=== PATIENT | female | born 1960 | race Caucasian/White ===

== ENCOUNTER 2022-11-02 10:18 | Outpatient (OUT) | payer OTHER, SELFPAY ==
--- NOTE | 2022-11-02 10:27 | MM_ITS ---
Patient: MARCELINA LLANOS Exam Date: 11/02/2022 : 1960 Gender:F Ordering : DR. EBONY SEQUEIRA . Admission #: [id number] Family : Order #: [id number] CLICK HERE TO VIEW EXAM RADIOLOGY REPORT PROCEDURE: MM TOMOSYNTHESIS SCREENING BI COMPARISON: MG MAMM SCREEN 3D GIAN CAD, 03/26/2021. MG MAMM SCREEN GIAN W CAD, 09/11/2019. MG MAMM SCREEN GIAN W CAD, 07/18/2018. MG MAMM GIAN SCRN W CAD DIG, 04/10/2013. INDICATIONS: Screening Calculator Name NCI Breast Cancer Risk Assessment Tool 5 Year Breast Cancer Risk 1.10% Lifetime Breast Cancer Risk 5.20% Personal Breast Cancer No Personal Ovarian Cancer No Treatments Thyroidectomy Family Cancers Aunt-paternal with breast cancer at age 40; Aunt-paternal with ovarian cancer at age 70; Uncle-paternal with liver cancer at age 55; Sister with skin cancer at age 50. LOCATION: [facility] BREAST COMPOSITION: Scattered areas fibroglandular density. FINDINGS: DIAGNOSTIC CATEGORY 2--BENIGN FINDING: RIGHT BREAST: No significant suspicious finding. Scattered benign-appearing calcifications are present. No significant change has occurred. LEFT BREAST: No significant suspicious finding. Scattered benign-appearing calcifications are present. No significant change has occurred. RECOMMENDATIONS: ROUTINE MAMMOGRAM AND CLINICAL EVALUATION IN 12 MONTHS. PLEASE NOTE: A NORMAL MAMMOGRAM DOES NOT EXCLUDE THE POSSIBILITY OF BREAST CANCER. A CLINICALLY SUSPICIOUS PALPABLE LUMP SHOULD BE BIOPSIED. Dictated by: Flip Gross M.D. on 11/02/2022 at 14:48 Approved by: Flip Gross M.D. on 11/02/2022 at 14:53
== END 2022-11-02 10:19 | disposition home or self-care (01) ==
LOC: MAMMO 10:21
PROVIDERS: PCP Family Medicine; Visit Provider Family Medicine
DX: Z12.31 Encounter for screening mammogram for malignant neoplasm of breast (principal); Z80.3 Family history of malignant neoplasm of breast; Z80.41 Family history of malignant neoplasm of ovary; Z80.0 Family history of malignant neoplasm of digestive organs; Z80.8 Family history of malignant neoplasm of other organs or systems
CPT/HCPCS: 77063; 77067

== ENCOUNTER 2023-03-14 14:00 | Outpatient (OUT) | payer OTHER, SELFPAY ==
--- NOTE | 2023-03-14 14:23 | XR_ITS ---
The [address] [address] Patient Name: MARCELINA LLANOS MRN: [id number] date: 1960 Sex: F Assigned Patient Location: [facility] Current Patient Location: Accession/Order Number: [id number] Exam Date: 03/14/2023 14:30 Report Date: 03/15/2023 08:05 At the request of: EBONY SEQUEIRA Procedure: XR chest 2V EXAMINATION: XR chest 2V HISTORY: Acute Respiratory Infection J06.9, Cough R05.9 ; productive cough COMPARISON: XR chest 03/20/2019 FINDINGS: LUNGS: Mild haziness and stranding within lung bases. VASCULATURE: No increased pulmonary vasculature. PLEURA: No pneumothorax, effusion, or pleural thickening. CARDIAC: No cardiomegaly or cardiac silhouette abnormality. MEDIASTINUM: No visible mass or adenopathy. BONES: No fracture or visible bone lesion. OTHER: Negative. XR/XR chest 2V IMPRESSION: 1. Trace amount of bibasilar infiltrates versus atelectasis. Electronically authenticated by: LANNY REIS Date: 03/15/2023 08:05
== END 2023-03-14 14:01 | disposition home or self-care (01) ==
LOC: RAD 14:07
PROVIDERS: PCP Family Medicine; Visit Provider Family Medicine
DX: J06.9 Acute upper respiratory infection, unspecified (principal); R05.9 Cough, unspecified
CPT/HCPCS: 71046

== ENCOUNTER 2024-03-15 15:27 | Outpatient (OUT) | payer OTHER, SELFPAY ==
--- NOTE | 2024-03-15 15:32 | MM_ITS ---
Patient Name: MARCELINA LLANOS MR#: [id number] : 1960 Exam Date: 03/15/2024 Ordering Doctor: Non-Staff Physician RADIOLOGY REPORT PROCEDURE: MM TOMOSYNTHESIS SCREENING BI COMPARISON: MM TOMOSYNTHESIS SCREENING BI, 11/02/2022. MG MAMM SCREEN 3D GIAN CAD, 03/26/2021. MG MAMM SCREEN GIAN W CAD, 09/11/2019. MG MAMM GIAN SCRN W CAD DIG, 04/10/2013. INDICATIONS: Screening Calculator Name NCI Breast Cancer Risk Assessment Tool 5 Year Breast Cancer Risk 1.10% Lifetime Breast Cancer Risk 5.00% Personal Breast Cancer No Personal Ovarian Cancer No Treatments Thyroidectomy Family Cancers Aunt-paternal with breast cancer at age 40; Aunt-paternal with ovarian cancer at age 70; Uncle-paternal with liver cancer at age 55; Sister with skin cancer at age 50. LOCATION: [facility] BREAST COMPOSITION: There are scattered areas of fibroglandular density. FINDINGS: DIAGNOSTIC CATEGORY 2--BENIGN FINDING: RIGHT BREAST: No significant suspicious finding. Scattered benign-appearing calcifications are present. No significant change has occurred. LEFT BREAST: No significant suspicious finding. Scattered benign-appearing calcifications are present. No significant change has occurred. RECOMMENDATIONS: ROUTINE MAMMOGRAM AND CLINICAL EVALUATION IN 12 MONTHS. PLEASE NOTE: A NORMAL MAMMOGRAM DOES NOT EXCLUDE THE POSSIBILITY OF BREAST CANCER. A CLINICALLY SUSPICIOUS PALPABLE LUMP SHOULD BE BIOPSIED. Dictated by: Flip Gross M.D. on 03/16/2024 at 11:26 Approved by: Flip Gross M.D. on 03/16/2024 at 11:32
== END 2024-03-15 15:28 | disposition home or self-care (01) ==
PROVIDERS: PCP Family Medicine; Visit Provider Family Medicine
DX: Z12.31 Encounter for screening mammogram for malignant neoplasm of breast (principal); Z80.3 Family history of malignant neoplasm of breast; Z80.41 Family history of malignant neoplasm of ovary; Z80.8 Family history of malignant neoplasm of other organs or systems
CPT/HCPCS: 77063; 77067

== ENCOUNTER 2024-04-19 10:43 | Outpatient (OUT) | payer OTHER, SELFPAY ==
--- NOTE | 2024-04-19 10:47 | XR_ITS ---
[address] [address] Patient Name: MARCELINA LLANOS MRN: [id number] date: 1960 Sex: F Assigned Patient Location: [facility] Current Patient Location: Accession/Order Number: [id number] Exam Date: 04/19/2024 11:15 Report Date: 04/20/2024 09:38 At the request of: NON-STAFF PHYSICIAN Procedure: XR DEXA axial skeleton EXAMINATION: XR DEXA axial skeleton HISTORY: Osteopenia COMPARISON: No relevant comparison available. TECHNIQUE: Dual-energy X-ray absorptiometry (DXA) was performed. FINDINGS: SPINE ANALYSIS: Average bone mineral density is 1.756 g/cm2. T-score (standard deviation relative to young adult mean): 4.8 . HIP ANALYSIS: Lowest bone mineral density is within the left femoral neck, 1.423 g/cm2. T-score (standard deviation relative to young adult mean): 2.8 . XR/XR DEXA axial skeleton IMPRESSION: World Health Organization Classification: Normal - Low Fracture Risk FRAX: Cannot calculate. Pharmacologic treatment recommendations * No uniform recommendation applies to all patients. Management plans must be individualized. * Consider initiating pharmacologic treatment in postmenopausal women and men >= 50 years of age who have the following: Primary fracture prevention: * T-score <= - 2.5 at the femoral neck, total hip, lumbar spine, 33% radius (some uncertainty with existing data) by DXA. * Low bone mass (osteopenia: T-score between - 1.0 and - 2.5) at the femoral neck or total hip by DXA with a 10-year hip fracture risk >= 3% or a 10-year major osteoporosis-related fracture risk >= 20% (i.e., clinical vertebral, hip, forearm, or proximal humerus) based on the [place]-adapted FRAXregistered model. Secondary fracture prevention: * Fracture of the hip or vertebra regardless of BMD [4, 5]. * Fracture of proximal humerus, pelvis, or distal forearm in persons with low bone mass (osteopenia: T-score between - 1.0 and - 2.5). The decision to treat should be individualized in persons with a fracture of the proximal humerus, pelvis, or distal forearm who do not have osteopenia or low BMD [12, 13]. Baljeet MS, Claudia SL, Estrella KL, Qi EM, Carlton KG, AJ, Jayy ES. The clinician's guide to prevention and treatment of osteoporosis. Osteoporos Int. 2021;33(10):4255-7126. doi: 10.1007/[id number]-z. Epub 2021Aug 20. Erratum in: Osteoporos Int. 2021Nov 19;: PMID: [id number]; PMCID: [id number]. Electronically authenticated by: LANNY REIS Date: 04/20/2024 09:38
--- OUTSIDE RECORDS SUMMARY | 2024-04-19 10:53 | XMS_ITS | CCD ---
Author Organization [facility] Care Team Providers Care [employer] Net Developer Name Role Phone Daniela Joseph MD Primary Care Provider MISC, DR OHARA Admitting Unavailable MISC, DR OHARA Attending Unavailable JOSEPH, DR DANIELA Bolden Primary Care Unavailable MISC, DR OHARA Consulting Unavailable MISC, DR OHARA Admitting Unavailable MISC, DR OHARA Attending Unavailable JOSEPH, DR DANIELA oBlden Primary Care Unavailable JOSEPH, DR DANIELA Bolden Consulting Unavailable JOSEPH, DR DANIELA Bolden Admitting Unavailable JOSEPH, DR DANIELA Bolden Attending Unavailable JOSEPH, DR DANIELA Bolden Primary Care Unavailable JOSEPH, DR DANIELA Bolden Consulting Unavailable JOSEPH, DR DANIELA Bolden Admitting Unavailable JOSEPH, DR DANIELA Bolden Attending Unavailable JOSEPH, DR DANIELA Bolden Primary Care Unavailable JOSEPH, DR DANIELA Bolden Consulting Unavailable SEVERINO SOMMERS Admitting Unavailable SEVERINO SOMMERS Attending Unavailable JOSEPH, DR DANIELA Bolden Primary Care Unavailable SEVERINO SOMMERS Consulting Unavailable JOSEPH, DR DANIELA Bolden Admitting Unavailable JOSEPH, DR DANIELA Bolden Attending Unavailable JOSEPH, DR DANIELA Bolden Primary Care Unavailable JOSEPH, DR DANIELA Bolden Consulting Unavailable JOSEPH, DR DANIELA Bolden Admitting Unavailable JOSEPH, DR DANIELA Bolden Attending Unavailable JOSEPH, DR DANIELA Bolden Primary Care Unavailable JOSEPH, DR DANIELA Bolden Consulting Unavailable JOSEPH, DR DANIELA Bolden Admitting Unavailable JOSEPH, DR DANIELA Bolden Attending Unavailable JOSEPH, DR DANIELA Bolden Primary Care Unavailable JOSEPH, DR DANIELA Bolden Consulting Unavailable MISC, DR OHARA Admitting Unavailable MISC, DR OHARA Attending Unavailable JOSEPH, DR DANIELA Bolden Primary Care Unavailable MISC, DR OHARA Consulting Unavailable MD Severino Sommers Attending Provider MD Smith Cedillo Primary Care Provider [phone] Severino Sommers Attending Unavailable Massiel, Ahmad Admitting Unavailable Smith Cedillo Primary Care Unavailable ALEXIS BURT Referring Unavailable DANIELA JOSEPH Primary Care Unavailable ALEXIS BURT Referring Unavailable DANIELA JOSEPH Primary Care Unavailable Smith Cedillo Primary Care Physician [phone] DANIELA JOSEPH Primary Care Unavailable FAYE, JUNIE Referring Unavailable YOGI DANIELA EDFARRUKH Primary Care Unavailable FAYE, JUNIE Attending Unavailable MASSIEL, AHMAD F Attending Unavailable MASSIEL, AHMAD F Referring Unavailable Unallocated Delfina FAITH Provider Primary Care [facility] Smith Cedillo. Attending Unavailable ALEX GARRETT Attending Unavailable Smith Cedillo Referring Unavailable Jarred Shi Attending Unavaila ble MASSIEL, AHMAD F Admitting Unavailable MASSIEL, AHMAD F Attending Unavailable Smith Cedillo. Attending Unavailable Smith Cedillo. Admitting Unavailable Smith Cedillo. Attending Unavailable Smith Cedillo. Admitting Unavailable Smith Cedillo. Attending Unavailable Smith Cedillo. Admitting Unavailable Smith Cedillo. Attending Unavailable Smith Cedillo. Attending Unavailable Smith Cedillo. Attending Unavailable ALEX GARRETT Attending Unavailable Smith Cedillo. Attending Unavailable Smith Cedillo. Attending Unavailable Smith Cedillo. Attending Unavailable Smith Cedillo. Attending Unavailable Smith Cedillo. Attending Unavailable Smith Cedillo. Attending Unavailable Smith Cedillo. Attending Unavailable Daniela Joseph MD Primary Care Provider ALEXIS BURT Attending Unavailable DANIELA JOSEPH Referring Unavailable DANIELA JOSEPH Primary Care Unavailable MASSIEL, AHMAD F Attending Unavailable MASSIEL, AHMAD F Admitting Unavailable MD Smith Cedillo Attending Unavailable COLIN Mendoza Attending Unavailable MD Smith Cedillo Attending Unavailable Allergies Allergy Classification Reported Allergen(s) Allergy Type Date of Onset Reaction(s) Facility (7 sources) oxybutynin; Translations: [OXYBUTYNIN] Drug Allergy 3 Other, Other (See Comments) [facility] (8 sources) predniSONE; Translations: [PREDNISONE] Drug Allergy 9 Unknown [facility] (5 sources) tolterodine; Translations: [TOLTERODINE] Drug Allergy 3 Other, Other (See Comments) [facility] (5 sources) Trospium; Translations: [TROSPIUM] Drug Allergy 3 Other, Other (See Comments) [facility] (7 sources) Clarithromycin; Translations: [clarithromycin] Drug Allergy 4 Diarrhea (finding) [facility] (6 sources) Anabolic steroid (substance); Translations: [anabolic steroids] Drug allergy Feeling angry (finding) [facility] (4 sources) Amoxicillin / Clavulanate; Translations: [amoxicillin-clavu lanate] Drug Allergy Diarrhea (finding) [facility] (3 sources) Clarithromycin Allergy to substance 4 Diarrhea [facility] Medications Current Medications Medication Drug Class(es) Dates Sig (Normalized) Sig (Original) albuterol 0.83 mg/ml inhalation solution (9 sources) beta2-Adrenergic Agonist Start: 08-02-2023 albuterol 0.083% Inh Mandie 3 mL See Instructions, 300 mL, Refill(s) 10, INHALE CONTENTS OF 1 VIAL (3 ML) EVERY 6 HOURS AND NEEDED, [facility], 173, cm, 06/30/23 13:55:00 EST, Height/Length Dosing, 139.9, kg, 06/30/23 13:55:00 EST, Weight Dosing Start Date: 08/02/23 Status: Ordered Start: 06-29-2022 take 2.5 mg by inhal ation every six hours as needed albuterol 0.083% Inh Mandie 3 mL 2.5 mg, 3 mL, Inhalation, q6hr, 100 EA, Refill(s) 1, Q6H and PRN. Please give to the nearest box., [facility] Start Date: 06/29/22 Status: Ordered Start: 10-18-2018 PROAIR HFA 90 mcg/actuation inhaler 10/18/2018 Active albuterol (2.5 M G/3ML) 0.083% nebulizer solution Take 3 mL by nebulization every 8 (eight) hours if needed for wheezing Active Albuterol (Eqv-ProAir HFA) 90 mcg/inh inhalation aerosol (2 sources) Start: 07-27-2022 take 2 puff(s) by inhalation every six hours Albuterol (Eqv-ProAir HFA) 90 mcg/inh inhalation aerosol 2 puff(s), Inhalation, q6hr, 8.5 gm, Refill(s) 1, [facility] #[id number], 173.5, cm, 07/27/22 13:52:00 EDT, Height/Length Dosing, 135.6, kg, 07/27/22 13:52:00 EDT, Weight Dosing Start Date: 07/27/22 Status: Ordered amoxicillin 500 mg oral capsule (1 source) Penicillin-class Antibacterial Start: 05-19-2023 End: 05-26-2023 take 1 capsule by mouth twice daily amoxicillin 500 mg Cap 500 mg = 1 cap(s), Oral, BID, X 7 day(s), # 14 cap(s), Refills(s) 0, Pharmacy: [facility] #[id number], 173, cm, 05/19/23 9:12:00 EST, Height/Length Dosing, 139.3, kg, 05/19/23 9:12:00 EST, Weight Dosing Start Date: 05/19/23 Stop Date: 05/26/23 Status: Ordered Ascorbic Acid (2 sources) Vitamin C ascorbic acid (V YOGI-C ORAL) Take by mouth. Active benzonatate 200 mg oral capsule (1 source) Non-narcotic Antitussive Start: 05-19-2023 End: 05-26-2023 take 1 capsule by mouth three times daily benzonatate 200 mg oral capsule 200 mg = 1 cap(s), Oral, TID, X 7 day(s), # 21 cap(s), Refills(s) 0, [facility]acy: [email or web address] #[id number], 173, cm, 05/19/23 9:12:00 EST, Height/Length Dosing, 139.3, kg, 05/19/23 9:12:00 EST, Weight Dosing Start Date: 05/19/23 Stop Date: 05/26/23 Status: Ordered calcitriol 0.0005 mg oral capsule (2 sources) Vitamin D3 Analog Start: 01-31-2024 End: 04-30-2024 take 1 capsule by mouth once daily calcitriol (Rocaltrol) 0.5 MCG capsule Indications: Postsurgical hypoparathyroidism (CMS/HCC) Take 1 capsule (0.5 mcg) by mouth Daily 90 capsule 01/31/2024 04/30/2024 Active calcium carbonate 1500 mg / cholecalciferol 800 unt chewable tablet (5 sources) Vitamin D Calcium Carb-Cholecalciferol 600-20 MG-MCG chewable tablet Chew 1 tablet in the morning and 1 tablet at noon and 1 tablet in the evening. Active take 1 tablet by sylvia th three times daily calcium carbonate-vitamin D3 (CALTRATE 6 00 + D) 600 mg (1,500 mg)-800 unit chew Take 1 tablet by mouth three times daily. 0 Active Comment on above: Take 1 tablet by sylvia th three times daily. cephalexin 500 mg oral capsule (2 sources) Cephalosporin Antibacterial Start: 03-06-20 CEPHalexin (KEFLEX) 500 mg capsule Take 1 capsule (500 mg total) by mouth. 03/06/2024 Active cholecalciferol 0.125 mg oral tablet (5 sources) Vitamin D Start: 02-04-20 take 1 tablet by mouth once in the morning D-5000 125 MCG (5000 UT) tablet Take 5,000 Units by mouth in the morning. 02/03/2023 Active take 1 capsule by mo [facility] every other day, then take 2 capsules by mouth once daily cholecalciferol, vitamin D3, (VITAMIN D3 ) 5,000 units capsule Take 1 capsule (5,000 Units total) by mouth every other day. Takes two capsules daily. Active citalopram 40 mg oral tablet (11 sources) Serotonin Reuptake Inhibitor Start: 08-22-2023 take 1 tablet by mouth once daily citalopram (CeleXA) 40 MG tablet Take 40 mg by mouth Daily 10/24/2023 Active Start: 04-26-2023 citalopram 40 mg Tab 20 mg = 0.5 tab(s), Oral, Daily, # 90 tab(s), Refills(s) 0, Pharmacy: [email or web address] #[id number], 173, cm, 04/26/23 10:14:00 EST, Height/Length Dosing, 140.2, kg, 04/26/23 10:14:00 EST, Weight Dosing Start Date: 04/26/23 Status: Ordered Start: 04-26-2023 take 1 tablet by sylvia once daily citalopram 40 mg Tab 40 mg = 1 tab(s), Oral, Daily, # 90 tab(s), Refills(s) 0, Pharmacy: [facility] #[id number], 173, cm, 04/26/23 10:14:00 EST, Height/Length Dosing, 140.2, kg, 04/26/23 10:14:00 EST, Weight Dosing Start Date: 04/26/23 Status: Ordered citalopram (Jenniffer XA) 20 mg tablet Take 1 tablet (20 mg total) by mouth. Active Comment on above: Take 20 mg by mouth daily at bedtime. estradiol 0.1 mg/ml vaginal cream (2 sources) Estrogen Start: 11-20-19 estradioL (ESTRACE) 0.01 % (0.1 mg/gram) vaginal cream INSERT 1 GRAM VAGINALLY 2 TO 3 TIMES WEEKLY 42.5 g 2 11/19/2020 Active fluconazole 150 mg oral tablet (2 sources) Azole Antifungal Start: 06-30-19 fluconazole 150 mg Tab See Instructions, Take one tablet at the onset of symptoms; may repeat in 72 hours, # 2 tab(s), Refills(s) 0, Pharmacy: [email or web address] #[id number], 173, cm, 06/30/23 13:55:00 EST, Height/Length Dosing, 139.9, kg, 06/30/23 13:55:00 EST, Weight Dosing Start Date: 06/30/23 Status: Ordered 120 actuat fluticasone propionate 0.22 mg/actuat metered dose inhaler (8 sources) Corticosteroid Start: 03-14-20 take 1 puff(s) by inhalation twice daily Flovent HFA 220 Aerosol = 1 puff(s), Inhalation, BID, # 12 gram, Refills(s) 0, Pharmacy: [email or web address] #[id number], 173, cm, 03/14/23 13:44:00 EST, Height/Length Dosing, 140, kg, 03/14/23 13:44:00 EST, Weight Dosing Start Date: 03/14/23 Status: Ordered Start: 07-27-2022 Flonase 0.05 m g/inh Webster 2 spray(s), Nasal, Daily, 16 gram, Refill(s) 0, each nostril, [facility] #[id number], 173.5, cm, 07/27/22 13:52:00 EDT, Height/Length Dosing, 135.6, kg, 07/27/22 13:52:00 EDT, Weight Dosing Start Date: 07/27/22 Status: Ordered levothyroxine sodium 0.125 mg oral tablet (11 sources) l-Thyroxine Start: 10-24-2023 End: 04-30-2024 take 1 tablet by mouth once daily levothyroxine (Synthroid, Levoxyl) 125 MCG tablet Indications: Postoperative hypothyroidism (CMS/HCC) Take 1 tablet (125 mcg) by mouth Daily 34 tablet 2 01/31/2024 04/30/2024 Active Start: 08-30-2023 take 1 tablet by sylvia th once daily levothyroxine 125 mcg (0.125 mg) Tab See Instructions, take 1 tablet by mouth once daily, # 90 tab(s), Refills(s) 0, Pharmacy: [facility] #[id number], 173, cm, 08/22/23 11:06:00 EDT, Height/Length Dosing, 140, kg, 08/22/23 11:06:00 EDT, Weight Dosing Start Date: 08/30/23 Status: Ordered Start: 08-30-2022 take 1 tablet by sylvia th once daily levothyroxine 125 mcg (0.125 mg) Tab 125 mcg = 1 tab(s), Oral, Daily, # 90 tab(s), Refills(s) 3, Pharmacy: [facility] #[id number], 173.5, cm, 07/27/22 13:52:00 EDT, Height/Length Dosing, 135.6, kg, 07/27/22 13:52:00 EDT, Weight Dosing Start Date: 08/30/22 Status: Ordered Start: 07-22-2020 levothyroxine (SYNTHROID) 125 mcg tablet TAKE 1 TABLET DAILY 90 tablet 3 07/22/2020 Active Comment on above: TAKE 1 TABLET DAILY losartan potassium 25 mg oral tablet (11 sources) Angiotensin 2 Receptor Majo Start: 10-18-2018 losartan (COZAAR) 25 mg tablet 10/18/2018 Active Comment on above: Take 25 mg by mouth once daily. magnesium gluconate 250 mg oral tablet (3 sources) Start: 05-19-2023 take 3 tablets by mouth once daily magnesium gluconate 250 mg oral tablet See Instructions, Refill(s) 0, 3 orally daily Start Date: 05/19/23 Status: Ordered take 1 tablet by sylvia th in the morning, then take 1 tablet by mouth in the evening, then take 1 tablet by mouth at bedtime magnesium, as gluconate, (Magonate) 500 (27 Mg) MG tablet Take 275 mg by mouth in the morning and 275 mg in the evening and 275 mg before bedtime. Active magnesium oxide 400 mg oral tablet (8 sources) Start: 12-10-2023 take 1 tablet by mouth once daily magnesium oxide (Mag-Ox) 400 (240 Mg) MG tablet Take 1 tablet by mouth Daily 12/10/2023 Active Start: 03-15-2023 take 2 tablets by [facility] twice daily magnesium oxide 400 mg Tab 800 mg = 2 tab(s), Oral, BID, # 360 tab(s), Refills(s) 1, Pharmacy: [facility], 173, cm, 03/14/23 13:44:00 EST, Height/Length Dosing, 140, kg, 03/14/23 13:44:00 EST, Weight Dosing Start Date: 03/15/23 Status: Ordered Start: 10-16-2021 take 1 tablet by sylvia in the morning magnesium oxide (MAGOX) 400 mg tablet Take 1 tablet (400 mg total) by mouth in the morning. 10/16/2021 Active take 1 capsule by [facility] once daily, then take 1 capsule by mouth three times daily magnesium oxide 400 mg magnesium cap Take 400 mg by mouth once daily. Sun Sat - 400 mg TID Tue - 400 mg BID 0 Active Comment on above: Take 400 mg by mouth once daily. Sun Sat - 400 mg TID Tue - 400 mg BID melatonin 1 mg oral tablet (2 sources) melatonin (CIRCADIN) tablet Take by mouth nightly. Active methylPREDNISolone 4 mg oral tablet (1 source) Corticosteroid Start: End: Medrol 4 mg Tab = 1 packet(s), Oral, As Directed, as directed on package labeling, X 6 day(s), # 21 tab(s), Refills(s) 0, [facility]: [facility] #[id number], 173, cm, 05/19/23 9:12:00 EST, Height/Length Dosing, 139.3, kg, 05/19/23 9:12:00 EST, Weight Dosing Start Date: 05/19/23 Stop Date: 05/25/23 Status: Ordered 24 hr metoprolol succinate 50 mg extended release oral tablet (11 sources) beta-Adrenergic Majo Start: 023 take 1 tablet by mouth once daily metoprolol succinate 50 mg ER Tab 50 mg = 1 tab(s), Oral, Daily, # 90 tab(s), Refills(s) 1, Pharmacy: [facility], 173, cm, 10/25/23 11:13:00 EDT, Height/Length Dosing, 142, kg, 10/25/23 11:13:00 EDT, Weight Dosing Start Date: 11/10/23 Status: Ordered Start: 11-26-2018 TOPROL XL 50 m g 24 hr tablet 11/26/2018 Active Start: 04-10-2012 take 1 tablet by sylvia th once daily metoprolol succinate XL, long acting, 25 mg 24 hr tablet Take 1 tablet by mouth once daily. 60 tablet 3 04/10/2012 Active Comment on above: Take 1 tablet by sylvia th once daily. 24 hr mirabegron 50 mg extended release oral tablet (10 sources) beta3-Adrenergic Agonist Start: 01-27-2023 take 1 tablet by mouth every twenty-four hours in the morning Myrbetriq 50 MG 24 hr tablet Take 1 tablet by mouth in the morning. 01/27/2023 Active Start: 06-29-2022 End: 03-13-2024 take 1 tablet by mouth once daily in the morning mirabegron (MYRBETRIQ) 50 mg tablet extended release 24 hr Indications: Mixed stress and urge urinary incontinence take 1 tablet by mouth every morning 90 tablet 3 03/13/2024 Active mupirocin 0.02 mg/mg topical ointment (6 sources) RNA Synthetase Inhibitor Antibacterial Start: 08-02-2023 mupirocin Top 2% Oint See Instructions, 22 gm, Refill(s) 51, APPLY 1 APPLICATION TOPICALLY THREE TIMES A DAY, [facility], 173, cm, 06/30/23 13:55:00 EST, Height/Length Dosing, 139.9, kg, 06/30/23 13:55:00 EST, Weight Dosing Start Date: 08/02/23 Status: Ordered Start: 10-30-2018 mupirocin (SILVER TROBAN) 2 % ointment apply to affected area three times a day if needed 0 10/30/2018 Active 14 actuat parathyroid hormone 0.075 mg/actuat cartridge (10 sources) Parathyroid Hormone Start: 12-11-2018 NATPARA 75 mcg/dose cartridge 12/11/2018 Active Comment on above: Inject 75 mcg subcut aneously once daily. Vitamin C 500 mg oral tablet, chewable (4 sources) Start: 07-27-2022 take 1 tablet by mouth once daily Vitamin C 500 mg oral tablet, chewable 500 mg = 1 tab(s), Chewed, Daily, # 30 tab(s), Refills(s) 0 Start Date: 07/27/22 Status: Ordered Vitamin D3 10,000 intl units oral capsule (4 sources) Start: 07-27-2022 take 1 capsule by mouth once daily Vitamin D3 10,000 intl units oral capsule See Instructions, 5000 units a day, Refills(s) 0 Start Date: 07/27/22 Status: Ordered Completed/Discontinued Medications Medication Drug Class(es) Dates Sig (Normalized) Sig (Original) COMPOUNDED PRESCRIPTION (2 sources) take 1 capsule by mouth at bedtime COMPOUNDED PRESCRIPTION Sleepessence, one capsule by mouth at bedtime 0 Active Comment on above: Sleepessence, one ca psule by mouth at bedtime ergocalciferol, vitamin D2, (VITAMIN D2 ORAL) (1 source) End: 03-04-2022 take 24914 [IU] by mouth every week ergocalciferol, vitamin D2, (VITAMIN D2 ORAL) Take 50,000 Units by mouth one time a week. 0 03/04/2022 Discontinued Comment on above: Take 50,000 Units by mouth one time a week. Misc Medication (6 sources) Start: 08-22-2023 Misc Medication See Instructions, magnsium glyconate 275mg Take 3 orally twice a day Start Date: 08/22/23 Status: Ordered Start: 07-27-2022 Misc Medicatio n 1 capsuled QD of Focus Factor Start Date: 07/27/22 Status: Ordered phentermine hydrochloride 37.5 mg oral capsule (2 sources) Sympathomimetic Amine Anorectic Start: 02-27-2024 End: 03-13-2024 phentermine 37.5 MG capsule Take 1 capsule (37.5 mg total) by mouth. 02/27/2024 03/13/2024 Discontinued Start: 01-24-2024 take 1 capsule by [facility] once daily Adipex-P 37.5 mg oral capsule 37.5 mg = 1 cap(s), Oral, Daily, # 30 cap(s), Refills(s) 0, Pharmacy: [facility] #[id number], 173, cm, 01/24/24 9:44:00 EDT, Height/Length Dosing, 141.7, kg, 01/24/24 9:44:00 EDT, Weight Dosing Start Date: 01/24/24 Status: Ordered tetracycline hydrochloride 500 mg oral capsule (2 sources) Tetracycline-class Antimicrobial tetracycline (SUMYCI N) 500 mg cap Take 500 mg by mouth once daily. Pt takes 1-2 times Daily 0 Active Comment on above: Take 500 mg by mouth once daily. Pt takes 1-2 times Daily vitamin D3-folic acid 250 mcg (10,000 unit)-1 mg tab (2 sources) Start: 03-04-2022 vitamin D3-folic acid 250 mcg (10,000 unit)-1 mg tab Take one(1) tablet daily. Ok to substitute 30 tablet 1 03/04/2022 Active Start: 03-04-2022 End: 03-04-2022 vitamin D3-folic acid 250 mc g (10,000 unit)-1 mg tab Take one(1) tablet daily. Ok to substitute 30 tablet 1 03/04/2022 03/04/2022 Discontinued Comment on above: Take one(1) tablet d aily. Ok to substitute Problems Active Problems Problem Classification Problem Date Documented Date Episodic/Chronic Acquired foot deformities (2 sources) Acquired hallux malleus; Translations: [Other hammer toe(s) (acquired), unspecified foot] Onset: 4 04-09-2014 Chronic Administrative/socia l admission (5 sources) Patient encounter status; Translations: [Dietary counseling and surveillance] 01-31-2024 Episodic Anxiety disorders (4 sources) Anxiety 07-27-2022 Chronic Asthma (4 sources) Exercise-induced asthma 07-27-2022 Chronic Cancer of thyroid (4 sources) Malignant neoplasm of thyroid gland; Translations: [Malignant tumor of thyroid gland] Onset: 4 06-30-2023 Chronic Cancer of thyroid (4 sources) History of malignant neoplasm of thyroid 07-27-2022 Episodic Comment on above: thyroid was removed in 2009 Cardiac and circulatory congenital anomalies (6 sources) Perimembranous ventricular septal defect ; Translations: [Ventricular septal defect] Onset: 2 04-14-2012 Chronic Complications of surgical procedures or medical care (9 sources) Postprocedural hypothyroidism; Translations: [Postoperative hypothyroidism] Onset: 2 Chronic Essential hypertension (2 sources) Hypertensive disorder; Translations: [Essential (primary) hypertension] Onset: 2 04-14-2012 Chronic Genitourinary symptoms and ill-defined conditions (7 sources) Mixed urinary incontinence; Translations: [Mixed incontinence] Onset: 9 03-13-2024 Chronic Nutritional deficiencies (11 sources) Vitamin D deficiency, unspecified; Translations: [Vitamin D deficiency] Onset: 2 Chronic Nutritional deficiencies (4 sources) Calcium deficiency 07-27-2022 Episodic Other connective tissue disease (1 source) Lateral epicondylitis 10-25-2023 Episodic Other endocrine disorders (5 sources) Hypoparathyroidism, unspecified; Translations: [HYPOPARATHYROIDISM UNSPECIFIED] Onset: 2 Chronic Other endocrine disorders (4 sources) Hypoparathyroidism 07-27-2022 Chronic Other lower respiratory disease (2 sources) Cough 05-19-2023 Episodic Other nutritional; endocrine; and metabolic disorders (2 sources) Body mass index 30+ - obesity; Translations: [Obesity, unspecified] Onset: 2 04-14-2012 Chronic Other nutritional; endocrine; and metabolic disorders (3 sources) Hypocalcemia; Translations: [Hypocalcemia] Onset: 7 03-14-2017 Chronic Other nutritional; endocrine; and metabolic disorders (5 sources) Hypomagnesemia; Translations: [HYPOMAGNESEMIA] Onset: 2 Chronic Other nutritional; endocrine; and metabolic disorders (5 sources) Hypocalcemia; Translations: [HYPOCALCEMIA] Onset: 7 Chronic Other nutritional; endocrine; and metabolic disorders (4 sources) Body mass index 40+ - severely obese 03-14-2023 Chronic Other nutritional; endocrine; and metabolic disorders (1 source) Obesity, unspecified; Translations: [Obesity (BMI 35.0-39.9 without comorbidity)] Onset: 2 Chronic Other nutritional; endocrine; and metabolic disorders (2 sources) Hypomagnesemia; Translations: [Hypomagnesemia] 01-31-2024 Chronic Other nutritional; endocrine; and metabolic disorders (2 sources) Severe obesity; Translations: [Class 3 severe obesity due to excess calories without serious comorbidity with body mass index (BMI) of 45.0 to 49.9 in adult ([facility])] 01-31-2024 Chronic Other screening for suspected conditions (not mental disorders or infectious disease) (2 sources) Encounter for screening mammogram for malignant neoplasm of breast; Translations: [Encounter for screening for osteoporosis] Onset: 4 Episodic Pleurisy; pneumothorax; pulmonary collapse (3 sources) Atelectasis 03-23-2023 Episodic Prolapse of female genital organs (1 source) Other female genital prolapse; Translations: [Other female genital prolapse] Onset: 3 Chronic Residual codes; unclassified (6 sources) Obstructive sleep apnea syndrome; Translations: [Obstructive sleep apnea (adult) (pediatric)] Onset: 2 04-14-2012 Chronic Thyroid disorders (7 sources) Hypothyroidism; Translations: [Other specified hypothyroidism] Onset: 7 03-15-2017 Chronic Unclassified (4 sources) Non-smoker 03-14-2023 Unclassified (1 source) Annual Exam Onset: 4 Past or Other Problems Problem Classification Problem Date Documented Da te Episodic/Chronic Malaise and fatigue (2 sources) Fatigue; Translations: [Other fatigue] Onset: 04-14-2012 04-14-2012 Episodic Nausea and vomiting (2 sources) Nausea; Translations: [Nausea] Onset: 03-14-2017 03-14-2017 Episodic Nonspecific chest pain (2 sources) Atypical chest pain; Translations: [Other chest pain] Onset: 04-14-2012 04-14-2012 Episodic Other connective tissue disease (2 sources) Enthesopathy of ankle AND/OR tarsus; Translations: [Other enthesopathy of unspecified foot and ankle] Onset: 04-09-2014 04-09-2014 Episodic Other connective tissue disease (2 sources) Enthesopathy; Translations: [Enthesopathy, unspecified] Onset: 04-09-2014 04-09-2014 Episodic Unclassified (2 sources) Onset: 12-18-2018 12-18-2018 Urinary tract infections (4 sources) Urinary tract infection, site not specified; Translations: [UTI SITE NOT SPECIFIED] Onset: 11-17-2021 Episodic Results Test Name Value Interpretation Reference Range Facility Ambulatory Visit Summaryon 1 05-28-2023 Ambulatory Visit Summary Ambulatory Visi t Summary MARCELINA CANO :1960 Visit Date:03/27/2024 Ambulatory Visit Instructions Your Diagnosis Adult BMI 45.0-49.9 kg/sq m Morbid obesity with BMI of 45.0-49.9, adult Nonsmoker Your Care Team Attending Physician - Smith Cedillo MD Primary Care Physician - Smith Cedillo MD This Is Your Medications List Non-Formulary Medication (Misc Medication) Non-Formulary Medication (Misc Medication) albuterol (albuterol 0.083% Inh Mandie 3 mL) ascorbic acid (Vitamin C 500 mg oral tablet, chewable) cholecalciferol (Vitamin D3 10,000 intl units oral capsule) citalopram (citalopram 40 mg Tab) fluticasone (Flovent HFA 220 Aerosol) fluticasone nasal (Flonase 0.05 mg/inh Webster) levothyroxine (levothyroxine 125 mcg (0.125 mg) Tab) losartan (losartan 25 mg Tab) metoprolol (metoprolol succinate 50 mg ER Tab) mirabegron (Myrbetriq 50 mg oral tablet, extended release) mupirocin topical (mupirocin Top 2% Oint) parathyroid hormone (Natpara 75 mcg/dose subcutaneous injection) Procedures Performed Cholecystectomy and exploration of bile duct, Colonoscopy, Hysterectomy, Thyroidectomy. Discharge Vitals Temperature (Temporal Artery) 36.7 ???C Heart Rate (Peripheral) 74 Respiratory Rate 16 Blood Pressure 144/92 Height 173 cm Height 68 in Weight 140.9 kg Weight 310.631 lb BMI 47.08 What to do next Scheduled Follow-Up Appointments Tuesday 10:30 AM EST With: Mamadou FAITH, Smith Timmons Where: [place] [id number]- Medications What How Much When Why Instructions Unchanged albuterol (albuterol 0.083% Inh Mandie 3 mL) See instructions INHALE CONTENTS OF 1 VIAL (3 ML) EVERY 6 HOURS AND NEEDED Unchanged ascorbic acid (Vitamin C 500 mg oral tablet, chewable) 1 Tablets Chewed Every day Unchanged cholecalciferol (Vitamin D3 10,000 intl units oral capsule) See instructions 5000 units every other day Unchanged citalopram (citalopram 40 mg Tab) 0.5 Tablets By Mouth Every day Unchanged fluticasone (Flovent HFA 220 Aerosol) 1 Puffs Inhalation 2 times a day Acute URI Cough Unchanged fluticasone nasal (Flonase 0.05 mg/ inh Webster) 2 Sprays Nasal Inhalation Every day each nostril Unchanged levothyroxine (levothyroxine 125 mcg (0.125 mg) Tab) See instructions take 1 tablet by mouth once daily Unchanged losartan (losartan 25 mg Tab) See instructions TAKE 1 TABLET DAILY Unchanged metoprolol (metoprolol succinate 50 mg ER Tab) 1 Tablets By Mouth Every day Unchanged mirabegron (Myrbetriq 50 mg oral tablet, extended release) 30 EA, take 1 tablet by mouth every morning Unchanged mupirocin topical (mupirocin Top 2% Oint) See instructions APPLY 1 APPLICATION TOPICALLY THREE TIMES A DAY Unchanged Non-Formulary Medication (Misc Medication) See instructions magnsium glyconate 275mg Take 3 orally twice a day Unchanged Non-Formulary Medication (Misc Medication) See instructions 2 capsules of the focus factor daily Unchanged parathyroid hormone (Natpara 75 mcg/ dose subcutaneous injection) 75 Microgram Subcutaneous Every day Allergies anabolic steroids (Angry) Biaxin (Diarrhea) Augmentin (Diarrhea) Problems Ongoing - Any problem that you are currently receiving treatment for. Anxiety Asthma, exercise induced Calcium deficiency Hx of thyroid cancer Hypoparathyroidism Hypothyroidism Labial cyst Nonsmoker Obesity, Class III, BMI 40-49.9 (morbid obesity) JESSICA on CPAP Tennis elbow Ventricular septal defect (VSD) Vitamin D deficiency Patient Survey You may receive a survey via text or e-mail asking about your office visit. Please share your experience with us by completing your survey. We appreciate your feedback and thank you for choosing us for your care. Bridger Rios [facility] Family Medicine Office/Clini c Noteon 03-27-2024 Family Medicine Office/Clinic Note Family Medicine Office/Clinic Note Chief Complaint The patient presents with difficulty sleeping and is considering weight management strategies. HPI Staff Marcelina is a 63 year old female presenting for one month follow up weight Weight management Sleeping well:Yes, 6-8 hours no not sleeping well at all, 3-5 Chest pain:No Tremors:No Headaches:No Heart fluttering:No Blurred Vision:No Starting Weight: 311.74 Weight last visit: 308. Weight this visit: 310. questions/concerns: stopped the weight loss pill was binding her up and couldn't sleep Would like a different avenue for the weight did mention provitalize to you unsure if should proceed with that History of Present Illness The patient is a 63-year-old female presenting with sleep disturbances. She reports an inability to sleep well and notes she has been feeling bound up recently. She uses two digestive supplements to maintain normal function. Her sleep issues persist despite using a chewable supplement from [place] that previously helped her achieve sleep. She reports being out of this supplement and experiencing sleep disruptions. She discusses using THC with CBD. However, she is cautious with dosages and still trials variations for optimal rest. Regarding weight management, she is exploring alternative methods, including considering options like Wegovy and weight loss injections, particularly due to the high costs through prescription versus online alternatives. She is looking to invest in weight loss solutions that fit her financial concerns, noting a difference in pricing from $1,600 to $100 a month through different sources. The discussion also touches on buying through compounding pharmacies, which offer prices in the range of $200 to $300. Patient is also having issues with her hypocalcemia. Patient is seeing Dr. Sommers but is concerned that medication that she has will no longer be covered. Review of Systems PHQ Score Initial Depression Screen Score: 0 SCORE Physical Exam Vitals & Measurements T: 36.7 ???C(Temporal Artery) HR: 74(Peripheral) RR: 16 BP: 144/92 SpO2: 95% HT: 68 in HT: 173 cm WT: 140.9 kg WT: 310.631 lb BMI: 47.08 General: alert, no acute distress ENMT: oral mucosa moist Cardiovascular: Regular rate and rhythm, normal peripheral perfusion Respiratory: Lungs clear to auscultation, respirations non labored Extremities: no deformity, no trauma Neurological: oriented x 4, level of consciousness appropriate for age, CN II-XII intact, motor strength equal & normal bilaterally, speech normal Abdomen: Soft, Non-tender, Non-distended, + Bowel sounds Assessment/Plan 1. Sleep disorder, unspecified (G47.9) Explored the use of CVD and THC for relaxation and sleep. Addressed potential challenges with dosing consistency in THC products. Highlighted issues with federal regulations prohibiting controlled substances alongside THC. Introduced alternative weight loss medications with possible sleep benefits. 2. Adult BMI 45.0-49.9 kg/sq m (Z68.42: Body mass index [BMI] 45.0-49.9, adult) BMI education added 3. Morbid obesity with BMI of 45.0-49.9, adult (E66.01: Morbid (severe) obesity due to excess calories) Discussed viable weight management strategies, including the possibility of using Wegovy or other weight loss injections. The patient is considering online services due to cost concerns ($100/month versus $1,600/month traditionally). Emphasized exercise and dietary changes as crucial adjuncts. Recommended verifying the legitimacy and safety of online medications and discussing potential adverse effects. 4. Nonsmoker (Z78.9: Other specified health status) Please continue not to smoke 5. Hypoparathyroidism (E20.9: Hypoparathyroidism, unspecified) 6. Calcium deficiency (E58: Dietary calcium deficiency) Orders: citalopram, 20 mg = 0.5 tab(s), Oral, Daily, # 90 tab(s), Refills(s) 1, Pharmacy: [facility] #[id number], 173, cm, 08/22/23 11:06:00 EDT, Height/Length Dosing, 140, kg, 08/22/23 11:06:00 EDT, Weight Dosing 63-year-old female with history of morbid obesity presenting with sleep disturbances and seeking weight management strategies. Her morbid obesity, with a documented BMI between 45.0 and 49.9 kg/sqm, poses significant health risks, and the patient is considering medication options to manage her condition. Sleep disturbances are also noted, possibly exacerbated by her weight and use of supplements. Follow-up No qualifying data available Problem List/Past Medical History Ongoing Anxiety Asthma, exercise induced Calcium deficiency Hx of thyroid cancer Hypoparathyroidism Hypothyroidism Labial cyst Nonsmoker Obesity, Class III, BMI 40-49.9 (morbid obesity) JESSICA on CPAP Tennis elbow Ventricular septal defect (VSD) Vitamin D deficiency Historical No qualifying data Procedure/Surgical History Cholecystectomy and exploration of bile duct, Colonoscopy, Hysterectomy, Thyroidectomy. Medications albuterol 0.083% Inh Mandie 3 (more content not included)... Normal [facility] Comment on above: Result Comment: Elec tronically Signed By: Mamadou FAITH, Smith Timmons\.br\Date and Time Signed: 03/27/24 12:44 EST DBT Breast - bilateral alisha irenejorge 03-26-2024 Interpretation and review of laboratory results Normal [facility] Diagnostic Category 2-- Benign Recommendations: Routine mammogram and clinical evaluation in 12 months. PENRAD FINDINGS: Diagnostic category 2--Benign Finding: Right breast: No significant suspicious finding. Scattered benign- appearing calcifications are present. No significant change has occurred. Left breast: No significant suspicious finding. Scattered benign - appearing calcifications are present. No significant change has occurred. [facility] D[facility] Breast - bilateral alisha irenejorge 03-15-2024 Radiology Study observation (narrative) [facility] Ambulatory Visit Summaryon 1 05-06-2023 Ambulatory Visit Summary Ambulatory Visi t Summary MARCELINA CANO :1960 Visit Date:03/06/2024 Ambulatory Visit Instructions Your Diagnosis BMI 45.0-49.9, adult Nonsmoker Your Care Team Attending Physician - Shweta Salazar Primary Care Physician - Smith Cedillo MD This Is Your Medications List Non-Formulary Medication (Misc Medication) Non-Formulary Medication (Misc Medication) albuterol (albuterol 0.083% Inh Mandie 3 mL) ascorbic acid (Vitamin C 500 mg oral tablet, chewable) cephalexin (Keflex 500 mg Cap) cholecalciferol (Vitamin D3 10,000 intl units oral capsule) citalopram (citalopram 40 mg Tab) fluconazole (fluconazole 150 mg Tab) fluticasone (Flovent HFA 220 Aerosol) fluticasone nasal (Flonase 0.05 mg/inh Webster) levothyroxine (levothyroxine 125 mcg (0.125 mg) Tab) losartan (losartan 25 mg Tab) metoprolol (metoprolol succinate 50 mg ER Tab) mirabegron (Myrbetriq 50 mg oral tablet, extended release) mupirocin topical (mupirocin Top 2% Oint) parathyroid hormone (Natpara 75 mcg/dose subcutaneous injection) Procedures Performed Cholecystectomy and exploration of bile duct, Colonoscopy, Hysterectomy, Thyroidectomy. Discharge Vitals Temperature (Tympanic) 37.2 ???C Heart Rate (Peripheral) 74 Respiratory Rate 18 Blood Pressure 138/78 Height 173 cm Height 68 in Weight 138.15 kg Weight 304.568 lb BMI 46.16 What to do next Scheduled Follow-Up Appointments 2023 9:30 AM EST With: Mamadou FAITH, Smith Timmons Where: [place] [phone]- Medications What How Much When Why Instructions Unchanged albuterol (albuterol 0.083% Inh Mandie 3 mL) See instructions INHALE CONTENTS OF 1 VIAL (3 ML) EVERY 6 HOURS AND NEEDED Unchanged ascorbic acid (Vitamin C 500 mg oral tablet, chewable) 1 Tablets Chewed Every day Unchanged cephalexin (Keflex 500 mg Cap) 1 Capsules By Mouth Every 12 hours Pickup at [facility] Unchanged cholecalciferol (Vitamin D3 10,000 intl units oral capsule) See instructions 5000 units every other day Unchanged citalopram (citalopram 40 mg Tab) 1 Tablets By Mouth Every day Unchanged fluconazole (fluconazole 150 mg Tab) See instructions Sinusitis nasal Take one tablet at the onset of symptoms; may repeat in 72 hours Unchanged fluticasone (Flovent HFA 220 Aerosol) 1 Puffs Inhalation 2 times a day Acute URI Cough Unchanged fluticasone nasal (Flonase 0.05 mg/ inh Webster) 2 Sprays Nasal Inhalation Every day each nostril Unchanged levothyroxine (levothyroxine 125 mcg (0.125 mg) Tab) See instructions take 1 tablet by mouth once daily Unchanged losartan (losartan 25 mg Tab) See instructions TAKE 1 TABLET DAILY Unchanged metoprolol (metoprolol succinate 50 mg ER Tab) 1 Tablets By Mouth Every day Unchanged mirabegron (Myrbetriq 50 mg oral tablet, extended release) 30 EA, take 1 tablet by mouth every morning Unchanged mupirocin topical (mupirocin Top 2% Oint) See instructions APPLY 1 APPLICATION TOPICALLY THREE TIMES A DAY Unchanged Non-Formulary Medication (Misc Medication) See instructions magnsium glyconate 275mg Take 3 orally twice a day Unchanged Non-Formulary Medication (Misc Medication) 1 capsuled QD of Focus Factor Unchanged parathyroid hormone (Natpara 75 mcg/ dose subcutaneous injection) 75 Microgram Subcutaneous Every day Pharmacy Information [id number]: [address] [place], [place] [id number] [phone] Allergies anabolic steroids (Angry) Biaxin (Diarrhea) Augmentin (Diarrhea) Problems Ongoing - Any problem that you are currently receiving treatment for. Anxiety Asthma, exercise induced Calcium deficiency Hx of thyroid cancer Hypoparathyroidism Hypothyroidism Nonsmoker Obesity, Class III, BMI 40-49.9 (morbid obesity) JESSICA on CPAP Tennis elbow Ventricular septal defect (VSD) Vitamin D deficiency Patient Survey You may receive a survey via text or e-mail asking about your office visit. Please share your experience with us by completing your survey. We appreciate your feedback and thank you for choosing us for your care. Normal [facility] Family Medicine Office/Clini c Noteon 03-06-2024 Family Medicine Office/Clinic Note Family Medicine Office/Clinic Note HPI Staff Marcelina is a 63 year old female presenting with ruptured cyst in vaginal area Onset: 4 days ago Pt states she messed with it and it got bigger and then Tuesday she couldn't hardly walk. Applied warm compress and did have some drainage. C/o discomfort . Pt does wear pad daily due to leaking. Pt hasn't started ATB yet she is picking them up today. pt wou8ld like refill on mupirocin ointment. Pt states she is stopping the phentermine due to becoming constipated and unable to sleep. History of Present Illness pt presents today with labial cyst Review of Systems PHQ Score Initial Depression Screen Score: 0 SCORE Physical Exam Vitals & Measurements T: 37.2 ???C(Tympanic) HR: 74(Peripheral) RR: 18 BP: 138/78 SpO2: 98% HT: 68 in HT: 173 cm WT: 138.15 kg WT: 304.568 lb BMI: 46.16 General: alert, no acute distress ENMT: oral mucosa moist, no pharyngeal erythema or exudate Cardiovascular: regular rate and rhythm, normal peripheral perfusion Respiratory: Lungs CTA, respirations non labored Extremities: no deformity, no trauma Neurological: oriented x 4, LOC appropriate for age, CN II-XII intact, motor strength equal & normal bilaterally, speech normal labial abscess left upper labia Assessment/Plan 1. Labial cyst (N90.7: Vulvar cyst) pt presents today with labial abscess on left upper labia. pt has been using warm compresses which helped it open a little and start oozing. area was cleansed with Betadine and 1ml of 1% lidocaine was injection at lower portion of abscess. moderate amount of blood drainage was removed. area was cleansed and antibiotics were sent in by Dr. Cedillo yesterday. pt will pick those up now and start taking them today. RTC as needed 2. BMI 45.0-49.9, adult (Z68.42: Body mass index [BMI] 45.0-49.9, adult) BMI education given 3. Nonsmoker (Z78.9: Other specified health status) continue not smoking Orders: cephalexin, 500 mg = 1 cap(s), Oral, q12hr, # 20 cap(s), Refills(s) 0, Pharmacy: [id number], 173, cm, 02/27/24 9:51:00 EST, Height/Length Dosing, 140, kg, 02/27/24 9:51:00 EST, Weight Dosing cephalexin, 500 mg = 1 cap(s), Oral, q12hr, # 20 cap(s), Refills(s) 0, Pharmacy: [id number], 173, cm, 03/06/24 11:03:00 EST, Height/Length Dosing, 138.2, kg, 03/06/24 11:03:00 EST, Weight Dosing Follow-up No qualifying data available Problem List/Past Medical History Ongoing Anxiety Asthma, exercise induced Calcium deficiency Hx of thyroid cancer Hypoparathyroidism Hypothyroidism Labial cyst Nonsmoker Obesity, Class III, BMI 40-49.9 (morbid obesity) JESSICA on CPAP Tennis elbow Ventricular septal defect (VSD) Vitamin D deficiency Historical No qualifying data Procedure/Surgical History Cholecystectomy and exploration of bile duct, Colonoscopy, Hysterectomy, Thyroidectomy. Medications albuterol 0.083% Inh Mandie 3 mL, See Instructions citalopram 40 mg Tab, 40 mg= 1 tab(s), Oral, Daily, 1 refills Flonase 0.05 mg/inh Webster, 2 spray(s), Nasal, Daily Flovent HFA 220 Aerosol, 1 puff(s), Inhalation, BID fluconazole 150 mg Tab, See Instructions Keflex 500 mg Cap, 500 mg= 1 cap(s), Oral, q12hr levothyroxine 125 mcg (0.125 mg) Tab, See Instructions losartan 25 mg Tab, See Instructions metoprolol succinate 50 mg ER Tab, 50 mg= 1 tab(s), Oral, Daily, 1 refills Misc Medication, See Instructions Misc Medication mupirocin Top 2% Oint, See Instructions Myrbetriq 50 mg oral tablet, extended release Natpara 75 mcg/dose subcutaneous injection, 75 mcg, SubCutaneous, Daily Vitamin C 500 mg oral tablet, chewable, 500 mg= 1 tab(s), Chewed, Daily Vitamin D3 10,000 intl units oral capsule, See Instructions Allergies anabolic steroids (Angry) Biaxin (Diarrhea) Augmentin (Diarrhea) Social History Alcohol - Low Risk, 07/27/2022 Current, 1-2 times per month, Household alcohol concerns: No., 07/27/2022 Substance Abuse - Denies Substance Abuse, 06/29/2022 Household substance abuse concerns: No., 07/27/2022 Tobacco - Denies Tobacco Use, 06/29/2022 Never (less than 100 in lifetime) Tobacco Use:. Never Smokeless Tobacco Use:. Cigarettes, Household tobacco concerns: No., 03/06/2024 Family History Alcoholism: Mother. Diabetes mellitus type 2: Brother. Hyperlipidemia: Sister. Parkinson disease: Brother. Immunizations Vaccine Date Status Comments influenza virus vaccine, inactivated - Not Given Postpone due to refusal influenza virus vaccine, inactivated 02/13/2022 Recorded SARS-CoV-2 (COVID-19) [id number] 02/13/2022 Recorded SARS-CoV-2 (COVID-19) mRNA BNT-162b2 vax 02/11/2021 Recorded SARS-CoV-2 (COVID-19) mRNA BNT-162b2 vax 07/11/2020 Recorded SARS-CoV-2 (COVID-19) mRNA BNT-162b2 vax 06/20/2020 Recorded influenza virus vaccine, inactivated 02/05/2015 Recorded influenza virus vaccine, inactivated 01/29/2015 Recorded Normal [facility] Comment on above: Result Comment: Elec tronically Signed By: Shweta Salazar\.magda\Date and Time Signed: 03/06/24 14:40 EST Ambulatory Visit Summaryon 1 04-28-2023 Ambulatory Visit Summary Ambulatory Visi t Summary MARCELINA CANO :1960 Visit Date:02/27/2024 Ambulatory Visit Instructions Your Diagnosis BMI 45.0-49.9, adult Morbid obesity with BMI of 45.0-49.9, adult Nonsmoker Hypothyroidism Your Care Team Attending Physician - Smith Cedillo MD Primary Care Physician - Smith Cedillo MD This Is Your Medications List Non-Formulary Medication (Misc Medication) Non-Formulary Medication (Misc Medication) albuterol (albuterol 0.083% Inh Mandie 3 mL) ascorbic acid (Vitamin C 500 mg oral tablet, chewable) cholecalciferol (Vitamin D3 10,000 intl units oral capsule) citalopram (citalopram 40 mg Tab) fluconazole (fluconazole 150 mg Tab) fluticasone (Flovent HFA 220 Aerosol) fluticasone nasal (Flonase 0.05 mg/inh Webster) levothyroxine (levothyroxine 125 mcg (0.125 mg) Tab) losartan (losartan 25 mg Tab) metoprolol (metoprolol succinate 50 mg ER Tab) mirabegron (Myrbetriq 50 mg oral tablet, extended release) mupirocin topical (mupirocin Top 2% Oint) parathyroid hormone (Natpara 75 mcg/dose subcutaneous injection) phentermine (Adipex-P 37.5 mg oral capsule) Procedures Performed Cholecystectomy and exploration of bile duct, Colonoscopy, Hysterectomy, Thyroidectomy. Discharge Vitals Temperature (Oral) 36.6 ???C Heart Rate (Peripheral) 64 Respiratory Rate 20 Blood Pressure 136/80 Height 173 cm Height 68 in Weight 140.0 kg Weight 308 lb BMI 46.78 What to do next Scheduled Follow-Up Appointments 2023 9:30 AM EST With: Smith Cedillo MD Where: [place] [phone]- Medications What How Much When Why Instructions Unchanged albuterol (albuterol 0.083% Inh Mandie 3 mL) See instructions INHALE CONTENTS OF 1 VIAL (3 ML) EVERY 6 HOURS AND NEEDED Unchanged ascorbic acid (Vitamin C 500 mg oral tablet, chewable) 1 Tablets Chewed Every day Unchanged cholecalciferol (Vitamin D3 10,000 intl units oral capsule) See instructions 5000 units every other day Unchanged citalopram (citalopram 40 mg Tab) 1 Tablets By Mouth Every day Unchanged fluconazole (fluconazole 150 mg Tab) See instructions Sinusitis nasal Take one tablet at the onset of symptoms; may repeat in 72 hours Unchanged fluticasone (Flovent HFA 220 Aerosol) 1 Puffs Inhalation 2 times a day Acute URI Cough Unchanged fluticasone nasal (Flonase 0.05 mg/ inh Webster) 2 Sprays Nasal Inhalation Every day each nostril Unchanged levothyroxine (levothyroxine 125 mcg (0.125 mg) Tab) See instructions take 1 tablet by mouth once daily Unchanged losartan (losartan 25 mg Tab) See instructions TAKE 1 TABLET DAILY Unchanged metoprolol (metoprolol succinate 50 mg ER Tab) 1 Tablets By Mouth Every day Unchanged mirabegron (Myrbetriq 50 mg oral tablet, extended release) 30 EA, take 1 tablet by mouth every morning Unchanged mupirocin topical (mupirocin Top 2% Oint) See instructions APPLY 1 APPLICATION TOPICALLY THREE TIMES A DAY Unchanged Non-Formulary Medication (Misc Medication) See instructions magnsium glyconate 275mg Take 3 orally twice a day Unchanged Non-Formulary Medication (Misc Medication) 1 capsuled QD of Focus Factor Unchanged parathyroid hormone (Natpara 75 mcg/ dose subcutaneous injection) 75 Microgram Subcutaneous Every day Unchanged phentermine (Adipex-P 37.5 mg oral capsule) 1 Capsules By Mouth Every day HTN (hypertension), benign Hypoparathyroidism Hypothyroidism Anxiety BMI 45.0-49.9, adult Hx of thyroid cancer Nonsmoker Class 3 severe obesity due to excess calories with body mass index (BMI) of 45.0 to 49.9 in adult Sleep disorder, unspecified Ventricular septal defect Fatty (change of) liver, not elsewhere classified Allergies anabolic steroids (Angry) Biaxin (Diarrhea) Augmentin (Diarrhea) Problems Ongoing - Any problem that you are currently receiving treatment for. Anxiety Asthma, exercise induced Calcium deficiency Hx of thyroid cancer Hypoparathyroidism Hypothyroidism Nonsmoker Obesity, Class III, BMI 40-49.9 (morbid obesity) JESSICA on CPAP Tennis elbow Ventricular septal defect (VSD) Vitamin D deficiency Patient Survey You may receive a survey via text or e-mail asking about your office visit. Please share your experience with us by completing your survey. We appreciate your feedback and thank you for choosing us for your care. [facility] Family Medicine Office/Clini c Noteon 02-27-2024 Family Medicine Office/Clinic Note Family Medicine Office/Clinic Note Chief Complaint Concerns regarding weight management and associated stress. HPI Staff Marcelina is a 63 year old female presenting for one month follow up weight SALLY added adipex for weight loss Weight management Sleeping well:Yes, 6-8 hours Chest pain:No Tremors:No Headaches:No Heart fluttering:No Blurred Vision:No Starting Weight: 311.74 Weight last visit: Weight this visit: 308.0 questions/concerns: when is a good time to take her adipex History of Present Illness The patient is a 63-year-old female presenting with concerns regarding weight management and associated emotional eating. The patient has a BMI of 45.0-49.9, indicating morbid obesity, which has been a persistent issue. The patient reports stress and emotional eating habits exacerbated by familial stressors, including her sister's ongoing health issues, which include kidney disease and recent episodes of pneumonia and C. diff. These familial concerns have impacted her appetite, leading to fluctuations in her eating habits. The patient has historically managed hypothyroidism, which could contribute to weight issues, but details of current therapy are not provided. She is exploring options for physical activity, including potential membership at a local recreation center to support her weight management goals. The patient identifies as a nonsmoker. She is considering engaging with hospice services for her sister and is dealing with the emotional challenge of her sister's fluctuating compliance with dialysis. Review of Systems PHQ Score Initial Depression Screen Score: 2 SCORE - Constitutional: Reports stress-related weight fluctuations and appetite changes. - Psychological: Reports stress and emotional challenges related to family dynamics. Physical Exam Vitals & Measurements T: 36.6 ???C(Oral) HR: 64(Peripheral) RR: 20 BP: 136/80 SpO2: 96% HT: 68 in HT: 173 cm WT: 140.0 kg WT: 308 lb BMI: 46.78 General: alert, no acute distress ENMT: oral mucosa moist Cardiovascular: Regular rate and rhythm, normal peripheral perfusion Respiratory: Lungs clear to auscultation, respirations non labored Extremities: no deformity, no trauma Neurological: oriented x 4, level of consciousness appropriate for age, CN II-XII intact, motor strength equal & normal bilaterally, speech normal Abdomen: Complaining of stomach issues, no blood work done for stomach, soft, non-tender, non-distended, + bowel sounds Assessment/Plan 1. Eating disorder, unspecified (F50.9) Discussed impact of emotional stress on eating habits. Counseling or support services might be beneficial in addressing stress and coping mechanisms. 2. Hypothyroidism (E03.9: Hypothyroidism, unspecified) No specific management changes discussed in this visit. Recommend monitoring and reviewing thyroid function as necessary. Ordered: phentermine, 37.5 mg = 1 cap(s), Oral, Daily, # 30 cap(s), Refills(s) 0, Pharmacy: [facility], 173, cm, 02/27/24 9:51:00 EST, Height/Length Dosing, 140, kg, 02/27/24 9:51:00 EST, Weight Dosing 3. BMI 45.0-49.9, adult (Z68.42: Body mass index [BMI] 45.0-49.9, adult) Continue discussion on lifestyle modifications and exercise, possibly utilizing local facilities for structured physical activity to aid weight management. Ordered: phentermine, 37.5 mg = 1 cap(s), Oral, Daily, # 30 cap(s), Refills(s) 0, Pharmacy: [facility], 173, cm, 02/27/24 9:51:00 EST, Height/Length Dosing, 140, kg, 02/27/24 9:51:00 EST, Weight Dosing 4. Morbid obesity with BMI of 45.0-49.9, adult (E66.01: Morbid (severe) obesity due to excess calories) BMI education added. Ordered: phentermine, 37.5 mg = 1 cap(s), Oral, Daily, # 30 cap(s), Refills(s) 0, Pharmacy: [facility], 173, cm, 02/27/24 9:51:00 EST, Height/Length Dosing, 140, kg, 02/27/24 9:51:00 EST, Weight Dosing 5. Nonsmoker (Z78.9: Other specified health status) Reinforce positive lifestyle choice and continue abstinence. Ordered: phentermine, 37.5 mg = 1 cap(s), Oral, Daily, # 30 cap(s), Refills(s) 0, Pharmacy: [facility], 173, cm, 02/27/24 9:51:00 EST, Height/Length Dosing, 140, kg, 02/27/24 9:51:00 EST, Weight Dosing Total time spent preparing for the encounter, evaluating and assessing the patient, documenting the visit, and ordering appropriate follow-up work was 35 minutes. Follow-up No qualifying data available Problem List/Past Medical History Ongoing Anxiety Asthma, exercise induced Calcium deficiency Hx of thyroid cancer Hypoparathyroidism Hypothyroidism Nonsmoker Obesity, Class III, BMI 40-49.9 (morbid obesity) JESSICA on CPAP Tennis elbow Ventricular septal defect (VSD) Vitamin D deficiency Historical No qualifying data Procedure/Surgical History Cholecystectomy and exploration of bile duct, Colonoscopy, Hysterectomy, Thyroidectomy. Medications Adipex-P 37.5 mg oral capsule, 37.5 mg= 1 cap(s), Ora (more content not included)... Normal [facility] Comment on above: Result Comment: Elec tronically Signed By: Mamadou FAITH, Smith Ardon.br\Date and Time Signed: 02/27/24 10:49 EST CHEMISTRYOrdered By: Ayana Paredes on 01-25-2024 25-hydroxyvitamin D3 [Mass/Vol] 71.1 ng/mL Normal 30.0 - 100.0 ng/mL Remisol Chem CHEMISTRYOrdered By: SYSTEM SYSTEM on 01-25-2024 Albumin [Mass/Vol] 4.3 g/dL Normal 3.3 - 5.0 gm/dL Remisol Chem Albumin/Globulin [Mass ratio] 1.2 {ratio} Normal 1.1 - 2.2 Remisol Chem ALP [Catalytic activity/Vol] 95 [iU]/d Normal 21 - 98 Int._Unit/L Remisol Chem ALT No additional P-5'-P [Catalytic activity/Vol] 41 [iU]/d Normal 6 - 46 Int._Unit/L Remisol Chem Anion gap [Moles/Vol] 12 mmol/L Normal 6 - 16 mEq/L R emisol Chem AST [Catalytic activity/Vol] 48 [iU]/d High 5 - 43 Int._Unit/L Remisol Chem Bilirubin [Mass/Vol] 0.8 mg/dL Normal 0.0 - 1 .1 mg/dL Remisol Chem Calcium [Mass/Vol] 9.0 mg/dL Normal 8.9 - 11. 1 mg/dL Remisol Chem Chloride [Moles/Vol] 99 mmol/L Low 101 - 1 11 mmol/L Remisol Chem CO2 [Moles/Vol] 30 mmol/L Normal 21 - 31 mmol/L Remisol Chem Creatinine [Mass/Vol] 0.7 mg/dL Normal 0.5 - 1.3 mg/dL Remisol Chem eGFR 97 mL/min/1.73 m2 Normal >=59mL/min /1 .73 m2 Remisol Chem Globulin (S) [Mass/Vol] 3.5 g/dL Normal 1.4 - 4.0 gm/dL Remisol Chem Glucose [Mass/Vol] 133 mg/dL Normal 55 - 199 mg/dL Remisol Chem Magnesium [Mass/Vol] 1.7 mg/dL Normal 1.3 - 2 .4 mg/dL Remisol Chem Potassium [Moles/Vol] 4.2 mmol/L Normal 3.5 - 5.3 mmol/L Remisol Chem Protein [Mass/Vol] 7.8 g/dL Normal 6.0 - 7.8 gm/dL Remisol Chem Sodium [Moles/Vol] 137 mmol/L Normal 135 - 145 mmol/L Remisol Chem Urea nitrogen [Mass/Vol] 14 mg/dL Normal 5 - 21 mg/d L Remisol Chem Urea nitrogen/Creatinine [Mass ratio] 20 mg/mg Normal 10 - 20 Remisol Chem CMPon 01-25-2024 Albumin [Mass/Vol] 4.3 g/dL Normal 3.3-5.0 [facility] Comment on above: Performed By: #### 2 [id number] #### [facility] [address] [place] [address] Albumin/Globulin (S) [Mass conc ratio] 1.2 Normal 1.1-2.2 [facility] Comment on above: Performed By: #### 2 [id number] #### [facility] [address] [place] [address] ALP [Catalytic activity/Vol] 95 Int._Unit/L Normal 21-98 [facility] Comment on above: Performed By: #### 2 [id number] #### [facility] [address] [place] [address] ALT No additional P-5'-P [Catalytic activity/Vol] 41 Int._Unit/L Normal 6-46 [facility] Comment on above: Performed By: #### 2 [id number] #### [facility] [address] [place] [address] Anion gap [Moles/Vol] 12 mmol/L Normal 6-16 [facility] Comment on above: Performed By: #### 2 [id number] #### [facility] [address] [place] [address] AST [Catalytic activity/Vol] 48 Int._Unit/L High 5-43 [facility] Comment on above: Performed By: #### 2 [id number] #### [facility] [address] [place] [address] Bilirubin [Mass/Vol] 0.8 mg/dL Normal 0.0-1.1 [facility] Comment on above: Performed By: #### 2 [id number] #### [facility] [address] [place] [address] Calcium [Mass/Vol] 9.0 mg/dL Normal 8.9-11.1 [facility] Comment on above: Performed By: #### 2 [id number] #### [facility] [address] [place] [address] Chloride [Moles/Vol] 99 mmol/L Low 101-111 [facility] Comment on above: Performed By: #### 2 [id number] #### [facility] [address] [place] [address] CO2 [Moles/Vol] 30 mmol/L Normal 21-31 [facility] Comment on above: Performed By: #### 2 [id number] #### [facility] [address] [place] [address] Creatinine [Mass/Vol] 0.7 mg/dL Normal 0.5-1.3 [facility] Comment on above: Performed By: #### 2 [id number] #### [facility] [address] [place] [address] Globulin (S) [Mass/Vol] 3.5 g/dL Normal 1.4-4.0 [facility] Comment on above: Performed By: #### 2 [id number] #### [facility] [address] [place] [address] Glucose [Mass/Vol] 133 mg/dL Normal 55-199 [facility] Comment on above: Performed By: #### 2 [id number] #### [facility] [address] [place] [address] Potassium [Moles/Vol] 4.2 mmol/L Normal 3.5-5.3 [facility] Comment on above: Performed By: #### 2 [id number] #### [facility] [address] [place] [address] Protein [Mass/Vol] 7.8 g/dL Normal 6.0-7.8 [facility] Comment on above: Performed By: #### 2 [id number] #### [facility] [address] [place] [address] Sodium [Moles/Vol] 137 mmol/L Normal 135-145 [facility] Comment on above: Performed By: #### 2 [id number] #### [facility] [address] [place] [address] Urea nitrogen [Mass/Vol] 14 mg/dL Normal 5-21 [facility] Comment on above: Performed By: #### 2 [id number] #### [facility] [address] [place] [address] Urea nitrogen/Creatinine [Mass ratio] 20 No Units Normal 10-20 [facility] Comment on above: Performed By: #### 2 [id number] #### [facility] [address] [place] [address] Magnesiumon 01-25-2024 Magnesium [Mass/Vol] 1.7 mg/dL Normal 1.3-2.4 [facility] Comment on above: Performed By: #### 2 [id number] #### [facility] [address] [place] [address] Vitamin D 25 Hydroxyon 01-24 25-hydroxyvitamin D3 [Mass/Vol] 71.1 ng/mL Normal 30.0-100.0 [facility] Comment on above: Performed By: #### 5 [id number] #### [facility] [address] [place] [address] eGFRon 01-25-2024 eGFR 97 mL/min/1.73 m2 Normal >=59 [facility] Comment on above: Performed By: #### 1 [id number] #### [facility] [address] [place] [address] Ambulatory Visit Summaryon Ambulatory Visit Summary Ambulatory Visi t Summary MARCELINA CANO :1960 Visit Date:01/24/2024 Ambulatory Visit Instructions Your Diagnosis HTN (hypertension), benign Hypoparathyroidism Hypothyroidism Anxiety BMI 45.0-49.9, adult Hx of thyroid cancer Nonsmoker Class 3 severe obesity due to excess calories with body mass index (BMI) of 45.0 to 49.9 in adult Your Care Team Attending Physician - Smith Cedillo MD Primary Care Physician - Smith Cedillo MD This Is Your Medications List Non-Formulary Medication (Misc Medication) Non-Formulary Medication (Misc Medication) albuterol (albuterol 0.083% Inh Mandie 3 mL) ascorbic acid (Vitamin C 500 mg oral tablet, chewable) cholecalciferol (Vitamin D3 10,000 intl units oral capsule) citalopram (citalopram 20 mg Tab) citalopram (citalopram 40 mg Tab) fluconazole (fluconazole 150 mg Tab) fluticasone (Flovent HFA 220 Aerosol) fluticasone nasal (Flonase 0.05 mg/inh Webster) levothyroxine (levothyroxine 125 mcg (0.125 mg) Tab) losartan (losartan 25 mg Tab) metoprolol (metoprolol succinate 50 mg ER Tab) mirabegron (Myrbetriq 50 mg oral tablet, extended release) mupirocin topical (mupirocin Top 2% Oint) parathyroid hormone (Natpara 75 mcg/dose subcutaneous injection) Procedures Performed Cholecystectomy and exploration of bile duct, Colonoscopy, Hysterectomy, Thyroidectomy. Discharge Vitals Temperature (Temporal Artery) 36.6 ?C Heart Rate (Peripheral) 66 Respiratory Rate 16 Blood Pressure 136/82 Height 173 cm Height 68 in Weight 141.7 kg Weight 311.74 lb BMI 47.35 What to do next Scheduled Follow-Up Appointments Tuesday 9:30 AM EST With: Mamadou FAITH, Smith Timmons Where: [facility] [place] [id number]- Medications What How Much When Why Instructions Unchanged albuterol (albuterol 0.083% Inh Mandie 3 mL) See instructions INHALE CONTENTS OF 1 VIAL (3 ML) EVERY 6 HOURS AND NEEDED Unchanged ascorbic acid (Vitamin C 500 mg oral tablet, chewable) 1 Tablets Chewed Every day Unchanged cholecalciferol (Vitamin D3 10,000 intl units oral capsule) See instructions 5000 units a day Unchanged citalopram (citalopram 20 mg Tab) 1 Tablets By Mouth Every day Unchanged citalopram (citalopram 40 mg Tab) 1 Tablets By Mouth Every day Unchanged fluconazole (fluconazole 150 mg Tab) See instructions Sinusitis nasal Take one tablet at the onset of symptoms; may repeat in 72 hours Unchanged fluticasone (Flovent HFA 220 Aerosol) 1 Puffs Inhalation 2 times a day Acute URI Cough Unchanged fluticasone nasal (Flonase 0.05 mg/ inh Webster) 2 Sprays Nasal Inhalation Every day each nostril Unchanged levothyroxine (levothyroxine 125 mcg (0.125 mg) Tab) See instructions take 1 tablet by mouth once daily Unchanged losartan (losartan 25 mg Tab) See instructions TAKE 1 TABLET DAILY Unchanged metoprolol (metoprolol succinate 50 mg ER Tab) 1 Tablets By Mouth Every day Unchanged mirabegron (Myrbetriq 50 mg oral tablet, extended release) 30 EA, take 1 tablet by mouth every morning Unchanged mupirocin topical (mupirocin Top 2% Oint) See instructions APPLY 1 APPLICATION TOPICALLY THREE TIMES A DAY Unchanged Non-Formulary Medication (Misc Medication) See instructions magnsium glyconate 275mg Take 3 orally twice a day Unchanged Non-Formulary Medication (Misc Medication) 1 capsuled QD of Focus Factor Unchanged parathyroid hormone (Natpara 75 mcg/ dose subcutaneous injection) 75 Microgram Subcutaneous Every day Allergies anabolic steroids (Angry) Biaxin (Diarrhea) Augmentin (Diarrhea) Problems Ongoing - Any problem that you are currently receiving treatment for. Anxiety Asthma, exercise induced Calcium deficiency Hx of thyroid cancer Hypoparathyroidism Hypothyroidism Nonsmoker Obesity, Class III, BMI 40-49.9 (morbid obesity) JESSICA on CPAP Tennis elbow Ventricular septal defect (VSD) Vitamin D deficiency Patient Survey You may receive a survey via text or e-mail asking about your office visit. Please share your experience with us by completing your survey. We appreciate your feedback and thank you for choosing us for your care. Normal [facility] Family Medicine Office/Clini c Noteon 01-24-2024 Family Medicine Office/Clinic Note Family Medicine Office/Clinic Note HPI Staff Loreto is a 63 year old female presenting for 3 month follow up hypoparathyroid, hypothyroid and anxiety labs done 08/22/23 Patient is here for follow up on Thyroid Disease. Do you have any of the following symptoms? Change in energy level? yes a little Weight change? yes weight gain Heat/cold intolerance? yes feet cold all the time Hair/skin/nail changes? no Change in bowels? no Last TSH: TSH: 3.26 mcIU/mL (08/22/23 11:40:00) Follow up for Mental Status: Medication adherence- Yes, takes medication as prescribed Medication refill needed: _ Suicidal thoughts-Not at this time Most recent ALCON: 9 Most recent PHQ: 1 questions/concerns: wants to discuss changing the losartan has read things about it History of Present Illness The patient is a 63-year-old female presenting primarily with complaints of tightness in the back and potential chest area. The onset of this symptom was not specifically dated, but current status reveals the patient perceives herself as knotted up and notices a disparity in shoulder alignment, with one shoulder lower than the other. This musculoskeletal issue has not been previously addressed by a chiropractor or through a massage, which the patient mentioned intending to pursue. Additionally, the patient is concerned about her medication management, specifically regarding losartan, which she worries may affect her kidney function or liver status due to a reported fatty liver condition. However, the primary issue is confirmation that losartan, an angiotensin II receptor antagonist, is benign for her liver. Enalapril, from the same drug class, was discussed as having similar implications, and losartan's protective effects on cardiac health were acknowledged. The patient's history also includes morbid obesity, and she has expressed interest in a weight-loss medication. Despite previous success using Weight Watchers and an active lifestyle that included walking four miles and playing tennis, hypothyroidism complicates current weight management, as does the history of thyroid cancer limiting medication options. Furthermore, the patient presents with a history of essential hypertension and ventricular septal defect, the latter being congenital and not surgically addressed due to its manageable nature without presenting complications. Sleep management has incorporated various approaches, including Flexeril and melatonin, now transitioned to a CBD chewable for sleep induction. She denies any direct cardiac issues barring the ventricular defect. Review of Systems PHQ Score Initial Depression Screen Score: 1 SCORE Physical Exam Vitals & Measurements T: 36.6 ?C(Temporal Artery) HR: 66(Peripheral) RR: 16 BP: 136/82 SpO2: 97% HT: 68 in HT: 173 cm WT: 141.7 kg WT: 311.74 lb BMI: 47.35 General: alert, no acute distress ENMT: oral mucosa moist Cardiovascular: Regular rate and rhythm, normal peripheral perfusion Respiratory: Lungs clear to auscultation, respirations non labored Extremities: no deformity, no trauma, right shoulder lower than left shoulder Neurological: oriented x 4, level of consciousness appropriate for age, CN II-XII intact, motor strength equal & normal bilaterally, speech normal Abdomen: Soft, Non-tender, Non-distended, + Bowel sounds Assessment/Plan 1. HTN (hypertension), benign (I10: Essential (primary) hypertension) The patient is currently on losartan, with an acknowledgment of its cardiovascular benefits. Further discussions affirmed the safety of its usage concerning liver health, despite a personal history of a fatty liver, with a recommendation to continue the current regimen. Ordered: phentermine, 37.5 mg = 1 cap(s), Oral, Daily, # 30 cap(s), Refills(s) 0, Pharmacy: [facility], 173, cm, 01/24/24 9:44:00 EDT, Height/Length Dosing, 141.7, kg, 01/24/24 9:44:00 EDT, Weight Dosing 2. Hypoparathyroidism (E20.9: Hypoparathyroidism, unspecified) Endocrine surveillance continues, with pending follow-up with an theatrical scenic designer to re-evaluate management in light of forthcoming medication adjustments. Ordered: phentermine, 37.5 mg = 1 cap(s), Oral, Daily, # 30 cap(s), Refills(s) 0, Pharmacy: [facility], 173, cm, 01/24/24 9:44:00 EDT, Height/Length Dosing, 141.7, kg, 01/24/24 9:44:00 EDT, Weight Dosing 3. Hypothyroidism (E03.9: Hypothyroidism, unspecified) Stable, will have endo monitor. Labs to be done later today Ordered: phentermine, 37.5 mg = 1 cap(s), Oral, Daily, # 30 cap(s), Refills(s) 0, Pharmacy: [facility], 173, cm, 01/24/24 9:44:00 EDT, Height/Length Dosing, 141.7, kg, 01/24/24 9:44:00 EDT, Weight Dosing 4. Anxiety (F41.9: Anxiety disorder, unspecified) The patient's anxiety management was not directly addressed and remains under continuous evaluation. However, the overlap with sleep-related issues has been partially explored through the introduction of CBD alternatives and consid (more content not included)... [facility] Comment on above: Result Comment: Elec tronically Signed By: Smith Cedillo MD\.br\Date and Time Signed: 01/24/24 10:24 EDT Ambulatory Visit Summaryon 0 10-25-2023 Ambulatory Visit Summary Ambulatory Visi t Summary MARCELINA CANO :1960 Visit Date:10/25/2023 Ambulatory Visit Instructions Your Care Team Attending Physician - Smith Cedillo MD Primary Care Physician - Smith Cedillo MD This Is Your Medications List Non-Formulary Medication (Misc Medication) Non-Formulary Medication (Misc Medication) albuterol (albuterol 0.083% Inh Mandie 3 mL) ascorbic acid (Vitamin C 500 mg oral tablet, chewable) cholecalciferol (Vitamin D3 10,000 intl units oral capsule) citalopram (citalopram 40 mg Tab) fluconazole (fluconazole 150 mg Tab) fluticasone (Flovent HFA 220 Aerosol) fluticasone nasal (Flonase 0.05 mg/inh Webster) levothyroxine (levothyroxine 125 mcg (0.125 mg) Tab) losartan (losartan 25 mg Tab) magnesium oxide (magnesium oxide 400 mg Tab) metoprolol (metoprolol 50 mg ER Tab) mirabegron (Myrbetriq 50 mg oral tablet, extended release) mupirocin topical (mupirocin Top 2% Oint) parathyroid hormone (Natpara 75 mcg/dose subcutaneous injection) Procedures Performed Cholecystectomy and exploration of bile duct, Colonoscopy, Hysterectomy, Thyroidectomy. Discharge Vitals Temperature (Temporal Artery) 36.5 ?C Heart Rate (Peripheral) 67 Respiratory Rate 20 Blood Pressure 128/68 Height 173 cm Height 68 in Weight 142.0 kg Weight 312.4 lb BMI 47.45 Medications What How Much When Why Instructions Unchanged albuterol (albuterol 0.083% Inh Mandie 3 mL) See instructions INHALE CONTENTS OF 1 VIAL (3 ML) EVERY 6 HOURS AND NEEDED Unchanged ascorbic acid (Vitamin C 500 mg oral tablet, chewable) 1 Tablets Chewed Every day Unchanged cholecalciferol (Vitamin D3 10,000 intl units oral capsule) See instructions 5000 units a day Unchanged citalopram (citalopram 40 mg Tab) 1 Tablets By Mouth Every day Unchanged fluconazole (fluconazole 150 mg Tab) See instructions Sinusitis nasal Take one tablet at the onset of symptoms; may repeat in 72 hours Unchanged fluticasone (Flovent HFA 220 Aerosol) 1 Puffs Inhalation 2 times a day Acute URI Cough Unchanged fluticasone nasal (Flonase 0.05 mg/ inh Webster) 2 Sprays Nasal Inhalation Every day each nostril Unchanged levothyroxine (levothyroxine 125 mcg (0.125 mg) Tab) See instructions take 1 tablet by mouth once daily Unchanged losartan (losartan 25 mg Tab) See instructions TAKE 1 TABLET DAILY Unchanged magnesium oxide (magnesium oxide 400 mg Tab) See instructions TAKE 2 TABLETS TWICE A DAY Unchanged metoprolol (metoprolol 50 mg ER Tab) 1 Tablets By Mouth Every day Unchanged mirabegron (Myrbetriq 50 mg oral tablet, extended release) 30 EA, take 1 tablet by mouth every morning Unchanged mupirocin topical (mupirocin Top 2% Oint) See instructions APPLY 1 APPLICATION TOPICALLY THREE TIMES A DAY Unchanged Non-Formulary Medication (Misc Medication) See instructions magnsium glyconate 275mg Take 3 orally twice a day Unchanged Non-Formulary Medication (Misc Medication) 1 capsuled QD of Focus Factor Unchanged parathyroid hormone (Natpara 75 mcg/ dose subcutaneous injection) 75 Microgram Subcutaneous Every day Allergies anabolic steroids (Angry) Biaxin (Diarrhea) Augmentin (Diarrhea) Problems Ongoing - Any problem that you are currently receiving treatment for. Anxiety Asthma, exercise induced Atelectasis Calcium deficiency Cough Hx of thyroid cancer Hypoparathyroidism Hypothyroidism Malignant tumor of thyroid gland Nonsmoker Obesity, Class III, BMI 40-49.9 (morbid obesity) JESSICA on CPAP Ventricular septal defect (VSD) Vitamin D deficiency Patient Survey You may receive a survey via text or e-mail asking about your office visit. Please share your experience with us by completing your survey. We appreciate your feedback and thank you for choosing us for your care. [facility] Family Medicine Office/Clini c Noteon 10-25-2023 Family Medicine Office/Clinic Note Family Medicine Office/Clinic Note HPI Staff Marcelina is a 63 year old female presenting for acute visit Acute: right shoulder and elbow pain Is radiating to her right wrist Pain characteristics: shoulder dull sharp pain, elbow throbs, wrist dull pain Pain location:started in shoulder down to elbow Intensity:11/01 Onset: started yesterday Medication used: sports cream tried it helped a little bit but not much History of Present Illness - As per staff HPI. - Playing raquet ball like game with the kids - went to lift herself off a chair and the pain worsened. - sleeps on that side as well. Review of Systems PHQ Score Initial Depression Screen Score: 0 SCORE Physical Exam Vitals & Measurements T: 36.5 ?C(Temporal Artery) HR: 67(Peripheral) RR: 20 BP: 128/68 SpO2: 98% HT: 68 in HT: 173 cm WT: 142.0 kg WT: 312.4 lb BMI: 47.45 - Pain with supination, biceps flexion, TTP of the biceps tendon- R side. - TTP of the lateral aspect of the R elbow Assessment/Plan 1. Tennis elbow (M77.10: Lateral epicondylitis, unspecified elbow) - Medrol dose bill - Discussed use of strap - Follow up PRN 2. Biceps tendinitis (M75.20: Bicipital tendinitis, unspecified shoulder) - As above. Orders: methylPREDNISolone, = 1 packet(s), Oral, As Directed, as directed on package labeling, X 6 day(s), # 21 tab(s), Refills(s) 0, Pharmacy: [facility] #[id number], 173, cm, 10/25/23 11:13:00 EDT, Height/Length Dosing, 142, kg, 10/25/23 11:13:00 EDT, Weight Dosing Follow-up No qualifying data available Patient Education Distal Biceps Tendinitis Problem List/Past Medical History Ongoing Anxiety Asthma, exercise induced Atelectasis Biceps tendinitis Calcium deficiency Cough Hx of thyroid cancer Hypoparathyroidism Hypothyroidism Malignant tumor of thyroid gland Nonsmoker Obesity, Class III, BMI 40-49.9 (morbid obesity) JESSICA on CPAP Tennis elbow Ventricular septal defect (VSD) Vitamin D deficiency Historical No qualifying data Procedure/Surgical History Cholecystectomy and exploration of bile duct, Colonoscopy, Hysterectomy, Thyroidectomy. Medications albuterol 0.083% Inh Mandie 3 mL, See Instructions citalopram 40 mg Tab, 40 mg= 1 tab(s), Oral, Daily, 1 refills Flonase 0.05 mg/inh Webster, 2 spray(s), Nasal, Daily Flovent HFA 220 Aerosol, 1 puff(s), Inhalation, BID fluconazole 150 mg Tab, See Instructions levothyroxine 125 mcg (0.125 mg) Tab, See Instructions losartan 25 mg Tab, See Instructions magnesium oxide 400 mg Tab, See Instructions Medrol 4 mg Tab, 1 packet(s), Oral, As Directed metoprolol 50 mg ER Tab, 50 mg= 1 tab(s), Oral, Daily, 1 refills Misc Medication, See Instructions Misc Medication mupirocin Top 2% Oint, See Instructions Myrbetriq 50 mg oral tablet, extended release Natpara 75 mcg/dose subcutaneous injection, 75 mcg, SubCutaneous, Daily Vitamin C 500 mg oral tablet, chewable, 500 mg= 1 tab(s), Chewed, Daily Vitamin D3 10,000 intl units oral capsule, See Instructions Allergies anabolic steroids (Angry) Biaxin (Diarrhea) Augmentin (Diarrhea) Social History Alcohol - Low Risk, 07/27/2022 Current, 1-2 times per month, Household alcohol concerns: No., 07/27/2022 Substance Abuse - Denies Substance Abuse, 06/29/2022 Household substance abuse concerns: No., 07/27/2022 Tobacco - Denies Tobacco Use, 06/29/2022 Never (less than 100 in lifetime) Tobacco Use:. Never Smokeless Tobacco Use:. Cigarettes, Household tobacco concerns: No., 10/25/2023 Family History Alcoholism: Mother. Diabetes mellitus type 2: Brother. Hyperlipidemia: Sister. Parkinson disease: Brother. Immunizations Vaccine Date Status Comments influenza virus vaccine, inactivated - Not Given Postpone due to refusal influenza virus vaccine, inactivated 02/13/2022 Recorded SARS-CoV-2 (COVID-19) [id number] 02/13/2022 Recorded SARS-CoV-2 (COVID-19) mRNA BNT-162b2 vax 02/11/2021 Recorded SARS-CoV-2 (COVID-19) mRNA BNT-162b2 vax 07/11/2020 Recorded SARS-CoV-2 (COVID-19) mRNA BNT-162b2 vax 06/20/2020 Recorded influenza virus vaccine, inactivated 02/05/2015 Recorded influenza virus vaccine, inactivated 01/29/2015 Recorded Normal [facility] Comment on above: Result Comment: Elec tronically Signed By: Mamadou FAITH, Smith Ardon.br\Date and Time Signed: 10/25/23 11:42 EDT CHEMISTRYOrdered By: SYSTEM SYSTEM on 08-22-2023 25-hydroxyvitamin D3 [Mass/Vol] 61.5 ng/mL Normal 30.0 - 100.0 ng/mL Remisol Chem Albumin [Mass/Vol] 4.1 g/dL Normal 3.3 - 5.0 gm/dL Remisol Chem Albumin/Globulin [Mass ratio] 1.2 {ratio} Normal 1.1 - 2.2 Remisol Chem ALP [Catalytic activity/Vol] 100 [iU]/d High 21 - 98 Int._Unit/L Remisol Chem ALT No additional P-5'-P [Catalytic activity/Vol] 31 [iU]/d Normal 6 - 46 Int._Unit/L Remisol Chem Anion gap [Moles/Vol] 14 mmol/L Normal 6 - 16 mEq/L R emisol Chem AST [Catalytic activity/Vol] 40 [iU]/d Normal 5 - 43 Int._Unit/L Remisol Chem Bilirubin [Mass/Vol] 0.5 mg/dL Normal 0.0 - 1 .1 mg/dL Remisol Chem Calcium [Mass/Vol] 8.9 mg/dL Normal 8.9 - 11. 1 mg/dL Remisol Chem Chloride [Moles/Vol] 99 mmol/L Low 101 - 1 11 mmol/L Remisol Chem CO2 [Moles/Vol] 28 mmol/L Normal 21 - 31 mmol/L Remisol Chem Creatinine [Mass/Vol] 0.7 mg/dL Normal 0.5 - 1.3 mg/dL Remisol Chem eGFR 97 mL/min/1.73 m2 Normal >=59mL/min /1 .73 m2 Remisol Chem Globulin (S) [Mass/Vol] 3.3 g/dL Normal 1.4 - 4.0 gm/dL Remisol Chem Glucose [Mass/Vol] 144 mg/dL Normal 55 - 199 mg/dL Remisol Chem Magnesium [Mass/Vol] 1.4 mg/dL Normal 1.3 - 2 .4 mg/dL Remisol Chem Potassium [Moles/Vol] 4.0 mmol/L Normal 3.5 - 5.3 mmol/L Remisol Chem Protein [Mass/Vol] 7.4 g/dL Normal 6.0 - 7.8 gm/dL Remisol Chem Sodium [Moles/Vol] 137 mmol/L Normal 135 - 145 mmol/L Remisol Chem TSH Qn 3.26 m[IU]/L Normal 0.34 - 5.60 mcIU/mL Remisol Chem Urea nitrogen [Mass/Vol] 13 mg/dL Normal 5 - 21 mg/d L Remisol Chem Urea nitrogen/Creatinine [Mass ratio] 19 mg/mg Normal 10 - 20 Remisol Chem CMPon 08-22-2023 Albumin [Mass/Vol] 4.1 g/dL Normal 3.3-5.0 [facility] Comment on above: Performed By: #### 1 [id number], [id number], [id number], [id number] ####[facility] [address] [place] [address] Albumin/Globulin (S) [Mass conc ratio] 1.2 Normal 1.1-2.2 [facility] Comment on above: Performed By: #### 1 [id number], [id number], [id number], [id number], [id number] ####[facility] [address] [place] [address] ALP [Catalytic activity/Vol] 100 Int._Unit/L High 21-98 [facility] Comment on above: Performed By: #### 1 [id number], [id number], [id number], [id number], [id number] ####[facility] [address] [place] [address] ALT No additional P-5'-P [Catalytic activity/Vol] 31 Int._Unit/L Normal 6-46 [facility] Comment on above: Performed By: #### 1 [id number], 8731972, [id number], [id number], [id number] ####[facility] [address] [place] [address] Anion gap [Moles/Vol] 14 mmol/L Normal 6-16 [facility] Comment on above: Performed By: #### 1 [id number], 2845986, [id number], [id number], 7985086 ####[facility] [address] [place] [address] AST [Catalytic activity/Vol] 40 Int._Unit/L Normal 5-43 [facility] Comment on above: Performed By: #### 1 [id number], [id number], [id number], 98410118, 9557513 ####[facility] [address] [place] [address] Bilirubin [Mass/Vol] 0.5 mg/dL Normal 0.0-1.1 [facility] Comment on above: Performed By: #### 1 [id number], 2224450, [id number], 80310555, 2928737 ####[facility] [address] [place] [address] Calcium [Mass/Vol] 8.9 mg/dL Normal 8.9-11.1 [facility] Comment on above: Performed By: #### 1 [id number], [id number], [id number], 74120716, 7299384 ####[facility] [address] [place] [address] Chloride [Moles/Vol] 99 mmol/L Low 101-111 [facility] Comment on above: Performed By: #### 1 [id number], 5313943, [id number], 03995313, 7834773 ####[facility] [address] [place] [address] CO2 [Moles/Vol] 28 mmol/L Normal 21-31 [facility] Comment on above: Performed By: #### 1 9542427, 9704469, [id number], 10317389, 5128023 ####[facility] [address] [place] [address] Creatinine [Mass/Vol] 0.7 mg/dL Normal 0.5-1.3 [facility] Comment on above: Performed By: #### 1 1747039, 2083727, 578053755, 01202236, 0161302 ####[facility] [address] [place] [address] Globulin (S) [Mass/Vol] 3.3 g/dL Normal 1.4-4.0 [facility] Comment on above: Performed By: #### 1 4365588, 6538455, [id number], 72546831, 4758431 ####[facility] [address] [place] [address] Glucose [Mass/Vol] 144 mg/dL Normal 55-199 [facility] Comment on above: Performed By: #### 1 2553956, 9315747, [id number], 62912350, 0193205 ####[facility] [address] [place] [address] Potassium [Moles/Vol] 4.0 mmol/L Normal 3.5-5.3 [facility] Comment on above: Performed By: #### 1 7359233, 6677495, [id number], 10201866, 4992961 ####[facility] [address] [place] [address] Protein [Mass/Vol] 7.4 g/dL Normal 6.0-7.8 [facility] Comment on above: Performed By: #### 1 1666410, 5869084, 861121202, 04920611, 3400689 ####[facility] [address] [place] [address] Sodium [Moles/Vol] 137 mmol/L Normal 135-145 [facility] Comment on above: Performed By: #### 1 [id number], 9213937, 176617692, 08184460, 5492495 ####[facility] [address] [place] [address] Urea nitrogen [Mass/Vol] 13 mg/dL Normal 5-21 [facility] Comment on above: Performed By: #### 1 [id number], 0074981, [id number], 29135664, 3579837 ####[facility] [address] [place] [address] Urea nitrogen/Creatinine [Mass ratio] 19 No Units Normal 10-20 [facility] Comment on above: Performed By: #### 1 [id number], 6294963, [id number], 77112473, 9623548 ####[facility] [address] [place] [address] Family Medicine Office/Clini c Noteon 08-22-2023 Family Medicine Office/Clinic Note HPI Staff Marcelina is a 63 year old female presenting for 3 month follow up thyroid, anxiety Patient is here for follow up on Thyroid Disease. Do you have any of the following symptoms? Change in energy level? no Weight change? no Heat/cold intolerance? no Hair/skin/nail changes? no Change in bowels? no Last TSH: 3.760 05/06/23 Follow up for Mental Status: Medication adherence- Yes, takes medication as prescribed Medication refill needed: _ Suicidal thoughts-Not at this time Most recent ALCON: 11 Most recent PHQ: 1 questions/concerns: would like to see about getting labs done here for vit d, magnesium, and calcium History of Present Illness - Here for follow up - No new issues. - See staff HPI. Review of Systems PHQ Score Initial Depression Screen Score: 1 SCORE Physical Exam Vitals & Measurements T: 36.3 ?C(Temporal Artery) HR: 64(Peripheral) RR: 16 BP: 136/84 SpO2: 96% HT: 68 in HT: 173 cm WT: 140.0 kg WT: 308 lb BMI: 46.78 General: alert, no acute distress ENMT: oral mucosa moist, Cardiovascular: regular rate and rhythm, normal peripheral perfusion Respiratory: Lungs CTA, respirations non labored Extremities: no deformity, no trauma Neurological: oriented x 4, LOC appropriate for age, CN II-XII intact, motor strength equal & normal bilaterally, speech normal Abdomen: Soft, Nontender, Non-distended, + BS Assessment/Plan 1. Anxiety (F41.9: Anxiety disorder, unspecified) - Stable. - Continue as before Ordered: Comprehensive Metabolic Panel Magnesium Level TSH With T4fr Reflex Vitamin D 25 Hydroxy 2. Hypoparathyroidism (E20.9: Hypoparathyroidism, unspecified) - Will check mag, Ca and Vit D. Ordered: Comprehensive Metabolic Panel Magnesium Level TSH With T4fr Reflex Vitamin D 25 Hydroxy 3. Hypothyroidism (E03.9: Hypothyroidism, unspecified) - Will recheck labs today. - No issues. Ordered: Comprehensive Metabolic Panel Magnesium Level TSH With T4fr Reflex Vitamin D 25 Hydroxy 4. BMI 45.0-49.9, adult (Z68.42: Body mass index [BMI] 45.0-49.9, adult) - BMI education given Ordered: Comprehensive Metabolic Panel Magnesium Level TSH With T4fr Reflex Vitamin D 25 Hydroxy 5. Class 3 severe obesity due to excess calories with body mass index (BMI) of 45.0 to 49.9 in adult (E66.01: Morbid (severe) obesity due to excess calories) - Diet and and exercise advised Ordered: Comprehensive Metabolic Panel Magnesium Level TSH With T4fr Reflex Vitamin D 25 Hydroxy 6. Nonsmoker (Z78.9: Other specified health status) - Please continue to not smoke Ordered: Comprehensive Metabolic Panel Magnesium Level TSH With T4fr Reflex Vitamin D 25 Hydroxy 7. Malignant tumor of thyroid gland (C73: Malignant neoplasm of thyroid gland) - Removed - Will remove the dx Ordered: Comprehensive Metabolic Panel Magnesium Level TSH With T4fr Reflex Vitamin D 25 Hydroxy 8. Hx of thyroid cancer (Z85.850: Personal history of malignant neoplasm of thyroid) Ordered: Comprehensive Metabolic Panel Magnesium Level TSH With T4fr Reflex Vitamin D 25 Hydroxy Orders: citalopram, 40 mg = 1 tab(s), Oral, Daily, # 90 tab(s), Refills(s) 1, Pharmacy: [facility] #[id number], 173, cm, 08/22/23 11:06:00 EDT, Height/Length Dosing, 140, kg, 08/22/23 11:06:00 EDT, Weight Dosing Follow-up No qualifying data available Patient Education BMI for Adults Problem List/Past Medical History Ongoing Anxiety Asthma, exercise induced Atelectasis Calcium deficiency Cough Hx of thyroid cancer Hypoparathyroidism Hypothyroidism Malignant tumor of thyroid gland Nonsmoker Obesity, Class III, BMI 40-49.9 (morbid obesity) JESSICA on CPAP Ventricular septal defect (VSD) Vitamin D deficiency Historical No qualifying data Procedure/Surgical History Cholecystectomy and exploration of bile duct, Colonoscopy, Hysterectomy, Thyroidectomy. Medications albuterol 0.083% Inh Mandie 3 mL, See Instructions citalopram 40 mg Tab, 40 mg= 1 tab(s), Oral, Daily, 1 refills Flonase 0.05 mg/inh Webster, 2 spray(s), Nasal, Daily Flovent HFA 220 Aerosol, 1 puff(s), Inhalation, BID fluconazole 150 mg Tab, See Instructions levothyroxine 125 mcg (0.125 mg) Tab, 125 mcg= 1 tab(s), Oral, Daily, 3 refills losartan 25 mg Tab, See Instructions metoprolol 50 mg ER Tab, 50 mg= 1 tab(s), Oral, Daily, 1 refills Misc Medication, See Instructions Misc Medication mupirocin Top 2% Oint, See Instructions Myrbetriq 50 mg oral tablet, extended release Natpara 75 mcg/dose subcutaneous injection, 75 mcg, SubCutaneous, Daily Vitamin C 500 mg oral tablet, chewable, 500 mg= 1 tab(s), Chewed, Daily Vitamin D3 10,000 intl units oral capsule, See Instructions Allergies anabolic steroids (Angry) Biaxin (Diarrhea) Augmentin (Diarrhea) Social History Alcohol - Low Risk, 07/27/2022 Current, 1-2 times per month, Household alcohol concerns: No., 07/27/2022 Substance Abuse - (more content not included)... Normal [facility] Comment on above: Result Comment: Elec tronically Signed By: Mamadou FAITH, Smith Ardon.br\Date and Time Signed: 08/22/23 11:33 EDT Magnesiumon 08-22-2023 Magnesium [Mass/Vol] 1.4 mg/dL Normal 1.3-2.4 [facility] Comment on above: Performed By: #### 1 [id number], [id number], [id number], [id number], [id number] ####[facility] [address] [place] [address] Patient Educationon 08-22-19 24 Patient Education Nutrition BMI for Adults What is BMI? Body mass index (BMI) is a number that is calculated from a person's weight and height. BMI can help estimate how much of a person's weight is composed of fat. BMI does not measure body fat directly. Rather, it is an alternative to procedures that directly measure body fat, which can be difficult and expensive. BMI can help identify people who may be at higher risk for certain medical problems. What are BMI measurements used for? BMI is used as a screening tool to identify possible weight problems. It helps determine whether a person is obese, overweight, a healthy weight, or underweight. BMI is useful for: ? Identifying a weight problem that may be related to a medical condition or may increase the risk for medical problems. ? Promoting changes, such as changes in diet and exercise, to help reach a healthy weight. BMI screening can be repeated to see if these changes are working. How is BMI calculated? BMI involves measuring your weight in relation to your height. Both height and weight are measured, and the BMI is calculated from those numbers. This can be done either in [place] or metric measurements. Note that charts and online BMI calculators are available to help you find your BMI quickly and easily without having to do these calculations yourself. To calculate your BMI in [place] measurements: 1. Measure your weight in pounds (lb). 2. Multiply the number of pounds by 703. ? For example, for a person who weighs 180 lb, multiply that number by 703, which equals 126,540. 3. Measure your height in inches. Then multiply that number by itself to get a measurement called inches squared. ? For example, for a person who is 70 inches tall, the inches squared measurement is 70 inches x 70 inches, which equals 4,900 inches squared. 4. Divide the total from step 2 (number of lb x 703) by the total from step 3 (inches squared): 126,540 ? 4,900 = 25.8. This is your BMI. To calculate your BMI in metric measurements: 1. Measure your weight in kilograms (kg). 2. Measure your height in meters (m). Then multiply that number by itself to get a measurement called meters squared. ? For example, for a person who is 1.75 m tall, the meters squared measurement is 1.75 m x 1.75 m, which is equal to 3.1 meters squared. 3. Divide the number of kilograms (your weight) by the meters squared number. In this example: 70 ? 3.1 = 22.6. This is your BMI. What do the results mean? BMI charts are used to identify whether you are underweight, normal weight, overweight, or obese. The following guidelines will be used: ? Underweight: BMI less than 18.5. ? Normal weight: BMI between 18.5 and 24.9. ? Overweight: BMI between 25 and 29.9. ? Obese: BMI of 30 or above. Keep these notes in mind: ? Weight includes both fat and muscle, so someone with a muscular build, such as an athlete, may have a BMI that is higher than 24.9. In cases like these, BMI is not an accurate measure of body fat. ? To determine if excess body fat is the cause of a BMI of 25 or higher, further assessments may need to be done by a health care provider. ? BMI is usually interpreted in the same way for men and women. Where to find more information For more information about BMI, including tools to quickly calculate your BMI, go to these websites: ? Centers for Disease Control and Prevention: www.cdc.gov ? [place] [employer]: www.heart.org ? National Heart, Lung, and Blood [place]: www.nhlbi.nih.gov Summary ? Body mass index (BMI) is a number that is calculated from a person's weight and height. ? BMI may help estimate how much of a person's weight is composed of fat. BMI can help identify those who may be at higher risk for certain medical problems. ? BMI can be measured using [place] measurements or metric measurements. ? BMI charts are used to identify whether you are underweight, normal weight, overweight, or obese. This information is not intended to replace advice given to you by your health care provider. Make sure you discuss any questions you have with your health care provider. Document Revised: 01/02/2020 Document Reviewed: 11/09/2019 [employer] Patient Education ? 2022 [employer] Normal [facility] TSH With T4fr Reflexon 08-21 TSH Qn 3.26 m[IU]/L Normal 0.34-5.60 [facility] Comment on above: Performed By: #### 1 [id number], [id number], [id number], [id number], [id number] ####[facility] [address] [place] [address] Vitamin D 25 Hydroxyon 08-21 25-hydroxyvitamin D3 [Mass/Vol] 61.5 ng/mL Normal 30.0-100.0 [facility] Comment on above: Performed By: #### 1 [id number], [id number], [id number], [id number], 5564710 ####[facility] [address] [place] [address] eGFRon 08-22-2023 eGFR 97 mL/min/1.73 m2 Normal >=59 [facility] Comment on above: Order Comment: Order added by Discern Expert. Performed By: #### 1 [id number], 9058570, [id number], [id number], [id number] ####[facility] [address] [place] [address] Retail - Clinical Noteon Retail - Clinical Note [id number] Normal [facility] Ambulatory Visit Summaryon 0 06-30-2023 Ambulatory Visit Summary MARCELINA CANO :1960 Visit Date:06/30/2023 Ambulatory Visit Instructions Your Diagnosis Obesity, Class III, BMI 40-49.9 (morbid obesity) Your Care Team Attending Physician - ALEX GARRETT CNP Primary Care Physician - Smith Cedillo MD This Is Your Medications List Contact prescribing physician if questions or concerns Non-Formulary Medication (Misc Medication) albuterol (Albuterol (Eqv-ProAir HFA) 90 mcg/inh inhalation aerosol) albuterol (albuterol 0.083% Inh Mandie 3 mL) ascorbic acid (Vitamin C 500 mg oral tablet, chewable) cholecalciferol (Vitamin D3 10,000 intl units oral capsule) citalopram (citalopram 40 mg Tab) fluticasone (Flovent HFA 220 Aerosol) fluticasone nasal (Flonase 0.05 mg/inh Webster) levothyroxine (levothyroxine 125 mcg (0.125 mg) Tab) losartan (losartan 25 mg Tab) magnesium gluconate (magnesium gluconate 250 mg oral tablet) metoprolol (metoprolol 50 mg ER Tab) mirabegron (Myrbetriq 50 mg oral tablet, extended release) mupirocin topical (mupirocin Top 2% Oint) parathyroid hormone (Natpara 75 mcg/dose subcutaneous injection) Procedures Performed Cholecystectomy and exploration of bile duct, Colonoscopy, Hysterectomy, Thyroidectomy. Discharge Vitals Temperature (Temporal Artery) 37 ?C Heart Rate (Peripheral) 66 Blood Pressure 136/70 Height 173 cm Height 68 in Weight 139.9 kg Weight 307.78 lb BMI 46.74 What to do next Scheduled Follow-Up Appointments Tuesday 10:15 AM EDT With: Mamadou FAITH, Smith Timmons Where: [facility] Medicine Perla Normal [facility] Office/Clini c Noteon 06-30-2023 Family Medicine Office/Clinic Note Chief Complaint cough HPI Staff Patient of Dr. Cedillo presents for an acute visit. Respiratory C/O: Duration: 4 days Body aches: no Chest congestion: yes Chills: no Cough: yes Ear complaints: yes full Eye itching/watering: no Fever: no Headache: yes Nasal congestion: yes Nasal discharge: yes clear/milky Poor appetite: yes Reduced activity: no Sinus pain/pressure: yes Sneezing: yes Sputum production: yes brown Wheezing: yes Ill contacts: yes grandchildren Remedies tried: tesslon perls, vitamin c sweaty Patient reports that she has a hole in her heart so she tries to get in right away. I have reviewed and verified the staff HPI to be accurate for this encounter. History of Present Illness 63 year old patient of Dr. Cedillo presents for evaluation of cough and chest congestion x 4 days. She states she has a headache, nasal congestion, sinus pressure and tenderness, fullness in her ears, and a cough. She denies fever and sore throat. She has only tired tessalon perles and vitamin C with no improvement. She reports when she gets out of the shower she coughs up brown colored phlegm. Review of Systems PHQ Score Initial Depression Screen Score: 0 SCORE Constitutional: no fever, no chills, no sweats, no weakness Skin: no Jaundice, no rash, no lesions, nopetechiae ENMT: mild ear pain, mild sore throat, mild congestion, no hoarseness Respiratory: no shortness of breath, mild cough, no orthopnea, no wheezing Cardiovascular: no chest pain, no palpitations, no edema Additional ROS info: Except as noted in the above Review of Systems and in the History of Present Illness all other systems have been reviewed and are negative or noncontributory. Physical Exam Vitals & Measurements T: 37 ?C(Temporal Artery) HR: 66(Peripheral) BP: 136/70 SpO2: 98% HT: 68 in HT: 173 cm WT: 139.9 kg WT: 307.78 lb BMI: 46.74 General: alert, no acute distress ENMT: TM's clear, oral mucosa moist, yes pharyngeal erythema or yellow exudate Cardiovascular: regular rate and rhythm, normal peripheral perfusion Respiratory: Lungs CTA, respirations non labored Extremities: no deformity, no trauma Neurological: oriented x 4, LOC appropriate for age speech normal Assessment/Plan 1. Sinusitis nasal (J32.9: Chronic sinusitis, unspecified) Encouraged to increase fluids & rest Instructed to increase the utilization of flonase to BID as ordered f/u as needed or in 3-5 days if no improvement Ordered: amoxicillin-clavulana te, 1 tab(s), Oral, q12hr for 14 day(s), 28 tab(s), Refill(s) 0, [facility] #[id number], 173, cm, 06/30/23 13:55:00 EST, Height/Length Dosing, 139.9, kg, 06/30/23 13:55:00 EST, Weight Dosing fluconazole, See Instructions, Take one tablet at the onset of symptoms; may repeat in 72 hours, # 2 tab(s), Refills(s) 0, Pharmacy: [facility] #[id number], 173, cm, 06/30/23 13:55:00 EST, Height/Length Dosing, 139.9, kg, 06/30/23 13:55:00 EST, Weight Dosing 2. Obesity, Class III, BMI 40-49.9 (morbid obesity) (E66.01: Morbid (severe) obesity due to excess calories) The standard range for ages 18 and older is >=18.5 and < 25 kg/m2. Your BMI today was above this range, this falls in the overweight to obese category and there are medical benefits to weight loss. We can offer counselling, referral, and/or medical support in addressing this problem. Your BMI and weight management will be followed at subsequent visits. Ordered: Influenza Type A&B POC 19616 Rapid COVID POC 53962 Follow-up No qualifying data available Patient Education Sinus Infection, Adult, Gbjc-gd-Vghp Problem List/Past Medical History Ongoing Anxiety Asthma, exercise induced Atelectasis Calcium deficiency Cough Hx of thyroid cancer Hypoparathyroidism Hypoparathyroidism Hypothyroidism Malignant tumor of thyroid gland Nonsmoker Obesity, Class III, BMI 40-49.9 (morbid obesity) JESSICA on CPAP Ventricular septal defect (VSD) Vitamin D deficiency Historical No qualifying data Procedure/Surgical History Cholecystectomy and exploration of bile duct, Colonoscopy, Hysterectomy, Thyroidectomy. Medications Albuterol (Eqv-ProAir HFA) 90 mcg/inh inhalation aerosol, 2 puff(s), Inhalation, q6hr, 1 refills albuterol 0.083% Inh Mandie 3 mL, 2.5 mg= 3 mL, Inhalation, q6hr, 1 refills amoxicillin-clavulana te 875 mg-125 mg Tab, 1 tab(s), Oral, q12hr citalopram 40 mg Tab, 20 mg= 0.5 tab(s), Oral, Daily Flonase 0.05 mg/inh Webster, 2 spray(s), Nasal, Daily Flovent HFA 220 Aerosol, 1 puff(s), Inhalation, BID fluconazole 150 mg Tab, See Instructions levothyroxine 125 mcg (0.125 mg) Tab, 125 mcg= 1 tab(s), Oral, Daily, 3 refills losartan 25 mg Tab, See Instructions magnesium gluconate 250 mg oral tablet, See Instructions metoprolol 50 mg ER Tab, 50 mg= 1 tab(s), Oral, Daily, 1 refills Misc Medication mupirocin Top 2% Oint, 1 crow, Topical, TID, 1 refills Myrbetriq 50 mg oral tablet, extended release Natpara 75 mcg/dose subcutaneous injection, 75 (more content not included)... Normal [facility] Comment on above: Result Comment: Elec tronically Signed By: ALEX GARRETT CNP\.magda\Date and Time Signed: 06/30/23 14:57 EST Patient Educationon 06-30-19 24 Patient Education Infectious Disease Sinus Infection, Adult A sinus infection is soreness and swelling (inflammation) of your sinuses. Sinuses are hollow spaces in the bones around your face. They are located: ? Around your eyes. ? In the middle of your forehead. ? Behind your nose. ? In your cheekbones. Your sinuses and nasal passages are lined with a fluid called mucus. Mucus drains out of your sinuses. Swelling can trap mucus in your sinuses. This lets germs (bacteria, virus, or fungus) grow, which leads to infection. Most of the time, this condition is caused by a virus. What are the causes? ? Allergies. ? Asthma. ? Germs. ? Things that block your nose or sinuses. ? Growths in the nose (nasal polyps). ? Chemicals or irritants in the air. ? A fungus. This is rare. What increases the risk? ? Having a weak body defense system (immune system). ? Doing a lot of swimming or diving. ? Using nasal sprays too much. ? Smoking. What are the signs or symptoms? The main symptoms of this condition are pain and a feeling of pressure around the sinuses. Other symptoms include: ? Stuffy nose (congestion). This may make it hard to breathe through your nose. ? Runny nose (drainage). ? Soreness, swelling, and warmth in the sinuses. ? A cough that may get worse at night. ? Being unable to smell and taste. ? Mucus that collects in the throat or the back of the nose (postnasal drip). This may cause a sore throat or bad breath. ? Being very tired (fatigued). ? A fever. How is this diagnosed? ? Your symptoms. ? Your medical history. ? A physical exam. ? Tests to find out if your condition is short-term (acute) or long-term (chronic). Your doctor may: ? Check your nose for growths (polyps). ? Check your sinuses using a tool that has a light on one end (endoscope). ? Check for allergies or germs. ? Do imaging tests, such as an MRI or CT scan. How is this treated? Treatment for this condition depends on the cause and whether it is short-term or long-term. ? If caused by a virus, your symptoms should go away on their own within 10 days. You may be given medicines to relieve symptoms. They include: ? Medicines that shrink swollen tissue in the nose. ? A spray that treats swelling of the nostrils. ? Rinses that help get rid of thick mucus in your nose (nasal saline washes). ? Medicines that treat allergies (antihistamines). ? Bgzk-dsn-fkgsbvg pain relievers. ? If caused by bacteria, your doctor may wait to see if you will get better without treatment. You may be given antibiotic medicine if you have: ? A very bad infection. ? A weak body defense system. ? If caused by growths in the nose, surgery may be needed. Follow these instructions at home: Medicines ? Take, use, or apply ifnh-bpw-tcikyab and prescription medicines only as told by your doctor. These may include nasal sprays. ? If you were prescribed an antibiotic medicine, take it as told by your doctor. Do not stop taking it even if you start to feel better. Hydrate and humidify ? Drink enough water to keep your pee (urine) pale yellow. ? Use a cool mist humidifier to keep the humidity level in your home above 50%. ? Breathe in steam for 10?15 minutes, 3?4 times a day, or as told by your doctor. You can do this in the bathroom while a hot shower is running. ? Try not to spend time in cool or dry air. Rest ? Rest as much as you can. ? Sleep with your head raised (elevated). ? Make sure you get enough sleep each night. General instructions ? Put a warm, moist washcloth on your face 3?4 times a day, or as often as told by your doctor. ? Use nasal saline washes as often as told by your doctor. ? Wash your hands often with soap and water. If you cannot use soap and water, use hand regional program manager. ? Do not smoke. Avoid being around people who are smoking (secondhand smoke). ? Keep all follow-up visits. Contact a doctor if: ? You have a fever. ? Your symptoms get worse. ? Your symptoms do not get better within 10 days. Get help right away if: ? You have a very bad headache. ? You cannot stop vomiting. ? You have very bad pain or swelling around your face or eyes. ? You have trouble seeing. ? You feel confused. ? Your neck is stiff. ? You have trouble breathing. These symptoms may be an emergency. Get help right away. Call 911. ? Do not wait to see if the symptoms will go away. ? Do not drive yourself to the hospital. Summary ? A sinus infection is swelling of your sinuses. Sinuses are hollow spaces in the bones around your face. ? This condition is caused by tissues in your nose that become inflamed or swollen. This traps germs. These can lead to infection. ? If you were prescribed an antibiotic medicine, take it as told by your doctor. Do not stop taking it even if you start to feel better. ? Keep all follow-up visits (more content not included)... Normal [facility] C Urineon 05-21-2023 Bacteria identified Cx Nom (U) Microbiology PROCEDURE: Urine Culture [R1] SOURCE: U CleanCatch BODY SITE: COLLECTED DATE/TIME: 05/19/2023 16:03 EST RECEIVED DATE/TIME: 05/19/2023 18:18 EST START DATE/TIME: 05/19/2023 18:18 EST FREE TEXT SOURCE: Mamadou FAITH, Smith Bolden. Smith Cedillo MD FINAL REPORTS Final Report [] Verified Date/Time: 05/21/2023 08:04 EST <10,000 cfu/ml Mixed skin contaminants Performing Locations R1: This test was performed at: [facility], [address] [place] [address], [facility] , , [facility] Comment on above: Performed By: #### 2 [id number] ####[facility] [id number] [place] [address] Ambulatory Visit Summaryon 0 05-19-2023 Ambulatory Visit Summary MARCELINA CANO :1960 Visit Date:05/19/2023 Ambulatory Visit Instructions Your Diagnosis Dysuria BMI 45.0-49.9, adult Class 3 obesity Nonsmoker Your Care Team Attending Physician - Smith Cedillo MD. Primary Care Physician - Smith Cedillo MD This Is Your Medications List Non-Formulary Medication (Misc Medication) albuterol (Albuterol (Eqv-ProAir HFA) 90 mcg/inh inhalation aerosol) albuterol (albuterol 0.083% Inh Mandie 3 mL) ascorbic acid (Vitamin C 500 mg oral tablet, chewable) cholecalciferol (Vitamin D3 10,000 intl units oral capsule) citalopram (citalopram 40 mg Tab) fluticasone (Flovent HFA 220 Aerosol) fluticasone nasal (Flonase 0.05 mg/inh Webster) levothyroxine (levothyroxine 125 mcg (0.125 mg) Tab) losartan (losartan 25 mg Tab) magnesium gluconate (magnesium gluconate 250 mg oral tablet) metoprolol (metoprolol 50 mg ER Tab) mirabegron (Myrbetriq 50 mg oral tablet, extended release) mupirocin topical (mupirocin Top 2% Oint) parathyroid hormone (Natpara 75 mcg/dose subcutaneous injection) Procedures Performed Cholecystectomy and exploration of bile duct, Colonoscopy, Hysterectomy, Thyroidectomy. Discharge Vitals Temperature (Temporal Artery) 36.9 ?C Heart Rate (Peripheral) 66 Respiratory Rate 14 Blood Pressure 136/82 Height 173 cm Height 68 in Weight 139.3 kg Weight 306.46 lb BMI 46.54 What to do next Scheduled Follow-Up Appointments Tuesday 1:30 PM EST With: Jose Guadalupe FAITH, Jarred Alfaro Where: [facility] [place] Tuesday 10:15 AM EDT With: Mamadou FAITH, Smith Timomns Where: [facility] [place] Normal [facility] Family Medicine Office/Clini c Noteon 05-19-2023 Family Medicine Office/Clinic Note HPI Staff Marcelina is a 63 year old female presenting for acute visit Acute: cough, burning with urination. lower leg swelling Dysuria: Onset: tue ( yesterday) Symptoms: burning OTC used: nothing Last UTI: unsure Hx of kidney stones: no UA in office documented in chart flu: UTD 01/25/23 Acute: having spasms with her cough, will repeatedly cough and try to get something up and it's not constant with the spasms, but she's croupy and yellow gunk and developed a large cold sore on upper lip Legs are swelling if wears too tight of socks or sits on bleachers. Yesterday had the burning with urination so will check for UTI History of Present Illness - Pt here for cough and UTI symptoms - Pt states she has been having a cough now for several weeks. Not improved. UTI symptoms as per staff HPI. - Discussed leg swelling but will discuss further at her next visit. Review of Systems PHQ Score Initial Depression Screen Score: 1 SCORE Physical Exam Vitals & Measurements T: 36.9 ?C(Temporal Artery) HR: 66(Peripheral) RR: 14 BP: 136/82 SpO2: 96% HT: 68 in HT: 173 cm WT: 139.3 kg WT: 306.46 lb BMI: 46.54 General: alert, no acute distress ENMT: oral mucosa moist, Cardiovascular: regular rate and rhythm, normal peripheral perfusion Respiratory: Lungs CTA, respirations non labored Extremities: no deformity, no trauma Neurological: oriented x 4, LOC appropriate for age, CN II-XII intact, motor strength equal & normal bilaterally, speech normal Abdomen: Soft, Nontender, Non-distended, + BS Assessment/Plan 1. Dysuria (R30.0: Dysuria) - Will treat with Abx. - Send Ucx Ordered: Urnls Dip Stick Auto w/o Microscopy POC 71815 2. Cough (R05.9: Cough, unspecified) - Most likely a chronic cough - Will do inhaled steroids and give a medrol dose bill - Discussed steroids with her hx. - Pt is ok and will use the medrol dose bill if needed 3. BMI 45.0-49.9, adult (Z68.42: Body mass index [BMI] 45.0-49.9, adult) - BMI education given 4. Class 3 obesity (E66.01: Morbid (severe) obesity due to excess calories) - Diet and exercise advised. 5. Nonsmoker (Z78.9: Other specified health status) - Please continue to not smoke. Orders: amoxicillin, 500 mg = 1 cap(s), Oral, BID, X 7 day(s), # 14 cap(s), Refills(s) 0, Pharmacy: [email or web address] #[id number], 173, cm, 05/19/23 9:12:00 EST, Height/Length Dosing, 139.3, kg, 05/19/23 9:12:00 EST, Weight Dosing citalopram, 20 mg = 0.5 tab(s), Oral, Daily, # 90 tab(s), Refills(s) 0, Pharmacy: [facility] #[id number], 173, cm, 04/26/23 10:14:00 EST, Height/Length Dosing, 140.2, kg, 04/26/23 10:14:00 EST, Weight Dosing magnesium oxide, 800 mg = 2 tab(s), Oral, BID, # 360 tab(s), Refills(s) 1, Pharmacy: [facility], 173, cm, 03/14/23 13:44:00 EST, Height/Length Dosing, 140, kg, 03/14/23 13:44:00 EST, Weight Dosing methylPREDNISolone, = 1 packet(s), Oral, As Directed, as directed on package labeling, X 6 day(s), # 21 tab(s), Refills(s) 0, Pharmacy: [facility] #[id number], 173, cm, 05/19/23 9:12:00 EST, Height/Length Dosing, 139.3, kg, 05/19/23 9:12:00 EST, Weight Dosing Follow-up No qualifying data available Patient Education BMI for Adults Problem List/Past Medical History Ongoing Anxiety Asthma, exercise induced Atelectasis Calcium deficiency Cough Hx of thyroid cancer Hypoparathyroidism Hypothyroidism Nonsmoker Obesity, Class III, BMI 40-49.9 (morbid obesity) JESSICA on CPAP Ventricular septal defect (VSD) Vitamin D deficiency Historical No qualifying data Procedure/Surgical History Cholecystectomy and exploration of bile duct, Colonoscopy, Hysterectomy, Thyroidectomy. Medications Albuterol (Eqv-ProAir HFA) 90 mcg/inh inhalation aerosol, 2 puff(s), Inhalation, q6hr, 1 refills albuterol 0.083% Inh Mandie 3 mL, 2.5 mg= 3 mL, Inhalation, q6hr, 1 refills amoxicillin 500 mg Cap, 500 mg= 1 cap(s), Oral, BID citalopram 40 mg Tab, 20 mg= 0.5 tab(s), Oral, Daily Flonase 0.05 mg/inh Webster, 2 spray(s), Nasal, Daily Flovent HFA 220 Aerosol, 1 puff(s), Inhalation, BID, Not taking levothyroxine 125 mcg (0.125 mg) Tab, 125 mcg= 1 tab(s), Oral, Daily, 3 refills losartan 25 mg Tab, 25 mg= 1 tab(s), Oral, Daily, 1 refills magnesium gluconate 250 mg oral tablet, See Instructions Medrol 4 mg Tab, 1 packet(s), Oral, As Directed metoprolol 50 mg ER Tab, 50 mg= 1 tab(s), Oral, Daily, 1 refills Misc Medication mupirocin Top 2% Oint, 1 crow, Topical, TID, 1 refills Myrbetriq 50 mg oral tablet, extended release Natpara 75 mcg/dose subcutaneous injection, 75 mcg, SubCutaneous, Daily Vitamin C 500 mg oral tablet, chewable, 500 mg= 1 tab(s), Chewed, Daily Vitamin D3 10,000 intl units oral capsule, See Instructions Allergies anabolic steroids (Angry) Biaxin (Diarrhea) Social History Alcohol - Low Risk, 07/27/2022 Current, 1-2 times per month, Household alcohol concerns: No., 07/27/2022 Substance Abuse - Denies Substance Abuse, 06/29/2022 Household substa (more content not included)... Normal [facility] Comment on above: Result Comment: Elec tronically Signed By: Mamadou FAITH, Smith Timmons\.br\Date and Time Signed: 05/19/23 09:40 EST Patient Educationon 05-19-19 Patient Education Nutrition BMI for Adults What is BMI? Body mass index (BMI) is a number that is calculated from a person's weight and height. BMI can help estimate how much of a person's weight is composed of fat. BMI does not measure body fat directly. Rather, it is an alternative to procedures that directly measure body fat, which can be difficult and expensive. BMI can help identify people who may be at higher risk for certain medical problems. What are BMI measurements used for? BMI is used as a screening tool to identify possible weight problems. It helps determine whether a person is obese, overweight, a healthy weight, or underweight. BMI is useful for: ? Identifying a weight problem that may be related to a medical condition or may increase the risk for medical problems. ? Promoting changes, such as changes in diet and exercise, to help reach a healthy weight. BMI screening can be repeated to see if these changes are working. How is BMI calculated? BMI involves measuring your weight in relation to your height. Both height and weight are measured, and the BMI is calculated from those numbers. This can be done either in [place] or metric measurements. Note that charts and online BMI calculators are available to help you find your BMI quickly and easily without having to do these calculations yourself. To calculate your BMI in [place] measurements: 1. Measure your weight in pounds (lb). 2. Multiply the number of pounds by 703. ? For example, for a person who weighs 180 lb, multiply that number by 703, which equals 126,540. 3. Measure your height in inches. Then multiply that number by itself to get a measurement called inches squared. ? For example, for a person who is 70 inches tall, the inches squared measurement is 70 inches x 70 inches, which equals 4,900 inches squared. 4. Divide the total from step 2 (number of lb x 703) by the total from step 3 (inches squared): 126,540 ? 4,900 = 25.8. This is your BMI. To calculate your BMI in metric measurements: 1. Measure your weight in kilograms (kg). 2. Measure your height in meters (m). Then multiply that number by itself to get a measurement called meters squared. ? For example, for a person who is 1.75 m tall, the meters squared measurement is 1.75 m x 1.75 m, which is equal to 3.1 meters squared. 3. Divide the number of kilograms (your weight) by the meters squared number. In this example: 70 ? 3.1 = 22.6. This is your BMI. What do the results mean? BMI charts are used to identify whether you are underweight, normal weight, overweight, or obese. The following guidelines will be used: ? Underweight: BMI less than 18.5. ? Normal weight: BMI between 18.5 and 24.9. ? Overweight: BMI between 25 and 29.9. ? Obese: BMI of 30 or above. Keep these notes in mind: ? Weight includes both fat and muscle, so someone with a muscular build, such as an athlete, may have a BMI that is higher than 24.9. In cases like these, BMI is not an accurate measure of body fat. ? To determine if excess body fat is the cause of a BMI of 25 or higher, further assessments may need to be done by a health care provider. ? BMI is usually interpreted in the same way for men and women. Where to find more information For more information about BMI, including tools to quickly calculate your BMI, go to these websites: ? Centers for Disease Control and Prevention: www.cdc.gov ? [place] Heart Association: www.heart.org ? National Heart, Lung, and Blood [place]: www.nhlbi.nih.gov Summary ? Body mass index (BMI) is a number that is calculated from a person's weight and height. ? BMI may help estimate how much of a person's weight is composed of fat. BMI can help identify those who may be at higher risk for certain medical problems. ? BMI can be measured using Martiniqu[place] measurements or metric measurements. ? BMI charts are used to identify whether you are underweight, normal weight, overweight, or obese. This information is not intended to replace advice given to you by your health care provider. Make sure you discuss any questions you have with your health care provider. Document Revised: 01/02/2020 Document Reviewed: 11/09/2019 ElseFRM Study Course Patient Education ? 2022 [employer] Normal [facility] Lab Reportson 05-09-2023 Lab Reports [id number] Normal [facility] TSH SerPl-aCncon 05-06-2023 TSH Qn 3.760 m[IU]/L Normal 0.270-4.200 [facility] Comment on above: Order Comment: Alana hill Type: BLOOD SPECIMEN Ordering Facility: [facility] Address: [address] [place] [address] Performed By: #### 3 [id number] #### [facility] CLIA [id number] [facility] [place] [address] [place] Thyroglobulin and Thyrogobul in Ab panelon 05-06-2023 Thyroglobulin Ab Qn [IU]/mL Normal <4.0 [facility] Comment on above: Order Comment: Alana hill Type: BLOOD SPECIMEN Ordering Facility: [facility] Address: [address] [place] [address] Result Comment: The Thyroglobulin Antibody test was performed using the [employer]inel DXI paramagnetic particle chemiluminescent immunoassay method. Results obtained with different assay methods or kits cannot be used interchangeably. Performed By: #### 5 [id number] #### [facility] CLIA [id number] [address] [place] [address] [place] THYROGLOBULIN, SERUM <0.1 Low 1.6-50.0 [facility] Comment on above: Order Comment: Alana hill Type: BLOOD SPECIMEN Ordering Facility: [facility] Address: [address] [place] [address] Result Comment: The Thyroglobulin test was performed using the [employer] DXI paramagnetic particle chemiluminescent immunoassay method. Results obtained with different assay methods or kits cannot be used interchangeably. Performed By: #### 5 [id number] #### [facility] CLIA [id number] [address] [place] [address] [place] CNOVon 05-04-2023 CNOV Office Visit (ENCAMN ) MARCELINA CANO ([id number]) 1960 F Date Time Provider Department 05/04/23 12:40 PM JUNIE FAYE During your visit today, we recorded the following information about you: Pulse Blood pressure Weight 62/minute 148/63 139.7 kg Maryse Simon Ma 05/04/2023 12:25 PM Signed Thank you for choosing the [facility] Department of Endocrinology, Diabetes and Metabolism. Did you know that you need to call 48 hours in advance of your scheduled visit, if you are unable to make your appointment? The [facility] [place] thanks you for your commitment, because patients not showing to their appointment results in a lost opportunity for patients to receive [facility] health care at the [facility]. To Cancel an appointment, please choose one of the following: - Call the Appointment Call Center at [phone] - From [email or web address], Go to Appointments - Cancel Appts If cancelling, consider your need to reschedule to prevent further delays in your care. To Schedule an appointment, please choose one of the following: - Call the Appointment Call Center at [phone] - From [facility], Go to Appointments - Request an Appt Junie Faye MD 05/04/2023 3:48 PM Signed Endocrine progress note LV hypocalcemia, hypothyroidism, papillary thyroid cancer LV August 18, 2020 Here with Ms. Cano is a 63year old who presents for following issues: hypocalcemia Prior notes: Female with hypocalcemia s/p thyroid surgery in 2006 for papillary thyroid cancer. Managed on natpara due to life threatening hypocalcemia in the past. She was under care of osh team at that time. Reports that conventional treatment resulted in persistent hypocalcemia. Ended up in ER in 1st week of January 2019 with calcium of 4.0, had to be in ICU for 3 days. Happened again a week later with calcium of 5, back in ICU for HTN emergency at same time Was able to get natpara while admitted second time. Now doing injections as above. Cant Hooker back home is prescribing natpara. I-131 full body scan from 2013 negative for abnormal uptake Working with local endo re; thyroid cancer Currently doing well No hypocalcemia sxs Regimen: natpara 0.75 mg sub daily Vitamin D 5000 IU d3 daily Calcium tablet 600 mg qid times/day Mag - 400 mg 2 tablets twice daily Managed on synthroid 125 mcg daily No hypocalcemia symptoms now Feeling good Obese. Upset about lack of weight loss. BMI 46 Previously walked 4 miles/twice daily and did weight watchers - lost 5 lbs/week for a total loss of 56 lbs but regained everything back when she stopped diet Of note, parents overweight. Not on any diet currently, not exercising Otherwise, no other acute complaints or concerns today. mirabegron (MYRBETRIQ) 50 mg Tb24 Take 1 tablet by mouth every morning. cholecalciferol (VITAMIN D-3) 5,000 unit tab Take 1 tablet by mouth once daily. magnesium oxide 400 mg magnesium cap Take 400 mg by mouth once daily. Sun Sat - 400 mg TID Tue - 400 mg BID citalopram (CELEXA) 20 mg tablet Take 20 mg by mouth daily at bedtime. losartan (COZAAR) 25 mg tablet Take 25 mg by mouth once daily. calcium carbonate-vitamin D3 (CALTRATE 600 + D) 600 mg (1,500 mg)-800 unit chew Take 1 tablet by mouth three times daily. parathyroid hormone (NATPARA) 75 mcg/dose crtg Inject 75 mcg subcutaneously once daily. metoprolol succinate XL, long acting, 25 mg 24 hr tablet Take 1 tablet by mouth once daily. (Patient taking differently: Take 50 mg by mouth once daily.) albuterol (PROVENTIL) 2.5 mg /3 mL (0.083 %) nebulizer solution levothyroxine (SYNTHROID) 125 mcg tablet TAKE 1 TABLET DAILY levothyroxine (SYNTHROID) 125 mcg tablet Take 1 tablet by mouth once daily. tetracycline (SUMYCIN) 500 mg cap Take 500 mg by mouth once daily. Pt takes 1-2 times Daily COMPOUNDED PRESCRIPTION Sleepessence, one capsule by mouth at bedtime REVIEW OF SYSTEMS: Answers submitted by the patient for this visit: Core Review of Systems (Submitted on 05/04/2023) Fever : No Night sweats: No Recent unintentional weight change: Yes Nasal Congestion: No Hearing Loss: Yes Vision Disturbance: No A cough: Yes Difficulty Breathing?: Yes Chest pain: Yes Irregular heartbeat: Yes Leg Swelling: Yes Nausea: No Diarrhea: No Black tarry stools: No Difficulty Urinating?: Yes Awaken at Night More Than Once to Urinate?: No Joint pain or stiffness: Yes Muscle aches: Yes Leg or Foot Discomfort at Night?: Yes A rash: No Dizziness: No Headaches: Yes Memory Loss: No Seizures: No The remainder of the review of systems is negative. Patient's Past Family and Social history have been reviewed with the patient, and updated as appropriate. Please see relevant sections in epic EHR for details. PHYSICAL EXAM: BP 148/63 Pulse 62 Wt ( (more content not included)... Normal [facility] Ambulatory Visit Summaryon 0 04-27-2023 Ambulatory Visit Summary MARCELINA CANO :1960 Visit Date:04/27/2023 Ambulatory Visit Instructions Your Care Team Attending Physician - Smith Cedillo MD Primary Care Physician - Smith Cedillo MD This Is Your Medications List Non-Formulary Medication (Misc Medication) albuterol (Albuterol (Eqv-ProAir HFA) 90 mcg/inh inhalation aerosol) albuterol (albuterol 0.083% Inh Mandie 3 mL) ascorbic acid (Vitamin C 500 mg oral tablet, chewable) cholecalciferol (Vitamin D3 10,000 intl units oral capsule) citalopram (citalopram 40 mg Tab) fluticasone (Flovent HFA 220 Aerosol) fluticasone nasal (Flonase 0.05 mg/inh Webster) levothyroxine (levothyroxine 125 mcg (0.125 mg) Tab) losartan (losartan 25 mg Tab) magnesium oxide (magnesium oxide 400 mg Tab) metoprolol (metoprolol 50 mg ER Tab) mirabegron (Myrbetriq 50 mg oral tablet, extended release) mupirocin topical (mupirocin Top 2% Oint) parathyroid hormone (Natpara 75 mcg/dose subcutaneous injection) Procedures Performed Cholecystectomy and exploration of bile duct, Colonoscopy, Hysterectomy, Thyroidectomy. What to do next Scheduled Follow-Up Appointments Tuesday 1:30 PM EST With: Jose Guadalupe FAITH, Jarred Alfaro Where: [facility] [place] Tuesday 10:00 AM EDT With: Mamadou FAITH, Smith Timmons Where: [facility] [place] Normal [facility] CHEMISTRYOrdered By: SYSTEM SYSTEM on 04-27-2023 Albumin [Mass/Vol] 4.2 g/dL Normal 3.3 - 5.0 gm/dL Remisol Chem Albumin/Globulin [Mass ratio] 1.3 {ratio} Normal 1.1 - 2.2 Remisol Chem Alk Phos 102 [iU]/d High 21 - 98 Int._Unit/L Remisol Chem ALT 42 [iU]/d Normal 6 - 46 Int._Unit/L Remisol Chem Anion gap [Moles/Vol] 12 mmol/L Normal 6 - 16 mEq/L R emisol Chem AST 58 [iU]/d High 5 - 43 Int._Unit/L Remisol Chem Bili Total 0.7 mg/dL Normal 0.0 - 1.1 mg/dL Remisol Chem Calcium [Mass/Vol] 9.8 mg/dL Normal 8.9 - 11. 1 mg/dL Remisol Chem Chloride [Moles/Vol] 101 mmol/L Normal 101 - 1 11 mmol/L Remisol Chem CO2 [Moles/Vol] 30 mmol/L Normal 21 - 31 mmol/L Remisol Chem Creatinine [Mass/Vol] 0.7 mg/dL Normal 0.5 - 1.3 mg/dL Remisol Chem eGFR mL/min/1.73 m2 Normal >=59mL/min/1 .73 m2 Remisol Chem Globulin (S) [Mass/Vol] 3.3 g/dL Normal 1.4 - 4.0 gm/dL Remisol Chem Glucose [Mass/Vol] 140 mg/dL Normal 55 - 199 mg/dL Remisol Chem Magnesium [Mass/Vol] 1.6 mg/dL Normal 1.3 - 2 .4 mg/dL Remisol Chem Phosphate [Mass/Vol] 3.3 mg/dL Normal 1.9 - 4 .6 mg/dL Remisol Chem Potassium [Moles/Vol] 4.3 mmol/L Normal 3.5 - 5.3 mmol/L Remisol Chem Protein [Mass/Vol] 7.5 g/dL Normal 6.0 - 7.8 gm/dL Remisol Chem Sodium [Moles/Vol] 139 mmol/L Normal 135 - 145 mmol/L Remisol Chem Urea nitrogen [Mass/Vol] 15 mg/dL Normal 5 - 21 mg/d L Remisol Chem Urea nitrogen/Creatinine [Mass ratio] 21 mg/mg High 10 - 20 Remisol Chem Vitamin D 25 Hydroxy 59.5 ng/mL Normal 30.0 - 100.0 ng/mL Remisol Chem CMPon 04-27-2023 Albumin [Mass/Vol] 4.2 g/dL Normal 3.3-5.0 [facility] Comment on above: Performed By: #### 2 239465, 7949158, 0135297, [id number], 75710068 ####[facility] [address] [place] [address] Albumin/Globulin [Mass ratio] 1.3 {ratio} Normal 1.1-2.2 [facility] Comment on above: Performed By: #### 2 269567, 8039373, 6345125, [id number], [id number] ####[facility] [address] [place] [address] Alk Phos 102 Int._Unit/L High 21-98 [facility] Comment on above: Performed By: #### 2 520306, 2046113, 4651600, [id number], [id number] ####[facility] [address] [place] [address] ALT 42 Int._Unit/L Normal 6-46 [facility] Comment on above: Performed By: #### 2 777538, 1916052, 4075007, [id number], [id number] ####[facility] [address] [place] [address] Anion gap [Moles/Vol] 12 mmol/L Normal 6-16 [facility] Comment on above: Performed By: #### 2 076187, 2554001, 0648633, [id number], 56409143 ####[address] [place] [address] AST 58 Int._Unit/L High 5-43 [facility] Comment on above: Performed By: #### 2 656894, 4371223, 9269593, 721125693, 45584648 ####[facility] [address] [place] [address] Bili Total 0.7 mg/dL Normal 0.0-1.1 [facility] Comment on above: Performed By: #### 2 284334, 1722843, 7247352, 996944208, 10177923 ####[address] [place] [address] BUN/Creat Ratio 21 No Units High 10-20 [facility] Comment on above: Performed By: #### 2 222315, 6632223, 2127224, [id number], 93769208 ####[facility] [address] [place] [address] Calcium [Mass/Vol] 9.8 mg/dL Normal 8.9-11.1 [facility] Comment on above: Performed By: #### 2 694743, 5865377, 7422893, 444753284, 02855459 ####[facility] [address] [place] [address] Chloride [Moles/Vol] 101 mmol/L Normal 101-111 [facility] Comment on above: Performed By: #### 2 657659, 0071142, 4651438, [id number], 37967681 ####[facility] [address] [place] [address] CO2 [Moles/Vol] 30 mmol/L Normal 21-31 [facility] Comment on above: Performed By: #### 2 580024, 2332823, 6364669, [id number], 69462218 ####[facility] [address] [place] [address] Creatinine [Mass/Vol] 0.7 mg/dL Normal 0.5-1.3 [facility] Comment on above: Performed By: #### 2 065533, 4575578, 0335984, 639853379, 59546342 ####[facility] [address] [place] [address] Globulin (S) [Mass/Vol] 3.3 g/dL Normal 1.4-4.0 [facility] Comment on above: Performed By: #### 2 883240, 4578855, 8944117, 685906031, 91500489 ####[facility] [address] [place] [address] Glucose [Mass/Vol] 140 mg/dL Normal 55-199 [facility] Comment on above: Performed By: #### 2 392083, 1956063, 6551122, 533731159, 84634518 ####[facility] [address] [place] [address] Potassium [Moles/Vol] 4.3 mmol/L Normal 3.5-5.3 [facility] Comment on above: Performed By: #### 2 262118, 0014465, 8650879, 221012073, 63535515 ####[facility] [address] [place] [address] Protein [Mass/Vol] 7.5 g/dL Normal 6.0-7.8 [facility] Comment on above: Performed By: #### 2 635268, 1312642, 5834796, 885994546, 24549122 ####[facility] [address] [place] [address] Sodium [Moles/Vol] 139 mmol/L Normal 135-145 [facility] Comment on above: Performed By: #### 2 548405, 3021548, 3352696, 992573837, 40316235 ####[facility] [address] [place] [address] Urea nitrogen [Mass/Vol] 15 mg/dL Normal 5-21 [facility] Comment on above: Performed By: #### 2 037502, 2672288, 2204492, 216906903, 95491077 ####[facility] [address] [place] [address] Magnesiumon 04-27-2023 Magnesium [Mass/Vol] 1.6 mg/dL Normal 1.3-2.4 [facility] Comment on above: Performed By: #### 2 561952, 4505628, 9659258, 398942826, 16394801 ####[facility] [address] [place] [address] Nurse Consultation Noteon Nurse Consultation Note Reason for Visit Here for lab draw. Medications Albuterol (Eqv-ProAir HFA) 90 mcg/inh inhalation aerosol, 2 puff(s), Inhalation, q6hr, 1 refills albuterol 0.083% Inh Mandie 3 mL, 2.5 mg= 3 mL, Inhalation, q6hr, 1 refills citalopram 40 mg Tab, 40 mg= 1 tab(s), Oral, Daily Flonase 0.05 mg/inh Webster, 2 spray(s), Nasal, Daily Flovent HFA 220 Aerosol, 1 puff(s), Inhalation, BID levothyroxine 125 mcg (0.125 mg) Tab, 125 mcg= 1 tab(s), Oral, Daily, 3 refills losartan 25 mg Tab, 25 mg= 1 tab(s), Oral, Daily, 1 refills magnesium oxide 400 mg Tab, 800 mg= 2 tab(s), Oral, BID, 1 refills metoprolol 50 mg ER Tab, 50 mg= 1 tab(s), Oral, Daily, 1 refills Misc Medication mupirocin Top 2% Oint, 1 crow, Topical, TID, 1 refills Myrbetriq 50 mg oral tablet, extended release Natpara 75 mcg/dose subcutaneous injection, 75 mcg, SubCutaneous, Daily Vitamin C 500 mg oral tablet, chewable, 500 mg= 1 tab(s), Chewed, Daily Vitamin D3 10,000 intl units oral capsule, See Instructions Allergies anabolic steroids (Angry) Biaxin (Diarrhea) Immunizations Vaccine Date Status Comments influenza virus vaccine, inactivated - Not Given Postpone due to refusal influenza virus vaccine, inactivated 02/13/2022 Recorded SARS-CoV-2 (COVID-19) [id number] 02/13/2022 Recorded SARS-CoV-2 (COVID-19) mRNA BNT-162b2 vax 02/11/2021 Recorded SARS-CoV-2 (COVID-19) mRNA BNT-162b2 vax 07/11/2020 Recorded SARS-CoV-2 (COVID-19) mRNA BNT-162b2 vax 06/20/2020 Recorded influenza virus vaccine, inactivated 02/05/2015 Recorded influenza virus vaccine, inactivated 01/29/2015 Recorded Normal [facility] Phosphoruson 04-27-2023 Phosphate [Mass/Vol] 3.3 mg/dL Normal 1.9-4.6 [facility] Comment on above: Performed By: #### 2 027312, 0542663, 5810496, 778320779, 13395886 ####[facility] [address] [place] [address] Physician Referralon 024 Physician Referral [id number] 1.00TIFF Normal [facility] Vitamin D 25 Hydroxyon 04-27 Vitamin D 25 Hydroxy 59.5 ng/mL Normal 30.0-100.0 [facility] Comment on above: Performed By: #### 2 841540, 6609674, 7276596, 024947218, 88687863 ####[facility] [address] [place] [address] eGFRon 04-27-2023 GFR/1.73 sq M.predicted among non-blacks MDRD (S/P/Bld) [Vol rate/Area] mL/min/{1.73_m2} Normal >=59 [facility] Comment on above: Order Comment: Order added by Discern Expert. Performed By: #### 2 378293, 8399533, 0362112, 734680528, 35674090 ####[facility] [address] [place] [address] CNPNon 04-26-2023 CNPN Telephone (ENDOMN) ELIZABETH CANOA Mala ([id number]) 1960 F Date Time Provider Department 04/26/23 JUNIE FAYE ENDOMN During your visit today, we recorded the following information about you: Amelia Baker 04/26/2023 11:39 AM Signed Patient called requesting the following labs N/A Patient has an appointment Yes date 05/04/23 Patient last appointment was 08/18/20 with Patient requested a lab letter: No Fax number ,needs faxed to Dr.Samuel Cedillo at [phone] Patient was informed to check [facility] for lab letter and lab orders within 48 hours. Amelia Baker Sales Assistant Institutional Sales II Diabetes AND Endocrinology X-20 Junie Faye MD 04/26/2023 3:43 PM Signed Please print letter from 04/15/2023 under letter tabs and fax to number below. Thank you so much. Ta Pandya, RN 04/26/2023 4:13 PM Signed Faxed on this date with confirmation. Allergies As of Date: 04/26/2023 (No Known Allergies) Date Reviewed: 05/14/2019 Reviewed by: Junie Faye - Fully Assessed Reason for Visit: Orders [681] Prescriptions as of 04/26/2023 - cholecalciferol (VITAMIN D-3) 5,000 unit tab Take 1 tablet by mouth once daily. - levothyroxine (SYNTHROID) 125 mcg tablet TAKE 1 TABLET DAILY - levothyroxine (SYNTHROID) 125 mcg tablet Take 1 tablet by mouth once daily. - magnesium oxide 400 mg magnesium cap Take 400 mg by mouth once daily. Sun Sat - 400 mg TID Tue - 400 mg BID - tetracycline (SUMYCIN) 500 mg cap Take 500 mg by mouth once daily. Pt takes 1-2 times Daily - citalopram (CELEXA) 20 mg tablet Take 20 mg by mouth daily at bedtime. - losartan (COZAAR) 25 mg tablet Take 25 mg by mouth once daily. - calcium carbonate-vitamin D3 (CALTRATE 600 + D) 600 mg (1,500 mg)-800 unit chew Take 1 tablet by mouth three times daily. - parathyroid hormone (NATPARA) 75 mcg/dose crtg Inject 75 mcg subcutaneously once daily. - COMPOUNDED PRESCRIPTION Sleepessence, one capsule by mouth at bedtime - metoprolol succinate XL, long acting, 25 mg 24 hr tablet Take 1 tablet by mouth once daily. Problem List As Of Date 04/26/2023 Noted Resolved ASD (atrial septal defect) [Q21.10] 03/28/2012 04/14/2012 Ventricular septal defect (VSD), perimembranous*2011 Atypical chest pain [R07.89] 04/14/2012 Hypertension [I10] 04/14/2012 Obesity (BMI 35.0-39.9 without comorbidity) [E6*04/14/2012 JESSICA on CPAP [G47.33] 04/14/2012 Fatigue [R53.83] 04/14/2012 HAMMER/MALLET TOE [M20.40] 04/09/2014 METATARSALGIA/ENTHESO MARCIA [M77.50] 04/09/2014 Enthesopathy of unspecified site [M77.9] 04/09/2014 Nausea [R11.0] 03/14/2017 Hypocalcemia [E83.51] 03/14/2017 Other specified hypothyroidism [E03.8] 03/15/2017 Encounter Status:Closed by AMELIA BAKER on 04/26/23 Normal [facility] Office/Clini c Noteon 04-26-2023 [facility] Medicine Office/Clinic Note HPI Staff Marcelina is a 63 year old female presenting for 3 month follow up Patient is here for follow up on Thyroid Disease. Do you have any of the following symptoms? Change in energy level? no Weight change? yes up Heat/cold intolerance? yes feet cold and tingle has to wear socks all the time Hair/skin/nail changes? no Change in bowels? no Last TSH: No qualifying data available. Follow up for Mental Status: Medication adherence- Yes, takes medication as prescribed Medication refill needed: no Suicidal thoughts-Not at this time Most recent ALCON: 12 Most recent PHQ9: 4 flu: refused questions/concerns: needs to find a historical archeologist, hers at [facility] left would like a good one that's local that specilizes in her VSD History of Present Illness Pt here for follow up. Need labs. Getting from [facility]. - No issues. Anxiety is still high. Will increase the citalopram. Review of Systems PHQ Score Initial Depression Screen Score: 0 SCORE Physical Exam Vitals & Measurements T: 36.6 ?C(Temporal Artery) HR: 68(Peripheral) RR: 16 BP: 136/80 SpO2: 97% HT: 68 in HT: 173 cm WT: 140.2 kg WT: 308.44 lb BMI: 46.84 General: alert, no acute distress ENMT: oral mucosa moist, Cardiovascular: regular rate and rhythm, normal peripheral perfusion Respiratory: Lungs CTA, respirations non labored Extremities: no deformity, no trauma Neurological: oriented x 4, LOC appropriate for age, CN II-XII intact, motor strength equal & normal bilaterally, speech normal Abdomen: Soft, Nontender, Non-distended, + BS Assessment/Plan 1. Hypoparathyroidism (E20.9: Hypoparathyroidism, unspecified) - Sees Endo - Having labs done - Requesting labs to be done here Ordered: [facility] [facility] 2. Hypothyroidism (E03.9: Hypothyroidism, unspecified) - As above. Ordered: [facility] [place] [facility] [place] 3. Anxiety (F41.9: Anxiety disorder, unspecified) - Pt states she is better, but her scores are not improving. Ordered: [facility] [place] [facility] [place] 4. Calcium deficiency (E58: Dietary calcium deficiency) - Will recheck with the new labs Ordered: [facility] [place] [facility] [place] 5. Ventricular septal defect (VSD) (Q21.0: Ventricular septal defect) - Will send to cardiology here on her request. Ordered: [facility] [place] [facility] [place] 6. JESSICA on CPAP (G47.33: Obstructive sleep apnea (adult) (pediatric)) - No issues at this time. - Continue to use. 7. Obesity, Class III, BMI 40-49.9 (morbid obesity) (E66.01: Morbid (severe) obesity due to excess calories) - Diet and exercise 8. BMI 45.0-49.9, adult (Z68.42: Body mass index [BMI] 45.0-49.9, adult) - BMI education added. 9. Nonsmoker (Z78.9: Other specified health status) - Please continue to not smoke. Orders: citalopram, 40 mg = 1 tab(s), Oral, Daily, # 90 tab(s), Refills(s) 0, Pharmacy: [id number], 173, cm, 04/26/23 10:14:00 EST, Height/Length Dosing, 140.2, kg, 04/26/23 10:14:00 EST, Weight Dosing Follow-up No qualifying data available Problem List/Past Medical History Ongoing Anxiety Asthma, exercise induced Atelectasis Calcium deficiency Hx of thyroid cancer Hypoparathyroidism Hypothyroidism Nonsmoker Obesity, Class III, BMI 40-49.9 (morbid obesity) JESSICA on CPAP Ventricular septal defect (VSD) Vitamin D deficiency Historical No qualifying data Procedure/Surgical History Cholecystectomy and exploration of bile duct, Colonoscopy, Hysterectomy, Thyroidectomy. Medications Albuterol (Eqv-ProAir HFA) 90 mcg/inh inhalation aerosol, 2 puff(s), Inhalation, q6hr, 1 refills albuterol 0.083% Inh Mandie 3 mL, 2.5 mg= 3 mL, Inhalation, q6hr, 1 refills citalopram 40 mg Tab, 40 mg= 1 tab(s), Oral, Daily Flonase 0.05 mg/inh Webster, 2 spray(s), Nasal, Daily Flovent HFA 220 Aerosol, 1 puff(s), Inhalation, BID levothyroxine 125 mcg (0.125 mg) Tab, 125 mcg= 1 tab(s), Oral, Daily, 3 refills losartan 25 mg Tab, 25 mg= 1 tab(s), Oral, Daily, 1 refills magnesium oxide 400 mg Tab, 800 mg= 2 tab(s), Oral, BID, 1 refills metoprolol 50 mg ER Tab, 50 mg= 1 tab(s), Oral, Daily, 1 refills Misc Medication mupirocin Top 2% Oint, 1 crow, Topical, TID, 1 refills Myrbetriq 50 mg oral tablet, extended release Natpara 75 mcg/dose subcutaneous injection, 75 mcg, SubCutaneous, Daily Vitamin C 500 mg oral tablet, chewable, 500 mg= 1 tab(s), Chewed, Daily Vitamin D3 10,000 intl units oral capsule, See Instructions Allergies anabolic steroids (Angry) Biaxin (Diarrhea) Social History Alcohol - Low Risk, 07/27/2022 Current, 1-2 times per month, Household alcohol concerns: No., 07/27/2022 Substance Abuse - Denies Substance Abuse, 06/29/2022 Household substance abuse concerns: No., 07/27/2022 Tobacco - Denies Tobacco Use, 06/29/2022 Never (less than 100 in lifetime) Tobacco Use:. Never Smokeless Tobacco Use:. Household tobacco concerns: No., 04/26/2023 Family History Alcoholism: Mother. Jenniee (more content not included)... Normal [facility] Comment on above: Result Comment: Elec tronically Signed By: Mmaadou FAITH, Smith Ardon.br\Date and Time Signed: 04/26/23 10:33 RYLIE Hernandes 04-14-2023 JANINE Telephone ([facility]) MARCELINA [id number]) 1960 F Date Time Provider Department 04/14/23 JUNIE FAYE During your visit today, we recorded the following information about you: Sydnee Orantes 04/14/2023 11:16 AM Signed Macrelina called in to see if Dr Faye wanted her to have blood work done before her appointment on 05/04/23. She said the theatrical scenic designer at [facility] that she sees said her Vitamin D is High and cut her back on her medication. Also, her Magnesium is low. Asking for orders to be placed and faxed over to [facility]. Marcelina did not have their fax number, but said their telephone number is [phone]. Once the orders have been faxed, she asked to be called back at [phone]. Leeanne Ro RN 04/14/2023 11:47 AM Signed Will inquire with Dr. Faye if she wants any orders for appt. 05/04/23 at [facility] Jono Lott RN ext [phone] Junie Faye MD 04/15/2023 11:57 AM Signed [facility] Please inform. She can print it out and take it to lab. Thank you Leeanne Lott RN 04/15/2023 12:33 PM Signed Letter faxed to [facility] vm left for pt Jono Lott RN ext [phone] Allergies As of Date: 04/14/2023 (No Known Allergies) Date Reviewed: 05/14/2019 Reviewed by: Junie Faye - Fully Assessed Reason for Visit: Patient Update [1234] Orders [681] Prescriptions as of 05/14/2023 - albuterol (PROVENTIL) 2.5 mg /3 mL (0.083 %) nebulizer solution - mirabegron (MYRBETRIQ) 50 mg Tb24 Take 1 tablet by mouth every morning. - cholecalciferol (VITAMIN D-3) 5,000 unit tab Take 1 tablet by mouth once daily. - levothyroxine (SYNTHROID) 125 mcg tablet TAKE 1 TABLET DAILY - levothyroxine (SYNTHROID) 125 mcg tablet Take 1 tablet by mouth once daily. - magnesium oxide 400 mg magnesium cap Take 400 mg by mouth once daily. Sun Sat - 400 mg TID Tue - 400 mg BID - tetracycline (SUMYCIN) 500 mg cap Take 500 mg by mouth once daily. Pt takes 1-2 times Daily - citalopram (CELEXA) 20 mg tablet Take 20 mg by mouth daily at bedtime. - losartan (COZAAR) 25 mg tablet Take 25 mg by mouth once daily. - calcium carbonate-vitamin D3 (CALTRATE 600 + D) 600 mg (1,500 mg)-800 unit chew Take 1 tablet by mouth three times daily. - parathyroid hormone (NATPARA) 75 mcg/dose crtg Inject 75 mcg subcutaneously once daily. - COMPOUNDED PRESCRIPTION Sleepessence, one capsule by mouth at bedtime - metoprolol succinate XL, long acting, 25 mg 24 hr tablet Take 1 tablet by mouth once daily. Problem List As Of Date 04/14/2023 Noted Resolved ASD (atrial septal defect) [Q21.10] 03/28/2012 04/14/2012 Ventricular septal defect (VSD), perimembranous*2011 Atypical chest pain [R07.89] 04/14/2012 Hypertension [I10] 04/14/2012 Obesity (BMI 35.0-39.9 without comorbidity) [E6*04/14/2012 JESSICA on CPAP [G47.33] 04/14/2012 Fatigue [R53.83] 04/14/2012 HAMMER/MALLET TOE [M20.40] 04/09/2014 METATARSALGIA/ENTHESO MARCIA [M77.50] 04/09/2014 Enthesopathy of unspecified site [M77.9] 04/09/2014 Nausea [R11.0] 03/14/2017 Hypocalcemia [E83.51] 03/14/2017 Other specified hypothyroidism [E03.8] 03/15/2017 Letter Text Encounter Status:Closed by SYDNEE ORANTES on 05/14/23 Normal [facility] Retail - Clinical Noteon Retail - Clinical Note [id number] .00TIFF Normal [facility] Ambulatory Visit Summaryon 1 05-23-2022 Ambulatory Visit Summary MARCELINA CANO :1960 Visit Date:03/23/2023 Ambulatory Visit Instructions Your Diagnosis BMI 40.0-44.9, adult Hypothyroidism Nonsmoker Your Care Team Attending Physician - Smith Cedillo MD Primary Care Physician - Smith Cedillo MD This Is Your Medications List Non-Formulary Medication (Misc Medication) albuterol (Albuterol (Eqv-ProAir HFA) 90 mcg/inh inhalation aerosol) albuterol (albuterol 0.083% Inh Mandie 3 mL) ascorbic acid (Vitamin C 500 mg oral tablet, chewable) cholecalciferol (Vitamin D3 10,000 intl units oral capsule) citalopram (citalopram 20 mg Tab) fluticasone (Flovent HFA 220 Aerosol) fluticasone nasal (Flonase 0.05 mg/inh Webster) levothyroxine (levothyroxine 125 mcg (0.125 mg) Tab) losartan (losartan 25 mg Tab) magnesium oxide (magnesium oxide 400 mg Tab) metoprolol (metoprolol 50 mg ER Tab) mirabegron (Myrbetriq 50 mg oral tablet, extended release) mupirocin topical (mupirocin Top 2% Oint) parathyroid hormone (Natpara 75 mcg/dose subcutaneous injection) Procedures Performed Cholecystectomy and exploration of bile duct, Colonoscopy, Hysterectomy, Thyroidectomy. Discharge Vitals Temperature (Tympanic) 36.1 ?C Heart Rate (Peripheral) 54 Respiratory Rate 18 Blood Pressure 130/84 Height 173.0 cm Height 68 in Weight 137.9 kg Weight 303.38 lb BMI 46.08 What to do next Scheduled Follow-Up Appointments Tuesday 10:00 AM EST With: Smith Cedillo MD Where: [facility] Medicine [place] Normal [facility] Family Medicine Office/Clini c Noteon 03-23-2023 Family Medicine Office/Clinic Note HPI Staff Marcelina is a 62 year old female presenting for acute visit follow up lungs SALLY zpak & benzonanate rxed. Chest Xray 03/14 trace bibasilar infiltrates Questions/Concerns: pt states the Tessalon pearls helped the cough. Completed zpak. continues to have chest tightness productive cough with white phlegm, shortness of breath and she has noticed some wheezing. History of Present Illness Pt here for follow up. Xray reviewed. Review of Systems PHQ Score Initial Depression Screen Score: 0 SCORE Physical Exam Vitals & Measurements T: 36.1 ?C(Tympanic) HR: 54(Peripheral) RR: 18 BP: 130/84 SpO2: 98% HT: 68 in HT: 173.0 cm WT: 137.9 kg WT: 303.38 lb BMI: 46.08 General: alert, no acute distress ENMT: oral mucosa moist, Cardiovascular: regular rate and rhythm, normal peripheral perfusion Respiratory: Lungs CTA, respirations non labored, Dry cough noted Extremities: no deformity, no trauma Neurological: oriented x 4, LOC appropriate for age, CN II-XII intact, motor strength equal & normal bilaterally, speech normal Abdomen: Soft, Nontender, Non-distended, + BS Assessment/Plan 1. URI with cough and congestion (J06.9: Acute upper respiratory infection, unspecified) - Will do Zpack and Tessalon Perles - No signs of PNA - Precautions discussed in detail. When to return discussed along with when to go to the ER. Pt verbalized understanding. Ordered: azithromycin, = 1 packet(s), Oral, As Directed, as directed on package labeling, X 5 day(s), # 6 tab(s), Refills(s) 0, Pharmacy: [facility] #[id number], 173, cm, 03/23/23 13:41:00 EST, Height/Length Dosing, 137.9, kg, 03/23/23 13:41:00 EST, Weight Dosing benzonatate, 200 mg = 1 cap(s), Oral, TID, X 7 day(s), # 21 cap(s), Refills(s) 0, Pharmacy: [facility] #[id number], 173, cm, 03/23/23 13:41:00 EST, Height/Length Dosing, 137.9, kg, 03/23/23 13:41:00 EST, Weight Dosing 2. Atelectasis (J98.11: Atelectasis) - No signs today on exam Ordered: azithromycin, = 1 packet(s), Oral, As Directed, as directed on package labeling, X 5 day(s), # 6 tab(s), Refills(s) 0, [facility]acy: [email or web address] #[id number], 173, cm, 03/23/23 13:41:00 EST, Height/Length Dosing, 137.9, kg, 03/23/23 13:41:00 EST, Weight Dosing benzonatate, 200 mg = 1 cap(s), Oral, TID, X 7 day(s), # 21 cap(s), Refills(s) 0, Pharmacy: [email or web address] #[id number], 173, cm, 03/23/23 13:41:00 EST, Height/Length Dosing, 137.9, kg, 03/23/23 13:41:00 EST, Weight Dosing 3. BMI 40.0-44.9, adult (Z68.41: Body mass index [BMI] 40.0-44.9, adult) - BMI education given Ordered: azithromycin, = 1 packet(s), Oral, As Directed, as directed on package labeling, X 5 day(s), # 6 tab(s), Refills(s) 0, Pharmacy: [email or web address] #[id number], 173, cm, 03/23/23 13:41:00 EST, Height/Length Dosing, 137.9, kg, 03/23/23 13:41:00 EST, Weight Dosing benzonatate, 200 mg = 1 cap(s), Oral, TID, X 7 day(s), # 21 cap(s), Refills(s) 0, Pharmacy: [email or web address] #[id number], 173, cm, 03/23/23 13:41:00 EST, Height/Length Dosing, 137.9, kg, 03/23/23 13:41:00 EST, Weight Dosing 4. Hypothyroidism (E03.9: Hypothyroidism, unspecified) - Stable. Ordered: azithromycin, = 1 packet(s), Oral, As Directed, as directed on package labeling, X 5 day(s), # 6 tab(s), Refills(s) 0, Pharmacy: [email or web address] #[id number], 173, cm, 03/23/23 13:41:00 EST, Height/Length Dosing, 137.9, kg, 03/23/23 13:41:00 EST, Weight Dosing benzonatate, 200 mg = 1 cap(s), Oral, TID, X 7 day(s), # 21 cap(s), Refills(s) 0, Pharmacy: [facility] #[id number], 173, cm, 03/23/23 13:41:00 EST, Height/Length Dosing, 137.9, kg, 03/23/23 13:41:00 EST, Weight Dosing 5. Nonsmoker (Z78.9: Other specified health status) Ordered: azithromycin, = 1 packet(s), Oral, As Directed, as directed on package labeling, X 5 day(s), # 6 tab(s), Refills(s) 0, Pharmacy: [facility] #[id number], 173, cm, 03/23/23 13:41:00 EST, Height/Length Dosing, 137.9, kg, 03/23/23 13:41:00 EST, Weight Dosing benzonatate, 200 mg = 1 cap(s), Oral, TID, X 7 day(s), # 21 cap(s), Refills(s) 0, Pharmacy: [facility] #[id number], 173, cm, 03/23/23 13:41:00 EST, Height/Length Dosing, 137.9, kg, 03/23/23 13:41:00 EST, Weight Dosing Follow-up No qualifying data available Problem List/Past Medical History Ongoing Acute URI Anxiety Asthma, exercise induced Atelectasis Calcium deficiency Hx of thyroid cancer Hypoparathyroidism Hypothyroidism Nonsmoker Obesity, Class III, BMI 40-49.9 (morbid obesity) Obstructive sleep apnea JESSICA on CPAP URI with cough and congestion Ventricular septal defect (VSD) Vitamin D deficiency Historical No qualifying data Procedure/Surgical History Cholecystectomy and exploration of bile duct, Colonoscopy, Hysterectomy, Thyroidectomy. Medications Albuterol (Eqv-ProAir HFA) 90 mcg/inh inhalation aerosol, 2 puff(s), Inhalation, q6hr, 1 refills albuterol 0.083% Inh Mandie 3 mL, 2.5 mg= 3 mL, Inhalation, q6hr, 1 refills azithromycin 250 mg Tab 5-day Dose Pack (Z-Bill), 1 packet(s), Oral, As Directed benzonatate 200 mg oral capsule, 200 mg= 1 cap(s), Oral, TID citalopram 20 mg (more content not included)... [facility] Comment on above: Result Comment: Elec tronically Signed By: Smith Cedillo MD\.br\Date and Time Signed: 03/23/23 14:05 EST RAD - MISCon 03-23-2023 RAD - MISC [id number] [facility] Ambulatory Visit Summaryon 1 05-14-2022 Ambulatory Visit Summary MARCELINA CANO :1960 Visit Date:03/14/2023 Ambulatory Visit Instructions Your Diagnosis Acute URI Cough Your Care Team Attending Physician - Smith Cedillo MD Primary Care Physician - Smith Cedillo MD This Is Your Medications List Contact prescribing physician if questions or concerns Non-Formulary Medication (Misc Medication) albuterol (Albuterol (Eqv-ProAir HFA) 90 mcg/inh inhalation aerosol) albuterol (albuterol 0.083% Inh Mandie 3 mL) ascorbic acid (Vitamin C 500 mg oral tablet, chewable) cholecalciferol (Vitamin D3 10,000 intl units oral capsule) citalopram (citalopram 20 mg Tab) fluticasone nasal (Flonase 0.05 mg/inh Webster) levothyroxine (levothyroxine 125 mcg (0.125 mg) Tab) losartan (losartan 25 mg Tab) magnesium oxide (magnesium oxide 400 mg Tab) metoprolol (metoprolol 50 mg ER Tab) mirabegron (Myrbetriq 50 mg oral tablet, extended release) mupirocin topical (mupirocin Top 2% Oint) parathyroid hormone (Natpara 75 mcg/dose subcutaneous injection) Procedures Performed Cholecystectomy and exploration of bile duct, Colonoscopy, Hysterectomy, Thyroidectomy. Discharge Vitals Temperature (Oral) 36.8 ?C Heart Rate (Peripheral) 68 Respiratory Rate 20 Blood Pressure 138/88 Height 173 cm Height 68 in Weight 140 kg Weight 308 lb BMI 46.78 What to do next Scheduled Follow-Up Appointments Tuesday 10:00 AM EST With: Smith Cedillo MD Where: [facility] Medicine [facility] Family Medicine Office/Clini c Noteon 03-14-2023 Family Medicine Office/Clinic Note HPI Staff Marcelina is a 62 year old female presenting for acute sick visit Respiratory C/O: Onset: Body aches: no Chest congestion: yes Chills: yes Cough: yes Sputum production: yes green Sore throat: yes Ear complaints: no Eye itching/watering: no Fever: no Headache: no Nasal congestion: yes Nasal discharge: no Poor appetite: no Reduced activity: no Sinus pain/pressure: no Sneezing: yes Wheezing: yes Ill contacts: no Remedies tried: Gargles salt water, cinnamon, honey, vitamin C, inhaler. flu: due Questions/Concerns: Double pneumonia 4 ya, said she has scarring on L side, very sore. Said lungs are tight, SOB for about 4 days. No COVID test at home, so running a COVID swab. Review of Systems PHQ Score Initial Depression Screen Score: 0 SCORE Physical Exam Vitals & Measurements T: 36.8 ?C(Oral) HR: 68(Peripheral) RR: 20 BP: 138/88 SpO2: 94% HT: 68 in HT: 173 cm WT: 140 kg WT: 308 lb BMI: 46.78 General: alert, no acute distress ENMT: oral mucosa moist, Cardiovascular: regular rate and rhythm, normal peripheral perfusion Respiratory: Lungs CTA, respirations non labored, Diminished breath sounds Extremities: no deformity, no trauma Neurological: oriented x 4, LOC appropriate for age, CN II-XII intact, motor strength equal & normal bilaterally, speech normal Abdomen: Soft, Nontender, Non-distended, + BS Assessment/Plan 1. Acute URI (J06.9: Acute upper respiratory infection, unspecified) - Will do a cxr given the hx of PNA - Follow up PRN - Medrol if needed - Azithromycin Ordered: azithromycin, = 1 packet(s), Oral, As Directed, as directed on package labeling, X 5 day(s), # 6 tab(s), Refills(s) 0, Pharmacy: [facility] #[id number], 173, cm, 03/14/23 13:44:00 EST, Height/Length Dosing, 140, kg, 03/14/23 13:44:00 EST, Weight Dosing benzonatate, 200 mg = 1 cap(s), Oral, TID, X 7 day(s), # 21 cap(s), Refills(s) 0, Pharmacy: [facility] #[id number], 173, cm, 03/14/23 13:44:00 EST, Height/Length Dosing, 140, kg, 03/14/23 13:44:00 EST, Weight Dosing fluticasone, = 1 puff(s), Inhalation, BID, # 12 gram, Refills(s) 0, Pharmacy: [facility] #[id number], 173, cm, 03/14/23 13:44:00 EST, Height/Length Dosing, 140, kg, 03/14/23 13:44:00 EST, Weight Dosing methylPREDNISolone, = 1 packet(s), Oral, As Directed, as directed on package labeling, X 6 day(s), # 21 tab(s), Refills(s) 0, Pharm[facility]: [email or web address] #[id number], 173, cm, 03/14/23 13:44:00 EST, Height/Length Dosing, 140, kg, 03/14/23 13:44:00 EST, Weight Dosing XR Chest 2 Views 2. Cough (R05.9: Cough, unspecified) - Covid negative. - CXR Ordered: azithromycin, = 1 packet(s), Oral, As Directed, as directed on package labeling, X 5 day(s), # 6 tab(s), Refills(s) 0, Pharmacy: [facility] #[id number], 173, cm, 03/14/23 13:44:00 EST, Height/Length Dosing, 140, kg, 03/14/23 13:44:00 EST, Weight Dosing benzonatate, 200 mg = 1 cap(s), Oral, TID, X 7 day(s), # 21 cap(s), Refills(s) 0, Pharmacy: [facility] #[id number], 173, cm, 03/14/23 13:44:00 EST, Height/Length Dosing, 140, kg, 03/14/23 13:44:00 EST, Weight Dosing fluticasone, = 1 puff(s), Inhalation, BID, # 12 gram, Refills(s) 0, Pharmacy: [facility] #[id number], 173, cm, 03/14/23 13:44:00 EST, Height/Length Dosing, 140, kg, 11/20/23 13:44:00 EST, Weight Dosing methylPREDNISolone, = 1 packet(s), Oral, As Directed, as directed on package labeling, X 6 day(s), # 21 tab(s), Refills(s) 0, Pharmacy: [facility] #[id number], 173, cm, 03/14/23 13:44:00 EST, Height/Length Dosing, 140, kg, 03/14/23 13:44:00 EST, Weight Dosing Rapid COVID POC 12625 XR Chest 2 Views Follow-up No qualifying data available Problem List/Past Medical History Ongoing Acute URI Anxiety Asthma, exercise induced Calcium deficiency Hx of thyroid cancer Hypoparathyroidism Hypothyroidism Nonsmoker Obesity, Class III, BMI 40-49.9 (morbid obesity) Obstructive sleep apnea JESSICA on CPAP Ventricular septal defect (VSD) Vitamin D deficiency Historical No qualifying data Procedure/Surgical History Cholecystectomy and exploration of bile duct, Colonoscopy, Hysterectomy, Thyroidectomy. Medications Albuterol (Eqv-ProAir HFA) 90 mcg/inh inhalation aerosol, 2 puff(s), Inhalation, q6hr, 1 refills albuterol 0.083% Inh Mandie 3 mL, 2.5 mg= 3 mL, Inhalation, q6hr, 1 refills azithromycin 250 mg Tab 5-day Dose Pack (Z-Bill), 1 packet(s), Oral, As Directed benzonatate 200 mg oral capsule, 200 mg= 1 cap(s), Oral, TID citalopram 20 mg Tab, 20 mg= 1 tab(s), Oral, Daily, 1 refills Flonase 0.05 mg/inh Webster, 2 spray(s), Nasal, Daily Flovent HFA 220 Aerosol, 1 puff(s), Inhalation, BID levothyroxine 125 mcg (0.125 mg) Tab, 125 mcg= 1 tab(s), Oral, Daily, 3 refills losartan 25 mg Tab, 25 mg= 1 tab(s), Oral, Daily, 1 refills magnesium oxide 400 mg Tab, 800 mg= 2 tab(s), Oral, BID Medrol Dosepack 4 mg Tab, 1 packet(s), Oral, As Directed metoprolol 50 mg ER Tab, 50 mg= 1 tab(s), Oral, Daily, 1 refills Misc Medication mupirocin Top 2% Oint, 1 crow, Topical, TID, 1 refills Myrbe (more content not included)... Normal [facility] Comment on above: Result Comment: Elec tronically Signed By: Mamdaou FAITH, Smith Shah\Date and Time Signed: 03/14/23 13:52 EST Cecilio 02-11-2023 CNPN Telephone (ENDOMN) VIETMARCELINA Mala ([id number]) 1960 F Date Time Provider Department 02/11/23 JUNIE FAYE ENDOKAELYN During your visit today, we recorded the following information about you: Theresa Mesa 02/11/2023 9:02 PM Signed Updated labs from ([facility] Date labs collected 02/01/23 Date scanned in chart 02/11/23 Theresa Hernandez Sales Assistant Institutional Sales II [facility] F-20 Junie Faye MD 02/18/2023 2:55 PM Signed Last visit was 08/18/2020; patient needs appt to review lab results and get continued medication. Of note, they appear all ok. Please inform. Junie Faye MD Dept of Endocrinology Allergies As of Date: 02/11/2023 (No Known Allergies) Date Reviewed: 05/14/2019 Reviewed by: Junie Faye - Fully Assessed Reason for Visit: Received Outside Medical Records [[id number]] Prescriptions as of 04/21/2023 - cholecalciferol (VITAMIN D-3) 5,000 unit tab Take 1 tablet by mouth once daily. - levothyroxine (SYNTHROID) 125 mcg tablet TAKE 1 TABLET DAILY - levothyroxine (SYNTHROID) 125 mcg tablet Take 1 tablet by mouth once daily. - magnesium oxide 400 mg magnesium cap Take 400 mg by mouth once daily. Sun Sat - 400 mg TID Tue - 400 mg BID - tetracycline (SUMYCIN) 500 mg cap Take 500 mg by mouth once daily. Pt takes 1-2 times Daily - citalopram (CELEXA) 20 mg tablet Take 20 mg by mouth daily at bedtime. - losartan (COZAAR) 25 mg tablet Take 25 mg by mouth once daily. - calcium carbonate-vitamin D3 (CALTRATE 600 + D) 600 mg (1,500 mg)-800 unit chew Take 1 tablet by mouth three times daily. - parathyroid hormone (NATPARA) 75 mcg/dose crtg Inject 75 mcg subcutaneously once daily. - COMPOUNDED PRESCRIPTION Sleepessence, one capsule by mouth at bedtime - metoprolol succinate XL, long acting, 25 mg 24 hr tablet Take 1 tablet by mouth once daily. Problem List As Of Date 02/11/2023 Noted Resolved ASD (atrial septal defect) [Q21.10] 03/28/2012 04/14/2012 Ventricular septal defect (VSD), perimembranous*2011 Atypical chest pain [R07.89] 04/14/2012 Hypertension [I10] 04/14/2012 Obesity (BMI 35.0-39.9 without comorbidity) [E6*04/14/2012 JESSICA on CPAP [G47.33] 04/14/2012 Fatigue [R53.83] 04/14/2012 HAMMER/MALLET TOE [M20.40] 04/09/2014 METATARSALGIA/ENTHESO MARCIA [M77.50] 04/09/2014 Enthesopathy of unspecified site [M77.9] 04/09/2014 Nausea [R11.0] 03/14/2017 Hypocalcemia [E83.51] 03/14/2017 Other specified hypothyroidism [E03.8] 03/15/2017 Encounter Status:Closed by THERESA MESA on 04/21/23 Normal [facility] Albumin [Mass/volume] in Ser um or Plasma by Bromocresol green (BCG) dye binding methoOrdered By: Severino Sommers on 02-01-2023 Albumin BCG dye [Mass/Vol] 4.3 g/dL 3.5-5.7 [facility] Calcium [Mass/volume] in Ser um or PlasmaOrdered By: Severino Sommers on 02-01-2023 Calcium [Mass/Vol] 9.0 mg/dL 8.6-10.3 [facility] Carbon dioxide, total [Moles /volume] in Serum or PlasmaOrdered By: Severino Sommers on 02-01-2023 CO2 [Moles/Vol] 30.9 mmol/L 21.0-31.0 [facility] Chloride [Moles/volume] in S susan or PlasmaOrdered By: Severino Sommers on 02-01-2023 Chloride [Moles/Vol] 100 mmol/L 98-107 [facility] Creatinine [Mass/volume] in Serum or PlasmaOrdered By: Severino Sommers on 02-01-2023 Creatinine [Mass/Vol] 0.71 mg/dL 0.60-1.20 [facility] Free T4 (Free Thyroxine)on Free T4 [Mass/Vol] 0.77 ng/dL Normal 0.61-1.12 [facility] Comment on above: Performed By: #### R ENAL, MG, T4F, TSH3, [id number], T3F #### [facility] [address] Glucose [Mass/volume] in Ser um or PlasmaOrdered By: Severino Sommers on 02-01-2023 Glucose [Mass/Vol] 97 mg/dL 70-100 [facility] Comment on above: ADA recommended refe rence rangeRandom Glucose Reference Range is dependent on time and content of last meal. Glucose of more than 200 mg/dL in a nonstressed, ambulatory subject supports the diagnosis of Diabetes Mellitus. Magnesiumon 02-01-2023 Magnesium [Mass/Vol] 1.5 mg/dL Low 1.9-2.7 [facility] Comment on above: Performed By: #### R ENAL, MG, T4F, TSH3, [id number], T3F #### [facility] [address] [place] [id number] [place] Magnesium [Mass/volume] in S susan or PlasmaOrdered By: Severino Sommers on 02-01-2023 Magnesium [Mass/Vol] 1.5 mg/dL 1.9-2.7 [facility] No Panel InformationOrdered By: Severino Sommers on 02-01-2023 Estimated GFR (CKD-EPI) > 60.0 mL/Min [facility] Creatinine Clearance (Chem N/A [facility] Phosphate [Mass/volume] in S susan or PlasmaOrdered By: Severino Sommers on 02-01-2023 Phosphate [Mass/Vol] 5.1 mg/dL 3.7-7.2 [facility] Potassium [Moles/volume] in Serum or PlasmaOrdered By: Severino Sommers on 02-01-2023 Potassium [Moles/Vol] 4.1 mmol/L 3.5-5.1 [facility] Renal Function Panelon 02-01 Albumin [Mass/Vol] 4.3 g/dL Normal 3.5-5.7 [facility] Comment on above: Performed By: #### R ENAL, MG, T4F, TSH3, [id number], T3F #### [facility] [address] Anion gap [Moles/Vol] 13.2 mmol/L Normal 6.0-15.0 [facility] Comment on above: Performed By: #### R ENAL, MG, T4F, TSH3, [id number], T3F #### [facility] [address] Calcium [Mass/Vol] 9.0 mg/dL Normal 8.6-10.3 [facility] Comment on above: Performed By: #### R ENAL, MG, T4F, TSH3, [id number], T3F #### [facility] [address] [place] [address] [place] Chloride [Moles/Vol] 100 mmol/L Normal 98-107 [facility] Comment on above: Performed By: #### R ENAL, MG, T4F, TSH3, [id number], T3F #### [facility] [address] [place] [address] [place] CO2 [Moles/Vol] 30.9 mmol/L Normal 21.0-31.0 [facility] Comment on above: Performed By: #### R ENAL, MG, T4F, TSH3, [id number], T3F #### [facility] [address] Creatinine [Mass/Vol] 0.71 mg/dL Normal 0.60-1.20 [facility] Comment on above: Performed By: #### R ENAL, MG, T4F, TSH3, [id number], T3F #### [facility] [address] [place] [address] [place] GFR/1.73 sq M.predicted MDRD (S/P/Bld) [Vol rate/Area] mL/min/{1.73_m2} Normal [facility] Comment on above: Performed By: #### R ENAL, MG, T4F, TSH3, [id number], T3F #### [address] Glucose [Mass/Vol] 97 mg/dL Normal 70-100 [facility] Comment on above: Result Comment: [facility] Glucose Reference Range is dependent on time and content of last meal. Glucose of more than 200 mg/dL in a nonstressed, ambulatory subject supports the diagnosis of Diabetes Mellitus. ADA recommended reference range Performed By: #### R ENAL, MG, T4F, TSH3, [id number], T3F #### [facility] [address] Phosphate [Mass/Vol] 5.1 mg/dL Normal 3.7-7.2 [facility] Comment on above: Performed By: #### R ENAL, MG, T4F, TSH3, [id number], T3F #### [facility] [address] Potassium [Moles/Vol] 4.1 mmol/L Normal 3.5-5.1 [facility] Comment on above: Performed By: #### R ENAL, MG, T4F, TSH3, [id number], T3F #### [place] [address] [place] Sodium [Moles/Vol] 140 mmol/L Normal 136-145 [facility] Comment on above: Performed By: #### R ENAL, MG, T4F, TSH3, [id number], T3F #### [facility] [address] Urea nitrogen [Mass/Vol] 15 mg/dL Normal 7-25 [facility] Comment on above: Performed By: #### R ENAL, MG, T4F, TSH3, [id number], T3F #### [facility] [address] Serum or plasma anion gap de terminationOrdered By: Severino Sommers on 02-01-2023 Anion gap [Moles/Vol] 13.2 mmol/L 6.0-15.0 [facility] Sodium [Moles/volume] in Ser um or PlasmaOrdered By: Severino Sommers on 02-01-2023 Sodium [Moles/Vol] 140 mmol/L 136-145 [facility] Thyroid Stimulating Hormoneo n 02-01-2023 TSH Qn 4.81 m[IU]/L Normal 0.45-5.33 [facility] Comment on above: Performed By: #### R ENAL, MG, T4F, TSH3, [id number], T3F #### [facility] [address] [place] [address] Thyrotropin [Units/volume] i n Serum or PlasmaOrdered By: Severino Sommers on 02-01-2023 TSH Qn 4.81 m[IU]/L 0.45-5.33 [facility] Thyroxine (T4) free [Mass/vo lume] in Serum or PlasmaOrdered By: Severino Sommers on 02-01-2023 Free T4 [Mass/Vol] 0.77 ng/dL 0.61-1.12 [facility] Triiodothyronine (T3) Freeon 02-01-2023 Triiodothyronine (T3) Free 3.26 pg/mL Normal 2.50-3.90 [facility] Comment on above: Result Comment: PERF ORMED BY: [address] [place] [address] PATHOLOGIST METAL TURNER ANGELINA GARCIA M.D. Performed By: #### R ENAL, MG, T4F, TSH3, [id number], T3F #### [facility] [address] [place] [id number] [facility] Triiodothyronine (T3) Free [ Mass/volume] in Serum or PlasmaOrdered By: Severino Sommers on 02-01-2023 Free T3 [Mass/Vol] 3.26 pg/mL 2.50-3.90 [facility] Urea nitrogen [Mass/volume] in Serum or PlasmaOrdered By: Severino Sommers on 02-01-2023 Urea nitrogen [Mass/Vol] 15 mg/dL 7- [facility] Vitamin D 25 Hydroxy Totalon 02-01-2023 Vitamin D 25 Hydroxy Total 71.8 ng/mL Normal 30-100 [facility] Comment on above: Result Comment: JOVANA MIN D STATUS 25(OH)VITAMIN D RANGE (ng/mL) Deficient <20 Insufficient 20 to <30 Sufficient 30 to 100 Reference: Tammy Donnelly, Michael ARTEAGA, et al. Evaluation,treatment, and prevention of vitamin D deficiency; an Endocrine Society clinical practice guideline. JCEM. 2010; 96(7):1911-30. PERFORMED BY: [address] [address] PATHOLOGIST METAL TURNER ANGELINA GARCIA M.D. Performed By: #### R ENAL, MG, T4F, TSH3, [id number], T3F #### [address] [address] [facility] Vitamin D+Metabolites [Mass/ volume] in Serum or PlasmaOrdered By: Severino Sommers on 02-01-2023 Vitamin D+Metabolites [Mass/Vol] 71.8 ng/mL 30-100 [facility] Comment on above: VITAMIN D STATUS 25( OH)VITAMIN D RANGE (ng/mL) Deficient <20 Insufficient 20 to <30Sufficient 30 to 100Reference: Tammy Donnelly, Michael ARTEAGA, et al. Evaluation,treatment, and prevention of vitamin D deficiency; an Endocrine Society clinical practice guideline. JCEM. 2010; 96(7):1911-30. MAGNESIUMon 04-03-2022 Magnesium [Mass/Vol] 1.6 mg/dL Critically low 1.8-2.4 [facility] Comment on above: Performed By: #### M G, BMP #### [facility] [address] [place] [address] Dr. Isidro Thompson PROF CHEM 8 (BAS METB)on Anion gap [Moles/Vol] 11.9 mmol/L Normal [facility] Comment on above: Performed By: #### M G, BMP #### [facility] [address] [place] [address] Dr. Isidro Thompson Calcium [Mass/Vol] 8.2 mg/dL Critically low 8.5-10.1 [facility] Comment on above: Performed By: #### Jose Armando Rosa, BMP #### [facility] [address] [place] [address] Dr. Isidro Thompson Chloride [Moles/Vol] 100 mmol/L Normal 98-107 [facility] Comment on above: Performed By: #### Jose Armando Rosa, BMP #### [facility] [address] [place] [address] Dr. Isidro Thompson CO2 [Moles/Vol] 28.5 mmol/L Normal 21.0-32.0 [facility] Comment on above: Performed By: #### Jose Armando Rosa, BMP #### [facility] [address] [place] [address] Dr. Isidro Thompson Creatinine [Mass/Vol] 0.67 mg/dL Normal 0.55-1.02 [facility] Comment on above: Performed By: #### M G, BMP #### [facility] [address] [place] [address] Dr. Isidro Thompson EGFR-AF FIJIAN 60 mL/min/1.73m2 Normal >=60 [facility] Comment on above: Performed By: #### Jose Armando G, BMP #### [facility] [address] [place] [address] Dr. Isidro Thompson EGFR-NON AF FIJIAN 60 mL/min/1.73m2 Normal >=60 [facility] Comment on above: Performed By: #### M G, BMP #### [facility] [address] [place] [address] Dr. Isidro Thompson Glucose [Mass/Vol] 113 mg/dL Critically high 74-106 [facility] Comment on above: Performed By: #### M G, BMP #### [facility] [address] [place] [address] Dr. Isidro Thompson Potassium [Moles/Vol] 4.4 mmol/L Normal 3.5-5.1 [facility] Comment on above: Performed By: #### Jose Armando Rosa, BMP #### [facility] [address] [place] [address] Dr. Isidro Thomspon Sodium [Moles/Vol] 136 mmol/L Normal 136-145 [facility] Comment on above: Performed By: #### Jose Armando Rosa, BMP #### [facility] [address] [place] [address] Dr. Isidro Thompson Urea nitrogen [Mass/Vol] 13.0 mg/dL Normal 7.0-18.0 [facility] Comment on above: Performed By: #### Jose Armando Rosa, BMP #### [facility] [address] [place] [address] Dr. Isidro Thompson Urea nitrogen/Creatinine [Mass ratio] 19.4 mg/mg Normal [facility] Comment on above: Performed By: #### Jose Armando Rosa, BMP #### [facility] [address] [place] [address] Dr. Isidro Thompson VITAMIN D 25 OHon 04-03-2022 VIT D 25-OH 48.8 ng/mL Normal [facility] Comment on above: Performed By: #### V ITAD #### [facility] [address] [place] [address] Dr. Isidro Thompson VIT D RANGES SEE BELOW Normal [facility] Comment on above: Result Comment: <20 ng/mL Vit D deficient 20 - <30 ng/mL Vit D insufficient 30 - 100 ng/mL Vit D sufficient >100 ng/mL Potential Toxicity Performed By: #### V ITAD #### [facility] [address] [place] [address] Dr. Isidro Thompson MAGNESIUMon 03-27-2022 Magnesium [Mass/Vol] 1.5 mg/dL Critically low 1.8-2.4 [facility] Comment on above: Performed By: #### B MP, MG #### [facility] [address] [place] [address] Dr. Isidro Thompson PROF CHEM 8 (BAS METB)on Anion gap [Moles/Vol] 10.1 mmol/L Normal [facility] Comment on above: Performed By: #### B MP, MG #### [facility] [address] [place] [address] Dr. Isidro Thompson Calcium [Mass/Vol] 8.0 mg/dL Critically low 8.5-10.1 [facility] Comment on above: Performed By: #### B MP, MG #### [facility] [address] [place] [address] Dr. Isidro Thompson Chloride [Moles/Vol] 102 mmol/L Normal 98-107 [facility] Comment on above: Performed By: #### B MP, MG #### [facility] [address] [place] [address] Dr. Isidro Thompson CO2 [Moles/Vol] 33.2 mmol/L Critically high 21.0-32.0 [facility] Comment on above: Performed By: #### B MP, MG #### [facility] [address] [place] [address] Dr. Isidro Thompson Creatinine [Mass/Vol] 0.71 mg/dL Normal 0.55-1.02 [facility] Comment on above: Performed By: #### B MP, MG #### [facility] [address] [place] [address] Dr. Isidro Thompson EGFR-AF FIJIAN >60 Normal >=60 [facility] Comment on above: Performed By: #### B MP, MG #### [facility] [address] [place] [address] Dr. Isidro Thompson EGFR-NON AF FIJIAN >60 Normal >=60 [facility] Comment on above: Performed By: #### B MP, MG #### [facility] [address] [place] [address] Dr. Isidro Thompson Glucose [Mass/Vol] 112 mg/dL Critically high 74-106 [facility] Comment on above: Performed By: #### B MP, MG #### [facility] [address] [place] [address] Dr. Isidro Thompson Potassium [Moles/Vol] 4.3 mmol/L Normal 3.5-5.1 [facility] Comment on above: Performed By: #### B MP, MG #### [facility] [address] [place] [address] Dr. Isidro Thompson Sodium [Moles/Vol] 141 mmol/L Normal 136-145 [facility] Comment on above: Performed By: #### B MP, MG #### [facility] [address] [place] [address] Dr. Isidro Thompson Urea nitrogen [Mass/Vol] 13.0 mg/dL Normal 7.0-18.0 [facility] Comment on above: Performed By: #### B MP, MG #### [facility] [address] [place] [address] Dr. Isidro Thompson Urea nitrogen/Creatinine [Mass ratio] 18.3 mg/mg Normal [facility] Comment on above: Performed By: #### B MP, MG #### [facility] [address] [place] [address] Dr. Isidro Thompson VITAMIN D 25 OHon 03-27-2022 VIT D 25-OH 54.5 ng/mL Normal [facility] Comment on above: Performed By: #### V ITAD #### [facility] [address] [place] [address] Dr. Isidro Thompson VIT D RANGES SEE BELOW Normal [facility] Comment on above: Result Comment: <20 ng/mL Vit D deficient 20 - <30 ng/mL Vit D insufficient 30 - 100 ng/mL Vit D sufficient >100 ng/mL Potential Toxicity Performed By: #### V ITAD #### [facility] [address] [place] [address] Dr. Isidro Thompson MAGNESIUMon 03-20-2022 Magnesium [Mass/Vol] 1.3 mg/dL Critically low 1.8-2.4 [facility] Comment on above: Performed By: #### B MP, MG #### [facility] [address] [place] [address] Dr. Isidro Thompson PHOSPHORUSon 03-20-2022 Phosphate [Mass/Vol] 4.0 mg/dL Normal 2.6-4.7 [facility] Comment on above: Performed By: #### B MP, MG #### [facility] [address] [place] [address] Dr. Isidro Thompson PROF 14(COMP METB)on 022 Albumin [Mass/Vol] 3.3 g/dL Critically low 3.4-5.0 [facility] Comment on above: Performed By: #### B MP, MG #### [facility] [address] [place] [address] Dr. Isidro Thompson Albumin/Globulin [Mass ratio] 0.8 {ratio} Normal [facility] Comment on above: Performed By: #### B MP, MG #### [facility] [address] [place] [address] Dr. Isidro Thompson ALP [Catalytic activity/Vol] 120 U/L Critically high 46-116 [facility] Comment on above: Performed By: #### B MP, MG #### [facility] [address] [place] [address] Dr. Isidro Thompson ALT [Catalytic activity/Vol] 63 U/L Critically high 14-59 [facility] Comment on above: Performed By: #### B MP, MG #### [facility] [address] [place] [address] Dr. Isidro Thompsno Anion gap [Moles/Vol] 10.9 mmol/L Normal [facility] Comment on above: Performed By: #### B MP, MG #### [facility] [address] [place] [address] Dr. Isidro Thompson AST [Catalytic activity/Vol] 62 U/L Critically high 15-37 [facility] Comment on above: Performed By: #### B MP, MG #### [facility] [address] [place] [address] Dr. Isidro Thompson Bilirubin [Mass/Vol] 0.3 mg/dL Normal 0.2-1.0 [facility] Comment on above: Performed By: #### B MP, MG #### [facility] [address] [place] [address] Dr. Isidro Thompson Calcium [Mass/Vol] 8.3 mg/dL Critically low 8.5-10.1 [facility] Comment on above: Performed By: #### B MP, MG #### [facility] [address] [place] [address] Dr. Isidro Thompson Chloride [Moles/Vol] 100 mmol/L Normal 98-107 [facility] Comment on above: Performed By: #### B MP, MG #### [facility] [address] [place] [address] Dr. Isidro Thompson CO2 [Moles/Vol] 32.1 mmol/L Critically high 21.0-32.0 [facility] Comment on above: Performed By: #### B MP, MG #### [facility] [address] [place] [address] Dr. Isidro Thompson Creatinine [Mass/Vol] 0.87 mg/dL Normal 0.55-1.02 [facility] Comment on above: Performed By: #### B MP, MG #### [facility] [address] [place] [address] Dr. Isidro Thompson EGFR-AF FIJIAN >60 Normal >=60 [facility] Comment on above: Performed By: #### B MP, MG #### [facility] [address] [place] [address] Dr. Isidro Thompson EGFR-NON AF FIJIAN >60 Normal >=60 [facility] Comment on above: Performed By: #### B MP, MG #### [facility] [address] [place] [address] Dr. Isidro Thompson Globulin (S) [Mass/Vol] 4.2 g/dL Normal [facility] Comment on above: Performed By: #### B MP, MG #### [facility] [address] [address] [address] Isidro Thompson Glucose [Mass/Vol] 126 mg/dL Critically high 74-106 [facility] Comment on above: Performed By: #### B MP, MG #### [facility] [address] [place] [address] Dr. Isidro Thompson Potassium [Moles/Vol] 4.0 mmol/L Normal 3.5-5.1 [facility] Comment on above: Performed By: #### B MP, MG #### [facility] [address] [place] [address] Dr. Isidro Thompson Protein [Mass/Vol] 7.5 g/dL Normal 6.4-8.2 [facility] Comment on above: Performed By: #### B MP, MG #### [facility] [address] [place] [address] Dr. Isidro Thompson Sodium [Moles/Vol] 139 mmol/L Normal 136-145 [facility] Comment on above: Performed By: #### B MP, MG #### [facility] [address] [place] [address] Dr. Isidro Thompson Urea nitrogen [Mass/Vol] 13.0 mg/dL Normal 7.0-18.0 [facility] Comment on above: Performed By: #### B MP, MG #### [facility] [address] [place] [address] Dr. Isidro Thompson Urea nitrogen/Creatinine [Mass ratio] 14.9 mg/mg Normal [facility] Comment on above: Performed By: #### B MP, MG #### [facility] [address] [place] [address] Dr. Isidro Thompson MAGNESIUMon 03-13-2022 Magnesium [Mass/Vol] 1.5 mg/dL Critically low 1.8-2.4 [facility] Comment on above: Performed By: #### M G #### [facility] [address] [place] [address] Dr. Isidro Thompson PHOSPHORUSon 03-13-2022 Phosphate [Mass/Vol] 4.2 mg/dL Normal 2.6-4.7 [facility] Comment on above: Performed By: #### M G #### [facility] [address] [place] [address] Dr. Isidro Thompson PROF 14(COMP METB)on 022 Albumin [Mass/Vol] 3.5 g/dL Normal 3.4-5.0 [facility] Comment on above: Performed By: #### M G #### [facility] [address] [place] [address] Dr. Isidro Thompson Albumin/Globulin [Mass ratio] 0.8 {ratio} Normal [facility] Comment on above: Performed By: #### M G #### [facility] [address] [place] [address] Dr. Isidro Thompson ALP [Catalytic activity/Vol] 133 U/L Critically high 46-116 [facility] Comment on above: Performed By: #### M G #### [facility] [address] [place] [address] Dr. Isidro Thompson ALT [Catalytic activity/Vol] 50 U/L Normal 14-59 [facility] Comment on above: Performed By: #### M G #### [facility] [address] [place] [address] Dr. Isidro Thompson Anion gap [Moles/Vol] 8.7 mmol/L Normal [facility] Comment on above: Performed By: #### M G #### [facility] [address] [place] [address] Dr. Isidro Thompson AST [Catalytic activity/Vol] 48 U/L Critically high 15-37 [facility] Comment on above: Performed By: #### M G #### [facility] [address] [place] [address] Dr. Isidro Thompson Bilirubin [Mass/Vol] 0.6 mg/dL Normal 0.2-1.0 [facility] Comment on above: Performed By: #### M G #### [facility] [address] [place] [address] Dr. Isidro Thompson Calcium [Mass/Vol] 9.4 mg/dL Normal 8.5-10.1 [facility] Comment on above: Performed By: #### M G #### [facility] [address] [address] [address] Isidro Thopmson Chloride [Moles/Vol] 99 mmol/L Normal 98-107 [facility] Comment on above: Performed By: #### M G #### [facility] [address] [address] [address] Isidro Thompson CO2 [Moles/Vol] 32.3 mmol/L Critically high 21.0-32.0 [facility] Comment on above: Performed By: #### M G #### [facility] [address] [place] [address] Dr. Isidro Thompson Creatinine [Mass/Vol] 0.74 mg/dL Normal 0.55-1.02 [facility] Comment on above: Performed By: #### M G #### [facility] [address] [place] [address] Dr. Isidro Thompson EGFR-AF FIJIAN >60 Normal >=60 [facility] Comment on above: Performed By: #### M G #### [facility] [address] [place] [address] Dr. Isidro Thompson EGFR-NON AF FIJIAN >60 Normal >=60 [facility] Comment on above: Performed By: #### M G #### [facility] [address] [place] [address] Dr. Isidro Thompson Globulin (S) [Mass/Vol] 4.4 g/dL Normal [facility] Comment on above: Performed By: #### M G #### [facility] [address] [address] [address] Isidro Thompson Glucose [Mass/Vol] 110 mg/dL Critically high 74-106 [facility] Comment on above: Performed By: #### M G #### [facility] [address] [place] [address] Dr. Isidro Thompson Potassium [Moles/Vol] 4.0 mmol/L Normal 3.5-5.1 [facility] Comment on above: Performed By: #### M G #### [facility] [address] [address] [address] Isidro Thompson Protein [Mass/Vol] 7.9 g/dL Normal 6.4-8.2 [facility] Comment on above: Performed By: #### M G #### [facility] [address] [address] [address] Isidro Thompson Sodium [Moles/Vol] 136 mmol/L Normal 136-145 [facility] Comment on above: Performed By: #### M G #### [facility] [address] [address] [address] Isidro Thompson Urea nitrogen [Mass/Vol] 12.0 mg/dL Normal 7.0-18.0 [facility] Comment on above: Performed By: #### M G #### [facility] [address] [address] [address] Isidro Thompson Urea nitrogen/Creatinine [Mass ratio] 16.2 mg/mg Normal [facility] Comment on above: Performed By: #### M G #### [facility] [address] [address] [address] Isidro Thompson MAGNESIUMon 02-13-2022 Magnesium [Mass/Vol] 1.4 mg/dL Critically low 1.8-2.4 [facility] Comment on above: Performed By: #### M G #### [facility] [address] [address] [address] Isidro Thompson VIT D 25-OH LABCORPon 2021 Vitamin D, 25-Hydroxy 40.1 ng/mL Normal 30.0-100.0 [facility] Comment on above: Result Comment: Jovana min D deficiency has been defined by the [place] of [employer] and an Endocrine Society practice guideline as a level of serum 25-OH vitamin D less than 20 ng/mL (1,2). The Endocrine Society went on to further define vitamin D insufficiency as a level between 21 and 29 ng/mL (2). 1. IOM ([place] of [employer]). 2010. Dietary reference intakes for calcium and D. [place]: The National Academies Press. 2. Sanjana PENNINGTON, Tammy [place], Michael ARTEAGA, et al. Evaluation, treatment, and prevention of vitamin D deficiency: an Endocrine Society clinical practice guideline. JCEM. 2010; 96(7):1911-30. Performed By: #### M G #### [facility] [address] [place] [address] Dr. Isidro Thompson CULTURE URINEon 11-17-2021 CULTURE URINE Culture Observations : LIGHT GROWTH OF MIXED GENITAL DEMIAN. NO POTENTIAL PATHOGENS SEEN. Normal [facility] Comment on above: Performed By: #### M G #### [facility] [address] [place] [address] Dr. Isidro Thompson MAGNESIUMon 11-17-2021 Magnesium [Mass/Vol] 1.5 mg/dL Critically low 1.8-2.4 [facility] Comment on above: Performed By: #### M G #### [facility] [address] [place] [address] Dr. Isidro Thompson MAGNESIUMon 10-16-2021 Magnesium [Mass/Vol] 1.4 mg/dL Critically low 1.8-2.4 [facility] Comment on above: Performed By: #### M G #### [facility] [address] [place] [address] Dr. Isidro Thompson CBC AUTO DIFFon 08-15-2021 BASO # 0.1 103/ul Normal 0.0-0.1 [facility] Comment on above: Performed By: #### B MP, MG #### [facility] [address] [place] [address] Dr. Isidro Thompson Basophils/100 WBC (Bld) 1.3 % Normal 0.2-2.0 [facility] Comment on above: Performed By: #### B MP, MG #### [facility] [address] [place] [address] Dr. Isidro Thompson EO # 0.2 103/ul Normal 0.0-0.7 [facility] Comment on above: Performed By: #### B MP, MG #### [facility] [address] [place] [address] Dr. Isidro Thompson Eosinophils/100 WBC (Bld) 2.4 % Normal 0.9-7.0 [facility] Comment on above: Performed By: #### B MP, MG #### [facility] [address] [place] [address] Dr. Isidro Thompson Erythrocyte distribution width (RBC) [Ratio] 13.9 % Normal 11.0-15.0 [facility] Comment on above: Performed By: #### B MP, MG #### [facility] [address] [place] [address] Dr. Isidro Thompson Hematocrit (Bld) [Volume fraction] 41.9 % Normal 36.0-48.0 [facility] Comment on above: Performed By: #### B MP, MG #### [facility] [address] [place] [address] Dr. Isidro Thompson Hemoglobin (Bld) [Mass/Vol] 13.7 g/dL Normal 12.0-16.0 [facility] Comment on above: Performed By: #### B MP, MG #### [facility] [address] [place] [address] Dr. Isidro Thompson IG # 0.03 10e3/ul Normal 0.00-0.03 [facility] Comment on above: Performed By: #### B MP, MG #### [facility] [address] [place] [address] Dr. Isidro Thompson IG % 0.4 % Normal 0.0-0.5 [facility] Comment on above: Performed By: #### B MP, MG #### [facility] [address] [place] [address] Dr. Isidro Thompson LYMPH # 3.0 103/ul Normal 1.2-3.8 [facility] Comment on above: Performed By: #### B MP, MG #### [facility] [address] [place] [address] Dr. Isidro Thompson Lymphocytes/100 WBC (Bld) 36.0 % Normal 20.5-60.0 [facility] Comment on above: Performed By: #### B MP, MG #### [facility] [address] [place] [address] Dr. Isidro Thompson MANUAL DIFF REQ NO Normal [facility] Comment on above: Performed By: #### B MP, MG #### [facility] [address] [place] [address] Dr. Isidro Thompson MCH (RBC) [Entitic mass] 28.1 pg Normal 26.7-34.0 [facility] Comment on above: Performed By: #### B MP, MG #### [facility] [address] [place] [address] Dr. Isidro Thompson MCHC (RBC) [Mass/Vol] 32.7 g/dL Normal 29.9-35.2 [facility] Comment on above: Performed By: #### B MP, MG #### [facility] [address] [place] [address] Dr. Isidro Thompson MCV (RBC) [Entitic vol] 86.0 fL Normal 81.0-99.0 [facility] Comment on above: Performed By: #### B MP, MG #### [facility] [address] [place] [address] Dr. Isidro Thompson MONO # 0.5 103/ul Normal 0.3-0.8 [facility] Comment on above: Performed By: #### B MP, MG #### [facility] [address] [place] [address] Dr. Isidro Thompson Monocytes/100 WBC (Bld) 6.0 % Normal 1.7-12.0 [facility] Comment on above: Performed By: #### B MP, MG #### [facility] [address] [place] [address] Dr. Isidro Thompson NEUT # 4.5 103/ul Normal 1.4-6.5 [facility] Comment on above: Performed By: #### B MP, MG #### [facility] [address] [place] [address] Dr. Isidro Thomposn Neutrophils/100 WBC (Bld) 53.9 % Normal 43.0-75.0 [facility] Comment on above: Performed By: #### B MP, MG #### [facility] [address] [place] [address] Dr. Isidro Thompson Platelet mean volume (Bld) [Entitic vol] 9.2 fL Critically low 9.5-13.5 [facility] Comment on above: Performed By: #### B MP, MG #### [facility] [address] [place] [address] Dr. Isidro Thompson PLT 240 103/ul Normal 150-450 [facility] Comment on above: Performed By: #### B MP, MG #### [facility] [address] [place] [address] Dr. Isidro Thompson RBC 4.87 106/ul Normal 4.20-5.40 [facility] Comment on above: Performed By: #### B MP, MG #### [facility] [address] [place] [address] Dr. Isidro Thompson WBC 8.4 103/ul Normal 4.0-11.0 [facility] Comment on above: Performed By: #### B MP, MG #### [facility] [address] [place] [address] Dr. Isidro Thompson FREE T3on 08-15-2021 FREE T3 1.95 pg/mlL Critically low 2.18-3.98 [facility] Comment on above: Performed By: #### B MP, MG #### [facility] [address] [place] [address] Dr. Isidro Thompson FREE T4on 08-15-2021 Free T4 [Mass/Vol] 1.14 ng/dL Normal 0.76-1.46 [facility] [place] Comment on above: Performed By: #### M G #### [facility] [address] [place] [address] Dr. Isidro Thompson GLYCOHEMOGLOBIN A1Con 2021 ADA RECOMMENDATION SEE BELOW Normal [facility] Comment on above: Result Comment: ADA RECOMMENDED LIMIT 4.0 - 6.0 ADA THERAPEUTIC TARGET < 7.0 ACTION SUGGESTED > 7.0 Performed By: #### B MP, MG #### [facility] [address] [place] [address] Dr. Isidro Thompson Glucose [Mass/Vol] 120 mg/dL Normal [facility] Comment on above: Performed By: #### B MP, MG #### [facility] [address] [address] [address] Isidro Thompson HbA1c (Bld) [Mass fraction] 5.8 % Normal 4.5-6.2 [facility] Comment on above: Performed By: #### B MP, MG #### [facility] [address] [address] [address] Isidro Thompson LIPID PROFILEon 08-15-2021 CHOL-HDL RATIO NORM SEE BELOW Normal [facility] Comment on above: Result Comment: 3.3 - 4.4 LOW RISK 4.4 - 7.1 AVERAGE RISK 7.1 - 11.0 MODERATE RISK >11.0 HIGH RISK Performed By: #### B MP, MG #### [facility] [address] [address] [address] Isidro Thompson Cholesterol [Mass/Vol] 183 mg/dL Normal <=200 [facility] Comment on above: Performed By: #### B MP, MG #### [facility] [address] [address] [address] Isidro Thompson Cholesterol in HDL [Mass/Vol] 46 mg/dL Normal 40-60 [facility] Comment on above: Performed By: #### B MP, MG #### [facility] [address] [address] [address] Isidro Thompson Cholesterol in LDL [Mass/Vol] 105.0 mg/dL Normal [facility] Comment on above: Performed By: #### B MP, MG #### [facility] [address] [address] [address] Isidro Thompson Cholesterol.total/Choles terol in HDL [Mass ratio] 4.0 {ratio} Normal [facility] Comment on above: Performed By: #### B MP, MG #### [facility] [address] [address] [address] Isidro Thompson HDL NORMAL > or = 60 mg/dl - LO W CARDIOVASCULAR RISK <40 mg/dl - HIGH CARDIOVASCULAR RISK Normal [facility] Comment on above: Performed By: #### B MP, MG #### [facility] [address] [place] [address] Dr. Isidro Thompson LDL CALC NORMAL SEE BELOW Normal [facility] Comment on above: Result Comment: <100 mg/dl OPTIMAL 100 - 129 mg/dl NEAR OR ABOVE OPTIMAL 130 - 159 mg/dl BORDERLINE HIGH 160 - 189 mg/dl HIGH >190 mg/dl VERY HIGH Performed By: #### B MP, MG #### [facility] [address] [address] [address] Isidro Thompson Triglyceride [Mass/Vol] 160 mg/dL Critically high <=150 [facility] Comment on above: Performed By: #### B MP, MG #### [facility] [address] [address] [address] Isidro Thompson VLDL CALC 32.0 mg/dL Normal [facility] Comment on above: Performed By: #### B MP, MG #### [facility] [address] [place] [address] Dr. sIidro Thompson MAGNESIUMon 08-15-2021 Magnesium [Mass/Vol] 1.7 mg/dL Critically low 1.8-2.4 [facility] Comment on above: Performed By: #### L IPID, TSH, MG, CMP, FT3, PHOS #### [facility] [address] [place] [address] Dr. Isidro Thompson PHOSPHORUSon 08-15-2021 Phosphate [Mass/Vol] 4.4 mg/dL Normal 2.6-4.7 [facility] Comment on above: Performed By: #### B MP, MG #### [facility] [address] [place] [address] Dr. Isidro Thompson PROF 14(COMP METB)on 022 Albumin [Mass/Vol] 3.5 g/dL Normal 3.4-5.0 [facility] Comment on above: Performed By: #### B MP, MG #### [facility] [address] [place] [address] Dr. Isidro Thompson Albumin/Globulin [Mass ratio] 0.8 {ratio} Normal [facility] Comment on above: Performed By: #### B MP, MG #### [facility] [address] [address] [address] Isidro Thompson ALP [Catalytic activity/Vol] 116 U/L Normal 46-116 [facility] Comment on above: Performed By: #### B MP, MG #### [facility] [address] [address] [address] Iisdro Thompson ALT [Catalytic activity/Vol] 54 U/L Normal 14-59 [facility] Comment on above: Performed By: #### B MP, MG #### [facility] [address] [address] [address] Isidro Thompson Anion gap [Moles/Vol] 11.2 mmol/L Normal [facility] Comment on above: Performed By: #### B MP, MG #### [facility] [address] [address] [address] Isidro Thompson AST [Catalytic activity/Vol] 49 U/L Critically high 15-37 [facility] Comment on above: Performed By: #### B MP, MG #### [facility] [address] [address] [address] Isidro Thompson Bilirubin [Mass/Vol] 0.8 mg/dL Normal 0.2-1.0 [facility] Comment on above: Performed By: #### B MP, MG #### [facility] [address] [address] [address] Isidro Thompson Calcium [Mass/Vol] 8.5 mg/dL Normal 8.5-10.1 [facility] Comment on above: Performed By: #### B MP, MG #### [facility] [address] [address] [address] Isidro Thompson Chloride [Moles/Vol] 101 mmol/L Normal 98-107 [facility] Comment on above: Performed By: #### B MP, MG #### [facility] [address] [address] [address] Isidro Thompson CO2 [Moles/Vol] 31.9 mmol/L Normal 21.0-32.0 [facility] Comment on above: Performed By: #### B MP, MG #### [facility] [address] [address] [address] Isidro Thompson Creatinine [Mass/Vol] 0.69 mg/dL Normal 0.55-1.02 [facility] Comment on above: Performed By: #### B MP, MG #### [facility] [address] [address] [address] Isidro Thompson EGFR-AF FIJIAN >60 Normal >=60 [facility] Comment on above: Performed By: #### B MP, MG #### [facility] [address] [address] [address] Isidro Thompson EGFR-NON AF FIJIAN >60 Normal >=60 [facility] Comment on above: Performed By: #### B MP, MG #### [facility] [address] [place] [address] Dr. Isidro Thompson Globulin (S) [Mass/Vol] 4.3 g/dL Normal [facility] Comment on above: Performed By: #### B MP, MG #### [facility] [address] [address] [address] sIidro Thompson Glucose [Mass/Vol] 117 mg/dL Critically high 74-106 [facility] Comment on above: Performed By: #### B MP, MG #### [facility] [address] [place] [address] Dr. Isidro Thompson Potassium [Moles/Vol] 4.1 mmol/L Normal 3.5-5.1 [facility] Comment on above: Performed By: #### B MP, MG #### [facility] [address] [address] [address] Isidro Thompson Protein [Mass/Vol] 7.8 g/dL Normal 6.1-8.2 [facility] Comment on above: Performed By: #### B MP, MG #### [facility] [address] [address] [address] Isidro Thompson Sodium [Moles/Vol] 140 mmol/L Normal 136-145 [facility] Comment on above: Performed By: #### B MP, MG #### [facility] [address] [place] [address] Dr. Isidro Thompson Urea nitrogen [Mass/Vol] 14.0 mg/dL Normal 7.0-18.0 [facility] Comment on above: Performed By: #### B MP, MG #### [facility] [address] [place] [address] Dr. Isidro Thompson Urea nitrogen/Creatinine [Mass ratio] 20.3 mg/mg Normal [facility] Comment on above: Performed By: #### B MP, MG #### [facility] [address] [place] [address] Dr. Isidro Thompson TSHon 08-15-2021 TSH 1.598 uIU/mL Normal 0.470-4.680 [facility] Comment on above: Performed By: #### B MP, MG #### [facility] [address] [place] [address] Dr. Isidro Thopmson TSH RANGE SEE BELOW Normal [facility] Comment on above: Result Comment: <0.3 4 UIU/ml HYPERTHYROID 0.34-5.60 UIU/ml EUTHYROID >5.60 UIU/ml HYPOTHYROID Performed By: #### B MP, MG #### [facility] [address] [place] [address] Dr. Isidro Thompson VITAMIN D 25 OHon 08-15-2021 VIT D 25-OH 45.8 ng/mL Normal [facility] Comment on above: Performed By: #### M G #### [facility] [address] [place] [address] Dr. Isidro Thompson VIT D RANGES SEE BELOW Normal [facility] Comment on above: Result Comment: <20 ng/mL Vit D deficient 20 - <30 ng/mL Vit D insufficient 30 - 100 ng/mL Vit D sufficient >100 ng/mL Potential Toxicity Performed By: #### M G #### [facility] [address] [place] [address] Dr. Isidro Thompson Vital Signs Date Time Vital Sign Value Performing Clinician Facility 03-13-2024 10:16-0500 Body height 175.3 cm Alexis Burt APRN-OPERATIONS CONSULTANT Work Phone: [facility] 03-13-2024 10:16-0500 Body mass index (BMI) [Ratio] 44.87 kg/m2 Alexis Burt AGRICULTURAL SERVICE TECHNICIAN-OPERATIONS CONSULTANT Work Phone: [facility] 03-13-2024 10:16-0500 Body weight 137.89 kg Alexis Burt AGRICULTURAL SERVICE TECHNICIAN-OPERATIONS CONSULTANT Work Phone: [facility] 03-13-2024 10:16-0500 Diastolic blood pressure 77 mm[Hg] Alexis Burt AGRICULTURAL SERVICE TECHNICIAN-OPERATIONS CONSULTANT Work Phone: [facility] 03-13-2024 10:16-0500 Heart rate 64 /min Alexis Burt AGRICULTURAL SERVICE TECHNICIAN-OPERATIONS CONSULTANT Work Phone: [facility] 03-13-2024 10:16-0500 Systolic blood pressure 144 mm[Hg] Alexis Burt AGRICULTURAL SERVICE TECHNICIAN-OPERATIONS CONSULTANT Work Phone: [facility] 01-31-2024 10:55-0400 Body height 172.7 cm Severino Sommers MD Work Phone: [facility] 01-31-2024 10:55-0400 Body mass index (BMI) [Ratio] 47.29 kg/m2 Severino Sommers MD Work Phone: [facility] 01-31-2024 10:55-0400 Body weight 141.07 kg Severino Sommers MD Work Phone: [facility] 01-31-2024 10:55-0400 Heart rate 55 /min Severino Sommers MD Work Phone: [facility] 01-31-2024 10:55-0400 Respiratory rate 16 /min Severino Sommers MD Work Phone: [facility] Healthcare Encounters Encounter Date Encounter Type Care Provider Facility Start: 05-29-2024 ambulatory MD Smith Jimenez ity:[facility] Start: 03-27-2024 End: 03-27-2024 ambulatory MD Smith Cedillo Facility:[facility] Start: 03-26-2024 End: 03-28-2024 Orders Only Alexis Burt AGRICULTURAL SERVICE TECHNICIAN-OPERATIONS CONSULTANT Work Phone: [facility] Comment on above: Breast cancer screen ing by mammogram Start: 03-13-2024 End: 03-13-2024 ambulatory [facility] Start: 03-13-2024 Encounter for gyneco logical examination (general) (routine) without abnormal findings [facility] Start: 03-13-2024 End: 03-13-2024 Patient encounter procedure Alexis Zachary Burt AGRICULTURAL SERVICE TECHNICIAN-OPERATIONS CONSULTANT Work Phone: [facility] Start: 03-13-2024 End: 03-13-2024 Periodic preventive med est patient 40-64yrs Alexis Burt AGRICULTURAL SERVICE TECHNICIAN-OPERATIONS CONSULTANT Work Phone: [facility] Comment on above: Encounter for annual routine gynecological examination (Primary Dx); Breast cancer screening by mammogram; Screening for osteoporosis; Mixed stress and urge urinary incontinence Start: 03-06-2024 End: 03-06-2024 ambulatory COLIN Mendoza Facility:[facility] [place] Start: 02-27-2024 End: 02-27-2024 ambulatory Smith Cedillo [facility] Start: 01-31-2024 End: 01-31-2024 Bamboo flowsheet Severino Sommers MD Work Phone: [facility] Start: 01-31-2024 End: 01-31-2024 Bamboo flowsheet Severino Sommers MD Work Phone: [facility] Start: 01-31-2024 End: 01-31-2024 ambulatory SEVERINO SOMMERS Not Available Start: 01-31-2024 End: 01-31-2024 Office outpatient visit 40 minutes Severino Sommers MD Work Phone: [facility] Comment on above: Postoperative hypoth yroidism (CMS/HCC) (Primary Dx); Papillary thyroid carcinoma (CMS/HCC); Postsurgical hypoparathyroidism (CMS/HCC); Vitamin D deficiency; Encounter for dietary consultation; Hypomagnesemia; Class 3 severe obesity due to excess calories without serious comorbidity with body mass index (BMI) of 45.0 to 49.9 in adult (CMS/HCC) Start: 01-25-2024 End: 01-25-2024 Lab Drop off SEVERINO SOMMERS [facility] Start: 01-25-2024 End: 01-25-2024 ambulatory Smith Cedillo Facility:[facility] [place] Start: 01-24-2024 End: 01-24-2024 ambulatory Smith Cedillo [facility] Start: 11-21-2023 ambulatory Smith Cedillo Facility :[facility] Start: 10-25-2023 End: 10-25-2023 ambulatory Smith Cedillo Facility:[facility] [place] Start: 08-22-2023 End: 08-22-2023 Lab Drop off Smith Cedillo [facility] Start: 08-22-2023 End: 08-22-2023 ambulatory Smith Cedillo Facility:[facility] Start: 07-06-2023 ambulatory ALEX GARRETT Facili ty:[facility] Start: 06-30-2023 End: 06-30-2023 ambulatory ALEX GARRETT Facility:[facility] [place] Start: 05-27-2023 ambulatory Smith Cedillo Facility :[facility] Start: 05-19-2023 End: 05-19-2023 Lab Drop off Smith Cedillo [facility] Start: 05-19-2023 End: 05-19-2023 ambulatory Smith Cedillo Facility:[facility] Start: 05-06-2023 End: 05-06-2023 ambulatory DANIELA JOSEPH Facility:[facility] Start: 05-04-2023 End: 05-05-2023 ambulatory DANIELA JOSEPH Facility:[facility] Start: 04-27-2023 End: 04-27-2023 Lab Drop off Smith Cedillo [facility] Start: 04-27-2023 End: 04-27-2023 ambulatory Smith Cedillo Facility:[facility] Start: 04-26-2023 End: 04-26-2023 ambulatory Smith Cedillo [facility] Start: 03-23-2023 End: 03-23-2023 ambulatory [facility] Start: 03-14-2023 End: 03-14-2023 ambulatory [facility] Start: 02-21-2023 End: [facility] Start: 02-01-2023 End: 02-01-2023 ambulatory Severino Sommers Facility:[facility] Start: 02-01-2023 End: 02-01-2023 ambulatory MD Smith Cedillo Work Phone: [facility] Work Phone: Start: 02-01-2023 End: 02-01-2023 Patient encounter procedure MD Smith Cedillo Work Phone: [facility] [place] Work Phone: Start: 01-25-2023 End: 04-25-2023 ambulatory [facility] Start: 04-03-2022 End: 04-04-[address] DANIELA JOSEPH Facility:[facility] Start: 03-27-2022 End: 03-28-[address] DOCTOR GOMEZ Facility:[facility] Start: 03-20-2022 End: 03-21-[address] DOCTOR GOMEZ Facility:[facility] Start: 03-19-2022 Telephone encounter Junie Faye MD Work Phone: Endocrinology Comment on above: Outside Labs Results Start: 03-13-2022 End: 03-14-[address] DOCTOR GOMEZ Facility:[facility] Start: 02-13-2022 End: 02-14-[address] DANIELA JOSEPH Facility:[facility] Start: 11-26-2021 End: 11-27-[address] DANIELA JOSEPH Facility:[facility] Start: 11-17-2021 End: 11-18-[address] DANIELA JOSEPH Facility:[facility] Start: 10-16-2021 End: 10-17-2021 ambulatory SEVERINO SOMMERS Facility:[facility] Start: 08-19-2021 Encounter for genera l adult medical examination without abnormal findings DR DANIELA JOSEPH [facility] Start: 08-15-2021 End: 08-16-[address] DANIELA JOSEPH Facility:[facility] Start: 08-15-2021 End: 08-16-2021 Encounter for general adult medical examination without abnormal findings DR DANIELA JOESPH Facility:[facility] Start: 12-15-2020 ambulatory Junie Faye MD Work Phone: Endocrinology Comment on above: RE:blood testing at goal Start: 12-15-2020 E-mail encounter fro m caregiver Junie Faye MD Work Phone: [address] [phone] Procedures Date Procedure Procedure Detail Performing Clinician Start: 03-15-2024 MAMM SCREENING BILAT JESSENIA Tejada CAD Alexis Burt AGRICULTURAL SERVICE TECHNICIAN-OPERATIONS CONSULTANT Work Phone: Start: 11-02-2022 Mammography Severino taylor MD Work Phone: Cholecystectomy and exploration of bile duct Smith Cedillo Colonoscopy Smith Cedillo Hysterectomy Smith Cedillo Thyroidectomy Smith Cedillo Plan of Treatment Date Care Activity Detail Author Start: 03-26-2025 End: 03-26-2025 Patient encounter procedure 03/26/2025 10:30 AM EST Office Visit [facility] [address] [place] [id number] Alexis Burt, AGRICULTURAL SERVICE TECHNICIAN-OPERATIONS CONSULTANT [address] [place] [address] [facility] Start: 03-13-2025 Adult BMI Screening Adult BMI Screening [facility] Start: 03-13-2025 Tobacco Screening Tobacco Screening [facility] Start: 05-07-2024 End: 05-07-2024 Patient encounter procedure 05/07/2024 10:40 AM EST Office Visit [facility] [address] [place] [address] Severino Sommers MD [address] [place] [address] [facility] Start: 03-13-2024 End: 03-13-2025 DBT Breast - bilateral screening Mammography screening bilateral with CAD Imaging Routine Breast cancer screening by mammogram Expected: 03/13/2024, Expires: 03[facility]13[facility] Work Phone: Comment on above: Expected: 03/13/2024, Expires: Start: 03-13-2024 End: 03-13-2025 DXA Skeletal system Views for bone density Dexa scan central skeletal Imaging Routine Screening for osteoporosis Expected: 03/13/2024, Expires: 03/13/2025 [facility] Comment on above: Expected: 03/13/2024, Expires: Start: 01-31-2024 End: 01-30-2025 25-hydroxyvitamin D3 [Mass/volume] in Serum or Plasma Vitamin D 25 hydroxy Total Lab Routine Postsurgical hypoparathyroidism (CMS/HCC) Expected: 01/31/2024 (Approximate), Expires: 01/30/2025 [facility] Comment on above: Expected: 01/31/2024 (Approximate), Expi res: 01/30/2025 Start: 01-31-2024 End: 01-30-2025 Magnesium [Mass/volume] in Serum or Plasma Magnesium Lab Routine Postsurgical hypoparathyroidism (CMS/HCC) Expected: 01/31/2024 (Approximate), Expires: 01/30/2025 [facility] Work Phone: Comment on above: Expected: 01/31/2024 (Approximate), Expi res: 01/30/2025 Start: 01-31-2024 End: 01-30-2025 Parathyrin.intact and Calcium panel - Serum or Plasma PTH, intact and calcium Lab Routine Postsurgical hypoparathyroidism (CMS/HCC) Expected: 01/31/2024 (Approximate), Expires: 01/30/2025 [facility] Comment on above: Expected: 01/31/2024 (Approximate), Expi res: 01/30/2025 Start: 01-31-2024 End: 01-30-2025 Renal function panel Renal function panel Lab Routine Postsurgical hypoparathyroidism (CMS/HCC) Expected: 01/31/2024 (Approximate), Expires: 01/30/2025 [facility] Comment on above: Expected: 01/31/2024 (Approximate), Expi res: 01/30/2025 Start: 01-31-2024 End: 01-30-2025 Thyrotropin [Units/volume] in Serum or Plasma TSH Lab Routine Postoperative hypothyroidism (CMS/HCC) Expected: 01/31/2024 (Approximate), Expires: 01/30/2025 [facility] Comment on above: Expected: 01/31/2024 (Approximate), Expi res: 01/30/2025 Start: 01-31-2024 End: 01-30-2025 Thyroxine (T4) free [Mass/volume] in Serum or Plasma T4, free Lab Routine Postoperative hypothyroidism (CMS/HCC) Expected: 01/31/2024 (Approximate), Expires: 01/30/2025 [facility] Comment on above: Expected: 01/31/2024 (Approximate), Expi res: 01/30/2025 Start: 01-31-2024 End: 01-30-2025 Triiodothyronine (T3) Free [Mass/volume] in Serum or Plasma T3, free Lab Routine Postoperative hypothyroidism (CMS/HCC) Expected: 01/31/2024 (Approximate), Expires: 01/30/2025 [facility] Comment on above: Expected: 01/31/2024 (Approximate), Expi res: 01/30/2025 Start: 12-25-2023 COVID-19 Vaccine ( season) COVID-19 Vaccine () [facility] Start: 12-25-2023 Influenza vaccination [facility] Start: 11-03-2023 Screening for malignant neoplasm of breast Mammogram [facility] Start: 04-08-2023 Screening for malignant neoplasm of colon [facility] Start: 12-24-2021 Influenza vaccination INFLUENZA (#1) [facility] Start: 04-25-2021 DEPRESSION ASSESSMENT DEPRESSION ASSESSMENT [facility] Start: 09-05-2020 COVID-19 VACCINE (3 - Booster for Pfizer series) COVID-19 VACCINE (3 - Booster for Pfizer series) [facility] Start: 03-14-2020 DIABETES SCREEN DIABETES SCREEN [facility] Start: 2011 Administration of varicella zoster vaccine Zoster (Shingles) Vaccine (1 of 2) [facility] Start: 2011 SHINGRIX VACCINE (1 of 2) SHINGRIX VACCINE (1 of 2) [facility] Start: 2006 COLOGUARD (FIT-DNA) COLOGUARD (FIT-DNA) [facility] Start: 2006 Colonoscopy COLONOSCOPY [facility] Start: 2006 COLORECTAL CANCER SCREENING COLORECTAL CANCER SCREENING [facility] Start: [address] COLONOGRAPHY [facility] Start: 2006 FECAL OCCULT BLOOD FECAL OCCULT BLOOD [facility] Start: 2006 LIPID SCREEN LIPID SCREEN [facility] Start: 2006 SIGMOIDOSCOPY SIGMOIDOSCOPY [facility] Start: 2001 Mammography MAMMOGRAM [facility] Start: 1991 HPV TESTING HPV TESTING [facility] Start: 1991 Screening for malignant neoplasm of cervix [facility] Start: 1982 PAP TESTING PAP TESTING [facility] Start: 1982 Screening for malignant neoplasm of cervix Pap Smear [facility] Start: 1980 DTaP,Tdap and Td Vaccines (1 - Tdap) DTaP,Tdap and Td Vaccines (1 - Tdap) [facility] Start: 1980 Urine microalbumin profile DTAP,TDAP,TD (1 - Tdap) [facility] Start: 1979 Adult BMI Follow Up Plan Adult BMI Follow Up Plan [facility] Start: 1979 ANNUAL PCP TEAM CHRONIC DISEASE VISIT ANNUAL PCP TEAM CHRONIC DISEASE VISIT [facility] Start: 1979 BP CONTROLLED (<130/80) BP CONTROLLED (<130/80) [facility] Start: 1979 HEPATITIS C SCREENING HEPATITIS C SCREENING [facility] Start: 1979 HIV SCREENING HIV SCREENING [facility] Start: 1973 Depression Screening Depression Screening [facility] Start: 1961 Screening for malignant neoplasm of colon [facility] Immunizations Immunization Date Immunization Notes Care Provider Fa [facility] 02-13-2022 influenza virus vaccine, unspecified formulation Smith Cedillo [facility] 02-13-2022 influenza, injectable, quadrivalent, preservative free Severino Sommers MD Work Phone: [facility] 02-13-2022 SARS-CoV-2 (COVID-19 ) [id number] Smith Cedillo [facility] 02-11-2021 SARS-CoV-2 (COVID-19 ) mRNA BNT-162b2 [employer] Smith Cedillo [facility] 07-11-2020 SARS-CoV-2 (COVID-19 ) mRNA BNT-162b2 vax Smith Cedillo [facility] 06-20-2020 SARS-CoV-2 (COVID-19 ) mRNA BNT-162b2 [employer] Cedillo [facility] 02-05-2015 influenza virus vaccine, unspecified formulation Smith Cedillo [facility] 02-05-2015 influenza, seasonal, injectable, preservative free Severino Sommers MD Work Phone: [facility] 01-29-2015 influenza virus vaccine, unspecified formulation Smith Cedillo [facility] 01-29-2015 influenza, seasonal, injectable Severino Sommers MD Work Phone: [facility] NEGATED: Highlighted row has not occurred!01-25-2023 influenza virus vaccine, unspecified formulation Smith Cedillo [facility] Payers Date Payer Category Payer Self-pay [id number] 2015 Commercial Managed C are - POS [employer] [id number] 2015 Managed Care HMO (unspecified) [employer] [id number] 2015-Present [id number] [place] [id number] HMO [id number] 2015 Private Health Insurance [employer] A ETNA CHOICE POS [id number] 2015-Present [phone] [address] [place] [address] POS [id number] 1961 Unknown [id number] 2.16.840.1.727204.3.5 79.2.593 1961 Unknown [id number] 2.16.840.1.451112.3.5 79.2.593 1961 Unknown [id number] 2.16.840.1.201474.3.5 79.2.593 1961 Unknown [id number] 2.16.840.1.994678.3.5 79.2.593 1961 Unknown [id number] 2.16.840.1.743905.3.5 79.2.593 1961 Unknown [id number] 2.16.840.1.480899.3.5 79.2.593 1961 Unknown [id number] 2.16.840.1.713577.3.5 79.2.593 1961 Unknown [id number] 2.16.840.1.228023.3.5 79.2.593 1961 Unknown [id number] 2.16.840.1.322681.3.5 79.2.593 1961 Unknown [id number] 2.16.840.1.587431.3.5 79.2.1286 1961 Unknown [id number] 2.16.840.1.400892.3.5 79.2.1286 1961 Unknown [id number] 2.16.840.1.730216.3.5 79.2.1259 1961 Unknown [id number] 2.16.840.1.019397.3.5 79.2.727 1961 Unknown [id number] 2.16.840.1.677458.3.5 79.2.727 1961 Unknown [id number] 2.16.840.1.308131.3.5 79.2.727 1961 Unknown [id number] 2.16.840.1.082770.3.5 79.2.727 196 Unknown [id number] 2.16.840.1.152582.3.5 79.2.727 1961 Unknown [id number] 2.16.840.1.197335.3.5 79.2.727 196 Unknown [id number] 2.16.840.1.947890.3.5 79.2.727 1961 Unknown [id number] 2.16.840.1.050810.3.5 79.2.727 196 Unknown [id number] 2.16.840.1.076747.3.5 79.2.727 1961 Unknown [id number] 2.16.840.1.809283.3.5 79.2.727 1961 Unknown [id number] 2.16.840.1.213059.3.5 79.2.727 1961 Unknown [id number] 2.16.840.1.587256.3.5 79.2.727 1961 Unknown [id number] 2.16.840.1.601991.3.5 79.2.727 1961 Unknown [id number] 2.16.840.1.800980.3.5 79.2.727 1961 Unknown [id number] 2.16.840.1.694511.3.5 79.2.727 196 Unknown [id number] 2.16.840.1.192998.3.5 79.2.727 196 Unknown [id number] 2.16.840.1.061137.3.5 79.2.727 1961 Unknown [id number] 2.16.840.1.106813.3.5 79.2.727 196 Unknown [id number] 2.16.840.1.915800.3.5 79.2.1286 1961 Unknown [id number] 2.16.840.1.283635.3.5 79.2.727 1961 Unknown [id number] 2.16.840.1.192436.3.5 79.2.727 1961 Unknown [id number] 2.16.840.1.583820.3.5 79.2.727 1959 Private Health Insurance [id number] Unknown [id number] 2.16.840.1.007392.3.5 79.2.531 Social History Date Type Detail Facility Start: 04-10-2012 Tobacco smoking status NHIS Ex-smoker [facility] History of tobacco use Current smoker [facility] Start: 04-10-2012 End: 11-18-2021 Tobacco use and exposure Smokeless tobacco non-user [facility] Start: 05-14-2019 End: 03-13-2024 Alcohol intake Current drinker of alcohol (finding) [facility] Start: 1960 Sex Assigned At Not on file C [facility] Start: 1960 Sex Assigned At Female [facility] Start: 11-18-2021 End: 04-26-2023 Tobacco smoking status Never smoked tobacco (finding) [facility] Tobacco smoking status Never [facility] Start: 06-05-2020 End: 01-23-2024 Sex Assigned At Female [facility] Start: 06-05-2020 End: 01-23-2024 History of Social function [facility] Start: 12-18-2018 Alcohol Comment social [facility] Start: 11-28-2014 Sex Female (finding) [facility] Start: 01-25-2023 Gender identity Identifies as female gender (finding) [facility] Clinical Notes 03-28-2012 to 03-13-2024 Alexis Burt APRN-[facility] - 03/13/2024 10:00 AM Analia Sommers MD - 01/31/2024 10:20 AM Hugo Russo - Junie Faye MD - 03/22/2022 3:44 PM EST Note Date & Type Note Facility 03-13-2024 History of Present illness Narrative SUBJECTIVE CHIEF COMPLAINT: Annual well woman exam HPI Ms. Marcelina Caon is a , 63 y.o. 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 She was last seen in 12/2022 for her annual exam. We are also monitoring her prolapse and managing her DELILAH. She was previously diagnosed with stage I anterior vaginal wall prolapse and stage II posterior vaginal wall prolapse. She denies seeing or feeling any bulge or protrusion in the vagina. She is taking mirabegron 50 mg nightly. She has significant improvement in her urinary incontinence, has decreased frequency of urination, and decreased urgency symptoms. She denies having any side effects. She can go 6-7 hours at night without having to get out of bed to use the bathroom. She denies any sensation of incomplete bladder emptying. She previously tried an anticholinergic medication, oxybutynin XL 10 mg daily, which did help her bladder symptoms but had to be discontinued due to adverse effects of significant constipation and clinical evidence of urinary retention with postvoid residual of 140 mL. She previously reported having pain in the suprapubic area when she turns over in bed. She has seen pelvic floor physical therapist Herman Bernal in [place], last seen in 02/2022. She has been really busy with helping family with their health issues, and has backed off of her pelvic floor exercises. Recently, she noticed a cyst near her labia, was squeezing it and it swelled up. She reports that she had it lanced at her PCP's office last week and it is almost gone. She is on an oral antibiotic and mupirocin. Doesn't think a culture was done. PREVENTATIVE JESUS MANUEL: Last pap: 02/18/14, Dr. Arita History of abnormal pap: No Last mammogram: Has it scheduled for this . Last colon cancer screening: Cologuard 2020, negative per patient. She plans to schedule a colonoscopy. Last DEXA scan: yes, unsure of date but >5 years ago, normal per patient. She is taking vitamin D, calcium, and magnesium. SEXUAL HEALTH: Sexually active: rarely Partners: male partner (), not sexually active often due to 's Peyronie's disease Pain with intercourse: no MENOPAUSAL HEALTH: Age at menopause: 46 at time of KAMILAH/BSO Any bleeding since menopause? No Menopausal symptoms: none History of hormone replacement?: No Genitourinary symptoms or concerns?: Urinary symptoms are currently well controlled on mirabegron. Gastrointestinal symptoms or concerns?: Yes h/o IBS, hemorrhoids. 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 No Uterine cancer? No Ovarian cancer? Yes [place] Osteoporosis? Yes [place] Colon cancer? No REVIEW OF SYSTEMS Review of Systems Constitutional: Negative for chills, fatigue, fever and unexpected weight change. HENT: Negative for congestion, dental problem, facial swelling and trouble swallowing. Eyes: Negative for photophobia, pain, itching and visual disturbance. Respiratory: Positive for cough. Negative for shortness of breath and wheezing. Cardiovascular: Negative for chest pain and palpitations. Gastrointestinal: Negative for abdominal distention, abdominal pain, blood in stool, constipation, diarrhea, nausea and vomiting. Endocrine: Negative for polydipsia. Genitourinary: Negative for difficulty urinating, dysuria, flank pain, frequency and urgency. Musculoskeletal: Negative for arthralgias, back pain and joint swelling. Skin: Negative for rash. Neurological: Negative for seizures and numbness. Hematological: Negative for adenopathy. Does not bruise/bleed easily. Psychiatric/Behavioral: Positive for agitation. Negative for confusion, self-injury and suicidal ideas. The patient is not nervous/anxious. MEDICATIONS: Current Outpatient Medications on File Prior to Visit Medication Sig ascorbic acid (JOVANA-C ORAL) Take by mouth. CEPHalexin (KEFLEX) 500 mg capsule Take 1 capsule (500 mg total) by mouth. cholecalciferol, vitamin D3, (VITAMIN D3) 5,000 units capsule Take 1 capsule (5,000 Units total) by mouth every other day. Takes two capsules daily. citalopram (CeleXA) 20 mg tablet Take 1 tablet (20 mg total) by mouth. estradioL (ESTRACE) 0.01 % (0.1 mg/gram) vaginal cream INSERT 1 GRAM VAGINALLY 2 TO 3 TIMES WEEKLY losartan (COZAAR) 25 mg tablet magnesium oxide (MAGOX) 400 mg tablet Take 1 tablet (400 mg total) by mouth in the morning. melatonin (CIRCADIN) tablet Take by mouth nightly. mupirocin (BACTROBAN) 2 % ointment apply to affected area three times a day if needed NATPARA 75 mcg/dose cartridge PROAIR HFA 90 mcg/actuation inhaler TOPROL XL 50 mg 24 hr tablet No current facility-administered medications on file prior to visit. ALLERGIES: Oxybutynin, Prednisone, Tolterodine, and Trospium Past Medical History: Diagnosis Date Asthma Heart disease ventricular septal defect Thyroid cancer ([facility]) Past Surgical History: Procedure Laterality Date BILATERAL SALPINGOOPHORECTOMY Bilateral 2006 CHOLECYSTECTOMY DILATION AND CURETTAGE OF UTERUS x4 HYSTERECTOMY 2007 KAMILAH THYROIDECTOMY Family History Problem Relation Age of Onset No Known Problems Mother Diabetes Father Hypertension Father Heart disease Father Social History Tobacco Use Smoking status: Never Smokeless tobacco: Never Substance Use Topics Alcohol use: Yes Comment: social OBJECTIVE VITAL SIGNS BP 144/77 Pulse 64 Ht 175.3 cm (5' 9.02 ) Wt (!) 137.9 kg (304 lb) BMI 44.87 kg/m PHYSICAL EXAM Constitutional: General: She is not in acute distress. Appearance: She is well-groomed. Cardiovascular: Rate and Rhythm: Normal rate. Lower extremity edema: None. Pulmonary: Effort: No respiratory distress, normal effort. HEENT: Thyroid: Not enlarged, no masses. Breasts: Breasts are symmetrical. Lymph nodes: No supraclavicular or axillary adenopathy. Right: No inverted nipple, mass, nipple discharge, skin change, tenderness, axillary adenopathy or supraclavicular adenopathy. Left: No inverted nipple, mass, nipple discharge, skin change, tenderness, axillary adenopathy or supraclavicular adenopathy. Abdominal: General: There is no distension. Palpations: Abdomen is soft. There is no hepatomegaly, splenomegaly or mass. Tenderness: There is no abdominal tenderness. Hernia: No hernia is observable. There is no hernia in the left inguinal area or right inguinal area. Genitourinary: External exam Inguinal nodes: No right inguinal adenopathy. No left inguinal adenopathy. Vulva and introitus: Normal appearance for age, no lesions, no erythema. Urethra: No prolapse, mass, urethral pain or urethral lesion. Bartholin's glands: Normal size, non-tender. Perineum/anus: Normal appearance, no lesions or hemorrhoids. Internal exam Vagina: Mucosa is without erythema and without lesions, no discharge. Cervix: Absent. Uterus: Absent. Adnexa: Bimanual exam limited per body habitus, ovaries not palpable (patient reported BSO), no tenderness or masses. Rectum: JACK deferred. Leakage with hard coughing or Valsalva? not present Modified [place] Scale 0-5: 0, no contraction uses accessory muscles Anterior Wall -2 Aa Anterior Wall -2 Ba Cervix or Cuff -5 C Genital Hiatus 4 gH Perineal Body 3 pB TVL 7 TVL Posterior Wall -1 Ap Posterior Wall -1 Bp Posterior Fornix N/A D Musculoskeletal: Gait: normal Station: normal Strength: symmetrical, normal. Skin: General: Skin is warm and dry. Coloration: Skin is not cyanotic or jaundiced. Neurological: Mental Status: She is alert and oriented to person, place, and time. Psychiatric: Mood and Affect: Mood and affect normal. Behavior: Behavior is cooperative. Results for orders placed or performed during the hospital encounter of 01/11/23 Urine culture Collection Time: 01/11/23 11:27 AM Specimen: Urine, Clean Catch Midstream Result Value Ref Range Culture 10-50,000 ORGANISMS/mL NORMAL UROGENITAL DEMIAN Urinalysis Collection Time: 01/11/23 11:27 AM Result Value Ref Range Color YELLOW YELLOW^YELLOW Turbidity HAZY (A) CLEAR^CLEAR Specific gravity 1.009 1.003 - 1.035 Nitrite Negative Negative^Negative Ph urine 6.5 5.0 - 8.5 Leukocyte esterase Negative Negative^Negative Protein Negative Negative^Negative mg/dL Glucose, Ur Negative Negative^Negative mg/dL Ketones urine Negative Negative^Negative mg/dL Urobilinogen <1.1 <1.1 eu/dL Bilirubin, urine Negative Negative^Negative Hemoglobin Small (A) Negative^Negative Mucus, UA PRESENT (A) NONE^NONE RBC 2 0 - 5 /hpf Squamous epithelium 3 0 - 5 /hpf WBC 1 0 - 5 /hpf ASSESSMENT/PLAN Marcelina was seen today for annual exam. Diagnoses and all orders for this visit: Encounter for annual routine gynecological examination Breast cancer screening by mammogram - Mammography screening bilateral with CAD; Future Screening for osteoporosis - Dexa scan central skeletal; Future Mixed stress and urge urinary incontinence - mirabegron (MYRBETRIQ) 50 mg tablet extended release 24 hr; take 1 tablet by mouth every morning Topics of calcium and vitamin d intake, exercise, healthy diet, and safe sex practices were reviewed and discussed. Screening recommendations were reviewed with the patient. Yearly pelvic and breast exams are recommended; yearly mammograms per ACS and ACR guidelines. ASCCP guidelines for cervical cancer screening were reviewed. She was informed that because she has had a hysterectomy for benign reasons, and has no abnormal Pap history, Pap smears are no longer needed for screening. She is up-to-date on breast cancer and colon cancer screening. She is at an increased risk for osteoporosis due to her history of thyroid dysfunction and earlier onset of menopause. She plans to have her DEXA scan in [place] and was informed to contact our office if she does not hear from us within a week of having her DEXA scan done. She was informed that she will be contacted with the results whether they are normal or not. Myrbetriq works very well in controlling her urinary incontinence and urgency symptoms, but is very expensive for her despite coverage from insurance, it is over 200 for 3 months. She was informed that this recently became available as generic, hopefully cost will decrease with next formulary change. No change in prolapse. We will continue to manage expectantly. This chart note was put together with the assistance of a speech recognition program. While intending to generate a timely document that accurately reflects the contents of the visit, no guarantee can be provided that every grammatical or spelling mistake has been or will be identified or corrected. Thank you for your understanding when reviewing this and similarly generated notes. HOA Lozano 03/13/24 1211 documented in this encounter [facility] 01-31-2024 History of Present illness Narrative Marcelina Cano is a 63 y.o. female Severino Sommers MD presents with chief complaint of Thyroid Problem and Follow-up HPI: Interim History 01/2024. Followup visit on 01/31/2024 for hypoparathyroidism and hypothyroidism. Her labs done: She is on Natpara 75 mcg daily, vitamin D 5,000 once daily, and magnesium 6 tablets daily basis. on levothyreoxine 125 mcg, calcium chewable 8 tablets, lab ON 01/2024 calcium 9 (8.9-11.1), magnsium 1.7 (1.3-2.7),vit d 71. They we will stop manufacture NATPARA end of this year, so we will switch her to calcitriol. Interim History 01/2023. Followup visit on 02/10/2023 for hypoparathyroidism and hypothyroidism. Her labs done: She is on Natpara 75 mcg daily, vitamin D 10,000 once daily, and magnesium 4 tablets daily basis. on levothyreoxine 125 mcg, new lab ON calcium 9, magnsium 1.5 low (1.9-2.7), TSH 4.8, FT4 0.77, FT3 wnl, vit d 71 Interim History 09/2021. Followup visit on 10/19/2021 for hypoparathyroidism and hypothyroidism. Her labs done: She is on Natpara 75 mcg daily, vitamin D 50,000 once weekly, and magnesium three tablets alternating with two on a daily basis. on levothyreoxine 125 mcg, new lab ON 07/2021 calcium 8.5, magnsium pending, TSH 1.59, FT4 1.14, FT3 1.95 ( 2.18-3.99), vit d 45 Interim History 02/2021. Followup visit on 03/12/2021 for hypoparathyroidism and hypothyroidism. Her labs done: She is on Natpara 75 mcg daily, vitamin D 50,000 once weekly, and magnesium three tablets alternating with two on a daily basis. on levothyreoxine 125 mcg, new lab calcium 9.7, magnsium 1.5(1.6-2.3), PSO4 4.3, TSH 1.577, FT4 1.16, FT3 2.06( 2.77-5.77), vit d 47 Interim History 08/2020. Followup visit on 09/09/2020 for hypoparathyroidism and hypothyroidism. Her labs done: She is on Natpara 75 mcg daily, calcium chewable with vitamin D3 four tablets daily, vitamin D 50,000 once weekly, and magnesium three tablets alternating with two on a daily basis. on levothyreoxine 125 mcg daily by theatrical scenic designer in [facility] Interim History 02/2020. Followup visit on 03/10/2020 for hypoparathyroidism and hypothyroidism. Her labs done: free T4 1.68 (0.78-2.19), TSH less than 0.02 - suppressed well. She is on Natpara 75 mcg daily, calcium chewable with vitamin D3 four tablets daily, vitamin D 50,000 once weekly, and magnesium three tablets alternating with two on a daily basis. on levothyreoxine decrease to 150 mcg daily by theatrical scenic designer in [facility] Interim /2019. Followup visit on 09/03/2019 for hypoparathyroidism and hypothyroidism. Her labs done: creatinine 0.6, GFR above 60, calcium 8.9 (8.4-10.2), albumin 3.2, magnesium 1.6 (1.6-2.3), free T4 1.65 (0.78-2.19), TSH less than 0.02 - suppressed well. Vitamin D 42, and thyroglobulin less than 0.2. She is on Natpara 75 mcg daily, calcium chewable with vitamin D3 four tablets daily, vitamin D 50,000 once weekly, and magnesium three tablets alternating with two on a daily basis. Interim History: 02/2019. Followup visit on 03/12/2019 for hypoparathyroidism. She is back to Natpara 75 mcg weekly. She is on calcium four tablets daily, vitamin D 50,000 once a week, off calcitriol, magnesium only two tablets. Lab done, BUN is 7, creatinine 0.6, calcium 8.8 (8.4-10.2), albumin 3.2, magnesium 1.3 (1.6-2.3), vitamin D 42. Followup visit on 01/22/2019. The patient is off Natpara due to recall and then she got complicated life-threatening condition of hypoglycemia, went to ICU for a couple of days. Dr. Daniela Joseph called me and we discussed her case and now she is off hospital three days. She is on calcium chewable eight tablets daily and two times to three times a day, Calcitriol 0.25 mcg once daily, vitamin D 2000 twice a day, ergocalciferol 50,000 twice a week, and clinically, she is okay and she is also on levothyroxine 200 daily. We are going to call [employer] and we will send appealing form to restart back due to her condition. Interim History: 12/11 Followup visit on 12/18/2018 for papillary thyroid cancer with hypoparathyroidism. Lab done: Kidney function within normal limits. Calcium is still low at 6.5 (8.2-10.2), phosphorus 5.7 (2.5-4.6). TSH suppressed at 0.01, free T4 mildly high at 1.43 (0.61-1.12). Vitamin D 31. Thyroglobulin less than 0.1. Tg antibody less than 1. She is on levothyroxine 200 mcg daily, Natpara 75 mcg daily injection. She is on calcium two tablets twice a day and vitamin D 2000 twice a day. Interim history: 05/2018 Follow-up visit 06/19/2018 for labs done on 06/16/2018. Kidney function within normal limits. Calcium on the low side at 7.4 (8.2-10.2). She is only on calcium two tablets in the morning, sometimes one tablet at night. Albumin 3.5, TSH less than 0.01, free T4 1.4, mildly high (0.61-1.12), vitamin D 28. She is off the supplement. Free T3 is 3.73, high normal. She is currently on levothyroxine 200 mcg daily, Natpara 75 mcg daily, metoprolol XL 25 once a day and calcium two tablets in the morning and one tablet in the afternoon and one of vitamin D. Interim History 12/10: Followup visit on 12/05/2017. No labs done yet. She is still on levothyroxine 200 mcg daily, Natpara 75 mcg daily injection, calcium with vitamin D two tablets q.a.m. and one tablet in the afternoon. No new symptoms. Off vitamin D 2000 units supplement by itself. HPI :06/12 Follow up patient for papillary thyroid carcinoma status post left thyroidectomy in 03/07 with multiple foci of papillary thyroid carcinoma, largest 0.8 cm, with follicular adenoma 1 cm, followed by right thyroidectomy in 04/06, with multiple foci papillary thyroid carcinoma, follicular variant, 1 cm. Had radioactive treatment 95.8 mCi, with whole-body scan in . New labs, done in : TSH less than 0.015, free T4 2.35 (0.8-2.19) suppressed well. She is on levothyroxine 200 mcg daily, Natpara 75 mcg daily injection, calcium with vitamin D, variable dose, average 500 mg 2 tablets in the morning, 1 tablet afternoon, vitamin D 2000 units daily. SUBJECTIVE: MEDICATIONS: Current Outpatient Medications Medication Instructions albuterol (2.5 MG/3ML) 0.083% nebulizer solution 3 mL, Nebulization, Every 8 hours PRN calcitriol (ROCALTROL) 0.5 mcg, Oral, Daily Calcium Carb-Cholecalciferol 600-20 MG-MCG chewable tablet 1 tablet, Oral, 3 times daily citalopram (CELEXA) 40 mg, Oral, Daily D-5000 5,000 Units, Oral, Daily RT levothyroxine (SYNTHROID, LEVOXYL) 125 mcg, Oral, Daily losartan (COZAAR) 25 mg, Oral, Daily RT magnesium (as gluconate) (MAGONATE) 275 mg, Oral, 3 times daily magnesium oxide (Mag-Ox) 400 (240 Mg) MG tablet 1 tablet, Oral, Daily metoprolol succinate XL (Toprol-XL) 50 MG 24 hr tablet 1 tablet, Oral, Every 24 hours Myrbetriq 50 MG 24 hr tablet 1 tablet, Oral, Every morning Parathyroid Hormone, Recomb, (Natpara) 75 MCG cartridge Subcutaneous ALLERGIES: Allergies Allergen Reactions Clarithromycin Diarrhea Oxybutynin Other Urinary retention Prednisone Unknown Causes behaviors Past Medical History: Diagnosis Date HTN (hypertension) ([facility]) Hypocalcemia Hypomagnesemia Hypoparathyroidism after procedure (CMS/[facility]) Morbid obesity with body mass index (BMI) of 40.0 to 49.9 ([facility]) Papillary thyroid carcinoma ([facility]) folliculary type [id number] Left 03/07, Rt 04/06 Sleep apnea Vitamin D deficiency Past Surgical History: Procedure Laterality Date GALLBLADDER HYSTERECTOMY 2006 TOTAL THYROIDECTOMY REVIEW OF SYMPTOMS: 14 POINT OF SYSTEM REVIEWED AND NEGATIVE OBJECTIVE: Visit Vitals Pulse 55 Resp 16 Ht 5' 8 Wt 311 lb BMI 47.29 kg/m Smoking Status Never BSA 2.6 m Physical Exam Constitutional: Appearance: Normal appearance. She is normal weight. HENT: Head: Normocephalic and atraumatic. Right Ear: External ear normal. Nose: Nose normal. Mouth/Throat: Pharynx: Oropharynx is clear. Eyes: Extraocular Movements: Extraocular movements intact. Pupils: Pupils are equal, round, and reactive to light. Cardiovascular: Rate and Rhythm: Normal rate and regular rhythm. Pulmonary: Effort: Pulmonary effort is normal. Abdominal: General: Abdomen is flat. Palpations: Abdomen is soft. Musculoskeletal: General: Normal range of motion. Skin: General: Skin is warm. Neurological: General: No focal deficit present. Mental Status: She is alert. Psychiatric: Mood and Affect: Mood normal. Behavior: Behavior normal. ASSESSMENT AND PLAN: Assessment/Plan Diagnoses and all orders for this visit: Postoperative hypothyroidism (CMS/HCC) - levothyroxine (Synthroid, Levoxyl) 125 MCG tablet; Take 1 tablet (125 mcg) by mouth Daily - T3, free; Future - T4, free; Future - TSH; Future Continue with levothyroxine 125 mcg daily, we will check lab before next visit and adjust Papillary thyroid carcinoma (CMS/HCC) Postsurgical hypoparathyroidism (CMS/[facility]) - calcitriol (Rocaltrol) 0.5 MCG capsule; Take 1 capsule (0.5 mcg) by mouth Daily - Magnesium; Future - PTH, intact and calcium; Future - Renal function panel; Future - Vitamin D 25 hydroxy Total; Future End of this year we will switch her from that NATPARA 75 mcg once daily to calcitriol 0.5 mcg once daily, we will continue with calcium chewable tablets 8 tablets a day. Vitamin D deficiency Level 71 in January/2024. I will cut the dose from 5000 daily to 5000 every other day. Encounter for dietary consultation Hypomagnesemia Continue with 3 tablets of magnesium twice a day Class 3 severe obesity due to excess calories without serious comorbidity with body mass index (BMI) of 45.0 to 49.9 in adult (CMS/HCC) Diet and exercise reviewed with the patient Follow up in about 3 months (around 05/02/2024). documented in this encounter [facility] 01-25-2024 Note Nurse Consultation N ote Reason for Visit Here for lab draw for Dr Sommers Assessment/Plan Absent parathyroid gland (E89.2: Postprocedural hypoparathyroidism) H/O thyroidectomy (E89.0: Postprocedural hypothyroidism) Hypocalcemia (E83.51: Hypocalcemia) Vitamin D deficiency (E55.9: Vitamin D deficiency, unspecified) Medications Adipex-P 37.5 mg oral capsule, 37.5 mg= 1 cap(s), Oral, Daily albuterol 0.083% Inh Mandie 3 mL, See Instructions citalopram 40 mg Tab, 40 mg= 1 tab(s), Oral, Daily, 1 refills Flonase 0.05 mg/inh Webster, 2 spray(s), Nasal, Daily Flovent HFA 220 Aerosol, 1 puff(s), Inhalation, BID fluconazole 150 mg Tab, See Instructions levothyroxine 125 mcg (0.125 mg) Tab, See Instructions losartan 25 mg Tab, See Instructions metoprolol succinate 50 mg ER Tab, 50 mg= 1 tab(s), Oral, Daily, 1 refills Misc Medication, See Instructions Misc Medication mupirocin Top 2% Oint, See Instructions, Self Directed Myrbetriq 50 mg oral tablet, extended release Natpara 75 mcg/dose subcutaneous injection, 75 mcg, SubCutaneous, Daily Vitamin C 500 mg oral tablet, chewable, 500 mg= 1 tab(s), Chewed, Daily Vitamin D3 10,000 intl units oral capsule, See Instructions Allergies anabolic steroids (Angry) Biaxin (Diarrhea) Augmentin (Diarrhea) Immunizations Vaccine Date Status Comments influenza virus vaccine, inactivated - Not Given Postpone due to refusal influenza virus vaccine, inactivated 02/13/2022 Recorded SARS-CoV-2 (COVID-19) [id number] 02/13/2022 Recorded SARS-CoV-2 (COVID-19) mRNA BNT-162b2 vax 02/11/2021 Recorded SARS-CoV-2 (COVID-19) mRNA BNT-162b2 vax 07/11/2020 Recorded SARS-CoV-2 (COVID-19) mRNA BNT-162b2 vax 06/20/2020 Recorded influenza virus vaccine, inactivated 02/05/2015 Recorded influenza virus vaccine, inactivated 01/29/2015 Recorded [facility] 10-25-2023 Note Patient Education Orthopedics Distal Biceps Tendinitis Distal biceps tendinitis is inflammation of the distal biceps tendon. This tendon is a strong cord of tissue that connects the biceps muscle on the front of the upper arm to the radius bone in the elbow. Distal biceps tendinitis can interfere with the ability to bend the elbow and to turn the hand palm up (supination). Distal biceps tendinitis may include a grade 1 or grade 2 strain of the tendon. ? A grade 1 strain is mild. There is a slight pull of the tendon without any stretching or tearing of the tendon. There is also usually no loss of biceps muscle strength. ? A grade 2 strain is moderate. There is a small tear in the tendon. The tendon is stretched, and biceps muscle strength is usually decreased. This condition is most often caused by overusing the elbow joint and the biceps muscle. It usually heals within 6 weeks. What are the causes? This condition may be caused by: ? A sudden increase in the frequency or intensity of activity that involves the elbow and the biceps muscle. ? Overuse of the biceps muscle. This can happen when you do the same movements over and over, such as: ? Turning your hand palm up. ? Forceful straightening (hyperextension) of the elbow. ? Bending of the elbow. ? A direct, forceful hit or injury (trauma) to the elbow. This is rare. What increases the risk? The following factors may make you more likely to develop this condition: ? Playing contact sports. ? Playing sports that involve throwing and overhead movements, including racket sports, gymnastics, weight lifting, or bodybuilding. ? Doing physical labor. ? Having poor strength and flexibility of the arm and shoulder. ? Having injured other parts of the elbow. What are the signs or symptoms? Symptoms of this condition may include: ? Pain and inflammation in the front of the elbow. Pain may get worse during certain movements, such as: ? Turning your hand palm up. ? Bending your elbow. ? Lifting or carrying objects. ? Throwing. ? A feeling of warmth in the front of your elbow. ? A feeling of weakness. ? A crackling sound (crepitation) when you move or touch the elbow or the upper arm. In some cases, symptoms may return (recur) after treatment, and they may be long-lasting (chronic). How is this diagnosed? This condition is diagnosed based on: ? Your symptoms. ? Your medical history. ? A physical exam. Your health care provider may have you do arm movements to test your range of motion. ? You may have other tests, including: ? X-rays. ? MRI. How is this treated? Treatment for this condition depends on the severity of the injury. You may be treated by: ? Resting the injured arm. Avoid flexing the elbow. ? Applying ice or heat to the injured area. ? Taking medicines to relieve pain and inflammation. ? Ultrasound therapy. This applies sound waves to the injured area. ? Physical therapy. Follow these instructions at home: Managing pain, stiffness, and swelling ? If directed, put ice on the injured area. ? Put ice in a plastic bag. ? Place a towel between your skin and the bag. ? Leave the ice on for 20 minutes, 2?3 times a day. ? If directed, apply heat to the affected area before you exercise. Use the heat source that your health care provider recommends, such as a moist heat pack or a heating pad. ? Place a towel between your skin and the heat source. ? Leave the heat on for 20?30 minutes. ? Remove the heat if your skin turns bright red. This is especially important if you are unable to feel pain, heat, or cold. You may have a greater risk of getting burned. ? Move your fingers often to reduce stiffness and swelling. ? Raise (elevate) the injured area above the level of your heart while you are sitting or lying down. Activity ? Do not lift anything that is heavier than 10 lb (4.5 kg), or the limit that you are told, until your health care provider says that it is safe. ? Avoid activities that cause pain or make your condition worse. ? Return to your normal activities as told by your health care provider. Ask your health care provider what activities are safe for you. ? Do exercises as told by your health care provider. General instructions ? Take ltvf-fjm-wmjmpoj and prescription medicines only as told by your health care provider. ? Do not use any products that contain nicotine or tobacco, such as cigarettes, e-cigarettes, and chewing tobacco. These can delay healing. If you need help quitting, ask your health care provider. ? Keep all follow-up visits as told by your health care provider. This is important. How is this prevented? ? Warm up and stretch before being active. ? Cool down and stretch after being active. ? Give your body time to rest between periods of activity. ? Make sure to use equipment that fits you. (more content not included)... [facility] 05-04-2023 Note HNO ID: [id number] Author: JUNIE FAYE MD Service: ? Author Type: Physician Type: Progress Notes Filed: 05/04/2023 15:48 Note Text: Endocrine progress note LV hypocalcemia, hypothyroidism, papillary thyroid cancer LV August 18, 2020 Here with Ms. Cano is a 63year old who presents for following issues: hypocalcemia Prior notes: Female with hypocalcemia s/p thyroid surgery in 2006 for papillary thyroid cancer. Managed on natpara due to life threatening hypocalcemia in the past. She was under care of osh team at that time. Reports that conventional treatment resulted in persistent hypocalcemia. Ended up in ER in week of January 2019 with calcium of 4.0, had to be in ICU for 3 days. Happened again a week later with calcium of 5, back in ICU for HTN emergency at same time Was able to get natpara while admitted second time. Now doing injections as above. Cant Hooker back home is prescribing natpara. I-131 full body scan from 2013 negative for abnormal uptake Working with local endo re; thyroid cancer Currently doing well No hypocalcemia sxs Regimen: natpara 0.75 mg sub daily Vitamin D 5000 IU d3 daily Calcium tablet 600 mg qid times/day Mag - 400 mg 2 tablets twice daily Managed on synthroid 125 mcg daily No hypocalcemia symptoms now Feeling good Obese. Upset about lack of weight loss. BMI 46 Previously walked 4 miles/twice daily and did weight watchers - lost 5 lbs/week for a total loss of 56 lbs but regained everything back when she stopped diet Of note, parents overweight. Not on any diet currently, not exercising Otherwise, no other acute complaints or concerns today. mirabegron (MYRBETRIQ) 50 mg Tb24 Take 1 tablet by mouth every morning. cholecalciferol (VITAMIN D-3) 5,000 unit tab Take 1 tablet by mouth once daily. magnesium oxide 400 mg magnesium cap Take 400 mg by mouth once daily. Sun Sat - 400 mg TID Tue - 400 mg BID citalopram (CELEXA) 20 mg tablet Take 20 mg by mouth daily at bedtime. losartan (COZAAR) 25 mg tablet Take 25 mg by mouth once daily. calcium carbonate-vitamin D3 (CALTRATE 600 + D) 600 mg (1,500 mg)-800 unit chew Take 1 tablet by mouth three times daily. parathyroid hormone (NATPARA) 75 mcg/dose crtg Inject 75 mcg subcutaneously once daily. metoprolol succinate XL, long acting, 25 mg 24 hr tablet Take 1 tablet by mouth once daily. (Patient taking differently: Take 50 mg by mouth once daily.) albuterol (PROVENTIL) 2.5 mg /3 mL (0.083 %) nebulizer solution levothyroxine (SYNTHROID) 125 mcg tablet TAKE 1 TABLET DAILY levothyroxine (SYNTHROID) 125 mcg tablet Take 1 tablet by mouth once daily. tetracycline (SUMYCIN) 500 mg cap Take 500 mg by mouth once daily. Pt takes 1-2 times Daily COMPOUNDED PRESCRIPTION Sleepessence, one capsule by mouth at bedtime REVIEW OF SYSTEMS: Answers submitted by the patient for this visit: Core Review of Systems (Submitted on 05/04/2023) Fever : No Night sweats: No Recent unintentional weight change: Yes Nasal Congestion: No Hearing Loss: Yes Vision Disturbance: No A cough: Yes Difficulty Breathing?: Yes Chest pain: Yes Irregular heartbeat: Yes Leg Swelling: Yes Nausea: No Diarrhea: No Black tarry stools: No Difficulty Urinating?: Yes Awaken at Night More Than Once to Urinate?: No Joint pain or stiffness: Yes Muscle aches: Yes Leg or Foot Discomfort at Night?: Yes A rash: No Dizziness: No Headaches: Yes Memory Loss: No Seizures: No The remainder of the review of systems is negative. Patient's Past Family and Social history have been reviewed with the patient, and updated as appropriate. Please see relevant sections in [facility] EHR for details. PHYSICAL EXAM: BP 148/63 Pulse 62 Wt (!) 139.7 kg (308 lb) BMI 46.15 kg/m? Body mass index is 46.15 kg/m?. General: WNWD, NAD Eyes: conjunctivae are pink, no scleral icterus, no lid lag, start, or ptosis. No Cushingoid features ENT/Mouth: dentition, nml elevation and depression of palate Neck: The thyroid is not present, no adenopathy Cardiovascular: regular rate, no murmur, no extra-heart sounds Respiratory: full sounds bilaterally with normal expansion Musculoskeletal: normal muscle mass, no lower extremity swelling Skin: no red straie, no acanthosis Neurologic: DTR?s normal with normal recovery phase Pyschiatric: mood and affect are normal Generalized obesity DATA REVIEW: 02/01/2023 Impression/plan: 63 yo F with hypothyroidism, papillary thyroid cancer s/p total thyroidectomy, hypocalcemia, hypoparathyroidism, and vitamin D deficiency presenting for follow-up Hypocalcemia and hypoparathyroidism 2/2 thyroidectomy Currently stable on natpara 0.75 mg -- currently on recall, getting through specialty program from [facility] Vitamin D 50,000 units weekly Calcium citrate 600 mg 4xtimes daily Wants to change to a different magnesium formulation Obtain labs locally in (more content not included)... [facility] 03-22-2022 Miscellaneous Notes Labs at goal - calcium excellent Updated patient Mag improved although still a bit low ( 1.5 instead of 1.8) Patient verbalized understanding of above instructions. Junie Faye MD Dept of Endocrinology March 22, 2022 Uploaded labs from [facility] received on 03/14/2022 scanned into chart for review Paul Cotton Sales Assistant [employer] [facility] documented in this encounter [facility] 03-04-2022 Miscellaneous Notes Pt wants to change vitamin D 50,000 international unit(s) weekly to 10,000 international unit(s) daily. New rx sent to pharmacy Ok to change Labs weekly Patient verbalized understanding of above instructions. Junie Faye MD Dept of Endocrinology March 04, 2022 documented in this encounter [facility] 03-28-2012 History of Past i llness Narrative Problem Noted Date Resolved Date ASD (atrial septal defect) 03/28/201204/14 documented as of this encounter (statuses as of 03/04/2022) [facility]12-04-2012 History of Past illness Narrative* Problem Noted Date Resolved Date ASD (atrial septal defect) 03/28/201204/14 documented as of this encounter (statuses as of 03/22/2022) [facility] Future App[facility]ments Appointment Date:05/27/2023 01:30:00 PM Scheduled Provider:Jarred Shi MD Location:[facility] Appointment Type:Cardiology New Patient (FT) Appointment Date:07/26/2023 10:00:00 AM Scheduled Provider:Smith Cedillo MD [facility] App[facility]ments Appointment Date:05/27/2023 01:30:00 PM Scheduled Provider:Jarred Shi MD Location:[facility] Appointment Type:Cardiology New Patient (FT) Appointment Date:08/02/2023 10:15:00 AM Scheduled Provider:Smith Cedillo MD Location:[facility] Appointment Type:[facility] Diagnostic Tests Pending * Urine Culture [facility]23 [facility] Future Appointments Appointment Date:11/21/2023 01:00:00 PM Scheduled Provider:Smith Cedillo MD [facility] Future Appointments Appointment Date:02/27/2024 09:30:00 AM Scheduled Provider:Smith Cedillo MD Location:[facility] Appointment Type:[facility] Evaluation noteNo assessment information available [facility] Work Phone: Evaluation note* Diagnosis Postoperative hypothyroidism (CMS/HCC)- Primary Postsurgical hypothyroidism 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) Vitamin D deficiency Encounter for dietary consultation Hypomagnesemia Disorders of magnesium metabolism Class 3 severe obesity due to excess calories without serious comorbidity with body mass index (BMI) of 45.0 to 49.9 in adult (CMS/HCC) documented in this encounter [facility] HealthcareEvaluation note* Diagnosis Encounter for annual routine gynecological examination- Primary Breast cancer screening by mammogram Screening for osteoporosis Special screening for osteoporosis Mixed stress and urge urinary incontinence Mixed incontinence urge and stress (male)(female) [facility] Diagnosis Breast cancer screening by mammogram [facility] N[facility] No data available for this section [facility] No data available for this section [facility]ructions[facility] on filedocumented in this encounter [facility] filedocumented in this encounter [facility] No data available for this section [facility] Summary Purpose Family History No Family History Records FoundNo Family History Records FoundNo Family History Records Found No data available for this section No Family History Records Found No data available for this section No data available for this section No Family History Records FoundNo Family History Records FoundNo Family History Records Found No data available for this section No Family History Records FoundNo Family History Records FoundNo Family History Records FoundNo Family History Records Found Advance Directives Advance Directive Response Recorded Date/ Time Advance Directives No February 01, 2023 1:01pm Chief Complaint and Reason for Visit Chief Complaint e89.0 e89.2 e55.9 e8 3.51 e03.9 Additional Source Comments Source Comments (unrecognize d section and content) In the event this informatio n is protected by the Federal Confidentiality of Alcohol and Drug Abuse Patient Records regulations: The Federal rules restrict any use of the information to criminally investigate or prosecute any alcohol or drug abuse patient.[facility] the event this information is protected by the Federal Confidentiality of Alcohol and Drug Abuse Patient Records regulations: The Federal rules restrict any use of the information to criminally investigate or prosecute any alcohol or drug abuse patient.[facility] Care Teams (unrecognized sec tion and content) [employer] Developer Relationship Specialty Start Date End Date Daniela Joseph MD [address] [place] [id number] PCP - General Family Medicine 04/10/12 Team Status: Active Member Role Status Dates Smith Cedillo MD Primary Care Provider Active Team Status: Inactive Member Role Status Dates Severino Sommers MD Attending Provider Active Smith Cedillo MD Primary Care Provider Active [employer] Net Developer Relationship Specialty Start Date End Date Unallocated, Delfina Ruffin MD [address] [place] [id number] PCP - General Family Medicine 01/19/24 [employer] Developer Relationship Specialty Start Date End Date Unallocated[place] [address] [place] [id number] PCP - General Family Medicine 01/19/24 [employer] Developer Relationship Specialty Start Date End Date Daniela Joseph MD PCP - General Family Medicine 08/21/21 [employer] Developer Relationship Specialty Start Date End Date Daniela Joseph MD PCP - General Family Medicine 08/21/21 Reason for Visit (unrecogniz ed section and content) Reason Comments Outside Labs Results Reason Comments Thyroid Problem Follow-up Reason Comments Annual Exam INFORMATION SOURCE (unrecogn ized section and content) DATE CREATED AUTHOR 04/21/2022 [facility] DATE CREATED AUTHOR AUTHOR'S ORGANIZ ATION 02/08/2023 [facility] DATE CREATED AUTHOR AUTHOR'S ORGANIZ ATION 04/24/2023 [facility] DATE CREATED AUTHOR AUTHOR'S ORGANIZ ATION 05/15/2023 [facility] DATE CREATED AUTHOR AUTHOR'S ORGANIZ ATION 01/27/2024 [facility] DATE CREATED AUTHOR AUTHOR'S ORGANIZ ATION 02/01/2024 [facility] DATE CREATED AUTHOR AUTHOR'S ORGANIZ ATION 02/28/2024 [facility] DATE CREATED AUTHOR AUTHOR'S ORGANIZ ATION 03/15/2024 [facility] DATE CREATED AUTHOR AUTHOR'S ORGANIZ ATION 03/28/2024 [facility] Goals (unrecognized section and content) Goals may be documented in a n alternate section No data available for this section No data available for this section No data available for this section No data available for this sectionNot on filedocumented as of this encounterNot on filedocumented as of this encounter FOR RECORDS PERTAINING TO PATIENTS WHO ARE OR HAVE BEEN ENROLLED IN A CHEMICAL DEPENDENCY/SUBSTANCEABUSE PROGRAM, SOME INFORMATION MAY BE OMITTED. This clinical summary was aggregated from multiple sources. Caution should be exercised in using it in the provision of clinical care. This summary normalizes information from multiple sources, and as a consequence, information in this document may materially change the coding, format and clinical context of patient data. In addition, data may be omitted in some cases. CLINICAL DECISIONS SHOULD BE BASED ON THE PRIMARY CLINICAL RECORDS. [employer] provides no warranty or guarantee of the accuracy or completeness of information in this document.
== END 2024-04-19 10:44 | disposition home or self-care (01) ==
LOC: RAD 10:43
PROVIDERS: PCP Family Medicine
DX: M85.851 Other specified disorders of bone density and structure, right thigh (principal)
CPT/HCPCS: 77080

== ENCOUNTER 2024-08-17 11:26 | Outpatient (OUT) | payer OTHER, SELFPAY ==
--- NOTE | 2024-08-17 11:32 | XR_ITS ---
[facility] [place] [id number] Patient Name: MARCELINA LLANOS MRN: [id number] date: 1960 Sex: F Assigned Patient Location: [facility] Current Patient Location: [facility] Accession/Order Number: [id number] Exam Date: 08/17/2024 12:00 Report Date: 08/17/2024 12:00 At the request of: MAU POOLE Procedure: XR chest 2V Chest 2 views CLINICAL HISTORY: Shortness Of Breath, Wheezing, Cough COMPARISON: Chest 03/14/2023 FINDINGS: Heart normal in size. No lung consolidation pneumothorax pleural effusion or free air. XR/XR chest 2V IMPRESSION: NO ACUTE CARDIOPULMONARY ABNORMALITY. Impression dictated by: Dominic Bush Jr.OTroy 08/17/2024 12:00 PM Dictation Location: [place] [address] Electronically authenticated by: [id number] Y Date: 08/17/2024 12:00
== END 2024-08-17 11:27 | disposition home or self-care (01) ==
LOC: RAD 11:28
PROVIDERS: PCP Family Medicine; Visit Provider Nurse Practitioner
DX: R06.02 Shortness of breath (principal); R06.2 Wheezing; Z78.9 Other specified health status; Z68.42 Body mass index [BMI] 45.0-49.9, adult; R05.9 Cough, unspecified
CPT/HCPCS: 71046

== ENCOUNTER 2025-03-27 10:03 | Outpatient (OUT) | payer OTHER, SELFPAY ==
--- OUTSIDE RECORDS SUMMARY | 2025-03-27 10:06 | XMS_ITS | Encounter Summary ---
Author Organization [employer] tem Address [id number] [address] [place] [address] Care Team Providers Care Ball Holder Name Role Phone Mihaela Joseph MD Primary Care Provider [phone] Encounter Details DateTypeDepartmentCare Team (Latest Contact Info)Rfdncyuankt10/25/2025Travel Social History Tobacco UseTypesPacks/DayYears UsedDateSmoking Tobacco: NeverSmokeless Tobacco: NeverAlcohol UseStandard Drinks/WeekCommentsYes0 (1 standard drink = 0.6 oz pure alcohol)socialChildcareAnswerDate NhhuvfyqPjyiwlowtAhkfdwm47/12/2019Employment AnswerDate ZvcilejrVlapyjkbtfMlypuuv87/12/2019Hunger ScreeningAnswerDate RecordedWithin the past 12 months we worried whether our food would run out before we got money to buy more.Never True01/11/2023Within the past 12 months the food we bought just didn't last and we didn't have money to get more.Never True3Purpose - LifeAnswerDate RecordedPurpose and direction in life Olnxuom28/11/2021CommentsNoSex and Gender InformationValueDate Recorded Sex Assigned at SbzrrNidjlp87/03/2023 3:45 PM EDTLegal HzpDxyryl11/06/2015 11:59 AM EDTGender LxhataypDahqhh05/03/2023 3:45 PM EDTSexual OrientationDon't know 01/25/2023 3:45 PM EDTdocumented as of this encounter Plan of Treatment DateTypeDepartmentCare Team (Latest Contact Info)Ftpviuyhhan41/30/2025 3:30 PM ESTOffice Visit [facility] [address] [place] [phone] Jennifer Ogden, JIG FITTER-CYBER SECURITY INSTRUCTOR [address] [place] [address] documented as of this encounter Visit Diagnoses Not on filedocumented in this encounter Additional Health Concerns AssessmentNoted TimeA Body Mass Index follow-up plan has been documented for the nkqmmpf8812/18/2018 3:23 PM EDTdocumented as of this encounter Care Teams Team MemberRelationshipSpecialtyStart DateEnd Date Mihaela Joseph MD PCP - GeneralFamily Medicine08/21/21documented as of this encounter
--- OUTSIDE RECORDS SUMMARY | 2025-03-27 10:06 | XMS_ITS | Clinical Summary ---
Author Organization [facility] Healthcare Address [address] [facility] [address] [address] Care Team Providers Care Store Planner Name Role Phone Unallocated, [facility] Provider Primary Care Provi saundra Allergies Active AllergyReactionsCriticalityNoted DateCommentsClarithromycinDiarrheaLow 05/04/20233879XagzragaixGnhqwCqg03/11/2023 Urinary retention VfghcgrfhgVjfubqqRlm79/26/2019 Causes behaviors Medications MedicationSigDispense QuantityRefillsLast FilledStart DateEnd DateStatus Calcium Carb-Cholecalciferol 600-20 MG-MCG chewable tablet Chew 1 tablet in the morning and 1 tablet at noon and 1 tablet in the evening. Active D-5000 125 MCG (5000 UT) tablet Take 5,000 Units by mouth in the morning.02/03/2023ctive citalopram (CeleXA) 40 MG tablet Take 40 mg by mouth Daily10/24/2023ctive losartan (Cozaar) 25 MG tablet Take 25 mg by mouth in the morning.Active magnesium oxide (Mag-Ox) 400 (240 Mg) MG tablet Take 1 tablet by mouth Daily12/10/2023ctive Myrbetriq 50 MG 24 hr tablet Take 1 tablet by mouth in the morning.01/27/2023ctive metoprolol succinate XL (Toprol-XL) 50 MG 24 hr tablet Take 1 tablet by mouth 1 (one) time each day at the same timeActive albuterol (2.5 MG/3ML) 0.083% nebulizer solution Take 3 mL by nebulization every 8 (eight) hours if needed for wheezingActive magnesium, as gluconate, (Magonate) 500 (27 Mg) MG tablet Take 275 mg by mouth in the morning and 275 mg in the evening and 275 mg before bedtime.Active calcitriol (Rocaltrol) 0.5 MCG capsule Indications:Postsurgical hypoparathyroidism (HCC)Take 1 capsule (0.5 mcg) by mouth Daily 90 capsule 01/31/2024ctive levothyroxine (Synthroid, Levoxyl) 125 MCG tablet Indications:Postoperative hypothyroidismTake 1 tablet (125 mcg) by mouth in the morning. Take before meals. 90 tablet ctive Natpara 75 MCG cartridge Indications:Postsurgical hypoparathyroidism (HCC)INJECT 75MCG SUBCUTANEOUSLY ONCE DAILY IN THE THIGH DIRECTED. !! SINGLE USE ONLY!! 14 each 735Active Encounters DateTypeDepartmentCare YavjHfwqvenpnyu02/02/2025Refill [facility] [address] [place] [address] Severino Rankin MD Postsurgical hypoparathyroidism (HCC)from Last 3 Months Immunizations ImmunizationAdministration DatesNext DueInfluenza, injectable, quadrivalent, preservative free02/13/2022Influenza, seasonal, tihmoobuev97/07/2015Influenza, seasonal, injectable, preservative free02/05/2015 Family History Medical HistoryRelationNameCommentsHypertensionSisterx 3HypertensionSonx 2 RelationNameStatusCommentsBrotherx 1AliveFatherDeceasedMotherDeceasedSisterx 3 AliveSonx 2Alive Social History Tobacco UseTypesPacks/DayYears UsedDateSmoking Tobacco: Never Tobacco Cessation:Counseling Given: Not Answered CommentsUnknownSex and Gender InformationValueDate RecordedSex Assigned at BirthNot on fileLegal OakSuoavm51/15/2023 6:54 PM EDTGender IdentityNot on fileSexual OrientationNot on file Last Filed Vital Signs Vital SignReadingTime TakenCommentsBlood Jdnowgwz946/8210 10:52 AM EDT Kpcgu5827 10:58 AM ESTTemperature--Respiratory Oyxb410305/07/2024 10:58 AM ESTOxygen Eacridhtbg85%02/10/2023 10:52 AM EDTInhaled Oxygen Concentration-- Syetva649 kg (318 lb)05/07/2024 10:58 AM FNJJoakwb825.7 cm (5' 8 )05/07/2024 10:58 AM ESTBody Mass Index48.35005/07/2024 10:58 AM EST Plan of Treatment Health MaintenanceDue DateLast DoneCommentsCT Cskbrskkyxht1961Colonoscopy 1961FIT1961FOBT1961 7603Jcgeeodshbsph1961ap Smear1982 Cervical Cancer Stlwbtrte70/18/1991HPV/Vfoukg3604/11/1991Colorectal Cancer Sgrcvzhds58/15/2023FIT-DNACOVID-19 Vaccine ( season), 07/11/2020, 06/20/2020Influenza Vaccine (#1) /, 02/05/2015, 01/29/20151835Ucupncjbq76/21/202511/, 11/02/2022neumococcal Vaccine: Pediatrics (0 to 5 Years) and At-Risk Patients (6 to 64 Years)Aged OutNo longer eligible based on patient's age to complete this [place] [address] Care Teams Team MemberRelationshipSpecialtyStart DateEnd Date Unallocated, [facility], [address] [place], [place] [id number] PCP - GeneralFamily Medicine9/26/24
--- OUTSIDE RECORDS SUMMARY | 2025-03-27 10:06 | XMS_ITS | Clinical Summary ---
Author Organization [facility] Address [id number] [address] [place] [address] Care Team Providers Care Director Payment Name Role Phone Mhiaela Joseph MD Primary Care Provider Allergies Active AllergyReactionsCriticalityNoted DateCommentsOxybutyninOther (See Comments)Low02/02/2023 Urinary retention OnmiolmwfhPhu71/26/2019 Causes behaviors TolterodineOther (See Comments)Low02/02/2023 Urinary retention TrospiumOther (See Comments)Low02/02/2023 Urinary retention Medications MedicationSigDispense QuantityRefillsLast FilledStart DateEnd DateStatus PROAIR HFA 90 mcg/actuation inhaler 10/18/2018Active citalopram (CeleXA) 20 mg tablet Take 1 tablet (20 mg total) by mouth.Active losartan (COZAAR) 25 mg tablet 10/18/2018Active mupirocin (BACTROBAN) 2 % ointment apply to affected area three times a day if rpqjxg498Active NATPARA 75 mcg/dose cartridge 12/11/2018Active TOPROL XL 50 mg 24 hr tablet 11/26/2018Active estradioL (ESTRACE) 0.01 % (0.1 mg/gram) vaginal cream INSERT 1 GRAM VAGINALLY 2 TO 3 TIMES WEEKLY 42.5 g ctive magnesium oxide (MAGOX) 400 mg tablet Take 1 tablet (400 mg total) by mouth in the morning.10/16/2021ctive ascorbic acid (JOVANA-C ORAL) Take by mouth.Active melatonin (CIRCADIN) tablet Take by mouth nightly.Active cholecalciferol, vitamin D3, (VITAMIN D3) 5,000 units capsule Take 1 capsule (5,000 Units total) by mouth every other day. Takes two capsules daily.Active CEPHalexin (KEFLEX) 500 mg capsule Take 1 capsule (500 mg total) by mouth.4Active mirabegron (MYRBETRIQ) 50 mg tablet extended release 24 hr Indications:Mixed stress and urge urinary incontinencetake 1 tablet by mouth every morning 90 tablet 5Active mirabegron (MYRBETRIQ) 50 mg tablet extended release 24 hr Indications:Mixed stress and urge urinary incontinenceTake 1 tablet (50 mg total) by mouth in the morning. 30 tablet 5Active Active Problems ProblemNoted DateDiagnosed DateStress incontinence of urine12/18/2018Urge incontinence of urine12/18/2018 Encounters DateTypeDepartmentCare JjivVgxhjmkzspe20/25/2025Travelfrom Last 3 Months Family History Medical HistoryRelationNameCommentsDiabetesFatherHeart diseaseFatherHypertension FatherNo Known ProblemsMotherRelationNameStatusCommentsFatherDeceasedMother Social History Tobacco UseTypesPacks/DayYears UsedDateSmoking Tobacco: NeverSmokeless Tobacco: Never Tobacco Cessation:Counseling Given: Not Answered Alcohol UseStandard Drinks/WeekCommentsYes0 (1 standard drink = 0.6 oz pure alcohol)socialChildcareAnswerDate PgfpxbhfXqkegvtdiUhysepp91/12/2019Employment AnswerDate SbdxulioZasyciesskGqalwcp12/12/2019Hunger ScreeningAnswerDate RecordedWithin the past 12 months we worried whether our food would run out before we got money to buy more.Never True01/11/2023Within the past 12 months the food we bought just didn't last and we didn't have money to get more.Never True3Purpose - LifeAnswerDate RecordedPurpose and direction in life Bdzfhgb12/11/2021CommentsNoSex and Gender InformationValueDate Recorded Sex Assigned at GzvguLqmcuv23/03/2023 3:45 PM EDTLegal GmpEtlior68/06/2015 11:59 AM EDTGender ExwgxcgmFtrzhe45/03/2023 3:45 PM EDTSexual OrientationDon't know 01/25/2023 3:45 PM EDT Last Filed Vital Signs Vital SignReadingTime TakenCommentsBlood Kywzswnl925/7703/13/2024 10:16 AM EST Lcgek847603/13/2024 10:16 AM HWPQdomrmyjyvf87.4 ??C (95.7 ??F)11/18/2021 10:28 AM EDTRespiratory Rate--Oxygen Saturation--Inhaled Oxygen Concentration--Weight 137.9 kg (304 lb)03/13/2024 10:16 AM ATFVyeaet330.3 cm (5' 9.02 )03/13/2024 10:16 AM ESTBody Mass Index44.8703/13/2024 10:16 AM EST Plan of Treatment DateTypeDepartmentCare Team (Latest Contact Info)Nmaqcqoyopv17/30/2025 3:30 PM ESTOffice Visit [facility] [address] [place] [address] Jennifer Ogden, PRESS TENDER STAR SIGNAL-ART HISTORY PROFESSOR [address] [place] [address] Health MaintenanceDue DateLast DoneCommentsDepression Rpwwrutdb71/18/1973 DTaP,Tdap and Td Vaccines (1 - Tdap)1980Zoster (Shingles) Vaccine (1 of 2) 2011RSV ( or age 60+ yrs) (1 - Risk 60-74 years 1-dose series) 2021OVID-19 Vaccine ( - season), 02/11/2021, 07/11/2020, Additional history existsInfluenza Segpwpu43/, 02/05/2015, 01/29/2015dult BMI Emsehwddg70Tobacco Screening 4Pap ElolpUtnekmyxrmlr78/ Medical Devices Not on file Procedures Procedure NamePriorityDate/TimeAssociated DiagnosisCommentsHIGH RISK HPV W/DELMY Ctcgmqq0202/18/2014 6:17 PM EDT from Last 3 Months or Most Recently Relevant to Health Maintenance Results * High risk HPV w/delmy (02/18/2014 6:17 PM EDT)ComponentValueRef RangeTest MethodAnalysis TimePerformed AtPathologist SignatureHpv specimen typeThinPrep 02/18/2014 6:17 PM EDTSUNQUESTHpv 58OabcqrapFlveeois02/28/2014 3:09 PM EDT SUNQUESTHpv 55FviuhyjoInavoilh11/28/2014 3:09 PM EDTSUNQUESTOther high risk wmrGleflgvsCwvaxaej74/28/2014 3:09 PM EDTSUNQUESTComment: HPV types 31,33,35,39,45,52,56,58,59,66 and 68 DNA were undetectable. Specimen (Source)Anatomical Location / LateralityCollection Method / Volume Collection TimeReceived Time02/18/2014 6:17 PM EDT1 6:17 PM EDT Narrative Authorizing ProviderResult TypeResult StatusGarcarolina SMITH BLOOD ORDERABLESFinal ResultPerforming OrganizationAddressCity/State/ZIP CodePhone Number SUNQUEST from Last 3 Months or Most Recently Relevant to Health Maintenance Insurance Care Teams Team MemberRelationshipSpecialtyStart DateEnd Date Mihaela Joseph MD PCP - GeneralFamily Medicine08/21/21
--- OUTSIDE RECORDS SUMMARY | 2025-03-27 10:06 | XMS_ITS | Clinical Summary ---
Author Organization [facility] Address [address] [place] [address] Phone Care Team Providers Care Cook Mayonnaise Name Role Phone Mihaela Joseph MD Primary Care Provider [phone] Social History Tobacco UseTypesPacks/DayYears UsedDateSmoking Tobacco: Never Assessed CommentsUnknownSex and Gender InformationValueDate RecordedSex Assigned at Not on fileLegal LsdPnhmpl22/25/2022 9:25 PM ESTGender IdentityNot on fileSexual OrientationNot on file Plan of Treatment Not on file Care Teams Team MemberRelationshipSpecialtyStart DateEnd Date Mihaela Joseph MD [address] [place] [address] PCP - General06/13/13
--- OUTSIDE RECORDS SUMMARY | 2025-03-27 10:06 | XMS_ITS | Clinical Summary ---
Author Organization [facility] Address [address] [address] Care Team Providers Care Case Specialist Name Role Phone Unavailable Primary Care Provider Unavailabl e Social History Tobacco UseTypesPacks/DayYears UsedDateSmoking Tobacco: Never Assessed CommentsUnknownSex and Gender InformationValueDate RecordedSex Assigned at Not on fileLegal PkeSytuob72/29/2022 10:41 PM EDTGender IdentityNot on file Sexual OrientationNot on file Plan of Treatment Not on file
--- OUTSIDE RECORDS SUMMARY | 2025-03-27 10:06 | XMS_ITS | Clinical Summary ---
Author Organization [facility] Address [address] [place] [address], [address] [place] [address] Care Team Providers Care Squeegee Finisher Name Role Phone Unavailable Primary Care Provider Unavailabl e Social History Tobacco UseTypesPacks/DayYears UsedDateSmoking Tobacco: Never Assessed CommentsUnknownSex and Gender InformationValueDate RecordedSex Assigned at Not on fileLegal TzjDbqobc26/10/2013 1:14 PM ESTGender IdentityNot on fileSexual OrientationNot on file Plan of Treatment Not on file
--- OUTSIDE RECORDS SUMMARY | 2025-03-27 10:25 | XMS_ITS | CCD ---
Author Organization [facility] Inform ion [facility] Care Team Providers Care Compensation Coordinator Name Role Phone Daniela Joseph MD Primary Care Provider DAVIDC, DR OHARA Admitting Unavailable MISC, DR OHARA [...] JOSEPH, DR DANIELA Bolden Consulting Unavailable SEVERINO RANKIN Admitting Unavailable SEVERINO RANKIN Attending Unavailable JOSEPH, DR DANIELA Bolden Primary Care Unavailable MASSIELSEVERINO LEE Consulting Unavailable YOGI, DR DANIELA Bolden Admitting Unavailable JOSEPH, DR [...] MISC, DR OHARA Consulting Unavailable MD Severino Rankin Attending Provider [phone] MD Ebony Sequeira Primary Care Provider ALEXIS OGDEN Referring Unavailable YOGIDANIELA Primary Care Unavailable ALEXIS OGDEN Referring Unavailable DANIELA JOSEPH Primary Care Unavailable Ebony Sequeira Primary Care Physician Unallocated , [place] Provider Primary Care [facility] saundra Ebony Sequeira. Attending Unavailable ALEX GARRETT Attending Unavailable Ebony Sequeira Referring Unavailable Jarred Shi Attending Unavaila ble MASSIEL, AHMAD F Admitting Unavailable MASSIEL, AHMAD F Attending Unavailable Ebony Sequeira E. Attending Unavailable Ebony Sequeira E. Admitting Unavailable Ebony Sequeira E. Attending Unavailable Ebony Sequeira E. Admitting Unavailable Ebony Sequeira E. Attending Unavailable Ebony Sequeira E. Admitting Unavailable Ebony Sequeira E. Attending Unavailable Ebony Sequeira E. Attending Unavailable Ebony Sequeira E. Attending Unavailable ALEX GARRETT Attending Unavailable Ebony Sequeira E. Attending Unavailable Ebony Sequeira E. Attending Unavailable Ebony Sequeira. Attending Unavailable Ebony Sequeira E. Attending Unavailable Ebony Sequeira E. Attending Unavailable Ebony Sequeira E. Attending Unavailable Ebony Sequeira E. Attending Unavailable ALEXIS OGDEN Attending Unavailable DANIELA JOSEPH Referring Unavailable DANIELA JOSEPH Primary Care Unavailable Ebony Sequeira MD Primary Care Provider Severino Rankin MD Attending Provider [phone] MASSIEL, AHMAD F Attending Unavailable MASSIEL, AHMAD F Referring Unavailable MASSIEL, AHMAD F Attending Unavailable Massiel, Ahmad Attending Unavailable Massiel, Ahmad Admitting Unavailable Ebony Sequeira E Primary Care Unavailable Daniela Joseph MD Primary Care Provider [phone] Daniela Joseph MD Primary Care Provider Daniela Joseph MD Primary Care Provider [phone] ALEX MendozaP Shweta Medeiros Attending Unavailable CINTHIA GARRETT Attending UnavailMD Ebony Naylor. Attending Unavailable MD Ebony Sequeira. Attending Unavailable RejiALEXP Shweta L Admitting Unavailable Reji, LIVE HANGER Shweta L Attending Unavailable MASSIEL, AHMAD F Admitting Unavailable MASSIEL, AHMAD F Attending Unavailable Reji, LIVE HANGER Shweta L Attending Unavailable MD Ebony Sequeira. Attending Unavailable Daniela Joseph MD Primary Care Provider Ebony Sequeira MD Primary Care Provider Daniela Joseph MD Primary Care Provider Reji, Shweta L Primary Care Physician [phone] Ebony Sequeira. Attending Unavailable Reji, Shweta L Admitting Unavailable Reji, Shweta L Attending Unavailable Mouchli, Mohamad A. Attending Unavailable Mouchli, Mohamad A. Attending Unavailable Reji, Shweta L Attending Unavailable Reji, Shweta L Attending Unavailable Reji, Shweta L Attending Unavailable Reji, Shweta L Attending Unavailable Mouchli, Mohamad A. Referring Unavailable Mouchli, Mohamad A. Attending Unavailable Mouchli, Mohamad A. Admitting Unavailable BobbsTi. Attending Unavailable Ti Donald Attending Unavailable LYDIA RAMIREZ Referring Unavailable DANIELA JOSEPH Primary Care Unavailable DANIELA JOSEPH Primary Care Unavailable JOE, ANIRA Referring Unavailable ROSS, EBONY E Primary Care Unavailable JOE, ANIRA Attending Unavailable ROSS, EBONY E Primary Care Unavailable JOE, ANIRA Referring Unavailable ROSS, EBONY E Primary Care Unavailable ROSS, EBONY E Primary Care Unavailable ROSS, EBONY E Primary Care Unavailable JUNIE CEJA Attending Unavailable ROSS, EBONY E Primary Care Unavailable LYDIA RAMIREZ Attending Unavailable SELF Referring Unavailable DANIELA JOSEPH Primary Care Unavailable JOE, ANIRA Attending Unavailable DANIELA JOSEPH Primary Care Unavailable Allergies Allergy ClassificationReported Allergen(s)Allergy TypeDate of OnsetReaction(s) Facility (13 sources)oxybutynin; Translations: [OXYBUTYNIN]Drug Zdjtuwr98-28-4187Kjfoh, Other (See Comments)[facility] (20 sources)predniSONE; Translations: [PREDNISONE]Drug Jneviqh70-85-2824Zxcegof, Other: See CommentsProMedica [facility]ository (8 sources)tolterodine; Translations: [TOLTERODINE]Drug Civmtjh99-02-2532Bymmg, Other (See Comments)[facility] (8 sources)Trospium; Translations: [TROSPIUM]Drug Stannkx55-46-7903Xustz, Other (See Comments)[facility] (19 sources)Clarithromycin; Translations: [clarithromycin]Drug Uprwzbg06-09-4266 Diarrhea (finding[facility])Anabolic steroid (substance); Translations: [anabolic steroids]Drug allergyFeeling angry (finding)[facility] (8 sources)Amoxicillin / Clavulanate; Translations: [amoxicillin-clavulanate] Drug AllergyDiarrhea (finding)[facility] (6 sources)ClarithromycinAllergy to tzefkljjs64-76-1141QkpfolgxEPVV [facility] Medications Current Medications MedicationDrug Class(es)DatesSig (Normalized)Sig (Original)albuterol 0.83 mg/ml inhalation solution (20 sources)beta2-Adrenergic AgonistStart: 35-40-0519cqfvtjsht 0.083% Inh Mandie 3 mL See Instructions, 300 mL, Refill(s) 10, INHALE CONTENTS OF 1 VIAL (3 ML) EVERY 6 HOURS AND NEEDED, [facility], 173, cm, 06/30/23 13:55:00 EST, Height/Length Dosing, 139.9, kg, 06/30/23 13:55:00 EST, Weight Dosing Start Date: 08/02/23 Status: OrderedQuantity: 300.0 Unit: mL Repeat number: 1Start: 47-57-6439oxjhaxxzo (PROVENTIL) 2.5 mg /3 mL (0.083 %) nebulizer solution 01/27/2023 ActiveStart: 83-59-3396mdej 2.5 mg by inhalation every six hours as neededalbuterol 0.083% Inh Mandie 3 mL 2.5 mg, 3 mL, Inhalation, q6hr, 100 EA, Refill(s) 1, Q6H and PRN. Please give to the nearest box., [facility] Start Date: 06/29/22 Status: OrderedStart: 81-89-5691VJFLHZ HFA 90 mcg/actuation inhaler 10/18/2018 Activealbuterol (2.5 MG/3ML) 0.083% nebulizer solution Take 3 mL by nebulization every 8 (eight) hours ifneeded for wheezing ActiveAlbuterol (Eqv-ProAir HFA) 90 mcg/inh inhalation aerosol (2 sources)Start: 49-68-9766yrry 2 puff(s) by inhalation every six hours Albuterol (Eqv-ProAir HFA) 90 mcg/inh inhalation aerosol 2 puff(s), Inhalation, q6hr, 8.5 gm, Refill(s) 1, [facility] #[id number], 173.5, cm, 07/27/22 13:52:00 EDT, Height/Length Dosing, 135.6, kg, 07/27/2312:52:00 EDT, Weight Dosing Start Date: 07/27/22 Status: Orderedamoxicillin 500 mg oral capsule (1 source)Penicillin-class AntibacterialStart: 05-19-2023 End: 71-74-2461rxbu 1 capsule by mouth twice dailyamoxicillin 500 mg Cap 500 mg = 1 cap(s), Oral, BID, X 7 day(s), # 14 cap(s), Refills(s) 0, Pharmacy: [facility] #[id number], 173, cm, 05/19/23 9:12:00 EST, Height/Length Dosing, 139.3, kg, 05/19/23 9:12:00EST, Weight Dosing Start Date: 05/19/23 Stop Date: 05/26/23 Status: OrderedAscorbic Acid (5 sources)Vitamin Cascorbic acid (JOVANA-C ORAL) Take by mouth. Activeascorbic acid (JOVANA-C ORAL) Take by mouth. 0 Activebenzonatate 200 mg oral capsule (1 source)Non-narcotic AntitussiveStart: 05-19-2023 End: 17-63-5809vfib 1 capsule by mouth three times dailybenzonatate 200 mg oral capsule 200 mg = 1 cap(s), Oral, TID, X 7 day(s), # 21 cap(s), Refills(s) 0, Pharmacy: [facility] #[id number], 173, cm, 05/19/23 9:12:00 EST, Height/Length Dosing, 139.3, kg, 05/19/23 9:12:00 EST, Weight Dosing Start Date: 05/19/23 Stop Date: 05/26/23 Status: Orderedcalcitriol 0.0005 mg oral capsule (5 sources)Vitamin D3 AnalogStart: 01-31-2024 End: 11-29-9214kwyq 1 capsule by mouth once dailycalcitriol (Rocaltrol) 0.5 MCG capsule Indications: Postsurgical hypoparathyroidism (CMS/HCC) Take 1 capsule (0.5 mcg) by mouth Daily 90 capsule 01/31/2024 Activecalcium carbonate 1500 mg / cholecalciferol 800 unt chewable tablet (17 sources)Vitamin DStart: 96-27-5786opnr 1 tablet by mouth twice dailycalcium carbonate-vitamin D3 (CALTRATE 600 PLUS D) 600 mg-20 mcg (800 unit) tablet Indications: Postprocedural hypoparathyroidism (HCC) Take 1 tablet by mouth two times a day. 10/30/2024 Active End: 33-71-9806kvzl 1 tablet by mouth three times dailycalcium carbonate-vitamin D3 (CALTRATE 600 + D) 600 mg (1,500 mg)-800 unit chew Take 1 tablet by mouth three times daily. 10/30/2024 Discontinued (Adjust Sig - Block E-Cancel)Calcium Carb-Cholecalciferol 600-20 MG-MCG chewable tablet Chew 1 tablet in the morning and 1 tablet at noon and 1 tablet in the evening. ActiveComment on above:Take 1 tablet by mouth three times daily.calcium citrate 950 mg oral tablet (1 source)Start: 83-74-2134onjp 1 mg by mouth once dailycalcium (as calcium citrate) 200 mg oral tablet mg tab(s), Oral, Daily, Refills(s) 0 Start Date: 01/23/25 Status: Ordered Repeat number: 1cephalexin 500 mg oral capsule (4 sources)Cephalosporin AntibacterialStart: 99-32-0857WVNQxkoxyl (KEFLEX) 500 mg capsule Take 1 capsule (500 mg total) by mouth. 03/06/2024 Active cholecalciferol 0.125 mg oral tablet (20 sources)Vitamin DStart: 06-68-8342spnmxiqccqnvhkh (VITAMIN D-3) 5,000 unit tab Indications: Postprocedural hypoparathyroidism (HCC) Take 1 tablet Sun- Tues- Thurs- Sat 10/30/2024 ActiveStart: 02-03-2023 End: 03-37-3288xyhe 1 tablet by mouth once dailycholecalciferol (VITAMIN D-3) 5,000 unit tab Take 1 tablet by mouth once daily. 90 tablet 1 02/03/2023 10/30/2024 Discontinued (Adjust Sig - Block E-Cancel)Start: 34-33-6215wljg 1 tablet by mouth once in the morningD-5000 125 MCG (5000 UT) tablet Take 5,000 Units by mouth in the morning. 02/03/2023 Activetake 1 capsule by mouth every other day, then take 2 capsules by mouth once dailycholecalciferol, vitamin D3, (VITAMIN D3) 5,000 units capsule Take 1 capsule (5,000 Units total) bymouth every other day. Takes two capsules daily. Activecholecalciferol, vitamin D3, (VITAMIN D3) 5,000 units capsule Take 1 capsule (5,000 Units total) bymouth in the morning. Takes two capsules daily.. 0 Activecitalopram 40 mg oral tablet (20 sources)Serotonin Reuptake InhibitorStart: 59-67-8415jnayzlopzn 40 mg Tab 20 mg = 0.5 tab(s), Oral, Daily, # 90 tab(s), Refills(s) 1, Pharmacy: [facility] #[id number], 173, cm, 08/28/24 11:11:00 EDT, Height/Length Dosing, 142.7, kg, 08/28/24 11:11:00 EDT, Weight Dosing Start Date: 08/28/24 Status: Ordered Quantity: 90.0 Unit: tab(s) Repeat number: 2Start: 24-71-9339hwgl 1 tablet by mouth once dailycitalopram (CeleXA) 40 MG tablet Take 40 mg by mouth Daily 10/24/2023 ActiveStart: 38-75-1271bymmqpeoru 40 mg Tab 20 mg = 0.5 tab(s), Oral, Daily, # 90 tab(s), Refills(s) 0, Pharmacy: [facility]#[id number], 173, cm, 04/26/23 10:14:00 EST, Height/Length Dosing, 140.2, kg, 04/26/23 10:14:00 EST, Weight Dosing Start Date: 04/26/23 Status: OrderedStart: 54-21-8922chtc 1 tablet by mouth once dailycitalopram 40 mg Tab 40 mg = 1 tab(s), Oral, Daily, # 90 tab(s), Refills(s) 0, Pharmacy: [facility] #[id number], 173, cm, 04/26/23 10:14:00 EST, Height/Length Dosing, 140.2, kg, 04/26/23 10:14:00 EST, Weight Dosing Start Date: 04/26/23 Status: Orderedtake 1 tablet by mouth once daily at bedtime citalopram (CELEXA) 20 mg tablet Take 20 mg by mouth daily at bedtime. Active Comment on above:Take 20 mg by mouth daily at bedtime.dicyclomine hydrochloride 20 mg oral tablet (1 source)AnticholinergicStart: 01-17-2025 End: 82-92-4189owmh 1 tablet by mouth four times dailydicyclomine 20 mg Tab 20 mg = 1 tab(s), Oral, QID, X 10 day(s), # 40 tab(s), Refills(s) 0, Pharmacy: [facility] #[id number], 173, cm, 01/17/25 13:37:00 EDT, Height/Length Dosing, 140, kg, 01/17/25 13:37:00 EDT, Weight Dosing Start Date: 01/17/25 Stop Date: 01/27/25 Status: Ordered Quantity: 40.0 Unit: tab(s) Repeat number: 1 Indications: Other diseases of stomach and duodenum;estradiol 0.1 mg/ml vaginal cream (5 sources)EstrogenStart: 41-65-2405niwazrkkF (ESTRACE) 0.01 % (0.1 mg/gram) vaginal cream INSERT 1 GRAM VAGINALLY 2 TO 3 TIMES WEEKLY 42.5 g 2 11/19/2020 Activefluconazole 150 mg oral tablet (2 sources)Azole AntifungalStart: 76-27-2821qncdormczcs 150 mg Tab See Instructions, Take one tablet at the onset of symptoms; may repeat in 72hours, # 2 tab(s), Refills(s) 0, Pharmacy: [facility] #[id number], 173, cm, 06/30/23 13:55:00 EST, Height/Length Dosing, 139.9, kg, 06/30/23 13:55:00 EST, Weight Dosing Start Date: 06/30/23 Status: Ywfxibn095 actuat fluticasone propionate 0.22 mg/actuat metered dose inhaler (10 sources)CorticosteroidStart: 75-11-8944enrf 1 puff(s) by inhalation twice dailyFlovent HFA 220 Aerosol = 1 puff(s), Inhalation, BID, # 12 gram, Refills(s) 0, Pharmacy: [facility] #[id number], 173, cm, 03/14/23 13:44:00 EST, Height/Length Dosing, 140, kg, 03/14/23 13:44:00 EST, Weight Dosing Start Date: 03/14/23 Status: Ordered Quantity: 12.0 Unit: g Repeat number: 1 Indications: Acute upper respiratory infection, unspecified; Cough, unspecified;Start: 03-99-1955Vueccev 0.05 mg/inh [place] 2 spray(s), Nasal, Daily, 16 gram, Refill(s) 0, each nostril, [facility] #[id number], 173.5, cm, 07/27/22 13:52:00 EDT, Height/Length Dosing, 135.6, kg, 07/27/22 13:52:00 EDT, Weight Dosing Start Date: 07/27/22 Status: Ordered Quantity: 16.0 Unit: g Repeat number: 1hyoscyamine sulfate 0.125 mg oral tablet (1 source)Start: 19-12-2403qqua 1 tablet by mouth four times daily as needed for muscle spasmsLevsin 0.125 mg SL Tab 0.125 mg = 1 tab(s), Oral, QID, PRN for spasm, # 40 tab(s), Refills(s) 0, Pharmacy: [facility] #[id number], 173, cm, 01/23/25 13:52:00 EDT, Height/Length Dosing, 139.6, kg,01/23/25 13:52:00 EDT, Weight Dosing Start Date: 01/23/25 Status: Ordered Quantity: 40.0 Unit: tab(s) Repeat number: 1 Indications: Elevation of levels of liver transaminase levels; Mixed irritable bowel syndrome; Psychological and behavioral factors associated with disorders or diseases classified elsewhere; Heartburn; Other obesity due to excess calories;iv contrast (will be provided with radiology test) (2 sources)Start: 08-30-2024 End: 80-65-0905og contrast (will be provided with radiology test) CT ABD/PEL - Inject, intravenously, once for 1 dose.No IV access, insert saline lock prior to the beginning of sedation, infusion, injection of imaging exam. Discontinue saline lock post exam. If Pt. has a central line or IVAD, may access for adminis tration according to line specific nursing protocol. Once exam is complete flush line and de-accessaccording to line specific nursing protocol in the CT contrast administration guidelines link. 1 each 08/30/2024 08/31/2024 Active levothyroxine sodium 0.175 mg oral tablet (20 sources)l-ThyroxineStart: 09-01-2024 End: 26-92-1864dsel 1 tablet by mouth once dailylevothyroxine (SYNTHROID) 175 mcg tablet Take 1 tablet by mouth once daily. 90 tablet 2 09/01/2024 05/29/2025 ActiveStart: 67-18-2437jaqf 1 tablet by mouth once dailylevothyroxine 125 mcg (0.125 mg) Tab 175 mcg, Oral, Daily, # 90 tab(s), Refills(s) 0, Pharmacy: [facility] #[id number], 173, cm, 08/22/23 11:06:00 EDT, Height/Length Dosing, 140, kg, 08/22/23 11:06:00 EDT, Weight Dosing Start Date: 08/30/23 Status: Ordered Quantity: 90.0 Unit: tab(s) Repeat number: 1Start: 08-19-5029qtwd 1 tablet by mouth once dailylevothyroxine 125 mcg (0.125 mg) Tab 125 mcg = 1 tab(s), Oral, Daily, # 90 tab(s), Refills(s) 3, Pharmacy: [facility] #[id number], 173.5, cm, 07/27/22 13:52:00 EDT, Height/Length Dosing, 135.6, kg, 07/27/2312:52:00 EDT, Weight Dosing Start Date: 08/30/22 Status: OrderedStart: 05-09-2020 End: 94-12-5562pnctpeqassfko (SYNTHROID) 125 mcg tablet TAKE 1 TABLET DAILY 90 tablet 3 07/22/2020 09/01/2024 DiscontinuedComment on above:TAKE 1 TABLET DAILY losartan potassium 50 mg oral tablet (20 sources)Angiotensin 2 Receptor BlockerStart: 43-38-5319fuag 1 tablet by mouth once dailylosartan 50 mg Tab 50 mg = 1 tab(s), Oral, Daily, # 30 tab(s), Refills(s) 0, Pharmacy: [facility] #[id number], 173, cm, 01/17/25 13:37:00 EDT, Height/Length Dosing, 140, kg, 01/17/25 13:37:00 EDT, Weight Dosing Start Date: 01/17/25 Status: Ordered Quantity: 30.0 Unit: tab(s) Repeat number: 1Start: 10-18-2018 End: 09-50-3207koltqjlx (COZAAR) 25 mg tablet 10/18/2018 ActiveComment on above: Take 25 mg by mouth once daily.magnesium gluconate 250 mg oral tablet (6 sources)Start: 10-16-3337pezn 3 tablets by mouth once dailymagnesium gluconate 250 mg oral tablet See Instructions, Refill(s) 0, 3 orally daily Start Date: 05/19/23 Status: Orderedtake 1 tablet by mouth in the morning, then take 1 tablet by mouth in the evening, then take 1 tablet by mouth at bedtime magnesium, as gluconate, (Magonate) 500 (27 Mg) MG tablet Take 275 mg by mouth in the morning and 275 mg in the evening and 275 mg before bedtime. Active Magnesium glycinate (3 sources)Start: 16-38-9567xsvgcznvs glycinate Oral, Refills(s) 0 Start Date: 01/23/25 Status: Ordered Repeat number: 1take 344 mg by mouth twice daily MAGNESIUM GLYCINATE PO Indications: Postprocedural hypoparathyroidism (HCC) Take 344 mg by mouth two times a day. Activemagnesium oxide 400 mg oral tablet (20 sources)Start: 73-09-5764cgzw 1 tablet by mouth once dailymagnesium oxide (Mag-Ox) 400 (240 Mg) MG tablet Take 1 tablet by mouth Daily 12/10/2023 Active Start: 53-49-1185qpkj 2 tablets by mouth twice dailymagnesium oxide 400 mg Tab 800 mg = 2 tab(s), Oral, BID, # 360 tab(s), Refills(s) 1, Pharmacy: [facility], 173, cm, 03/14/23 13:44:00 EST, Height/Length Dosing, 140, kg, 03/14/23 13:44:00 EST, Weight Dosing Start Date: 03/15/23 Status: OrderedStart: 38-13-0569qpms 1 tablet by mouth in the morningmagnesium oxide (MAGOX) 400 mg tablet Take 1 tablet (400 mg total) by mouth in the morning. 10/16/2021 Active End: 52-04-5799hvsf 1 capsule by mouth once daily, then take 1 capsule by mouth three times dailymagnesium oxide 400 mg magnesium cap Take 400 mg by mouth once daily. Sun Sat - 400 mg TID Tue - 400 mg BID 10/30/2024 DiscontinuedComment on above:Take 400 mg by mouth once daily. Sun Sat - 400 mg TID Tue - 400 mg BIDmelatonin 1 mg oral tablet (5 sources)melatonin (CIRCADIN) tablet Take by mouth nightly. Active methylPREDNISolone 4 mg oral tablet (1 source)CorticosteroidStart: 05-19-2023 End: 36-78-8991Eodyyu 4 mg Tab = 1 packet(s), Oral, As Directed, as directed on package labeling, X 6 day(s), # 21tab(s), Refills(s) 0, Pharmacy: [facility] #[id number], 173, cm, 05/19/23 9:12:00 EST, Height/Length Dosing, 139.3, kg, 05/19/23 9:12:00 EST, Weight Dosing Start Date: 05/19/23 Stop Date: 05/25/23 Status: Micki red24 hr metoprolol succinate 50 mg extended release oral tablet (20 sources)beta-Adrenergic BlockerStart: 75-81-7604gzwm 1 tablet by mouth once dailymetoprolol succinate 50 mg ER Tab 50 mg = 1 tab(s), Oral, Daily, # 90 tab(s), Refills(s) 4, Pharmacy: [facility], 173, cm, 08/28/24 11:11:00 EDT, Height/Length Dosing, 142.7, kg, 08/28/24 11:11:00 EDT, Weight Dosing Start Date: 11/07/24 Status: Ordered Quantity: 90.0 Unit: tab(s) Repeat number: 5Start: 74-53-3215kios 1 tablet by mouth once dailymetoprolol succinate 50 mg ER Tab 50 mg = 1 tab(s), Oral, Daily, # 90 tab(s), Refills(s) 1, Pharmacy: [facility], 173, cm, 10/25/23 11:13:00 EDT, Height/Length Dosing, 142, kg, 10/25/23 11:13:00 EDT, Weight Dosing Start Date: 11/10/23 Status: OrderedStart: 88-77-8959ydjy 1 tablet by mouth every twenty-four hours metoprolol succinate ER (TOPROL XL) 50 mg 24 hr tablet Take 50 mg by mouth. 05/29/2024 ActiveStart: 04-10-2012 End: 65-47-2950jcbx 1 tablet by mouth once dailymetoprolol succinate XL, long acting, 25 mg 24 hr tablet Take 1 tablet by mouth once daily. 60 tablet 3 04/10/2012 10/30/2024 Discontinued (Other)Comment on above:Take 1 tablet by mouth once daily.24 hr mirabegron 50 mg extended release oral tablet (20 sources)beta3-Adrenergic AgonistStart: 24-86-8099clbr 1 tablet by mouth every twenty-four hours in the morningmirabegron (MYRBETRIQ) 50 mg tablet extended release 24 hr Indications: Mixed stress and urge urinary incontinence Take 1 tablet (50 mg total) by mouth in the morning. 30 tablet 10/02/2024 Active Start: 16-09-2827nwib 1 tablet by mouth every twenty-four hours in the morning Myrbetriq 50 MG 24 hr tablet Take 1 tablet by mouth in the morning. 01/27/2023 ActiveStart: 06-29-2022 End: 83-39-3547eqpr 1 tablet by mouth once daily in the morningMyrbetriq 50 mg oral tablet, extended release 30 EA, take 1 tablet by mouth every morning, Refills(s) 0 Start Date: 06/29/22 Status: Ordered Repeat number: 1Vitamin C 500 mg oral tablet, chewable (5 sources)Start: 46-17-3368mbnm 1 tablet by mouth once dailyVitamin C 500 mg oral tablet, chewable 500 mg = 1 tab(s), Chewed, Daily, # 30 tab(s), Refills(s) 0 Start Date: 07/27/22 Status: Ordered Quantity: 30.0 Unit: tab(s) Repeat number: 1Start: 37-60-7623kdmc 1 tablet by mouth once dailyVitamin C 500 mg oral tablet, chewable 500 mg = 1 tab(s), Chewed, Daily, # 30 tab(s), Refills(s) 0 Start Date: 07/27/22 Status: OrderedVitamin D3 10,000 intl units oral capsule (5 sources)Start: 69-38-7720undo 1 capsule by mouth every other dayVitamin D3 10,000 intl units oral capsule See Instructions, 5000 units every other day, Refills(s) 0 Start Date: 07/27/22 Status: Ordered Repeat number: 1Start: 00-11-1908wmmb 1 capsule by mouth once dailyVitamin D3 10,000 intl units oral capsule See Instructions, 5000 units a day, Refills(s) 0 Start Date: 07/27/22 Status: Orderedvitamin K2 (1 source)Start: 26-59-8886ttji 1 ug by mouth once dailyVitamin K2 mcg, Oral, Daily, Refill(s) 0 Start Date: 01/23/25 Status: Ordered Repeat number: 1 Completed/Discontinued Medications MedicationDrug Class(es)DatesSig (Normalized)Sig (Original)COMPOUNDED PRESCRIPTION (6 sources) End: 01-36-5813dmka 1 capsule by mouth at bedtimeCOMPOUNDED PRESCRIPTION Sleepessence, one capsule by mouth at bedtime 08/30/2024 Discontinuedtake 1 capsule by mouth at bedtimeCOMPOUNDED PRESCRIPTION Sleepessence, one capsule by mouth at bedtime Activetake 1 capsule by mouth at bedtimeCOMPOUNDED PRESCRIPTION Sleepessence, one capsule by mouth at bedtime 0 ActiveComment on above: Sleepessence, one capsule by mouth at bedtimeergocalciferol, vitamin D2, (VITAMIN D2 ORAL) (1 source) End: 23-35-6905spvr 21294 [IU] by mouth every weekergocalciferol, vitamin D2, (VITAMIN D2 ORAL) Take 50,000 Units by mouth one time a week. 0 03/04/2022 DiscontinuedComment on above:Take 50,000 Units by mouth one time a week.Misc Medication (8 sources)Start: 35-35-1565Vznc Medication See Instructions, magnsium glyconate 275mg Take 3 orally twice a day Start Date: 08/22/23 Status: Ordered Repeat number: 1Start: 10-12-8713Dext Medication See Instructions, magnsium glyconate 275mg Take 3 orally twice a day Start Date: 08/22/23 Status: OrderedStart: 44-65-5705Pfne Medication See Instructions, 2 capsules of the focus factor daily Start Date: 07/27/22 Status: Ordered Repeat number: 1Start: 95-10-9353Vemc Medication 1 capsuled QD of Focus Factor Start Date: 07/27/22 Status: Ordered mupirocin 0.02 mg/mg topical ointment (10 sources)RNA Synthetase Inhibitor AntibacterialStart: 58-78-4597mnxkzqaho Top 2% Oint See Instructions, 22 gm, Refill(s) 51, APPLY 1 APPLICATION TOPICALLY THREE TIMES A DAY, [facility], 173, cm, 06/30/23 13:55:00 EST, Height/Length Dosing, 139.9, kg, 06/30/23 13:55:00 EST, Weight Dosing Start Date: 08/02/23 Status: OrderedStart: 48-53-3143hganxrejc Top 2% Oint See Instructions, 22 gm, Refill(s) 1, APPLY 1 APPLICATION TOPICALLY THREE TIMES A DAY, [facility] #[facility], 173, cm, 03/06/24 11:03:00 EST, Height/Length Dosing, 138.2, kg, 03/06/24 11:03:00 EST, Weight Dosing Start Date: 03/07/24 Status: Ordered Quantity: 22.0 Unit: g Repeat number: 2NuLYTELY [place] oral powder for reconstitution (1 source)Start: 29-22-1246hjrh 1 dose by [facility] oral powder for reconstitution See Instructions, 1 EA, Refill(s) 0, Per physician in structions, prior to colonoscopy., [facility] #72, 173, cm, 01/23/25 13:52:00 EDT, Height/Length Dosing, 139.6, kg, 01/23/25 13:52:00 EDT, Weight Dosing Start Date: 01/23/25 Status: Ordered Quantity: 1.0 Unit: EA Repeat number: 114 actuat parathyroid hormone 0.075 mg/actuat cartridge (20 sources)Parathyroid HormoneStart: 30-80-4752ksbnpz 30 doses by subcutaneous injection once dailyNatpara 75 mcg/dose subcutaneous injection 75 mcg, SubCutaneous, Daily, 30 EA, Refill(s) 0 Start Date: 06/29/22 Status: Ordered Quantity: 30.0 Unit: EA Repeat number: 1Comment on above:Inject 75 mcg subcutaneously once daily.phentermine hydrochloride 37.5 mg oral capsule (2 sources)Sympathomimetic Amine AnorecticStart: 02-27-2024 End: 78-74-3242npxrfjmmctc 37.5 MG capsule Take 1 capsule (37.5 mg total) by mouth. 02/27/2024 03/13/2024 DiscontinuedStart: 22-29-0673host 1 capsule by mouth once dailyAdipex-P 37.5 mg oral capsule 37.5 mg = 1 cap(s), Oral, Daily, # 30 cap(s), Refills(s) 0, Pharmacy:[facility] #72, 173, cm, 01/24/24 9:44:00 EDT, Height/Length Dosing, 141.7, kg, 01/24/24 9:44:00 EDT, Weight Dosing Start Date: 01/24/24 Status: Orderedtetracycline hydrochloride 500 mg oral capsule (6 sources)Tetracycline-class Antimicrobial End: 86-47-7534ccznhgzylapo (SUMYCIN) 500 mg cap Take 500 mg by mouth once daily. Pt takes 1-2 times Daily 08/30/2024 DiscontinuedComment on above:Take 500 mg by mouth once daily. Pt takes 1-2 times Dailyvitamin D3-folic acid 250 mcg (10,000 unit)-1 mg tab (2 sources)Start: 95-93-4641yllsurk D3-folic acid 250 mcg (10,000 unit)-1 mg tab Take one(1) tablet daily. Ok to substitute 30 tablet 1 03/04/2022 ActiveStart: 03-04-2022 End: 66-40-6450sslecha D3-folic acid 250 mcg (10,000 unit)-1 mg tab Take one(1) tablet daily. Ok to substitute 30 tablet 1 03/04/2022 03/04/2022 Discontinued Comment on above:Take one(1) tablet daily. Ok to substitute Problems Active Problems Problem ClassificationProblemDateDocumented DateEpisodic/ChronicAcquired foot deformities (10 sources)Acquired hallux malleus; Translations: [Other hammer toe(s) (acquired), unspecified foot]Onset: 679913-07-8744Rivsdxp Administrative/social admission (7 sources)Patient encounter status; Translations: [Dietary counseling and surveillance]85-00-8058JlowtwvcFsnpoeh disorders (6 sources)Qxqcgui72-59-6982BcqgvadOhseay (6 sources)Exercise-induced -95-6202HzctexbAbxzdv of thyroid (7 sources)Malignant tumor of thyroid gland; Translations: [Papillary thyroid carcinoma]Onset: 708121-43-9038VtwfvllTflffzw and circulatory congenital anomalies (20 sources)Perimembranous ventricular septal defect ; Translations: [Ventricular septal defect]Onset: 03-28-2012 Resolved: 637145-45-1211UjsonabQvwafahzuirce of surgical procedures or medical care (20 sources)Postprocedural hypothyroidism; Translations: [Postoperative hypothyroidism]Onset: 40-09-2859PupzjgzHmnrncogj hypertension (11 sources)Hypertensive disorder; Translations: [Essential (primary) hypertension]Onset: 054000-16-5348ProxdysBxdzdgwgknsnf symptoms and ill- defined conditions (14 sources)Mixed incontinence; Translations: [Genuine stress incontinence] Onset: 426981-56-5013YpkcshcCmokdvrqj (2 sources)Nonalcoholic steatohepatitis; Translations: [Nonalcoholic steatohepatitis (ARREOLA)]Onset: 35-81-5480MpyiebwQabcfhivwxrec mental health disorders (2 sources)Psychosomatic factor in physical condition; Translations: [Psychological and behavioral factors associated with disorders or diseases classified elsewhere]Onset: 49-09-5594WyspqnpTmtuajcgrmk deficiencies (15 sources)Vitamin D deficiency, unspecified; Translations: [Vitamin D deficiency]Onset: 41-36-8241OhcheffHadbfpndbft deficiencies (6 sources)Calcium qitgzsabev49-12-4256FvbylhwxHzlvp connective tissue disease (3 sources)Lateral iqnwsdihlemjn18-14-6300GwnewvvwUgxbx endocrine disorders (5 sources)Hypoparathyroidism, unspecified; Translations: [HYPOPARATHYROIDISM UNSPECIFIED]Onset: 77-26-6256FdazuqbQthmg endocrine disorders (7 sources)Hypoparathyroidism; Translations: [Hypoparathyroidism, unspecified] 83-00-7827OljzivuHhabh female genital disorders (2 sources)Labial sfwp94-67-0851NnxuznabXahkl gastrointestinal disorders (1 source)Irritable bowel syndrome characterized by alternating bowel habit; Translations: [Mixed irritable bowel syndrome]Onset: 15-13-3499HvhqvitQrbiw gastrointestinal disorders (1 source)Irritable bowel jtnjvoek82-17-4074GzcijydZwgbn gastrointestinal disorders (2 sources)Altered bowel function; Translations: [Change in bowel habit]Onset: 52-70-1670MntdybuwBbfko gastrointestinal disorders (2 sources)Heartburn; Translations: [Heartburn]Onset: 99-05-8145TpjhxppzTosbv liver diseases (2 sources)Steatosis of liver; Translations: [Fatty (change of) liver, not elsewhere classified]Onset: 18-96-2391XczrvzjKscxe liver diseases (1 source)Increased aspartate transaminase level; Translations: [Elevation of levels of liver transaminase levels]Onset: 27-68-9904EpslmmgqSezza liver diseases (1 source)Aspartate aminotransferase serum level xjpads93-67-0951XuhzqaqcCdajc lower respiratory disease (4 sources)Ynaik91-66-4575UjuuahfqNyayt lower respiratory disease (2 sources)Eiwyfdp27-44-1164EbfjcpmuAanup lower respiratory disease (2 sources)Kwhcicdi30-94-3336InnreerbPyfvc nutritional; endocrine; and metabolic disorders (10 sources)Body mass index 30+ - obesity; Translations: [Obesity, unspecified] Onset: 649916-89-2415BribcioZmonl nutritional; endocrine; and metabolic disorders (13 sources)Hypocalcemia; Translations: [Hypocalcemia]Onset: 03-14-2017 51-15-4811QhddpwzZddkb nutritional; endocrine; and metabolic disorders (5 sources)Hypomagnesemia; Translations: [HYPOMAGNESEMIA]Onset: 11-21-2021 ChronicOther nutritional; endocrine; and metabolic disorders (5 sources)Hypocalcemia; Translations: [HYPOCALCEMIA]Onset: 69-50-4585Waeejay Other nutritional; endocrine; and metabolic disorders (8 sources)Body mass index 40+ - severely ozdsl44-81-6968PlyszjiMypux nutritional; endocrine; and metabolic disorders (6 sources)Hypomagnesemia; Translations: [Hypomagnesemia]31-28-9291EaguehzKmdir nutritional; endocrine; and metabolic disorders (4 sources)Severe obesity; Translations: [Class 3 severe obesity due to excess calories without serious comorbidity with body mass index (BMI) of 45.0 to 49.9 in adult ([facility])]65-80-6938FjcrldxCbwus nutritional; endocrine; and metabolic disorders (2 sources)Calorie -68-5425KwgallbEhekc nutritional; endocrine; and metabolic disorders (1 source)Obesity; Translations: [Other obesity due to excess calories]Onset: 59-32-3733GavbwarDsenn nutritional; endocrine; and metabolic disorders (1 source)Obesity caused by energy gwujixmxm11-82-8525IcsprpwArohd screening for suspected conditions (not mental disorders or infectious disease) (2 sources)Encounter for screening mammogram for malignant neoplasm of breast; Translations: [Encounter for screening for osteoporosis]Onset: 03-13-2024 EpisodicPleurisy; pneumothorax; pulmonary collapse (3 sources)Phfxapgpsie64-62-1818DhiiiebaUwacfxmu of female genital organs (1 source)Other female genital prolapse; Translations: [Other female genital prolapse]Onset: 67-48-0283BpguwiuFtgjsgup codes; unclassified (16 sources)Obstructive sleep apnea syndrome; Translations: [Obstructive sleep apnea (adult) (pediatric)]Onset: 158106-70-8844NsevzjiTdnnsgs disorders (18 sources)Hypothyroidism; Translations: [Other specified hypothyroidism]Onset: 318479-65-0486OpwfaznWlpqwmgjanli (6 sources)Pok-qpyijn59-65hjztvg84-74-7015Gqcabvqawzvg (1 source)Annual ExamOnset: 63-51-6341Yjbdlumncuva (1 source)Non-alcoholic fatty liver -42-8507Rhgyhglzrboz (1 source)Peripheral arterial uzvstdg10-11-0429 Past or Other Problems Problem ClassificationProblemDateDocumented DateEpisodic/ChronicAbdominal pain (6 sources)Acute abdomen; Translations: [Generalized abdominal pain]Onset: 703170-45-5912JdpzrnxjYvtxov of thyroid (16 sources)History of malignant neoplasm of thyroid; Translations: [Personal history of malignant neoplasm of thyroid]Onset: 589096-94-3274Ttwqlbcv Comment on above:thyroid was removed in 2009Malaise and fatigue (10 sources)Fatigue; Translations: [Other fatigue]Onset: EpisodicNausea and vomiting (10 sources)Nausea; Translations: [Nausea]Onset: 128895-95-5852Xonbzjkq Nonspecific chest pain (10 sources)Atypical chest pain; Translations: [Other chest pain]Onset: 052049-48-0964UfqzmgcqWjapx connective tissue disease (10 sources)Enthesopathy of ankle AND/OR tarsus; Translations: [Other enthesopathy of unspecified foot and ankle]Onset: 820869-40-4505Ekwlnhvc Other connective tissue disease (10 sources)Enthesopathy; Translations: [Enthesopathy, unspecified]Onset: 927656-60-8886VwcaonahJtpeocrrpuqn (5 sources)Onset: 793888-64-7985Oyrfctw tract infections (4 sources)Urinary tract infection, site not specified; Translations: [UTI SITE NOT SPECIFIED]Onset: 26-55-5158Jikyaunh Results Test NameValueInterpretationReference RangeFacilityCNPNon 49-10-3973KPNV Telephone (ENDOMN) MARCELINA CANO ([id number]) 1960 F Date Time Provider Department 03/05/25 JUNIE CEJA During your visit today, we recorded the following information about you: Tonia Harris MA 03/05/2025 10:32 AM Signed March 05, 2025 10:27 AM Last encounter Visit on 02/28/2025 (with Junie Ceja) Nas from [facility] Department spoke with [employer] today and was told that the PA had been canceled by the office. Nas ([facility]) would like to know what the reason was. Please contact [facility] Dep. Ph. [phone] Fax. [phone] Tonia Harris Resident Care Technician II Endocrinology AND Metabolism [place] F20-X Junie Ceja MD 03/06/2025 11:38 AM Signed Updated [place] re; pending status of PA. I called and spoke to Marianela from [employer], all information has been received reference case # [id number] Mayra Hein MA 03/06/2025 12:08 PM Signed March 06, 2025 12:07 PM Last encounter Visit on 02/28/2025 (with Junie Ceja) Vivian called regarding yorvipath [phone] Mayra Hein Resident Care Technician II Endocrinology AND Metabolism [place] F20 AND X20 Junie Ceja MD 03/07/2025 4:55 PM Signed Medication was approved. I updated patient. In process of arranging shipment. Junie Ceja MD Dept of Endocrinology Allergies As of Date: 03/05/2025 Noted Allergy Reaction CLARITHROMYCIN 05/04/2023 6 - Diarrhea PREDNISONE 12/18/2018 14 - Other: See Comments Comments: Causes behaviors Date Reviewed: 10/30/2024 Reviewed by: Brittany Pinto MA - Fully Assessed Prescriptions as of 03/07/2025 - losartan (COZAAR) 50 mg tablet Take 1.5 tablets by mouth once daily. - levothyroxine (SYNTHROID) 175 mcg tablet SKIP Tuesday - YORVIPATH 294 mcg/0.98 mL pen injector Inject 18 mcg subcutaneously once daily for 28 days. - metoprolol succinate ER (TOPROL XL) 50 mg 24 hr tablet Take 50 mg by mouth. - calcium carbonate-vitamin D3 (CALTRATE 600 PLUS D) 600 mg-20 mcg (800 unit) tablet Take 1 tablet by mouth two times a day. - cholecalciferol (VITAMIN D-3) 5,000 unit tab Take 1 tablet Sun- Tues- Thurs- Sat - MAGNESIUM GLYCINATE PO Take 344 mg by mouth two times a day. - albuterol (PROVENTIL) 2.5 mg /3 mL (0.083 %) nebulizer solution - mirabegron (MYRBETRIQ) 50 mg Tb24 Take 1 tablet by mouth every morning. - citalopram (CELEXA) 20 mg tablet Take 20 mg by mouth daily at bedtime. - parathyroid hormone (NATPARA) 75 mcg/dose crtg Inject 75 mcg subcutaneously once daily. Problem List As Of Date 03/05/2025 Noted Resolved ASD (atrial septal defect) [Q21.10] 03/28/2012 04/14/2012 Ventricular septal defect (VSD), perimembranous*04/14/2012 Atypical chest pain [R07.89] 04/14/2012 Hypertension [I10] 04/14/2012 Obesity (BMI 35.0-39.9 without comorbidity) [E6*04/14/2012 JESSICA on CPAP [G47.33] 04/14/2012 Fatigue [R53.83] 04/14/2012 HAMMER/MALLET TOE [M20.40] 04/09/2014 METATARSALGIA/ENTHESOPATHY [M77.50] 04/09/2014 Enthesopathy of unspecified site [M77.9] 04/09/2014 Nausea [R11.0] 03/14/2017 Hypocalcemia [E83.51] 03/14/2017 Other specified hypothyroidism [E03.8] 03/15/2017 Postprocedural hypoparathyroidism (HCC) [E89.2] 08/30/2024 History of thyroid cancer [Z85.850] 08/30/2024 Postoperative hypothyroidism [E89.0] 02/19/2025 Encounter Status:Closed by MAYRA HEIN on 03/06/25[facility] Medicine Office/Clinic Noteon [id number] [facility]/Clinic Note HPI Staff Pt is presenting to establish care Establish Care: History: Any previous diagnosis: prediabetes History of seeing any specialist: vendor analyst Dr. Ceja ([facility]) When was your last doctors visit: 01/17/25 Last provider: Reji Any recent labs: 01/25/24 Health Maintenance UTD: Colonoscopy: 02/25/25 Mammogram: will be scheduling this on her own Pelvic/Pap: yes, at [facility] Acute: Current issues/complaints: switching from Natapara to Yoripath, HTN Refills: not sure History of Present Illness Patient is a 64-year-old female with a past medical history of papillary thyroid carcinoma s/p thyroidectomy and radioactive iodine, postsurgical hypothyroidism, postsurgical hypoparathyroidism, hypertension, obstructive sleep apnea, obesity, and congenital perimembranous ventricular septal defect who presented to [facility] care. Patient currently takes chewable calcium tablets, vitamin D3 supplements, and Natpara. She follows with vendor analyst (Dr Junie Ceja) and is pursuing insurance approval for Yorvipath (to replace Natpara); anticipated start in ~3 weeks. She will have close lab monitoring (q 2 days) and daily phonecheck-ins with endocrinology during transition. Advised to watch for paresthesias, numbness/tingling, headaches; will call endocrinology first or present to [place] [facility] if severe. Patient previously experienced dangerously low calcium (Ca 3-4) after medication changes, and also a prior episode of high calcium requiring IV treatment. Patient also continues on levothyroxine 175 mcg (Feb). Home BP earlier today 148/84 mmHg; clinic reading 128/78. Losartan recently increased by endocrinology from 50 mg to 100 mg daily. Patient planning to obtain new home BP cuff. Patient with small congenital VSD. Previously seen at the [facility]; no intervention required to date. Patient reported occasional palpitations but no chest pain. Patient has a history of obstructive sleep apnea currently on CPAP intermittently. She is exploringpositional therapy pillow with goal to reduce CPAP use. She uses Albuterol inhaler PRN for exertional wheeze. Patient reported occasional exertional dyspnea but self-limits Patient continues on Celexa 20 mg daily (cuts 40 mg tablet in half). Experiences situational anxiety related to family; finds Celexa helpful. Patient denied exercising regularly. Review of Systems PHQ Score Initial Depression Screen Score: 0 SCORE Pertinent review of systems is addressed in the HPI. Physical Exam Vitals & Measurements T: 37.1 ???C(Temporal Artery) HR: 65(Peripheral) RR: 18 BP: 128/78 SpO2: 97% HT: 68 in HT: 173.0 cm WT: 307.985 lb WT: 139.7 kg BMI: 46.68 General: Alert and oriented, in no acute distress HEENT: - Normocephalic, atraumatic - EOMI, conjunctiva WNL Cardiovascular: Regular rate and rhythm with single occasional dropped beat noted, no murmur/rubs/gallops, no lower extremity edema Respiratory: Lungs clear to auscultation BL without wheezing/rales/rhonchi, normal respiratory effort Abdomen: Soft, nontender, nondistended Neurologic: Grossly intact, normal gait Skin: Warm, dry, intact; no rashes Psych: Normal mood, normal affect Assessment/Plan 1. Primary hypertension (I10: Essential (primary) hypertension) Chronic Recent home BP 148/84 mmHg; clinic reading normal. Recommend continuing losartan 75mg daily and metoprolol succinate 50 mg daily. Obtain new home BP cuff; bring to clinic for comparison. Review readings at next visit; adjust therapy if needed. 2. Hypoparathyroidism (E20.9: Hypoparathyroidism, unspecified) Previous documentation reviewed. Endocrinology to monitor labs during initiation of Yorvipath Continue calcium and vitamin D supplements as directed by endocrinology. 3. Hypothyroidism (E03.9: Hypothyroidism, unspecified) Continue levothyroxine 175 mcg daily. 4. Irregular heart beats (I49.9: Cardiac arrhythmia, unspecified) Cardiac event monitor ordered. 5. Palpitations (R00.2: Palpitations) See #3. 6. Asthma, exercise induced (J45.990: Exercise induced bronchospasm) PFTs ordered. 7. Perimembranous ventricular septal defect (Q21.0: Ventricular septal defect) Congenital cardiology referral placed at [facility] per patient's request. 8. JESSICA on CPAP (G47.33: Obstructive sleep apnea (adult) (pediatric)) Recommended continued CPAP use. 9. BMI 45.0-49.9, adult (Z68.42: Body mass index [BMI] 45.0-49.9, adult) Patient's current BMI is 46.68 kg/m???, while the standard range for people aged 18 years old and older is >=18.5 to <25 kg/m2. We discussed the medical benefits of weight loss. We also reviewed the importance of making healthful lifestyle changes, including regular exercise, following a whole -food/plant-forward diet, and adequate sleep. Patient's BMI and weight management strategies will continued to be monitored at subsequent visits. Patient is not a candidate for GLP-1 agonist (more content not included)... [facility] HospitalComment on above:Result Comment: Electronically Signed By: Ti Donald DO\.br\Date and Time Signed: 03/05/25 19:11 EST Reminderson 83-50-8188PsigeefctHdwruqjez From: Viktoria Hunt To: [facility] - Reminders/Recalls; Sent: 03/05/2025 16:03:38 EST Show up: 01/26/2028 16:03:00 EDT Subject: Ambulatory Reminder- 3 year colonoscopy Due Date/Time: 02/26/2028 16:03:00 EDT Reminder/Recall Colonoscopy 02/25/25 Dr K[facility] Summaryon [id number] Visit SummaryAmbulatory Visit Summary MARCELINA CANO :1960 Visit Date:03/04/2025 Ambulatory Visit Instructions Your Diagnosis BMI 45.0-49.9, adult, Body mass index [BMI] 45.0-49.9, adult Morbid obesity with BMI of 45.0-49.9, adult Asthma, exercise induced Your Care Team Attending Physician - Ti Donald DO Primary Care Physician - Shweta Salazar This Is Your Medications List Non-Formulary Medication (Misc Medication) Non-Formulary Medication (Misc Medication) albuterol (albuterol 0.083% Inh Mandie 3 mL) ascorbic acid (Vitamin C 500 mg oral tablet, chewable) calcium-vitamin D (calcium (as carbonate and lactate)-vitamin D 200 mg-250 intl units oral tablet, chewable) cholecalciferol (Vitamin D3 10,000 intl units oral capsule) citalopram (citalopram 40 mg Tab) fluticasone (Flovent HFA 220 Aerosol) fluticasone nasal (Flonase 0.05 mg/inh [place]) levothyroxine (Synthroid 175 mcg (0.175 mg) Tab) levothyroxine (levothyroxine 125 mcg (0.125 mg) Tab) losartan (losartan 50 mg Tab) magnesium glycinate menaquinone (Vitamin K2) metoprolol (metoprolol succinate 50 mg ER Tab) mirabegron (Myrbetriq 50 mg oral tablet, extended release) mupirocin topical (mupirocin Top 2% Oint) parathyroid hormone (Natpara 75 mcg/dose subcutaneous injection) Procedures Performed Colonoscopy (02/25/2025), Cholecystectomy and exploration of bile duct, Colonoscopy, Hysterectomy, Thyroidectomy. Discharge Vitals Temperature (Temporal Artery) 37.1 ???C Heart Rate (Peripheral) 65 Respiratory Rate 18 Blood Pressure 128/78 Height 173.0 cm Height 68 in Weight 139.7 kg Weight 307.985 lb BMI 46.68 What to do next Scheduled Follow-Up Appointments Tuesday 1:15 PM EST With: Eliud FAITH, Fadi Sherman Where: [facility] [address] [place] [id number]- Tuesday 9:40 AM EST With: Ti Donald DO Where: [address] [id number] 9:40 AM EST With: Shweta Salazar Where: [address] [address]- You Need to Schedule the Following Appointments Follow Up with Ti Donald DO, FRANK, PED When: In 4 weeks Where: Medications What How Much When Why Instructions Changed levothyroxine (levothyroxine 125 mcg (0.125 mg) Tab) 175 Microgram By Mouth Every day Changed levothyroxine (Synthroid 175 mcg (0.175 mg) Tab) 90 tab(s), 0 Refill(s) Unchanged albuterol (albuterol 0.083% Inh Mandie 3 mL) See instructions INHALE CONTENTS OF 1 VIAL (3 ML) EVERY 6 HOURS AND NEEDED Unchanged ascorbic acid (Vitamin C 500 mg oral tablet, chewable) 1 Tablets Chewed Every day Unchanged calcium-vitamin D (calcium (as carbonate and lactate)-vitamin D 200 mg-250 intl units oral tablet, chewable) 2 Tablets By Mouth 2 times a day Unchanged cholecalciferol (Vitamin D3 10,000 intl units oral capsule) See instructions 5000 units every other day Unchanged citalopram (citalopram 40 mg Tab) 0.5 Tablets By Mouth Every day Unchanged fluticasone (Flovent HFA 220 Aerosol) 1 Puffs Inhalation 2 times a day Acute URI Cough Unchanged fluticasone nasal (Flonase 0.05 mg/ inh [place]) 2 Sprays Nasal Inhalation Every day each nostril Unchanged losartan (losartan 50 mg Tab) 75 Milligram By Mouth Every day Unchanged magnesium glycinate By Mouth Unchanged menaquinone (Vitamin K2) By Mouth Every day Unchanged metoprolol (metoprolol succinate 50 mg ER Tab) 1 Tablets By Mouth Every day Unchanged mirabegron (Myrbetriq 50 mg oral tablet, extended release) 30 EA, take 1 tablet by mouth every morning Unchanged mupirocin topical (mupirocin Top 2% Oint) See instructions APPLY 1 APPLICATION TOPICALLY THREE TIMES A DAY Unchanged Non-Formulary Medication (Misc Medication) See instructions magnsium glyconate 275mg Take3 orally twice a day Unchanged Non-Formulary Medication (Misc Medication) See instructions 2 capsules of the focus factor daily Unchanged parathyroid hormone (Natpara 75 mcg/ dose subcutaneous injection) 75 Microgram Subcutaneous Every day Allergies anabolic steroids (Angry) Biaxin (Diarrhea) Augmentin (Diarrhea) Problems Ongoing - Any problem that you are currently receiving treatment for. Altered bowel habits Anxiety Asthma, exercise induced BMI 45.0-49.9, adult Calcium deficiency Cough Elevated AST (SGOT) Excessive dietary caloric intake Fatty liver Fatty liver disease, nonalcoholic Heartburn Hx of thyroid cancer Hypertension Hypomagnesemia Hypoparathyroidism Hypothyroidism IBS (irritable bowel syndrome) Labial cyst Morbid obesity with BMI of 45.0-49.9, adult ARREOLA (nonalcoholic steatohepatitis) Nonsmoker Obesity due to excess calories Obesity, morbid, BMI 40.0-49.9 OS (more content not included)...[facility] HospitalCNPNon [id number] (ENDOMN) RACHAELMARCELINA ([id number]) 1960 F Date Time Provider Department 03/04/25 JUNIE CEJAMN During your visit today, we recorded the following information about you: Brennan Russo 03/04/2025 4:07 PM Signed I called and spoke to Marianela from [employer], all information has been received reference case # [id number] still in pending status should receive a fax on 03/09/2025 I was told... for YORVIPATH 294 mcg/0.98 mL pen injector Allergies As of Date: 03/04/2025 Noted Allergy Reaction CLARITHROMYCIN 05/04/2023 6 - Diarrhea PREDNISONE 12/18/2018 14 - Other: See Comments Comments: Causes behaviors Date Reviewed: 10/30/2024 Reviewed by: Brittany Pinto MA - Fully Assessed Reason for Visit: Medication Preauthorization [[id number]] Cmt: YORVIPATH 294 mcg/0.98 mL pen injector Prescriptions as of 03/04/2025 - losartan (COZAAR) 50 mg tablet Take 1.5 tablets by mouth once daily. - levothyroxine (SYNTHROID) 175 mcg tablet SKIP Tuesday - YORVIPATH 294 mcg/0.98 mL pen injector Inject 18 mcg subcutaneously once daily for 28 days. - metoprolol succinate ER (TOPROL XL) 50 mg 24 hr tablet Take 50 mg by mouth. - calcium carbonate-vitamin D3 (CALTRATE 600 PLUS D) 600 mg-20 mcg (800 unit) tablet Take 1 tablet by mouth two times a day. - cholecalciferol (VITAMIN D-3) 5,000 unit tab Take 1 tablet Sun- Tues- Thurs- Sat - MAGNESIUM GLYCINATE PO Take 344 mg by mouth two times a day. - albuterol (PROVENTIL) 2.5 mg /3 mL (0.083 %) nebulizer solution - mirabegron (MYRBETRIQ) 50 mg Tb24 Take 1 tablet by mouth every morning. - citalopram (CELEXA) 20 mg tablet Take 20 mg by mouth daily at bedtime. - parathyroid hormone (NATPARA) 75 mcg/dose crtg Inject 75 mcg subcutaneously once daily. Problem List As Of Date 03/04/2025 Noted Resolved ASD (atrial septal defect) [Q21.10] 03/28/2012 04/14/2012 Ventricular septal defect (VSD), perimembranous*04/14/2012 Atypical chest pain [R07.89] 04/14/2012 Hypertension [I10] 04/14/2012 Obesity (BMI 35.0-39.9 without comorbidity) [E6*04/14/2012 JESSICA on CPAP [G47.33] 04/14/2012 Fatigue [R53.83] 04/14/2012 HAMMER/MALLET TOE [M20.40] 04/09/2014 METATARSALGIA/ENTHESOPATHY [M77.50] 04/09/2014 Enthesopathy of unspecified site [M77.9] 04/09/2014 Nausea [R11.0] 03/14/2017 Hypocalcemia [E83.51] 03/14/2017 Other specified hypothyroidism [E03.8] 03/15/2017 Postprocedural hypoparathyroidism (HCC) [E89.2] 08/30/2024 History of thyroid cancer [Z85.850] 08/30/2024 Postoperative hypothyroidism [E89.0] 02/19/2025 Encounter Status:Closed by BRENNAN RUSSO on 03/04/25No[facility] [id number] Visit (LABSAN) MARCELINA CANO ([id number]) 1960 F Date Time Provider Department 02/27/25 10:00 AM LAB JACK ANTUNEZ During your visit today, we recorded the following information about you: Junie Ceja MD 03/07/2025 3:00 PM Signed Approved for one year, Junie Ceja MD Dept of Endocrinology Allergies As of Date: 02/27/2025 Noted Allergy Reaction CLARITHROMYCIN 05/04/2023 6 - Diarrhea PREDNISONE 12/18/2018 14 - Other: See Comments Comments: Causes behaviors Date Reviewed: 10/30/2024 Reviewed by: Brittany Pinto MA - Fully Assessed Visit Diagnosis:Postprocedural hypoparathyroidism (HCC) [E89.2] Order(s):CALCIUM, 24 HR URINE [SQUCALCD] Order #: [id number]. #:[id number] CREATININE, 24 HOUR URINE [SQUCRD] Order #: [id number]. #:[id number] Prescriptions as of 03/07/2025 - losartan (COZAAR) 50 mg tablet Take 1.5 tablets by mouth once daily. - levothyroxine (SYNTHROID) 175 mcg tablet SKIP Tuesday - 294 mcg/0.98 mL pen injector Inject 18 mcg subcutaneously once daily for 28 days. - metoprolol succinate ER (TOPROL XL) 50 mg 24 hr tablet Take 50 mg by mouth. - calcium carbonate-vitamin D3 (CALTRATE 600 PLUS D) 600 mg-20 mcg (800 unit) tablet Take 1 tablet by mouth two times a day. - cholecalciferol (VITAMIN D-3) 5,000 unit tab Take 1 tablet Sun- - - Sat - MAGNESIUM GLYCINATE PO Take 344 mg by mouth two times a day. - albuterol (PROVENTIL) 2.5 mg /3 mL (0.083 %) nebulizer solution - mirabegron (MYRBETRIQ) 50 mg Tb24 Take 1 tablet by mouth every morning. - citalopram (CELEXA) 20 mg tablet Take 20 mg by mouth daily at bedtime. - parathyroid hormone (NATPARA) 75 mcg/dose crtg Inject 75 mcg subcutaneously once daily. Problem List As Of Date 02/27/2025 Noted Resolved ASD (atrial septal defect) [Q21.10] 03/28/2012 04/14/2012 Ventricular septal defect (VSD), perimembranous*04/14/2012 Atypical chest pain [R07.89] 04/14/2012 Hypertension [I10] 04/14/2012 Obesity (BMI 35.0-39.9 without comorbidity) [E6*04/14/2012 JESSICA on CPAP [G47.33] 04/14/2012 Fatigue [R53.83] 04/14/2012 HAMMER/MALLET TOE [M20.40] 04/09/2014 METATARSALGIA/ENTHESOPATHY [M77.50] 04/09/2014 Enthesopathy of unspecified site [M77.9] 04/09/2014 Nausea [R11.0] 03/14/2017 Hypocalcemia [E83.51] 03/14/2017 Other specified hypothyroidism [E03.8] 03/15/2017 Postprocedural hypoparathyroidism (HCC) [E89.2] 08/30/2024 History of thyroid cancer [Z85.850] 08/30/2024 Postoperative hypothyroidism [E89.0] 02/19/2025 Encounter Status:Closed by JUNIE CEJA on 03/07/25[facility] Reporton [id number] [place] [address]- Surgical Pathology Report Collected Date/Time: 02/25/2025 09:09 EST Pathologist: Jay FAITH PhD, Isidro Oliva Date/Time: 02/25/2025 10:11 EST Eliud FAITH, Fadi Kline MD, Fadi Salgado Surgical Pathology Report - 02/27/2025 12:41 EST - Auth (Verified) Final Diagnosis A: COLON, RANDOM BIOPSY: - COLONIC MUCOSA WITH LYMPHOID AGGREGATES, WITHIN NORMAL LIMITS. B: POLYPS, TRANSVERSE COLON, POLYPECTOMY: - TUBULAR ADENOMA. - HYPERPLASTIC POLYP. C: POLYP, RECTUM, POLYPECTOMY: - TUBULAR ADENOMA. (Electronic Signature) Isidro Thompson MD PhD 02/27/2025 12:41 Clinical Information Elevated AST, IBS with constipation and diarrhea Pre-Op Diagnosis: Elevated AST, IBS with constipation and diarrhea Procedure: Colonoscopy Post-Op Diagnosis: 1. 3 colon polyps-removed 2. Diverticulosis 3. Internal hemorrhoids Specimen(s) Received A. Random colon biopsies B. Transverse colon polyps C. Rectal polyp Gross Description A: Received in formalin labeled with patient name, number, and random colon biopsies are multiple fragments of lopes/pink tissue ranging from less than 0.1 cm up to 0.4 cm in greatest dimension. Specimen is entirely submitted in one cassette. B: Received in formalin labeled with patient name, number, and transverse colon polyps are multiple fragments of lopes/pink tissue ranging from 0.1 cm up to 0.4 cm in greatest dimension, measuring in aggregate 0.6 x 0.4 x 0.1 cm. Specimen is entirely submitted in one cassette. C: Received in formalin labeled with patient name, number, and rectal polyp is a single fragment of lopes/pink tissue measuring 0.8 x 0.5 x 0.1 cm. Specimen is entirely submitted in one cassette. (DC) DC:[facility] Microscopic Description Microscopic examination performed unless gross only specified. Quality was accessed and acceptable. This report was transcribed using voice recognition technology and might contain unintended computerized chute operator errors.NormalLouis Stokes Cleveland Va Medical CenterComment on above:Performed By: #### [id number] #### [facility] [address] [place] [address] [id number], 24 HR URINEon [id number] (24H U) [Mass/Time] 441.0 mg/24 ftJzpm435.0-300.0[facility] on above:Order Comment: Specimen Type: URINE SPECIMENOrdering Facility: [facility] Address:[address] [place], [place] [address]Performed By: #### UCDARCY, [facility] ####[facility] LABCLIA [id number] [address] LABCLIA [id number] [place], [place] [address]THGTWT (HRS)24 hrNormalCNorwalk Memorial Hospital on above:Order Comment: Specimen Type: URINE SPECIMENOrdering Facility: [facility] Address:[address] [place], [place] [address]Performed By: #### UCALCD, UCRD ####[facility] LABCLIA [id number] [address] LABCLIA [id number] [place], [place] [address]Adcnzqai volume (24H U)3.5 LNormalUniversity Hospitals [facility] on above:Order Comment: Specimen Type: URINE SPECIMENOrdering Facility: [facility] Address:[address] [place], [place] [address]Performed By: #### UCALCD, UCRD ####[facility] LABCLIA [id number] [address] LABCLIA [id number] [place], [place] [address]FJVNPXAMPN, 24 HOUR URINEon [id number] (24H U) [Mass/Time]1.999 g/24 hrHigh0.800-1.800[facility] on above:Order Comment: Specimen Type: URINE SPECIMENOrdering Facility: [facility] Address:[address] [place], [place] [address]Performed By: #### UCALCD, UCRD ####[facility] LABCLIA [id number] [address] LABCLIA [id number] [place], [place] [address]Xoyd OR Intraoperative Recordon [id number] OR Intraoperative RecordMain OR Intraoperative Record IntraOp Document Type FT Summary Primary Physician: Fadi Kline MD Finalized Date/Time: 02/26/25 12:19:49 Pt. Name: MARCELINA CANO /Sex: 1960 Female Med Rec #: [id number] Physician: Fadi Kline MD Financial #: [id number] Pt. Type: O Room/Bed: / Admit/Disch: 02/25/25 07:49:11 - 02/25/25 23:59:59 Institution: Case Times FT Entry 1 Patient Times In Room 02/25/25 08:36:00 Out Room 02/25/25 09:26:00 Procedure Times Start 02/25/25 08:56:00 Stop 02/25/25 09:23:00 Anesthesia Times Start 02/25/25 08:36:00 Stop 02/25/25 09:26:00 Time at [facility] 02/25/25 08:59:00 Last Modified By: Johanna Wilks RN 02/25/25 09:26:05 General Comments: Patient IV went bad, had to restart./[place],RN Case Attendance FT Entry 1 Entry 2 Entry 3 Case Attendee Abdon Valdovinos CRNA, MD, Johanna Mcwilliams RN Role Performed Anesthesiologist Surgeon - Primary 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 Mcguire is supervising Last Modified By: fEe DEL REAL, Johanna Wilks RN, Johanna Vega RN 02/25/25 09:26:06 02/25/25 09:26:06 02/25/25 09:26:06 Entry 4 Case Attendee Cristine Montana CST Role Performed Scrub - Primary Time In 02/25/25 08:36:00 Time Out 02/25/25 09:26:00 Procedure COLONOSCOPY(.) Comments Last Modified By: Johanna Wilks RN 02/25/25 09:26:06 Perioperative Protocols FT Pre-Care Text: Implements protective measures prior to operative or invasive procedure, confirms identity before the operative or invasive procedure, verifies operative procedure, surgical site, and laterality Entry 1 Procedure(s) COLONOSCOPY(.) Patient Identity Birthday, ID Band Verified (select at Check, Patient least 2): Participation Consents / H and P Anesthesia Consent, Operative Site N/A Verified H&P, Surgery/Procedure Marking Verified Consent Surgical Site No Laterality Verified n/a Verified Procedure Verified Yes Correct Patient Yes Position Verified Availability Equipment, Medication Prep Dry n/a Verified (If Applicable) PreOp Antibiotic No Time Out Abdon Valdovinos CRNA, Given Participants Fadi Kline MD, Johanna Wilks RN, Schafer CST, Cristine Suárez Time Out Complete 02/25/25 08:40:00 Outcomes Met? Yes Last Modified By: Johanna Wilks RN 02/25/25 09:01:25 Post-Care Text: The patient is free from signs and symptoms of injury caused by extraneous objects Allergy Information FT Pre-Care Text: Verifies allergies Entry 1 Allergies Reviewed? Yes Allergies Reviewed Self/Patient With Outcomes Met? Yes Last Modified By: Johanna Wilks RN 02/25/25 09:01:31 Post-Care Text: The patient received appropriate medication(s) safely administered during the perioperative period Surgical Procedures FT Entry 1 Procedure Description Procedure COLONOSCOPY Modifiers . Surgeon Description Colonoscopy with random colon biopsies and transverse colon polypectomies x2 with biopsy forcepts. Rectal colon polypectomy. Primary Procedure Yes Primary Surgeon Eliud FAITH, Fadi Sherman Start 02/25/25 08:56:00 Stop 02/25/25 09:23:00 Anesthesia Type General Surgical Service Gastroenterology Wound Class 2 - Clean-Contaminated Last Modified By: Johanna Wilks RN 02/25/25 09:23:29 General Case Data FT Pre-Care Text: Classifies surgical wound, implements aseptic technique, initiates traffic control Entry 1 Case Information OR ENDO 1 FT Case Level Level 2 Wound Class 2 - Clean-Contaminated Specialty Gastroenterology ASA Class 3 Preop Diagnosis Elevated AST, IBS with Postop Same As Preop No constipation and diarrhea Postop Diagnosis Transverse colon Outcomes Met? Yes polyps, rectal polyp, diverticulosis, hemmorhoids Last Modified By: Johanna Wilks RN 02/25/25 09:25:54 Post-Care Text: The patient is free from signs and symptoms of infection Skin Assessment (Pre Procedure) FT Pre-Care Text: Implements protective measures to prevent skin/ tissue injury due to thermal or mechanical sources Evaluates for signs and symptoms of physical injury to skin and tissue Entry 1 Skin Integrity Intact, [place], Warm, & Skin Abnormality No Dry Outcomes Met? Yes Last Modified By: Efe DEL REAL, Johanna Herrera 02/25/25 09:02:18 Post-Care Text: The patient is free from signs and symptoms of injury caused by extraneous objects Patient Positioning FT Pre-Care Text: Identifies physical alterations that require additional precautions for procedure-specific positioning, verifies presence of prosthetics or corrective devices, positions the patient, evaluates the patient for signs and symptoms of injury as a result of positioning Entry 1 Procedure (more content not included)...[facility] Discharge Instructionson [id number] InstructionsDischarge Instructions MARCELINA CANO :1960 Visit Date:02/25/2025 Inpatient Discharge Instructions Your Care Team Admitting Physician - Fadi Kline MD Referring Physician - Fadi Kline MD Reason for Your Visit ELEVATED AST, IBS WITH CONSTIPATION AND DIARRHEA Your Diagnosis Colon polyps Diverticulosis Hemorrhoids, internal Tests Performed Pathology Tissue Exam -- Results Pending -- Please visit your patient portal for your results or contact your primary care physician. This Is Your Medications List Non-Formulary Medication (Misc Medication) Non-Formulary Medication (Misc Medication) albuterol (albuterol 0.083% Inh Mandie 3 mL) ascorbic acid (Vitamin C 500 mg oral tablet, chewable) calcium citrate (calcium (as calcium citrate) 200 mg oral tablet) cholecalciferol (Vitamin D3 10,000 intl units oral capsule) citalopram (citalopram 40 mg Tab) fluticasone (Flovent HFA 220 Aerosol) fluticasone nasal (Flonase 0.05 mg/inh [place]) hyoscyamine (Levsin 0.125 mg SL Tab) levothyroxine (levothyroxine 125 mcg (0.125 mg) Tab) losartan (losartan 50 mg Tab) magnesium glycinate menaquinone (Vitamin K2) metoprolol (metoprolol succinate 50 mg ER Tab) mirabegron (Myrbetriq 50 mg oral tablet, extended release) mupirocin topical (mupirocin Top 2% Oint) parathyroid hormone (Natpara 75 mcg/dose subcutaneous injection) Procedure History Colonoscopy (02/25/2025), Cholecystectomy and exploration of bile duct, Colonoscopy, Hysterectomy, Thyroidectomy. Discharge Vitals Temperature (Temporal Artery) 36.3 ???C Heart Rate (Monitored) 71 Respiratory Rate 23 Blood Pressure 127/72 Height 173 cm Weight 139.6 kg BMI 46.64 What to do next Instructions From Your Doctor No qualifying data available. Previously Scheduled Follow-Up Appointments Tuesday2025 9:40 AM EST With: Shweta Salazar Where: [address] [address]- New Follow Up Appointments after Discharge Follow Up with Eliud FAITH, HELENA Fields, MED When: Comments: Call to schedule follow up appointment and/or review any pending biopsy results Call for any problems. Where: [address] [place] [address], [address] [place] [address]- [phone] Medications What How Much When Why Instructions Next Dose Unchanged albuterol (albuterol 0.083% Inh Mandie 3 mL) See instructions INHALE CONTENTS OF 1 VIAL (3 ML) EVERY 6 HOURS AND NEEDED Unchanged ascorbic acid (Vitamin C 500 mg oral tablet, chewable) 1 Tablets Chewed Every day Unchanged calcium citrate (calcium (as calcium citrate) 200 mg oral tablet) By Mouth Every day Unchanged cholecalciferol (Vitamin D3 10,000 intl units oral capsule) See instructions 5000 units every other day Unchanged citalopram (citalopram 40 mg Tab) 0.5 Tablets By Mouth Every day Unchanged fluticasone (Flovent HFA 220 Aerosol) 1 Puffs Inhalation 2 times a day Acute URI Cough Unchanged fluticasone nasal (Flonase 0.05 mg/ inh [place]) 2 Sprays Nasal Inhalation Every day each nostril Unchanged hyoscyamine (Levsin 0.125 mg SL Tab) 1 Tablets By Mouth 4 times a day as needed for for spasm Elevated AST (SGOT) Irritable bowel syndrome with constipation and diarrhea Heartburn Stress-related physiological response affecting medical condition Obesity due to excess calories Unchanged levothyroxine (levothyroxine 125 mcg (0.125 mg) Tab) 175 Microgram By Mouth Every day Unchanged losartan (losartan 50 mg Tab) 1 Tablets By Mouth Every day Unchanged magnesium glycinate By Mouth Unchanged menaquinone (Vitamin K2) By Mouth Every day Unchanged metoprolol (metoprolol succinate 50 mg ER Tab) 1 Tablets By Mouth Every day Unchanged mirabegron (Myrbetriq 50 mg oral tablet, extended release) 30 EA, take 1 tablet by mouth every morning Unchanged mupirocin topical (mupirocin Top 2% Oint) See instructions APPLY 1 APPLICATION TOPICALLY THREE TIMES A DAY Unchanged Non-Formulary Medication (Misc Medication) See instructions magnsium glyconate 275mg Take3 orally twice a day Unchanged Non-Formulary Medication (Misc Medication) See instructions 2 capsules of the focus factor daily Unchanged parathyroid hormone (Natpara 75 mcg/ dose subcutaneous injection) 75 Microgram Subcutaneous Every day Allergies anabolic steroids (Angry) Biaxin (Diarrhea) Augmentin (Diarrhea) Problems Ongoing - Any problem that you are currently receiving treatment for. Altered bowel habits Anxiety Asthma, exercise induced BMI 45.0-49.9, adult Calcium deficiency Cough Elevated AST (SGOT) Excessive dietary caloric intake Fatty liver Fatty liver disease, nonalcoholic Heartburn Hx of thyroid cancer Hypertension Hypomagnesemia Hypoparathyroidism Hypothyroidism IBS (irritable bowel syndrome) Labial cyst Morbid obesity with BMI of 45.0-49.9, adult ARREOLA (nonalcoholic steatohepati (more content not included)...[facility] HospitalComment on above:Result Comment: Electronically Signed By: Patrick DEL REAL, Deanna\.br\Date and Time Signed: 02/25/25 09:56 ESTH&P Updateon 02-25-2025H&P UpdateH&P Update Patient: MARCELINA CANO Age: 64 years Sex: Female : 1960 Associated Diagnoses: None Author: Eliud FAITH, Fadi Sherman Preoperative Information Chief compliant/Indication for procedure: Altered bowel habits Chief Complaint as above Review of Systems All systems reviewed, negative except as mentioned above Health Status Allergies: Allergic Reactions (Selected) Moderate Anabolic steroids- Angry. Mild Biaxin- Diarrhea. Severity Not Documented Augmentin- Diarrhea. Current medications: (Selected) Inpatient Medications Ordered Lactated Ringers IV Mandie 1000 mL 1,000 mL: 1,000 mL, IV, 100 mL/hr, Routine, Start date 02/25/25 8:10:00 EST, 10 hour(s), Total volume (mL): 1,000, 139.6 kg, 2.59, m2 Sodium Chloride 0.9% IV Mandie 1000 mL 1,000 mL: 1,000 mL, IV, 20 mL/hr, Routine, Start date 02/25/25 6:37:00 EST, 50 hour(s), Total volume (mL): 1,000 Zofran 4 mg/2 mL Injection: 4 mg = 2 mL, Injection, IV Push, Once PRN Nausea/Vomiting, Routine, Start date 02/25/25 8:10:00 EST, 02/25/25 8:10:00 EST Prescriptions Prescribed Flonase 0.05 mg/inh [place]: 2 spray(s), Nasal, Daily, 16 gram, Refill(s) 0, each nostril, [id number], 173.5, cm, 07/27/22 13:52:00 EDT, Height/Length Dosing, 135.6, kg, 07/27/22 13:52:00 EDT, Weight Dosing Flovent HFA 220 Aerosol: = 1 puff(s), Inhalation, BID, # 12 gram, Refills(s) 0, Pharmacy: [facility] #[id number], 173, cm, 03/14/23 13:44:00 EST, Height/Length Dosing, 140, kg, 03/14/23 13:44:00 EST, WeightDosing Levsin 0.125 mg SL Tab: 0.125 mg = 1 tab(s), Oral, QID, PRN for spasm, # 40 tab(s), Refills(s) 0, Pharmacy: [id number], 173, cm, 01/23/25 13:52:00 EDT, Height/Length Dosing, 139.6, kg, 01/23/25 13:52:00 EDT, Weight Dosing albuterol 0.083% Inh Mandie 3 mL: See Instructions, 300 mL, Refill(s) 10, INHALE CONTENTS OF 1 VIAL (3ML) EVERY 6 HOURS AND NEEDED, [facility], 173, cm, 06/30/23 13:55:00 EST, Height/Length Dosing, 139.9, kg, 06/30/23 13:55:00 EST, Weight Dosing citalopram 40 mg Tab: 20 mg = 0.5 tab(s), Oral, Daily, # 90 tab(s), Refills(s) 1, Pharmacy: [id number], 173, cm, 08/28/24 11:11:00 EDT, Height/Length Dosing, 142.7, kg, 08/28/24 11:11:00 EDT, Weight Dosing levothyroxine 125 mcg (0.125 mg) Tab: 175 mcg, Oral, Daily, # 90 tab(s), Refills(s) 0, Pharmacy: [facility] #[id number], 173, cm, 08/22/23 11:06:00 EDT, Height/Length Dosing, 140, kg, 08/22/23 11:06:00 EDT,Weight Dosing losartan 50 mg Tab: 50 mg = 1 tab(s), Oral, Daily, # 30 tab(s), Refills(s) 0, Pharmacy: [id number], 173, cm, 01/17/25 13:37:00 EDT, Height/Length Dosing, 140, kg, 01/17/25 13:37:00 EDT, Weight Dosing metoprolol succinate 50 mg ER Tab: 50 mg = 1 tab(s), Oral, Daily, # 90 tab(s), Refills(s) 4, Pharmacy: [facility], 173, cm, 08/28/24 11:11:00 EDT, Height/Length Dosing, 142.7, kg, 08/28/24 11:11:00 EDT, Weight Dosing mupirocin Top 2% Oint: See Instructions, 22 gm, Refill(s) 1, APPLY 1 APPLICATION TOPICALLY THREE TIMES A DAY, [facility], 173, cm, 03/06/24 11:03:00 EST, Height/Length Dosing, 138.2, kg, 03/06/24 11:03:00 EST, Weight Dosing Documented Medications Documented Misc Medication: See Instructions, 2 capsules of the focus factor daily Misc Medication: See Instructions, magnsium glyconate 275mg Take 3 orally twice a day Myrbetriq 50 mg oral tablet, extended release: 30 EA, take 1 tablet by mouth every morning, Refills(s) 0 Natpara 75 mcg/dose subcutaneous injection: 75 mcg, SubCutaneous, Daily, 30 EA, Refill(s) 0 Vitamin C 500 mg oral tablet, chewable: 500 mg = 1 tab(s), Chewed, Daily, Refills(s) 0, Prophylaxis Vitamin D3 10,000 intl units oral capsule: See Instructions, 5000 units every other day, Refills(s)0, Prophylaxis Vitamin K2: mcg, Oral, Daily, Refill(s) 0, Prophylaxis calcium (as calcium citrate) 200 mg oral tablet: mg tab(s), Oral, Daily, Refills(s) 0, Prophylaxis magnesium glycinate: Oral, Refills(s) 0, Prophylaxis Problem list: All Problems Altered bowel habits / SNOMED CT 240457497 / Confirmed Anxiety / SNOMED CT 93395813 / Confirmed Asthma, exercise induced / SNOMED CT 43942621 / Confirmed BMI 45.0-49.9, adult / SNOMED CT 8081135939 / Confirmed Calcium deficiency / SNOMED CT 415528054 / Confirmed Cough / SNOMED CT 26909793 / Confirmed Elevated AST (SGOT) / SNOMED CT 3559571978 / Confirmed Excessive dietary caloric intake / SNOMED CT 491578121 / Confirmed Fatty liver / SNOMED CT 7097887595 / Confirmed Fatty liver disease, nonalcoholic / SNOMED CT 9792993836 / Confirmed Heartburn / SNOMED CT 12316895 / Confirmed Hx of thyroid cancer / SNOMED CT 9583064560 / Confirmed thyroid was removed in 2009 Hypertension / SNOMED CT 2046872035 / Confirmed Hypomagnesemia / SNOMED CT 139601314 / Confirmed Hypoparathyroidism / SNOMED CT 91302965 / Confirmed Hypothyroidism / SNOMED CT 73393635 / Confirmed IBS (irritable bowel syndrome) / SNOMED CT (more content not included)...[facility] CenterComment on above:Result Comment: Electronically Signed By: Fadi Kline MD\.br\Date and Time Signed: 02/26/2508:41 EST Main OR PACU I Recordon [id number] OR PACU I RecordMain OR PACU I Record PACU Phase I Document Type FT Summary Primary Physician: Fadi Kline MD Finalized Date/Time: 02/25/25 10:14:43 Pt. Name: MARCELINA CANO /Sex: 1960 Female Med Rec #: [id number] Physician: Fadi Kline MD Financial #: [id number] Pt. Type: O Room/Bed: / Admit/Disch: 02/25/25 07:49:11 - Institution: Case Times PACU I FT Pre-Care Text: Identifies barriers to communication and implements measures to provide psychological support Develops individualized plan of care, and ensures continuity of care Maintains patient's dignity and privacy, and maintains patient confidentiality Identifies and reports philosophical, cultural, and spiritual beliefs and values Identifies individual values and wishes concerning care Implements aseptic technique, and administers prescribed antibiotic therapy and immunizing agents as ordered Evaluates postoperative tissue perfusion Implements thermoregulation measures, and monitors body temperature Evaluates postoperative respiratory status Evaluates postoperative cardiac status Evaluates postoperative neurological status Assesses pain control, collaborated in initiating patient-controlled analgesia and implements alternative methods of pain control Verifies allergies, administers prescribed medications and solutions, evaluates response to medications Entry 1 In PACU I 02/25/25 09:26:00 Discharge from PACU 02/25/25 09:56:00 I Outcomes Met? Yes Last Modified By: Deanna Nguyen RN 02/25/25 10:14:31 Post-Care Text: The patient demonstrates knowledge of the expected response to the operative or invasive procedure The patient's care is consistent with the individualized perioperative plan of care The patient's rightto privacy is maintained The patient's value system, lifestyle, ethnicity, and culture are considered, respected, and incorporated into the perioperative plan of care The patient participates in decisions affecting his or her perioperative plan of care The patient is free from signs and symptoms of infection The patient has wound/tissue perfusion consistent with or improved from baseline levels established preoperatively The patient is at or returning to normothermia at the conclusion of the immediate postoperative period The patient's respiratory function is consistent with or improved from baseline levels established preoperativelyThe patient's cardiovascular status is consistent with or improved from baseline levels established preoperatively The patient's cardiovascular status is consistent with or improved from baseline levels established preoperatively The patient demonstrates and/or reports adequate pain control throughout the perioperative period The patient received appropriate medication(s), safely administered during the perioperativeperiod Acuity Level PACU I FT Entry 1 Start Time 02/25/25 09:26:00 Stop Time 02/25/25 09:56:00 Acuity Level Acuity Level I Last Modified By: Deanna Nguyen RN 02/25/25 10:14:39 Finalized By: Deanna Nguyen RN Document Signatures Signed By: Deanna Nguyen RN 02/25/25 10:14[facility] Preoperative Recordon [id number] OR Preoperative RecordMain OR Preoperative Record Holding Area Document Type FT Summary Primary Physician: Fadi Kline MD Finalized Date/Time: 02/25/25 08:00:04 Pt. Name: MARCELINA CANO Blanco/Sex: 1960 Female Med Rec #: [id number] Physician: Fadi Kline MD Financial #: [id number] Pt. Type: O Room/Bed: / Admit/Disch: 02/25/25 07:49:11 - Institution: Case Times Holding FT Pre-Care Text: Verifies consent for planned procedure, identifies individual values and wishes concerning care, includes family members in perioperative teaching Secures patient's records' belongings, and valuables, maintains patient's dignity and privacy, and maintains patient confidentiality Entry 1 In Holding 02/25/25 07:55:00 Outcomes Met? Yes Last Modified By: Johanna Wilks RN 02/25/25 07:59:03 Post-Care Text: The patient participates in decisions affecting his or her perioperative plan of care The patient'sright to privacy is maintained Surgery Checklist FT Entry 1 Patient Birthday, ID Band Procedure History and Physical, Identification: Check, Patient Verification: Surgical Consent, With Participation Patient NPO after Midnight: No Date/Time: 02/25/25 04:00:00 Personal Items: Glasses Personal Items clothes, x1 ring Comment: Limitations: no Complaints of Pain: No Pain Comment: no Operative Site n/a Marking: Marked By: n/a Availability Equipment Verified: Does Patient Smoke No Patient states Yes Comment - Adult Spouse postop adult Supervision supervision available Case Cancelled in No Holding Area see comments below for reason Last Modified By: Johanna Wilks RN 02/25/25 07:59:59 Finalized By: Johanna Wilks RN Document Signatures Signed By: Johanna Wilks RN 02/25/25 08:00[facility] HospitalOperative Reporton [id number] ReportOperative Report Patient: MARCELINA CANO Age: 64 years Sex: Female : 1960 Associated Diagnoses: None Author: Fadi Kline MD Pre-Procedure Procedure Date 02/25/2025 09:25:00 . Procedure Type: Colonoscopy with removal of tumor(s), polyp(s), or other lesion(s) by cold snare technique, biopsy. Procedure provider Performed by Fadi Kline MD. Current history and physical Documented on chart. Cholecystectomy and exploration of bile duct (923866305). Colonoscopy (850135540). Thyroidectomy (98710729). Hysterectomy (720066101).. Past Medical History No active or resolved past medical history items have been selected or recorded.. Family History Diabetes mellitus type 2 Brother Alcoholism Mother Parkinson disease Brother Hyperlipidemia Sister . Procedure History Cholecystectomy and exploration of bile duct (023025447). Colonoscopy (959451916). Thyroidectomy (78683998). Hysterectomy (023386062).. Colorectal neoplasm risk assessment Average risk. Informed Consent After discussing the rationale, risks and benefits, and alternatives to this procedure, the patient provided signed consent for the procedure. Pre-procedure diagnosis: Diarrhea, clinically significant. Medications (Selected) Inpatient Medications Ordered Lactated Ringers IV Mandie 1000 mL 1,000 mL: 1,000 mL, IV, 100 mL/hr, Routine, Start date 02/25/25 8:10:00 EST, 10 hour(s), Total volume (mL): 1,000, 139.6 kg, 2.59, m2 Sodium Chloride 0.9% IV Mandie 1000 mL 1,000 mL: 1,000 mL, IV, 20 mL/hr, Routine, Start date 02/25/25 6:37:00 EST, 50 hour(s), Total volume (mL): 1,000 Zofran 4 mg/2 mL Injection: 4 mg = 2 mL, Injection, IV Push, Once PRN Nausea/Vomiting, Routine, Start date 02/25/25 8:10:00 EST, 02/25/25 8:10:00 EST Prescriptions Prescribed Flonase 0.05 mg/inh [place]: 2 spray(s), Nasal, Daily, 16 gram, Refill(s) 0, each nostril, [facility] #[id number], 173.5, cm, 07/27/22 13:52:00 EDT, Height/Length Dosing, 135.6, kg, 07/27/22 13:52:00 EDT, Weight Dosing Flovent HFA 220 Aerosol: = 1 puff(s), Inhalation, BID, # 12 gram, Refills(s) 0, Pharmacy: [facility] #[id number], 173, cm, 03/14/23 13:44:00 EST, Height/Length Dosing, 140, kg, 03/14/23 13:44:00 EST, WeightDosing Levsin 0.125 mg SL Tab: 0.125 mg = 1 tab(s), Oral, QID, PRN for spasm, # 40 tab(s), Refills(s) 0, Pharmacy: [facility], 173, cm, 01/23/25 13:52:00 EDT, Height/Length Dosing, 139.6, kg, 01/23/25 13:52:00 EDT, Weight Dosing albuterol 0.083% Inh Mandie 3 mL: See Instructions, 300 mL, Refill(s) 10, INHALE CONTENTS OF 1 VIAL (3ML) EVERY 6 HOURS AND NEEDED, [facility], 173, cm, 06/30/23 13:55:00 EST, Height/Length Dosing, 139.9, kg, 06/30/23 13:55:00 EST, Weight Dosing citalopram 40 mg Tab: 20 mg = 0.5 tab(s), Oral, Daily, # 90 tab(s), Refills(s) 1, Pharmacy: [facility] #[facility], 173, cm, 08/28/24 11:11:00 EDT, Height/Length Dosing, 142.7, kg, 08/28/24 11:11:00 EDT, Weight Dosing levothyroxine 125 mcg (0.125 mg) Tab: 175 mcg, Oral, Daily, # 90 tab(s), Refills(s) 0, Pharmacy: [facility] #[id number], 173, cm, 08/22/23 11:06:00 EDT, Height/Length Dosing, 140, kg, 08/22/23 11:06:00 EDT,Weight Dosing losartan 50 mg Tab: 50 mg = 1 tab(s), Oral, Daily, # 30 tab(s), Refills(s) 0, Pharmacy: [facility] #[facility], 173, cm, 01/17/25 13:37:00 EDT, Height/Length Dosing, 140, kg, 01/17/25 13:37:00 EDT, Weight Dosing metoprolol succinate 50 mg ER Tab: 50 mg = 1 tab(s), Oral, Daily, # 90 tab(s), Refills(s) 4, Pharmacy: [facility], 173, cm, 08/28/24 11:11:00 EDT, Height/Length Dosing, 142.7, kg, 08/28/24 11:11:00 EDT, Weight Dosing mupirocin Top 2% Oint: See Instructions, 22 gm, Refill(s) 1, APPLY 1 APPLICATION TOPICALLY THREE TIMES A DAY, [facility], 173, cm, 03/06/24 11:03:00 EST, Height/Length Dosing, 138.2, kg, 03/06/24 11:03:00 EST, Weight Dosing Documented Medications Documented Misc Medication: See Instructions, 2 capsules of the focus factor daily Misc Medication: See Instructions, magnsium glyconate 275mg Take 3 orally twice a day Myrbetriq 50 mg oral tablet, extended release: 30 EA, take 1 tablet by mouth every morning, Refills(s) 0 Natpara 75 mcg/dose subcutaneous injection: 75 mcg, SubCutaneous, Daily, 30 EA, Refill(s) 0 Vitamin C 500 mg oral tablet, chewable: 500 mg = 1 tab(s), Chewed, Daily, Refills(s) 0, Prophylaxis Vitamin D3 10,000 intl units oral capsule: See Instructions, 5000 units every other day, Refills(s)0, Prophylaxis Vitamin K2: mcg, Oral, Daily, Refill(s) 0, Prophylaxis calcium (as calcium citrate) 200 mg oral tablet: mg tab(s), Oral, Daily, Refills(s) 0, Prophylaxis magnesium glycinate: Oral, Refills(s) 0, Prophylaxis ASA Classification: Class III. . Monitoring: See anesthesia record. . Procedure The procedure was performed in the hospital. See anesthesia record for sedation given during procedure. The patient was positioned starting in the left lateral (more content not included)...[facility] HospitalComment on above: Result Comment: Electronically Signed By: Eliud FAITH, Fadi Su.br\Date and Time Signed: 02/25/2509:28 ESTOther Comment: Missing Attachment - attachment storage system not supported [id number] Can be viewed in source systemMissing Attachment - attachment storage system not supported [id number] Can be viewed in source systemMissing Attachment - attachment storage system not supported [id number] Can be viewed in source systemMissing Attachment - attachment storage system not supported [id number] Can be viewed in source systemMissing Attachment - attachment storage system not supported 4883363 Can be viewed in source systemMissing Attachment - attachment storage system not supported [id number] Can be viewed in source systemMissing Attachment - attachment storage system not supported 2646075 Can be viewed in source systemMissing Attachment - attachment storage system not supported 3171134 Can be viewed in source eslvfk95(OH)D3 [facility] [id number]-cevrofrpzjbqng D3 [Mass/Vol]55.9 ng/yLAeuoxh19.0-80.0 [facility] HospitalComment on above:Order Comment: Specimen Type: BLOOD SPECIMENOrdering Facility: [facility] Address:[address] [place], [place] [address]Result Comment: Classification of 25 [place] Vitamin D status: Deficiency/Insufficiency: < or = 30 ng/ml. Sufficiency/Optimal Levels: 31-80 ng/mL Toxicity: > 100 ng/mL. Test performed by chemiluminescent immunoassay.Performed By: #### 1989-3 ####[facility] LABCLIA [id number] [place] [address] [place] OF AMERICACNCOon [id number] TextNormalCACMC Healthcare SystemCNPNon [id number] (ENDONO) MARCELINA CANO ([id number]) 1960 F Date Time Provider Department 02/22/25 DINA JOE During your visit today, we recorded the following information about you: Dina Joe MD 02/22/2025 11:38 AM Signed Addended by: DINA JOE on: 02/22/2025 11:38 AM Modules accepted: Nichole Cruz RN 02/22/2025 1:21 PM Signed Called patient to reiterate message from Dr. Joe No answer, left message Read the below to the patient: - She needs to get blood work done ZARIA. - She also needs to repeat 24 hour urine calcium testing for the insurance company. I have ordered this. - Pt needs to see Dr. Ceja at [facility]. She was scheduled a visit on 02/21 but that was then canceled. Dr. Ceja will schedule another visit in a week or so - please inform pt to check her AppJethart for that info and attend the appt. - Can she ask the [facility] people if they can give her more supply of the same beyond 03/08? If an order is needed, I or Dr. Ceja can order it. - Please let her know Dr. Ceja will be ordering the Yorvipath medication and that the [facility] team will be in touch with her but they need all the labs in order to start that process Patient states okay, I understand. I will contact [facility] and get an additional 2 weeks of my medication Patient agrees to complete blood work today, 02/22/25 and plans to tow picker the 24 hour urine container at lab but cannot complete until Tuesday02/26/25 due to her personal schedule Patient scheduled with Dr. Ceja for VV New on 02/28/25 at 0930. [facility] enrollment form sent to provider via email. Patient denies any additional questions at this time GT Machuca Leila, MD 02/22/2025 3:51 PM Signed Forms getting faxed now. I updated patient. Junie Ceja MD Dept of Endocrinology Junie Ceja MD 02/22/2025 3:51 PM Signed Addended by: JUNIE CEJA on: 02/22/2025 03:51 PM Modules accepted: Orders Allergies As of Date: 02/22/2025 Noted Allergy Reaction CLARITHROMYCIN 05/04/2023 6 - Diarrhea PREDNISONE 12/18/2018 14 - Other: See Comments Comments: Causes behaviors Date Reviewed: 10/30/2024 Reviewed by: Brittany Pinto MA - Fully Assessed Reason for Visit: Patient Update [1234] Primary Visit Diagnosis:Postprocedural hypoparathyroidism (HCC) [E89.2] Order(s):CALCIUM, 24 HR URINE [SQUCALCD] Order #: [id number] FUTURE CREATININE, 24 HOUR URINE [SQUCRD] Order #: [id number] FUTURE PTH INTACT [SQPTHI] Order #: [id number] FUTURE YORVIPATH 294 mcg/0.98 mL pen injectorInject 18 mcg subcutaneously once daily for 28 days.Disp: 1.98 mLRfl: 12 Prescriptions as of 02/22/2025 - YORVIPATH 294 mcg/0.98 mL pen injector Inject 18 mcg subcutaneously once daily for 28 days. - losartan (COZAAR) 50 mg tablet Take 1 tablet by mouth once daily. - levothyroxine (SYNTHROID) 175 mcg tablet Take 1 tablet by mouth once daily. - metoprolol succinate ER (TOPROL XL) 50 mg 24 hr tablet Take 50 mg by mouth. - calcium carbonate-vitamin D3 (CALTRATE 600 PLUS D) 600 mg-20 mcg (800 unit) tablet Take 1 tablet by mouth two times a day. - cholecalciferol (VITAMIN D-3) 5,000 unit tab Take 1 tablet Sun- Tues- Thurs- Sat - MAGNESIUM GLYCINATE PO Take 344 mg by mouth two times a day. - albuterol (PROVENTIL) 2.5 mg /3 mL (0.083 %) nebulizer solution - mirabegron (MYRBETRIQ) 50 mg Tb24 Take 1 tablet by mouth every morning. - citalopram (CELEXA) 20 mg tablet Take 20 mg by mouth daily at bedtime. - parathyroid hormone (NATPARA) 75 mcg/dose crtg Inject 75 mcg subcutaneously once daily. Problem List As Of Date 02/22/2025 Noted Resolved ASD (atrial septal defect) [Q21.10] 03/28/2012 04/14/2012 Ventricular septal defect (VSD), perimembranous*04/14/2012 Atypical chest pain [R07.89] 04/14/2012 Hypertension [I10] 04/14/2012 Obesity (BMI 35.0-39.9 without comorbidity) [E6*04/14/2012 JESSICA on CPAP [G47.33] 04/14/2012 Fatigue [R53.83] 04/14/2012 HAMMER/MALLET TOE [M20.40] 04/09/2014 METATARSALGIA/ENTHESOPATHY [M77.50] 04/09/2014 Enthesopathy of unspecified site [M77.9] 04/09/2014 Nausea [R11.0] 03/14/2017 Hypocalcemia [E83.51] 03/14/2017 Other specified hypothyroidism [E03.8] 03/15/2017 Postprocedural hypoparathyroidism (HCC) [E89.2] 08/30/2024 History of thyroid cancer [Z85.850] 08/30/2024 Postoperative hypothyroidism [E89.0] 02/19/2025 Prescriptions ordered this encounter Disp Refills Start End YORVIPATH 294 MCG/0.98 ML SUBCUTANEO* 1.98* 12 02/22/2025 03/22/2025 Route: SQ Sig: Inject 18 mcg subcutaneously once daily for 28 days. Encounter Status:Closed by DINA JOE on 02/22/25NoOur Lady of Mercy Hospital - AndersonCNPNTelephone (ENDONO) MARCELINA CANO ([id number]) 1960 F Date Time Provider Department 02/22/25 DINA JOE During your visit today, we recorded the following information about you: Nichole Garcia RN 02/22/2025 12:41 PM Signed Enrollment form completed for Key Sent via email to Dr. Joe and Dr. Ceja Awaiting patient to complete visit with Dr. Ceja (not yet scheduled) to submit the form once medication is ordered GT Machuca Asianna 02/22/2025 4:23 PM Addendum Completed form, medical necessity letter and notes received by provider. Successfully scanned in forms for review and faxed form to [employer] at [phone]. Amelia Ryan Resident Care Technician II Diabetes AND Endocrinology X-20 Nichole Garcia RN 02/25/2025 8:55 AM Signed Fax received in office by [facility] confirming recepit of patient's enrollment form For any additional questions call [facility] at [phone] (M-F [phone] EST) Nichole Garcia RN Allergies As of Date: 02/22/2025 Noted Allergy Reaction CLARITHROMYCIN 05/04/2023 6 - Diarrhea PREDNISONE 12/18/2018 14 - Other: See Comments Comments: Causes behaviors Date Reviewed: 10/30/2024 Reviewed by: Brittany Pinto MA - Fully Assessed Reason for Visit: Insurance Authorization [[id number]] Cmt: Key Enrollment Form Prescriptions as of 02/25/2025 - YORVIPATH 294 mcg/0.98 mL pen injector Inject 18 mcg subcutaneously once daily for 28 days. - losartan (COZAAR) 50 mg tablet Take 1 tablet by mouth once daily. - levothyroxine (SYNTHROID) 175 mcg tablet Take 1 tablet by mouth once daily. - metoprolol succinate ER (TOPROL XL) 50 mg 24 hr tablet Take 50 mg by mouth. - calcium carbonate-vitamin D3 (CALTRATE 600 PLUS D) 600 mg-20 mcg (800 unit) tablet Take 1 tablet by mouth two times a day. - cholecalciferol (VITAMIN D-3) 5,000 unit tab Take 1 tablet Sun- Tues- Thurs- Sat - MAGNESIUM GLYCINATE PO Take 344 mg by mouth two times a day. - albuterol (PROVENTIL) 2.5 mg /3 mL (0.083 %) nebulizer solution - mirabegron (MYRBETRIQ) 50 mg Tb24 Take 1 tablet by mouth every morning. - citalopram (CELEXA) 20 mg tablet Take 20 mg by mouth daily at bedtime. - parathyroid hormone (NATPARA) 75 mcg/dose crtg Inject 75 mcg subcutaneously once daily. Problem List As Of Date 02/22/2025 Noted Resolved ASD (atrial septal defect) [Q21.10] 03/28/2012 04/14/2012 Ventricular septal defect (VSD), perimembranous*04/14/2012 Atypical chest pain [R07.89] 04/14/2012 Hypertension [I10] 04/14/2012 Obesity (BMI 35.0-39.9 without comorbidity) [E6*04/14/2012 JESSICA on CPAP [G47.33] 04/14/2012 Fatigue [R53.83] 04/14/2012 HAMMER/MALLET TOE [M20.40] 04/09/2014 METATARSALGIA/ENTHESOPATHY [M77.50] 04/09/2014 Enthesopathy of unspecified site [M77.9] 04/09/2014 Nausea [R11.0] 03/14/2017 Hypocalcemia [E83.51] 03/14/2017 Other specified hypothyroidism [E03.8] 03/15/2017 Postprocedural hypoparathyroidism (HCC) [E89.2] 08/30/2024 History of thyroid cancer [Z85.850] 08/30/2024 Postoperative hypothyroidism [E89.0] 02/19/2025 Encounter Status:Closed by NICHOLE GARCIA on 02/22/25NormalCACMC Healthcare SystemCalcium.ionized [Moles/Vol]on 84-77-3504Viwldda.ionized (Bld) [Mass/Vol]1.06 mmol/LLow1.08-1.30[facility] HospitalComment on above: Order Comment: Specimen Type: BLOOD SPECIMENOrdering Facility: [facility] Address:[address] [place], [place] [address]Performed By: #### 1995-0 ####[facility] LABCLIA [id number] [place] [address] [place] OF AMERICACalcium.ionized adjusted to pH 7.4 (Bld) [Moles/Vol]1.06 mmol/LLow1.08-1.30[facility] on above: Order Comment: Specimen Type: BLOOD SPECIMENOrdering Facility: [facility] Address:[address] [place], [place] [address]Performed By: #### 1995-0 ####[facility] LABCLIA [id number] [place] [id number] [place] OF AMERICAComprehensive metabolic 2000 panelon 02-22-2025 Albumin [Mass/Vol]4.2 g/dLNormal3.9-4.9CNorwalk Memorial Hospital on above:Order Comment: Specimen Type: BLOOD SPECIMENOrdering Facility: [facility] Address:[address] [place], [place] [address]Performed By: #### 43743-6, 69966-8, 2776-04 ####[facility] LABCLIA [id number] [place] [id number] [place] STATES OF AMERICAALP [Catalytic activity/Vol]95 U/VTznjhi14-292DogewjnqaUniversity Hospitals Parma Medical Center on above:Order Comment: Specimen Type: BLOOD SPECIMENOrdering Facility: [facility] Address:[address] [place], [place] [address]Performed By: #### 97638- 8, 70524-6, 2776-04 ####[facility] LABCLIA [id number] [place] [address] [place] AMERICAALT [Catalytic activity/Vol]22 U/LNormal7-38[facility] on above:Order Comment: Specimen Type: BLOOD SPECIMENOrdering Facility: [facility] Address:[address] [place], [place] [address]Performed By: #### 31028-1, 79471-1, 2776-1 ####[facility] LABCLIA [id number] [place] [id number] [place] AMERICAAnion gap [Moles/Vol]15 mmol/LNormal8-15[facility] on above:Order Comment: Specimen Type: BLOOD SPECIMENOrdering Facility: [facility] Address:[address] [place], [place] [address]Performed By: #### 14750-3, , 2776-04 ####[facility] LABCLIA [id number] [place] [id number] [place] AST [Catalytic activity/Vol]30 U/RCayyua03-88YkwcbncewUniversity Hospitals Parma Medical Center on above:Order Comment: Specimen Type: BLOOD SPECIMENOrdering Facility: [facility] Address:[address] [place] [address] Performed By: #### 18346-2, , 2776-04 ####[facility] LABCLIA [id number] [place] [address] [place] AMERICABilirubin [Mass/Vol]0.4 mg/dLNormal0.2-1.3CNorwalk Memorial Hospital on above:Order Comment: Specimen Type: BLOOD SPECIMENOrdering Facility: [facility] Address:[address] [place], [place] [address]Performed By: #### 04341- 8, , 2776-04 ####[facility] LABCLIA [id number] [place] [address] [place] AMERICACalcium [Mass/Vol]8.6 mg/dL Normal8.5-10.2CNorwalk Memorial Hospital on above:Order Comment: Specimen Type: BLOOD SPECIMENOrdering Facility: [facility] Address:[address] [place], [place] [address]Performed By: #### 77175-5, , 2776-04 ####[facility] LABCLIA [id number] [place] [id number] [place] AMERICAChloride [Moles/Vol]98 mmol/QTptfld76-586IuvynhdekUniversity Hospitals Parma Medical Center on above:Order Comment: Specimen Type: BLOOD SPECIMENOrdering Facility: [facility] Address:[address] [place], [place] [address]Performed By: #### 77039-0, , 2776-04 ####[facility] LABCLIA [id number] [place] [id number] [place] AMERICACO2 [Moles/Vol]27 mmol/YIftlpr61-55AfgceawlyPromedica Memorial HospitalComment on above:Order Comment: Specimen Type: BLOOD SPECIMENOrdering Facility: [facility] Address:[address] [place] [address] Performed By: #### 43120-4, , 2776-04 ####[facility] DAYTONIA [id number] [place] [id number] [place] Creatinine [Mass/Vol]0.64 mg/dLNormal0.58-0.96[facility] on above:Order Comment: Specimen Type: BLOOD SPECIMENOrdering Facility: [facility] Address:[address] [place] [address] Performed By: #### 51909-3, , 2776-04 ####[facility] DAYTONIA [id number] [place] [id number] [place] OF AMERICAeGFRcr SerPlBld CKD-EPI 389222 mL/min/1.73m???Normal>=60[facility] Comment on above:Order Comment: Specimen Type: BLOOD SPECIMENOrdering Facility: [facility] Address:[address] [place], [place] [address]Result Comment: Estimated Glomerular Filtration Rate (eGFR) is calculated using the 2020 CKD-EPI creatinine equation. This equation utilizes serum creatinine, sex, and age as parameters. The creatinine assay has traceable calibration to isotope dilution-mass spectrometry. Refer to KDIGO guidelines for clinical interpretation. In patients with unstable renal function, e.g. those with acute kidney injury, the eGFR may not accurately reflect actual GFR.Performed By: #### 79381-5, 29849-2, 2776-04 ####[facility] LABIA [id number] [place] [id number] [place] AMERICAGlucose [Mass/Vol]91 mg/uSEpjkue17-52NprahvjahUniversity Hospitals Parma Medical Center on above:Order Comment: Specimen Type: BLOOD SPECIMENOrdering Facility: [facility] Address:[address] [place], [place] [address]Result Comment: The [place] Diabetes Association (ADA) provides guidance for cutoff values for fasting glucose and random glucose. The ADA defines fasting as no caloric intake for at least 8 hours. Fasting plasma glucose results between 100 to 125 mg/dL indicate increased risk for diabetes (prediabetes). Fasting plasma glucose results greater than or equal to 126 mg/dL meet the criteria for diagnosis of diabetes. In the absence of unequivocal hyperglycemia, results should be confirmed by repeat testing. In a patient with classic symptoms of hyperglycemia or hyperglycemic crisis, random plasma glucose results greater than or equal to 200 mg/dL meet the criteria for diagnosis of diabetes. Reference: Standards of Medical Care in Diabetes 2016, [place] Diabetes Association. Diabetes Care. 2016.39(Suppl 1).Performed By: #### 86397-5, 70547, 2776-04 ####[facility] LABCLIA [id number] [place] [address] [place] AMERICAPotassium [Moles/Vol]4.3 mmol/LNormal3.7-5.1CNorwalk Memorial Hospital on above:Order Comment: Specimen Type: BLOOD SPECIMENOrdering Facility: [facility] Address:[address] [place], [place] [address]Performed By: #### 97663-8, 89059-8, 2776-04 ####[facility] LABCLIA [id number] [place] [id number] [place] AMERICAProtein [Mass/Vol]7.8 g/dLNormal6.3-8.0 [facility] on above:Order Comment: Specimen Type: BLOOD SPECIMENOrdering Facility: [facility] Address:[address] [place], [place] [address]Performed By: #### 62321-8, , 2776-04 ####[facility] LABCLIA [id number] [place] [id number] [place] AMERICASodium [Moles/Vol]140 mmol/LMjdrzk800-357BvxvzxcukPromedica Memorial Hospital Comment on above:Order Comment: Specimen Type: BLOOD SPECIMENOrdering Facility: [facility] Address:[address] [place] [address] Performed By: #### 35561-4, 33673-4, 2776- ####[facility] LABCLIA [id number] [place] [address] [place] OF AMERICAUrea nitrogen [Mass/Vol]16 mg/dLNormal7-21[facility] on above: Order Comment: Specimen Type: BLOOD SPECIMENOrdering Facility: [facility] Address:[address] [place], [place] [address]Performed By: #### 67630- 8, 48353-9, 2776-04 ####[facility] LABCLIA [id number] [place] [address] [place] AMERICAMagnesium SerPl-mCncon [id number] [Mass/Vol]1.6 mg/dLLow1.7-2.3[facility] Comment on above:Order Comment: Specimen Type: BLOOD SPECIMENOrdering Facility: [facility] Address:[address] [place] [address] Performed By: #### 05510-3, 80316-5, 27710-23 ####[facility] LABCLIA [id number] [place] [address] [place] AMERICAPTH- Intact SerPl-mCncon [id number].intact [Mass/Vol]pg/hZOqr36-62BlvohhyfnUniversity [facility]als [facility] on above:Order Comment: Specimen Type: BLOOD SPECIMENOrdering Facility: [facility] Address:[address] [place], [place] [address]Result Comment: Result rechecked.Performed By: #### 2731-8, 3016-3 ####[facility] LABCLIA [id number] [place] [address] [place] AMERICAPhosphate SerPl-mCncon [id number] [Mass/Vol]5.2 mg/dLHigh2.7-4.8CNorwalk [facility] on above:Order Comment: Specimen Type: BLOOD SPECIMENOrdering Facility: [facility] Address:[address] [place], [place] [address]Performed By: #### 72607- 8, 50263-0, 2777-1 ####[facility] LABCLIA [id number] [address] SerPl-aCncon [id number] Qn0.038 m[IU]/LLow0.270-4.200[facility] on above:Order Comment: Specimen Type: BLOOD SPECIMENOrdering Facility: [facility] Address:[address] [place], [place] [address]Performed By: #### 2731- 8, 3016-3 ####[facility] LABCLIA [id number] [address]ETCNPNon [id number] (EMQ) MARCELINA CANO ([id number]) 1960 F Date Time Provider Department 02/06/25 DINA JOE During your visit today, we recorded the following information about you: Quynh Lockhart 02/06/2025 1:01 PM Signed Marcelina is calling Dina Joe MD today to request lab orders placed for her upcoming appointment. Patient has been identified by name and birthdate. Duration of symptoms: N/A Person calling: self Call patient at: on cell [phone] (home) [phone] (cell) Was an appointment scheduled: No Closing statement: Please advise Nichole Price RN 02/06/2025 1:52 PM Signed Patient is inquiring if she needs labs for upcoming visit on 02/19/25 Most recent labs are below: Latest Ref Rng 10/30/2024 Albumin 3.9 - 4.9 g/dL 4.0 Calcium 8.5 - 10.2 mg/dL 9.0 Phosphorus 2.7 - 4.8 mg/dL 4.5 Glucose 74 - 99 mg/dL 85 BUN 7 - 21 mg/dL 14 Creatinine 0.58 - 0.96 mg/dL 0.57 (L) Sodium 136 - 144 mmol/L 135 (L) Potassium 3.7 - 5.1 mmol/L 5.0 Chloride 98 - 107 mmol/L 98 CO2 22 - 30 mmol/L 23 Anion Gap 8 - 15 mmol/L 14 eGFR >=60 mL/min/1.73m? 102 Ionized Calcium 1.08 - 1.30 mmol/L 0.89 (L) Vitamin D 25 Hydroxy 31.0 - 80.0 ng/mL 51.9 Vit D1,25 Dihydroxy 19.9 - 79.3 pg/mL 47.0 Legend: (L) Low Please review and advise Thank you! Nichole Garcia, RN Joshua, Ariadna Suárez RN 02/08/2025 1:31 PM Signed Pt advised via phone no labs needed prior to visit per Dr Joe Allergies As of Date: 02/06/2025 Noted Allergy Reaction CLARITHROMYCIN 05/04/2023 6 - Diarrhea PREDNISONE 12/18/2018 14 - Other: See Comments Comments: Causes behaviors Date Reviewed: 10/30/2024 Reviewed by: Brittany Pinto MA - Fully Assessed Reason for Visit: Orders [681] Prescriptions as of 02/08/2025 - metoprolol succinate ER (TOPROL XL) 50 mg 24 hr tablet Take 50 mg by mouth. - calcium carbonate-vitamin D3 (CALTRATE 600 PLUS D) 600 mg-20 mcg (800 unit) tablet Take 1 tablet by mouth two times a day. - cholecalciferol (VITAMIN D-3) 5,000 unit tab Take 1 tablet Sun- Tues- Thurs- Sat - MAGNESIUM GLYCINATE PO Take 344 mg by mouth two times a day. - levothyroxine (SYNTHROID) 175 mcg tablet Take 1 tablet by mouth once daily. - albuterol (PROVENTIL) 2.5 mg /3 mL (0.083 %) nebulizer solution - mirabegron (MYRBETRIQ) 50 mg Tb24 Take 1 tablet by mouth every morning. - citalopram (CELEXA) 20 mg tablet Take 20 mg by mouth daily at bedtime. - losartan (COZAAR) 25 mg tablet Take 25 mg by mouth once daily. - parathyroid hormone (NATPARA) 75 mcg/dose crtg Inject 75 mcg subcutaneously once daily. Problem List As Of Date 02/06/2025 Noted Resolved ASD (atrial septal defect) [Q21.10] 03/28/2012 04/14/2012 Ventricular septal defect (VSD), perimembranous*04/14/2012 Atypical chest pain [R07.89] 04/14/2012 Hypertension [I10] 04/14/2012 Obesity (BMI 35.0-39.9 without comorbidity) [E6*04/14/2012 JESSICA on CPAP [G47.33] 04/14/2012 Fatigue [R53.83] 04/14/2012 HAMMER/MALLET TOE [M20.40] 04/09/2014 METATARSALGIA/ENTHESOPATHY [M77.50] 04/09/2014 Enthesopathy of unspecified site [M77.9] 04/09/2014 Nausea [R11.0] 03/14/2017 Hypocalcemia [E83.51] 03/14/2017 Other specified hypothyroidism [E03.8] 03/15/2017 Postprocedural hypoparathyroidism (HCC) [E89.2] 08/30/2024 History of thyroid cancer [Z85.850] 08/30/2024 Encounter Status:Closed by ARIADNA MATHUR on 02/08/25[facility] Summaryon [id number] Visit SummaryAmbulatory Visit Summary MARCELINA CANO :1960 Visit Date:01/18/2025 Ambulatory Visit Instructions Your Care Team Primary Care Physician - Shweta Salazar This Is Your Medications List Non-Formulary Medication (Misc Medication) Non-Formulary Medication (Misc Medication) albuterol (albuterol 0.083% Inh Mnadie 3 mL) ascorbic acid (Vitamin C 500 mg oral tablet, chewable) calcium citrate (calcium (as calcium citrate) 200 mg oral tablet) cholecalciferol (Vitamin D3 10,000 intl units oral capsule) citalopram (citalopram 40 mg Tab) dicyclomine (dicyclomine 20 mg Tab) fluticasone (Flovent HFA 220 Aerosol) fluticasone nasal (Flonase 0.05 mg/inh [place]) hyoscyamine (Levsin 0.125 mg SL Tab) levothyroxine (levothyroxine 125 mcg (0.125 mg) Tab) losartan (losartan 50 mg Tab) magnesium glycinate menaquinone (Vitamin K2) metoprolol (metoprolol succinate 50 mg ER Tab) mirabegron (Myrbetriq 50 mg oral tablet, extended release) mupirocin topical (mupirocin Top 2% Oint) parathyroid hormone (Natpara 75 mcg/dose subcutaneous injection) Procedures Performed Cholecystectomy and exploration of bile duct, Colonoscopy, Hysterectomy, Thyroidectomy. What to do next Scheduled Follow-Up Appointments 2024 9:40 AM EDT With: Shweta Salazar Where: [address] [phone] Tuesday2025 9:40 AM EST With: Shweta Salazar Where: [address] [phone]- Medications What How Much When Why Instructions Unchanged albuterol (albuterol 0.083% Inh Mandie 3 mL) See instructions INHALE CONTENTS OF 1 VIAL (3 ML) EVERY 6 HOURS AND NEEDED Unchanged ascorbic acid (Vitamin C 500 mg oral tablet, chewable) 1 Tablets Chewed Every day Unchanged calcium citrate (calcium (as calcium citrate) 200 mg oral tablet) By Mouth Every day Unchanged cholecalciferol (Vitamin D3 10,000 intl units oral capsule) See instructions 5000 units every other day Unchanged citalopram (citalopram 40 mg Tab) 0.5 Tablets By Mouth Every day Unchanged dicyclomine (dicyclomine 20 mg Tab) 1 Tablets By Mouth 4 times a day Stomach spasm Duration: 10 Days Unchanged fluticasone (Flovent HFA 220 Aerosol) 1 Puffs Inhalation 2 times a day Acute URI Cough Unchanged fluticasone nasal (Flonase 0.05 mg/ inh [place]) 2 Sprays Nasal Inhalation Every day each nostril Unchanged hyoscyamine (Levsin 0.125 mg SL Tab) 1 Tablets By Mouth 4 times a day as needed for for spasm Elevated AST (SGOT) Irritable bowel syndrome with constipation and diarrhea Heartburn Stress-related physiological response affecting medical condition Obesity due to excess calories Unchanged levothyroxine (levothyroxine 125 mcg (0.125 mg) Tab) 175 Microgram By Mouth Every day Unchanged losartan (losartan 50 mg Tab) 1 Tablets By Mouth Every day Unchanged magnesium glycinate By Mouth Unchanged menaquinone (Vitamin K2) By Mouth Every day Unchanged metoprolol (metoprolol succinate 50 mg ER Tab) 1 Tablets By Mouth Every day Unchanged mirabegron (Myrbetriq 50 mg oral tablet, extended release) 30 EA, take 1 tablet by mouth every morning Unchanged mupirocin topical (mupirocin Top 2% Oint) See instructions APPLY 1 APPLICATION TOPICALLY THREE TIMES A DAY Unchanged Non-Formulary Medication (Misc Medication) See instructions magnsium glyconate 275mg Take3 orally twice a day Unchanged Non-Formulary Medication (Misc Medication) See instructions 2 capsules of the focus factor daily Unchanged parathyroid hormone (Natpara 75 mcg/ dose subcutaneous injection) 75 Microgram Subcutaneous Every day Allergies anabolic steroids (Angry) Biaxin (Diarrhea) Augmentin (Diarrhea) Problems Ongoing - Any problem that you are currently receiving treatment for. Altered bowel habits Anxiety Asthma, exercise induced BMI 45.0-49.9, adult Calcium deficiency Cough Elevated AST (SGOT) Excessive dietary caloric intake Fatty liver Fatty liver disease, nonalcoholic Heartburn Hx of thyroid cancer Hypertension Hypomagnesemia Hypoparathyroidism Hypothyroidism IBS (irritable bowel syndrome) Labial cyst Morbid obesity with BMI of 45.0-49.9, adult ARREOLA (nonalcoholic steatohepatitis) Nonsmoker Obesity due to excess calories Obesity, morbid, BMI 40.0-49.9 JESSICA on CPAP PAD (peripheral artery disease) SOB (shortness of breath) Stress-related physiological response affecting medical condition Tennis elbow Ventricular septal defect (VSD) Vitamin D deficiency Wheezing Patient Survey You may receive a survey via text or e-mail asking about your office visit. Please share your experience with us by completing your survey. We appreciate your feedback and thank you for choosing us for your care. Patient Portal You may access all of your results and other medical record i (more content not included)...[facility] Note on [id number] Office/Clinic NoteGastroenterology Office/Clinic Note Chief Complaint Change in bowels and elevated AST HPI Staff NEW, 64 year old female who presents today for a referral by COLIN Clancy for complaints of change in bowel habits and elevated AST. Denies Blood Thinners Denies GLP-1 Agonists Denies any family history of colon cancer/polyps or IBD Denies any previous EGD Patient has had Colonoscopy and Cologuard in the past. CT abd/pelv 10/11/24 IMPRESSION: No acute process in the abdomen or pelvis. Laboratory Results CMP A/G Ratio: 1.2 (01/25/24) AGAP: 12 mEq/L (01/25/24) Albumin Lvl: 4.3 gm/dL (01/25/24) Alk Phos: 95 Int._Unit/L (01/25/24) ALT: 41 Int._Unit/L (01/25/24) AST: 48 Int._Unit/L High (01/25/24) Bili Total: 0.8 mg/dL (01/25/24) BUN: 14 mg/dL (01/25/24) BUN/Creat Ratio: 20 (01/25/24) Calcium Lvl: 9 mg/dL (01/25/24) Chloride: 99 mmol/L Low (01/25/24) CO2: 30 mmol/L (01/25/24) Creatinine: 0.7 mg/dL (01/25/24) Globulin: 3.5 gm/dL (01/25/24) Glucose Lvl: 133 mg/dL (01/25/24) Potassium Lvl: 4.2 mmol/L (01/25/24) Sodium Lvl: 137 mmol/L (01/25/24) Total Protein: 7.8 gm/dL (01/25/24) History of Present Illness I have reviewed HPI staff note, most recent labs and imaging, I agree with the above documentation with the following additions/exceptions : PT with issues with altered bowel habits lots of stress - more frequent BMS or explosive or regular skin tags multiple places sister with parasite hx of colonoscopy - Cologuard during COVID some heartburn hx of thyroidectomy Lost many friends in the past year Review of Systems PHQ Score Initial Depression Screen Score: 0 SCORE All systems reviewed, negative except as mentioned above Physical Exam Vitals & Measurements HR: 68(Peripheral) BP: 132/76 HT: 68 in HT: 173 cm WT: 307.765 lb WT: 139.6 kg BMI: 46.64 General: alert, no acute distress HEENT: atraumatic normocephalic Cardiovascular: regular rate and rhythm, normal peripheral perfusion Respiratory: Lungs CTA, respirations non labored Extremities: no deformity, no trauma Abdomen: Benign, soft, nontender nondistended Assessment/Plan 1. Elevated AST (SGOT) (R74.01: Elevation of levels of liver transaminase levels) Ordered: hyoscyamine, 0.125 mg = 1 tab(s), Oral, QID, PRN for spasm, # 40 tab(s), Refills(s) 0, Pharmacy: [facility], 173, cm, 01/23/25 13:52:00 EDT, Height/Length Dosing, 139.6, kg, 01/23/25 13:52:00 EDT, Weight Dosing Colonoscopy (Hospital Procedure) 2. Irritable bowel syndrome with constipation and diarrhea (K58.2: Mixed irritable bowel syndrome) Ordered: hyoscyamine, 0.125 mg = 1 tab(s), Oral, QID, PRN for spasm, # 40 tab(s), Refills(s) 0, Pharmacy: [facility], 173, cm, 01/23/25 13:52:00 EDT, Height/Length Dosing, 139.6, kg, 01/23/25 13:52:00 EDT, Weight Dosing Colonoscopy (Hospital Procedure) 3. Heartburn (R12: Heartburn) Ordered: hyoscyamine, 0.125 mg = 1 tab(s), Oral, QID, PRN for spasm, # 40 tab(s), Refills(s) 0, Pharmacy: [facility], 173, cm, 01/23/25 13:52:00 EDT, Height/Length Dosing, 139.6, kg, 01/23/25 13:52:00 EDT, Weight Dosing Colonoscopy (Hospital Procedure) 4. Stress-related physiological response affecting medical condition (F54: Psychological and behavioral factors associated with disorders or diseases classified elsewhere) Ordered: hyoscyamine, 0.125 mg = 1 tab(s), Oral, QID, PRN for spasm, # 40 tab(s), Refills(s) 0, Pharmacy: [facility], 173, cm, 01/23/25 13:52:00 EDT, Height/Length Dosing, 139.6, kg, 01/23/25 13:52:00 EDT, Weight Dosing Colonoscopy (Hospital Procedure) 5. Obesity due to excess calories (E66.09: Other obesity due to excess calories) Ordered: hyoscyamine, 0.125 mg = 1 tab(s), Oral, QID, PRN for spasm, # 40 tab(s), Refills(s) 0, Pharmacy: [facility], 173, cm, 01/23/25 13:52:00 EDT, Height/Length Dosing, 139.6, kg, 01/23/25 13:52:00 EDT, Weight Dosing Colonoscopy (Hospital Procedure) 6. Altered bowel habits (R19.4: Change in bowel habit) 7. Fatty liver (K76.0: Fatty (change of) liver, not elsewhere classified) 8. ARREOLA (nonalcoholic steatohepatitis) (K75.81: Nonalcoholic steatohepatitis (ARREOLA)) Advised to work on losing 10% of current weight. If liver numbers are not better, will obtain extensive workup Obtain colonoscopy with TI evaluation and random colon biopsies Advised to get stress under good control Give Levsin 0.2025 mg every 6 hours as needed Might benefit from neuromodulator in the future Follow-up No qualifying data available Problem List/Past Medical History Ongoing Altered bowel habits Anxiety Asthma, exercise induced BMI 45.0-49.9, adult Calcium deficiency Cough Elevated AST (SGOT) Excessive dietary caloric intake Fatty liver Fatty liver disease, nonalcoholic Heartburn Hx of thyroid cancer Hypertension Hypomagnesemia Hypoparathyroidism Hypothyroidism IBS (irritable pauly (more content not included)...[facility] HospitalComment on above:Result Comment: Electronically Signed By: Eliud FAITH, Fadi Cleary\Date and Time Signed: 01/23/2514:27 EDTAmbulatory Visit Summaryon [id number] Visit SummaryAmbulatory Visit Summary MARCELINA CANO :1960 Visit Date:01/17/2025 Ambulatory Visit Instructions Your Diagnosis IBS (irritable bowel syndrome) Fatty liver disease, nonalcoholic Hypertension BMI 45.0-49.9, adult Nonsmoker Stomach spasm Your Care Team Attending Physician - Shweta Salazar Primary Care Physician - Shweta Salazar This Is Your Medications List Non-Formulary Medication (Misc Medication) Non-Formulary Medication (Misc Medication) albuterol (albuterol 0.083% Inh Mandie 3 mL) ascorbic acid (Vitamin C 500 mg oral tablet, chewable) cholecalciferol (Vitamin D3 10,000 intl units oral capsule) citalopram (citalopram 40 mg Tab) dicyclomine (dicyclomine 20 mg Tab) fluticasone (Flovent HFA 220 Aerosol) fluticasone nasal (Flonase 0.05 mg/inh [place]) levothyroxine (levothyroxine 125 mcg (0.125 mg) Tab) losartan (losartan 50 mg Tab) metoprolol (metoprolol succinate 50 mg ER Tab) mirabegron (Myrbetriq 50 mg oral tablet, extended release) mupirocin topical (mupirocin Top 2% Oint) parathyroid hormone (Natpara 75 mcg/dose subcutaneous injection) Procedures Performed Cholecystectomy and exploration of bile duct, Colonoscopy, Hysterectomy, Thyroidectomy. Discharge Vitals Temperature (Temporal Artery) 36.3 ???C Heart Rate (Peripheral) 62 Respiratory Rate 20 Blood Pressure 140/90 Height 68 in Height 173.0 cm Weight 308.647 lb Weight 140.0 kg BMI 46.78 What to do next Scheduled Follow-Up Appointments 2024 9:40 AM EDT With: Shweta Salazar Where: [address] [phone]- Tuesday2025 9:40 AM EST With: Shweta Salazar Where: [facility] [address] [address]- You Need to Schedule the Following Appointments Follow Up with Shweta Salazar, FRANK, MED When: In 2 weeks Where: [address] [place] [address]- Medications What How Much When Why Instructions New dicyclomine (dicyclomine 20 mg Tab) 1 Tablets By Mouth 4 times a day Stomach spasm Duration: 10Days Pickup at [facility] New losartan (losartan 50 mg Tab) 1 Tablets By Mouth Every day Pickup at [facility] Unchanged albuterol (albuterol 0.083% Inh Mandie 3 [...] Unchanged fluticasone nasal (Flonase 0.05 mg/ inh [place]) 2 Sprays Nasal Inhalation Every day each nostril Unchanged levothyroxine (levothyroxine 125 mcg (0.125 mg) Tab) 175 Microgram By Mouth Every day Unchanged metoprolol (metoprolol succinate 50 mg ER Tab) 1 Tablets By Mouth Every day Unchanged mirabegron (Myrbetriq 50 mg oral tablet, extended release) 30 EA, take 1 tablet by mouth every morning Unchanged mupirocin topical (mupirocin Top 2% Oint) See instructions APPLY 1 APPLICATION TOPICALLY THREE TIMES A DAY Unchanged Non-Formulary Medication (Misc Medication) See instructions magnsium glyconate 275mg Take3 orally twice a day Unchanged Non-Formulary Medication (Misc Medication) See instructions 2 capsules of the focus factor daily Unchanged parathyroid hormone (Natpara 75 mcg/ dose subcutaneous injection) 75 Microgram Subcutaneous Every day Pharmacy Information [facility]: [address] [place] [id number] [phone] Allergies anabolic steroids (Angry) Biaxin (Diarrhea) Augmentin (Diarrhea) Problems Ongoing - Any problem that you are currently receiving treatment for. Anxiety Asthma, exercise induced BMI 45.0-49.9, adult Calcium deficiency Cough Elevated AST (SGOT) Excessive dietary caloric intake Fatty liver disease, nonalcoholic Hx of thyroid cancer Hypertension Hypomagnesemia Hypoparathyroidism Hypothyroidism IBS (irritable bowel syndrome) Labial cyst Morbid obesity with BMI of 45.0-49.9, adult Nonsmoker Obesity, morbid, BMI 40.0-49.9 JESSICA on CPAP PAD (peripheral artery disease) SOB (shortness of breath) Tennis elbow Ventricular septal defect (VSD) Vitamin D deficiency Wheezing Patient Survey You may receive a survey via text or e-mail asking about your office visit. Please share your experience with us by completing your survey. We appreciate your feedback and thank you for choosing us for your care. Patient Portal You may access all of your results and other medical record information on our secure patient p (more content not included)...[facility] Office/Clinic Noteon [id number]/Clinic NoteFawestborough [facility] Office/Clinic Note HPI Staff Pt is here for bowel issues/ stomach pain She stopped drinking pop over a week ago, constipated and diarrhea Dx with IBS She said stress is a big trigger for this, she takes a nap Does not have a GI doctor Colonoscopy needed, she said she has not had time, order was put in by Mamadou but it was over a year ago History of Present Illness pt presents today with worsening stomach pain and bowel issues. BP is elevated Review of Systems PHQ Score Initial Depression Screen Score: 0 SCORE Physical Exam Vitals & Measurements T: 36.3 ???C(Temporal Artery) HR: 62(Peripheral) RR: 20 BP: 140/90 SpO2: 98% HT: 173.0 cm HT: 68 in WT: 140.0 kg WT: 308.647 lb BMI: 46.78 General: alert, no acute distress ENMT: oral mucosa moist, no pharyngeal erythema or exudate Cardiovascular: regular rate and rhythm, normal peripheral perfusion Respiratory: Lungs CTA, respirations non labored Extremities: no deformity, no trauma Neurological: oriented x 4, LOC appropriate for age, CN II-XII intact, motor strength equal & normal bilaterally, speech normal Assessment/Plan 1. IBS (irritable bowel syndrome) (K58.9: Irritable bowel syndrome, unspecified) pt feels this is worsening she can start her day constipated and a few hours later she will have watery stool. She is due for colonoscopy. will send referral to GI for further evaluation. Ordered: [facility] Internal Ambulatory Referral 2. Fatty liver disease, nonalcoholic (K76.0: Fatty (change of) liver, not elsewhere classified) she recently had life line screening that showed she had fatty liver disease Ordered: [facility] Internal Ambulatory Referral 3. Hypertension (I10: Essential (primary) hypertension) BP elevated in office will increase losartan to 50mg Ordered: [facility] Internal Ambulatory Referral 4. BMI 45.0-49.9, adult (Z68.42: Body mass index [BMI] 45.0-49.9, adult) BMI educaiton Ordered: [facility] Internal Ambulatory Referral 5. Nonsmoker (Z78.9: Other specified health status) continue not smoking Stomach spasm (K31.89: Other diseases of stomach and duodenum) will send in bentyl Ordered: dicyclomine, 20 mg = 1 tab(s), Oral, QID, X 10 day(s), # 40 tab(s), Refills(s) 0, Pharmacy: [facility], 173, cm, 01/17/25 13:37:00 EDT, Height/Length Dosing, 140, kg, 01/17/25 13:37:00 EDT, Weight Dosing [facility] Internal Ambulatory Referral Orders: levothyroxine, 175 mcg, Oral, Daily, # 90 tab(s), Refills(s) 0, Pharmacy: [facility] #[id number], 173, cm,08/22/23 11:06:00 EDT, Height/Length Dosing, 140, kg, 08/22/23 11:06:00 EDT, Weight Dosing losartan, See Instructions, TAKE 1 TABLET DAILY, # 90 tab(s), Refills(s) 3, Pharmacy: [facility], 173, cm, 05/29/24 10:47:00 EST, Height/Length Dosing, 145.7, kg, 05/29/24 10:47:00EST, Weight Dosing losartan, 50 mg = 1 tab(s), Oral, Daily, # 30 tab(s), Refills(s) 0, Pharmacy: [facility], 173, cm, 01/17/25 13:37:00 EDT, Height/Length Dosing, 140, kg, 01/17/25 13:37:00 EDT, Weight Dosing Follow-up With When Contact Information Reji SHAW, Shweta Medeiros, FRANK, MED In [address] [place], [place] [phone]- Additional Instructions: Problem List/Past Medical History Ongoing Anxiety Asthma, exercise induced BMI 45.0-49.9, adult Calcium deficiency Cough Elevated AST (SGOT) Excessive dietary caloric intake Fatty liver disease, nonalcoholic Hx of thyroid cancer Hypertension Hypomagnesemia Hypoparathyroidism Hypothyroidism IBS (irritable bowel syndrome) Labial cyst Morbid obesity with BMI of 45.0-49.9, adult Nonsmoker Obesity, morbid, BMI 40.0-49.9 JESSICA on CPAP PAD (peripheral artery disease) SOB (shortness of breath) Tennis elbow Ventricular septal defect (VSD) Vitamin D deficiency Wheezing Historical No qualifying data Procedure/Surgical History Cholecystectomy and exploration of bile duct, Colonoscopy, Hysterectomy, Thyroidectomy. Medications albuterol 0.083% Inh Mandie 3 mL, See Instructions citalopram 40 mg Tab, 20 mg= 0.5 tab(s), Oral, Daily, 1 refills dicyclomine 20 mg Tab, 20 mg= 1 tab(s), Oral, QID Flonase 0.05 mg/inh [place], 2 spray(s), Nasal, Daily Flovent HFA 220 Aerosol, 1 puff(s), Inhalation, BID levothyroxine 125 mcg (0.125 mg) Tab, 175 mcg, Oral, Daily losartan 50 mg Tab, 50 mg= 1 tab(s), Oral, Daily metoprolol succinate 50 mg ER Tab, 50 mg= 1 tab(s), Oral, Daily, 4 refills Misc Medication, See Instructions Misc Medication, See Instructions mupirocin Top 2% Oint, See Instructions, 1 refills Myrbetriq 50 mg oral tablet, extended release Natpara 75 mcg/dose subcutaneous injection, 75 mcg, SubCutaneous, Daily Vitamin C 500 mg oral tablet, chewable, 500 mg= 1 tab(s), Chewed, Daily Vitamin D3 10,000 intl units oral capsule, See Instructions Allergies anabolic steroids (Angry) Biaxin (Diarrhea) Augmentin (Diarrhea) Social History Alcohol - Low Risk, 07/27/2022 (more content not included)...[facility] HospitalComment on above: Result Comment: Electronically Signed By: Shweta Salazar\.br\Date and Time Signed: 01/17/25 13:59 EDTCNPNon [id number] (ENDONO) MARCELINA CANO ([id number]) 1960 F Date Time Provider Department 01/09/25 DINA JOE During your visit today, we recorded the following information about you: Nayla Yeung 01/09/2025 2:05 PM Signed Physician: Dr. Joe Call from patient requesting refill. Please Call in synthroid Requested Prescriptions Pending Prescriptions Disp Refills levothyroxine (SYNTHROID) 175 mcg tablet 90 tablet 2 Sig: Take 1 tablet by mouth once daily. Pharmacy Name: [email or web address] Phone #: [phone] Ariadna Muhammad RN 01/10/2025 9:23 AM Signed Spoke with [facility] pharmacy where script was sent, they stated the script is current and patient could tow picker tomorrow. Spoke with patient and advised, patient stated she will tow picker tomorrow at [facility] pharmacy Allergies As of Date: 01/09/2025 Noted Allergy Reaction CLARITHROMYCIN 05/04/2023 6 - Diarrhea PREDNISONE 12/18/2018 14 - Other: See Comments Comments: Causes behaviors Date Reviewed: 10/30/2024 Reviewed by: Brittany Pinto MA - Fully Assessed Reason for Visit: Orders [681] Prescriptions as of 01/29/2025 - metoprolol succinate ER (TOPROL XL) 50 mg 24 hr tablet Take 50 mg by mouth. - calcium carbonate-vitamin D3 (CALTRATE 600 PLUS D) 600 mg-20 mcg (800 unit) tablet Take 1 tablet by mouth two times a day. - cholecalciferol (VITAMIN D-3) 5,000 unit tab Take 1 tablet Sun- Tues- Thurs- Sat - MAGNESIUM GLYCINATE PO Take 344 mg by mouth two times a day. - levothyroxine (SYNTHROID) 175 mcg tablet Take 1 tablet by mouth once daily. - albuterol (PROVENTIL) 2.5 mg /3 mL (0.083 %) nebulizer solution - mirabegron (MYRBETRIQ) 50 mg Tb24 Take 1 tablet by mouth every morning. - citalopram (CELEXA) 20 mg tablet Take 20 mg by mouth daily at bedtime. - losartan (COZAAR) 25 mg tablet Take 25 mg by mouth once daily. - parathyroid hormone (NATPARA) 75 mcg/dose crtg Inject 75 mcg subcutaneously once daily. Problem List As Of Date 01/09/2025 Noted Resolved ASD (atrial septal defect) [Q21.10] 03/28/2012 04/14/2012 Ventricular septal defect (VSD), perimembranous*04/14/2012 Atypical chest pain [R07.89] 04/14/2012 Hypertension [I10] 04/14/2012 Obesity (BMI 35.0-39.9 without comorbidity) [E6*04/14/2012 JESSICA on CPAP [G47.33] 04/14/2012 Fatigue [R53.83] 04/14/2012 HAMMER/MALLET TOE [M20.40] 04/09/2014 METATARSALGIA/ENTHESOPATHY [M77.50] 04/09/2014 Enthesopathy of unspecified site [M77.9] 04/09/2014 Nausea [R11.0] 03/14/2017 Hypocalcemia [E83.51] 03/14/2017 Other specified hypothyroidism [E03.8] 03/15/2017 Postprocedural hypoparathyroidism (HCC) [E89.2] 08/30/2024 History of thyroid cancer [Z85.850] 08/30/2024 Encounter Status:Closed by NAYLA YEUNG on 01/29/25[facility] Medicine Office/Clinic Noteon [id number] Medicine Office/Clinic NoteAddison [facility] Medicine Office/Clinic Note HPI Staff Marcelina is a 64 year old female presenting with wanting to go over results from her life screening (patient is bringing these with her) History of Present Illness pt presents today to go over life screening results. Review of Systems PHQ Score Initial Depression Screen Score: 0 SCORE Physical Exam Vitals & Measurements T: 36.2 ???C(Temporal Artery) HR: 66(Peripheral) RR: 18 BP: 140/92 SpO2: 99% HT: 68 in HT: 173.0 cm WT: 141.7 kg WT: 312.395 lb BMI: 47.35 General: alert, no acute distress ENMT: oral mucosa moist, no pharyngeal erythema or exudate Cardiovascular: regular rate and rhythm, normal peripheral perfusion Respiratory: Lungs CTA, respirations non labored Extremities: no deformity, no trauma Neurological: oriented x 4, LOC appropriate for age, CN II-XII intact, motor strength equal & normal bilaterally, speech normal Assessment/Plan 1. PAD (peripheral artery disease) (I73.9: Peripheral vascular disease, unspecified) Life screening showed she has mild PAD. using KALEIGH testing. will start asa. discussed if her leg pain worsens we can refer her to vascular surgeon. pt will wear compression stockings. pt refuses to have cholesterol checked at this time. RTC 6 months 2. Elevated AST (SGOT) (R74.01: Elevation of levels of liver transaminase levels) will recheck at next visit. 6 months 3. Fatty liver disease, nonalcoholic (K76.0: Fatty (change of) liver, not elsewhere classified) pt was told he has fatty liver. this could be contributing to the elevated AST. recommended liver u/s but she would like to hold off on that at this time. she is going to take an all natural supplement that helps with fatty liver. 4. BMI 45.0-49.9, adult (Z68.42: Body mass index [BMI] 45.0-49.9, adult) BMI education. discussed weight loss helping to lower BP and lower her risk of heart attack and stroke 5. Obesity, morbid, BMI 40.0-49.9 (E66.01: Morbid (severe) obesity due to excess calories) Follow-up No qualifying data available Problem List/Past Medical History Ongoing Anxiety Asthma, exercise induced BMI 45.0-49.9, adult Calcium deficiency Cough Elevated AST (SGOT) Excessive dietary caloric intake Fatty liver disease, nonalcoholic Hx of thyroid cancer Hypomagnesemia Hypoparathyroidism Hypothyroidism Labial cyst Morbid obesity with BMI of 45.0-49.9, adult Nonsmoker Obesity, morbid, BMI 40.0-49.9 JESSICA on CPAP PAD (peripheral artery disease) SOB (shortness of breath) Tennis elbow Ventricular septal defect (VSD) Vitamin D deficiency Wheezing Historical No qualifying data Procedure/Surgical History Cholecystectomy and exploration of bile duct, Colonoscopy, Hysterectomy, Thyroidectomy. Medications albuterol 0.083% Inh Mandie 3 mL, See Instructions citalopram 40 mg Tab, 20 mg= 0.5 tab(s), Oral, Daily, 1 refills Flonase 0.05 mg/inh [place], 2 spray(s), Nasal, Daily Flovent HFA 220 Aerosol, 1 puff(s), Inhalation, BID levothyroxine 125 mcg (0.125 mg) Tab, See Instructions losartan 25 mg Tab, See Instructions metoprolol succinate 50 mg ER Tab, 50 mg= 1 tab(s), Oral, Daily, 4 refills Misc Medication, See Instructions Misc Medication, See Instructions mupirocin Top 2% Oint, See Instructions, 1 refills Myrbetriq 50 mg oral tablet, extended release Natpara 75 mcg/dose subcutaneous injection, 75 mcg, SubCutaneous, Daily Vitamin C 500 mg oral tablet, chewable, 500 mg= 1 tab(s), Chewed, Daily Vitamin D3 10,000 intl units oral capsule, See Instructions Allergies anabolic steroids (Angry) Biaxin (Diarrhea) Augmentin (Diarrhea) Social History Alcohol - Low Risk, 07/27/2022 Current. Wine. 1-2 times per month., 03/27/2024 Substance Abuse - Denies Substance Abuse, 06/29/2022 Never., 03/27/2024 Tobacco - Denies Tobacco Use, 06/29/2022 Never (less than 100 in lifetime) Tobacco Use:. Never Smokeless Tobacco Use:. Household tobacco concerns: No. Yes, 12/25/2024 Family History Alcoholism: Mother. Diabetes mellitus type 2: Brother. Hyperlipidemia: Sister. Parkinson disease: Brother. Immunizations Vaccine Date Status Comments influenza virus vaccine, inactivated - Not Given Postpone due to refusal influenza virus vaccine, inactivated 02/13/2022 Recorded SARS-CoV-2 (COVID-19) [id number].[id number] 02/13/2022 Recorded SARS-CoV-2 (COVID-19) mRNA BNT-162b2 vax 02/11/2021 Recorded SARS-CoV-2 (COVID-19) mRNA BNT-162b2 vax 07/11/2020 Recorded SARS-CoV-2 (COVID-19) mRNA BNT-162b2 vax 06/20/2020 Recorded influenza virus vaccine, inactivated 02/05/2015 Recorded influenza virus vaccine, inactivated 01/29/2015 RecordedAultman Orrville HospitalComment on above:Result Comment: Electronically Signed By: Shweta Salazar\.br\Date and Time Signed: 12/26/24 08:09 EDTAmbulatory Visit Summary on [id number] Visit SummaryAmbulatory Visit Summary MARCELINA CANO :1960 Visit Date:12/25/2024 Ambulatory Visit Instructions Your Diagnosis PAD (peripheral artery disease) Elevated AST (SGOT) Fatty liver disease, nonalcoholic Your Care Team Attending Physician - Shweta Salazar Primary Care Physician - Ebony Sequeira MD This Is Your Medications List Non-Formulary Medication (Misc Medication) Non-Formulary Medication (Misc Medication) albuterol (albuterol 0.083% Inh Mandie 3 mL) ascorbic acid (Vitamin C 500 mg oral tablet, chewable) cholecalciferol (Vitamin D3 10,000 intl units oral capsule) citalopram (citalopram 40 mg Tab) fluticasone (Flovent HFA 220 Aerosol) fluticasone nasal (Flonase 0.05 mg/inh [place]) levothyroxine (levothyroxine 125 mcg (0.125 mg) Tab) losartan (losartan 25 mg Tab) metoprolol (metoprolol succinate 50 mg ER Tab) mirabegron (Myrbetriq 50 mg oral tablet, extended release) mupirocin topical (mupirocin Top 2% Oint) parathyroid hormone (Natpara 75 mcg/dose subcutaneous injection) Procedures Performed Cholecystectomy and exploration of bile duct, Colonoscopy, Hysterectomy, Thyroidectomy. Discharge Vitals Temperature (Temporal Artery) 36.2 ???C Heart Rate (Peripheral) 66 Respiratory Rate 18 Blood Pressure 140/92 Height 68 in Height 173.0 cm Weight 312.395 lb Weight 141.7 kg BMI 47.35 What to do next Scheduled Follow-Up Appointments Tuesday2025 9:40 AM EST With: Shweta Salazar Where: [place] [phone]- Medications What How Much When Why Instructions [...] Unchanged fluticasone nasal (Flonase 0.05 mg/ inh [place]shire) 2 Sprays Nasal Inhalation Every day each [...] (Misc Medication) See instructions magnsium glyconate 275mg Take3 orally twice a day Unchanged Non-Formulary Medication (Misc Medication) See instructions 2 capsules of the focus factor daily Unchanged parathyroid hormone (Natpara 75 mcg/ dose subcutaneous injection) 75 Microgram Subcutaneous Every day Allergies anabolic steroids (Angry) Biaxin (Diarrhea) Augmentin (Diarrhea) Problems Ongoing - Any problem that you are currently receiving treatment for. Anxiety Asthma, exercise induced BMI 45.0-49.9, adult Calcium deficiency Cough Elevated AST (SGOT) Excessive dietary caloric intake Fatty liver disease, nonalcoholic Hx of thyroid cancer Hypomagnesemia Hypoparathyroidism Hypothyroidism Labial cyst Morbid obesity with BMI of 45.0-49.9, adult Nonsmoker Obesity, morbid, BMI 40.0-49.9 JESSICA on CPAP PAD (peripheral artery disease) SOB (shortness of breath) Tennis elbow Ventricular septal defect (VSD) Vitamin D deficiency Wheezing Patient Survey You may receive a survey via text or e-mail asking about your office visit. Please share your experience with us by completing your survey. We appreciate your feedback and thank you for choosing us for your care. Patient Portal You may access all of your results and other medical record information on our secure patient portal. If you are not signed up for this yet, please contact [employer] at [phone] to get signed up today. Language Information Language assistance services are available as needed. [facility]1,25-dihydroxyvitamin D3 [Mass/Vol]on ,25 Dihydroxy Vitamin Total47 pg/mL19.9 - 79.3 pg/mL [facility]. [facility] HospitalInterpretation and review of laboratory resultsNormalCUC Health25-hydroxyvitamin D3 [Mass/Vol]on 73-80-2619Xqdlwpyaeztoqm and review of laboratory resultsNoAvita Health System Bucyrus HospitalThe reference range interval was based on an analysis of samples from healthy adults and may not per tain to children from 0-18 years old. [facility] HospitalCalcium.ionized [Moles/Vol]on 10-31-2024 Calcium.ionized (Bld) [Mass/Vol]0.89 mmol/LLow1.08 - 1.30 mmol/LCAultman Hospital Calcium.ionized adjusted to pH 7.4 (Bld) [Moles/Vol][facility] HospitalComment on above:Measured pH is > 7.6. Unable to report normalized Calcium.Interpretation and review of laboratory resultsAbnoalCUC HealthRenal function 2000 panelon [id number] [Mass/Vol]4 g/dL3.9 - 4.9 g/dLSt. Charles HospitalAnion gap [Moles/Vol]14 mmol/L8 - 15 mmol/LCleveland ClinicCalcium [Mass/Vol]9 mg/dL8.5 - 10.2 mg/dLCherry Plain ClinicChloride [Moles/Vol]98 mmol/L98 - 107 mmol/LCleveland ClinicCO2 [Moles/Vol]23 mmol/L22 - 30 mmol/LCleveland ClinicCreatinine [Mass/Vol]0.57 mg/dLLow0.58 - 0.96 mg/dLSt. Charles Hospital GFR/1.73 sq M.predicted among non-blacks MDRD (S/P/Bld) [Vol rate/Area]102 mL/min/{1.73_m2}- PINFCcincinnati va medical centerand Mayo Clinic HospitalComment on above:Estimated Glomerular Filtration Rate (eGFR) is calculated using the 2020 CKD-EPI creatinine equation. This equation utilizes serum creatinine, sex, and age as parameters. The creatinine assay has traceable calibration to isotope dilution-mass spectrometry. Refer to KDIGO guidelines for clinical interpretation. In patients with unstable renal function, e.g. those with acute kidney injury, the eGFRmay not accurately reflect actual GFR.Glucose [Mass/Vol]85 mg/dL74 - 99 mg/dL [facility]. [facility] HospitalComment on above:The [place] Diabetes Association (ADA) provides guidance for cutoff values for fasting glucose andrandom glucose. The ADA defines fasting as no caloric intake for at least 8 hours. Fasting plasma gl ucose results between 100 to 125 mg/dL indicate increased risk for diabetes (prediabetes). Fasting plasma glucose results greater than or equal to 126 mg/dL meet the criteria for diagnosis of diabetes. In the absence of unequivocal hyperglycemia, results should be confirmed by repeat testing. In a patient with classic symptoms of hyperglycemia or hyperglycemic crisis, random plasma glucose results greater than or equal to 200 mg/dL meet the criteria for diagnosis of diabetes. Reference: Standards of Medical Care in Diabetes 2016, [place] Diabetes Association. Diabetes Care. 2016.39(Suppl 1). Interpretation and review of laboratory resultsAbnormalCleveland ClinicPhosphate [Mass/Vol]4.5 mg/dL2.7 - 4.8 mg/dLCherry Plain ClinicPotassium [Moles/Vol]5 mmol/L 3.7 - 5.1 mmol/LCleveland ClinicSodium [Moles/Vol]135 mmol/ZRzc085 - 144 mmol/L [facility]. Charles HospitalUrea nitrogen [Mass/Vol]14 mg/dL7 - 21 mg/dLDelaware County HospitalVITAMIN D 25 HYDROXYon [id number]-lmodgyijwwsxbl D3 [Mass/Vol] 51.9 ng/mL31.0 - 80.0 ng/mLCKettering Health Springfield on above:Classification of 25 [place] Vitamin D status: Deficiency/Insufficiency: < or = 30 ng/ml. Sufficiency/Optimal Levels: 31-80 ng/mL Toxicity: > 100 ng/mL. Test performed by chemiluminescent immunoassay. 1,25-dihydroxyvitamin D3 [Mass/Vol]on [id number] D1,25 HRNNLMCET82.0 pg/mL Rreuzx71.9-79.3CNorwalk Memorial Hospital on above:Order Comment: Specimen Type: BLOOD SPECIMENOrdering Facility: [facility] Address:[address] [place], [place] [address]Performed By: #### 1988-06, 1648-06 ####[facility] [id number] [address]25([place])D3 SerP-ncon 10-30-2024 25-hydroxyvitamin D3 [Mass/Vol]51.9 ng/rWRceufs62.0-80.0[facility] on above:Order Comment: Specimen Type: BLOOD SPECIMENOrdering Facility: [facility] Address:[address] [place], [place] [address]Result Comment: Classification of 25 [place] Vitamin D status: Deficiency/Insufficiency: < or = 30 ng/ml. Sufficiency/Optimal Levels: 31-80 ng/mL Toxicity: > 100 ng/mL. Test performed by chemiluminescent immunoassay.Performed By: #### 1988-06, 1648-06 ####[facility] [id number] [address] STATES OF AMERICACNOVon [id number] Visit (ENDONO) MARCELINA CANO ([id number]) 1960 F Date Time Provider Department 10/30/24 2:30 PM DINA JOE During your visit today, we recorded the following information about you: Pulse Blood pressure Weight 62/minute 130/81 141.8 kg Dina Jeo MD 10/31/2024 11:29 AM Signed [facility] Follow-up visit Marcelina Cano is here for follow-up regarding hypoparathyroidism: Last seen 08/30/2024 Recording using [employer] software for draft documentation of the visit was discussed with the patient/authorized student services representative; all questions welcomed and answered. Patient/authorized student services representative agreed to proceed Marcelina Cano is a 64 year old female with PMH of JESSICA, class 3 obesity, VSD, papillary thyroid cancer s/p left thyroidectomy 03/2013, completion thyroidectomy 03/2013, HERNDON, post-surgical hypothyroidism, hypoparathyroidism, adhesions s/p total hysterectomy 2006 presenting for management of hypoparathyroidism. Interval history Marcelina reports a recent 24-hour urine calcium test showing elevated levels. She has reduced her calcium intake from 8 chewable tablets to 4 tablets daily. She inquires about the potential role of vitamin K2 in calcium absorption and expresses concern about the risk of bone cancer associated with Natpara, which she will continue using until March when the company runs out. Marcelina notes a recent increase in her TSH levels to 6.1 mIU/L, up from 3.7 mIU/L in April of the previous year. She has not yet started the prescribed 175 mcg dose of levothyroxine due to a delay in receiving the medication, but plans to begin once her current supply of 100 mcg tablets is depleted, she is currently taking 150 mcg daily still. HISTORY OF PRESENT ILLNESS: Marcelina is currently on Natpara 0.75 mcg once daily for hypoparathyroidism but wishes to transition to calcitriol or possibly Yorvipath. She had some concerns regarding refrigeration of Yorvipath but we discussed that it does not need to be refrigerated once used and can be left at room temp for 14 days. She is concerned about the discontinuation of Natpara, expected around March, and wants to have a plan in place. From prior notes: Female with hypocalcemia s/p thyroid surgery in 2006 for papillary thyroid cancer. Managed on natpara due to life threatening hypocalcemia in the past. She was under care of osh team at that time. Reports that conventional treatment resulted in persistent hypocalcemia. Ended up in ER in January 2019 with calcium of 4.0, had to be in ICU for 3 days. Happened again a week later with calcium of 5, back in ICU for HTN emergency at same time Regimen: Natpara 0.75 mg subq daily Vitamin D 5000 IU d3 every other day Calcium tablet 600 mg bid (decreased from qid) Mag glycinate - 288 mg in 3 capsules - 4 capsules twice daily She underwent left thyroidectomy in 03/07 with multiple foci of papillary thyroid carcinoma, largest 0.8 cm, with follicular adenoma 1 cm, followed by right thyroidectomy in 04/06, with multiple foci papillary thyroid carcinoma, follicular variant, 1 cm. Had radioactive treatment 95.8 mCi, with whole-body scan in April/2013. Review of Systems Constitutional: Positive for fatigue. HENT: Negative for trouble swallowing, postnasal drip and thyroid pain (lower neck). Eyes: Negative for visual disturbance. Respiratory: Negative for difficulty breathing. Cardiovascular: Positive for leg swelling. Negative for chest pain and claudication. Gastrointestinal: Positive for abdominal pain, diarrhea and constipation. Negative for heartburn, nausea and vomiting. Genitourinary: Positive for urgency, frequent urination, slower stream and amenorrhea. Negative for menstruating and irregular menses. Musculoskeletal: Positive for myalgias and muscle weakness. Negative for bone pain. Skin: Negative for skin color change. Neurological: Positive for numbness. Negative for dizziness and headaches. Endo/Heme/Allergies: Positive for polydipsia, heat intolerance when others are comfortable and hot flashes. Negative for cold intolerance when others are comfortable, flushing and changes in body hair. PAST HISTORY: PAST MEDICAL HISTORY Diagnosis Date Hypocalcemia Hypoparathyroidism (HCC) JESSICA (obstructive sleep apnea) Thyroid cancer (HCC) VSD (ventricular septal defect) (HCC) VSD (ventricular septal defect) (HCC) PAST SURGICAL HISTORY Procedure Laterality Date COLONOSCOPY x2 HYSTERECTOMY 2006 total kamilah/bso THYROIDECTOMY TOTAL/COMPLETE 2012 Current Outpatient Medications Medication Sig Dispense Refill metoprolol succinate ER (TOPROL XL) 50 mg 24 hr tablet Take 50 mg by mouth. levothyroxine (SYNTHROID) 175 mcg tablet Take 1 tablet by mouth once daily. (Patient taking differently: Take 150 mcg by mouth once daily.) 90 tablet 2 (more content not included)...[facility] HospitalCalcium.ionized [Moles/Vol]on [id number].ionized (Bld) [Mass/Vol]0.89 mmol/LLow1.08-1.30 [facility] on above:Order Comment: Specimen Type: BLOOD SPECIMENOrdering Facility: [facility] Address:[address] [place], [place] [address]Performed By: #### ####[facility] [id number] [place] [address] [place] OF AMERICACalcium.ionized adjusted to pH 7.4 (Bld) [Moles/Vol][facility] on above:Order Comment: Specimen Type: BLOOD SPECIMENOrdering Facility: [facility] Address:[address] [place], [place] [address]Result Comment: Measured pH is > 7.6. Unable to report normalized Calcium.Performed By: #### ####[facility] [id number] [address] STATES OF AMERICARenal function 2000 panelon [id number] [Mass/Vol]4.0 g/dLNormal 3.9-4.9CNorwalk Memorial Hospital on above:Order Comment: Specimen Type: BLOOD SPECIMENOrdering Facility: [facility] Address:[address] [place], [place] [address]Performed By: #### 49324-5 ####[facility] [id number] [facility] [id number] [place] [address] [place] AMERICAAnion gap [Moles/Vol]14 mmol/LNormal8-15[facility] on above:Order Comment: Specimen Type: BLOOD SPECIMENOrdering Facility: [facility] Address:[address] [place], [place] [address]Performed By: #### 85824-9 ####[facility] [id number] [place] [address] [place] Calcium [Mass/Vol]9.0 mg/dLNormal8.5-10.2CNorwalk Memorial Hospital on above:Order Comment: Specimen Type: BLOOD SPECIMENOrdering Facility: [facility] Address:[address] [place], [place] [address]Performed By: #### 26288-9 ####[facility] [id number] [place] [address] [place] AMERICAChloride [Moles/Vol]98 mmol/GZemapi79-934GoggbvsbrUniversity Hospitals [facility] on above:Order Comment: Specimen Type: BLOOD SPECIMENOrdering Facility: [facility] Address:[address] [place], [place] [address]Performed By: #### 25371-1 ####[facility] [id number] [place] [address] [place] AMERICACO2 [Moles/Vol]23 mmol/LNormal 22-30[facility] on above:Order Comment: Specimen Type: BLOOD SPECIMENOrdering Facility: [facility] Address:[address] [place], [place] [address]Performed By: #### 48757-3 ####[facility] [id number] [place] [id number] [place] AMERICACreatinine [Mass/Vol]0.57 mg/dLLow0.58-0.96[facility] on above:Order Comment: Specimen Type: BLOOD SPECIMENOrdering Facility: [facility] Address:[address] [place], [place] [address]Performed By: #### 66976-6 ####[facility] [id number] Creatinine and Glomerular filtration rate.predicted panel (S/P/Bld)102 mL/min/1.73m???Normal>=60[facility] on above:Order Comment: Specimen Type: BLOOD SPECIMENOrdering Facility: [facility] Address:[address] [place], [place] [address]Result Comment: Estimated Glomerular Filtration Rate (eGFR) is calculated using the 2020 CKD-EPI cre atinine equation. This equation utilizes serum creatinine, sex, and age as parameters. The creatinine assay has traceable calibration to isotope dilution- mass spectrometry. Refer to KDIGO guidelines for clinical interpretation. In patients with unstable renal function, e.g. those with acute kidney injury, the eGFR may not accurately reflect actual GFR.Performed By: #### 95493-2 ####[facility] [id number] [place] [id number] [place] OF [facility] HOSPITALGlucose [Mass/Vol]85 mg/dLNormal 74-99[facility] on above:Order Comment: Specimen Type: BLOOD SPECIMENOrdering Facility: [facility] Address:[address] [place] [address] Comment: The [place] Diabetes Association (ADA) provides guidance for cutoff values for fasting glucose and random glucose. The ADA defines fasting as no caloric intake for at least 8 hours. Fasting plasma glucose results between 100 to 125 mg/dL indicate increased risk for diabetes (prediabetes). Fasting plasma glucose results greater than or equal to 126 mg/dL meet the criteria for diagnosis of diabetes. In the absence of unequivocal hyperglycemia, results should be confirmed by repeat testing. In a patient with classic symptoms of hyperglycemia or hyperglycemic crisis, random plasma glucose results greater than or equal to 200 mg/dL meet the criteria for diagnosis of diabetes. Reference: Standards of Medical Care in Diabetes 2016, [place] Diabetes Association. Diabetes Care. 2016.39(Suppl 1).Performed By: #### 09183-9 ####[facility] LABCLIA [id number] [address] [address] [place] OF AMERICAPhosphate [Mass/Vol]4.5 mg/dL Normal2.7-4.8[facility] ClevelandComment on above:Order Comment: Specimen Type: BLOOD SPECIMENOrdering Facility: [facility] Address:[address] [place], [place] [address]Performed By: #### 86799-6 ####[facility] LABCLIA [id number] [place] [address] [place] AMERICAPotassium [Moles/Vol]5.0 mmol/LNormal3.7-5.1CNorwalk Memorial Hospital on above:Order Comment: Specimen Type: BLOOD SPECIMENOrdering Facility: [facility] Address:[address] [place], [place] [address]Performed By: #### 95658-3 ####[facility] LABCLIA [id number] [place] [address] [place] [facility] H[facility]PITALSodium [Moles/Vol]135 mmol/FQch889-011NuqrjomvkUniversity Hospitals Parma [facility] on above:Order Comment: Specimen Type: BLOOD SPECIMENOrdering Facility: [facility] Address:[address] [place] [address] Performed By: #### 18342-1 ####[facility] LABCLIA [id number] [place] [address] [place] Urea nitrogen [Mass/Vol]14 mg/dLNormal7-21[facility] on above:Order Comment: Specimen Type: BLOOD SPECIMENOrdering Facility: [facility] Address:[address] [place], [place] [address]Performed By: #### 46450-3 ####[facility] LABIA [id number] [place] [address] [place] AMERICACT ABD/PEL W IVCONon 34-25-5926QZ ABD/PEL W IVCON* * *Final Report* * * DATE OF EXAM: Oct 11 2024 10:42AM [facility] 0530 - CT ABD/PEL W IVCON / PROCEDURE REASON: Generalized abdominal pain * * * * Physician Interpretation * * * * RESULT: EXAMINATION: CT ABDOMEN AND PELVIS WITH IV CONTRAST PATIENT/TECHNOLOGIST PROVIDED HISTORY: abdominal pain; hx of thyroid cancer CLINICAL INFORMATION ( PROVIDED BY ORDERING CLINICIAN) : Generalized abdominal pain TECHNIQUE: CT of the abdomen and pelvis was performed using standard technique, scanning from just above the dome of the diaphragm to the pubic symphysis. . Contrast: IV: 100 ml of Omnipaque 350 Oral: 500 ml of Omni 240 10-25ml diluted with water CT Radiation dose: Integrated Dose-length product (DLP) for this visit = 1491 mGy*cm. CT Dose Reduction Employed: Automated exposure control (AEC) COMPARISON: None. Abdomen / Pelvis: Liver: Subcentimeter low-attenuation lesion in segment 6 to small characterize but likely benign. Spleen: Few splenic cysts measuring up to 1.4 cm. Pancreas: No focal pancreatic lesions. Adrenals: No mass. Biliary: No bile duct dilation. Status post cholecystectomy. Kidneys: Symmetric nephrograms bilaterally without hydronephrosis. Vasculature: The celiac axis and SMA are patent. The portal vein and branches, splenic vein, SMV, and hepatic veins are patent. Abdominal aorta is normal in caliber. GI tract: No bowel obstruction. Colonic diverticulosis without acute diverticulitis. Small hiatal hernia. Lymph nodes: No lymphadenopathy by CT size criteria. Mesentery/Peritoneum: No ascites, fluid collection, or mass. Pelvis: No mass or fluid collection. Urinary bladder is unremarkable. Bones/Soft tissues: Degenerative changes in the lumbar spine. Lower thorax: Linear bands of atelectasis or scarring in the right middle lobe and lingula. Travel Consultant (topogram) images: Unremarkable. IMPRESSION: No acute process in the abdomen or pelvis. Transcribe Date/Time: Oct 11 2024 2:02P Dictated by: RODRIGUEZ DALE MD This examination was interpreted and the report reviewed and electronically signed by: RODRIGUEZ DALE MD on Oct 11 2024 2:15PM EST Thank you for allowing us to participate in the care of your patient. Should there be any questions regarding this interpretation, please call [phone]. If you are unable to reach us at the number above, please feel free to contact [facility] eRadiology at [phone]. [id number]_[id number] Clinic ClevelandCT Abdomen and Pelvis W contrast Samuel 82-54-8791KXVZFOCATC: No acute process in the abdomen or pelvis. Transcribe Date/Time: Oct 11 2024 2:02P Dictated by: RODRIGUEZ DALE MD This examination was interpreted and the report reviewed and electronically signed by: RODRIGUEZ DALE MD on Oct 11 2024 2:15PM EST Thank you for allowing us to participate in the care of your patient. Should there be any questions regarding this interpretation, please call [phone]. If you are unable to reach us at the number above, please feel free to contact [facility] eRadiology at [phone].DIVISION OF RADIOLOGY* * *Final Report* * * DATE OF EXAM: Oct 11 2024 10:42AM [facility] 0530 - CT ABD/PEL W IVCON / PROCEDURE REASON: Generalized abdominal pain * * * * Physician Interpretation * * * * RESULT: EXAMINATION: CT ABDOMEN AND PELVIS WITH IV CONTRAST PATIENT/TECHNOLOGIST PROVIDED HISTORY: abdominal pain; hx of thyroid cancer CLINICAL INFORMATION ( PROVIDED BY ORDERING CLINICIAN) : Generalized abdominal pain TECHNIQUE: CT of the abdomen and pelvis was performed using standard technique, scanning from just above the dome of the diaphragm to the pubic symphysis. . Contrast: IV: 100 ml of Omnipaque 350 Oral: 500 ml of Omni 240 10-25ml diluted with water CT Radiation dose: Integrated Dose-length product (DLP) for this visit = 1491 mGy*cm. CT Dose Reduction Employed: Automated exposure control (AEC) COMPARISON: None. Abdomen / Pelvis: Liver: Subcentimeter low-attenuation lesion in segment 6 to small characterize but likely benign. Spleen: Few splenic cysts measuring up to 1.4 cm. Pancreas: No focal pancreatic lesions. Adrenals: No mass. Biliary: No bile duct dilation. Status post cholecystectomy. Kidneys: Symmetric nephrograms bilaterally without hydronephrosis. Vasculature: The celiac axis and SMA are patent. The portal vein and branches, splenic vein, SMV, and hepatic veins are patent. Abdominal aorta is normal in caliber. GI tract: No bowel obstruction. Colonic diverticulosis without acute diverticulitis. Small hiatal hernia. Lymph nodes: No lymphadenopathy by CT size criteria. Mesentery/Peritoneum: No ascites, fluid collection, or mass. Pelvis: No mass or fluid collection. Urinary bladder is unremarkable. Bones/Soft tissues: Degenerative changes in the lumbar spine. Lower thorax: Linear bands of atelectasis or scarring in the right middle lobe and lingula. Travel Consultant (topogram) images: Unremarkable. DIVISION OF RADIOLOGYProvider, [facility] - 10/11/2024 * * *Final Report* * * DATE OF EXAM: Oct 11 2024 10:42AM [facility] 0530 - CT ABD/PEL W IVCON / PROCEDURE REASON: Generalized abdominal pain * * * * Physician Interpretation * * * * RESULT: EXAMINATION: CT ABDOMEN AND PELVIS WITH IV CONTRAST PATIENT/TECHNOLOGIST PROVIDED HISTORY: abdominal pain; hx of thyroid cancer CLINICAL INFORMATION ( PROVIDED BY ORDERING CLINICIAN) : Generalized abdominal pain TECHNIQUE: CT of the abdomen and pelvis was performed using standard technique, scanning from just above the dome of the diaphragm to the pubic symphysis. . Contrast: IV: 100 ml of Omnipaque 350 Oral: 500 ml of Omni 240 10-25ml diluted with water CT Radiation dose: Integrated Dose-length product (DLP) for this visit = 1491 mGy*cm. CT Dose Reduction Employed: Automated exposure control (AEC) COMPARISON: None. Abdomen / Pelvis: Liver: Subcentimeter low-attenuation lesion in segment 6 to small characterize but likely benign. Spleen: Few splenic cysts measuring up to 1.4 cm. Pancreas: No focal pancreatic lesions. Adrenals: No mass. Biliary: No bile duct dilation. Status post cholecystectomy. Kidneys: Symmetric nephrograms bilaterally without hydronephrosis. Vasculature: The celiac axis and SMA are patent. The portal vein and branches, splenic vein, SMV, and hepatic veins are patent. Abdominal aorta is normal in caliber. GI tract: No bowel obstruction. Colonic diverticulosis without acute diverticulitis. Small hiatal hernia. Lymph nodes: No lymphadenopathy by CT size criteria. Mesentery/Peritoneum: No ascites, fluid collection, or mass. Pelvis: No mass or fluid collection. Urinary bladder is unremarkable. Bones/Soft tissues: Degenerative changes in the lumbar spine. Lower thorax: Linear bands of atelectasis or scarring in the right middle lobe and lingula. Travel Consultant (topogram) images: Unremarkable. IMPRESSION IMPRESSION: No acute process in the abdomen or pelvis. Transcribe Date/Time: Oct 11 2024 2:02P Dictated by: RODRIGUEZ DALE MD This examination was interpreted and the report reviewed and electronically signed by: RODRIGUEZ DALE MD on Oct 11 2024 2:15PM EST Thank you for allowing us to participate in the care of your patient. Should there be any questions regarding this interpretation, please call [phone]. If you are unable to reach us at the number above, please feel free to contact [facility] eRadiology at [phone]. [facility] HospitalRadiology Study observation (narrative)[facility] Abdomen and Pelvis W contrast IVOrdered By: Ccf Provider on 80-76-3393Tpgnrqlzc ClinicCALCIUM, 24 HR URINEon 90-70-2594Xgtfvon (24H U) [Mass/Time]357.0 mg/24 hr Fvir750.0-300.0[facility] on above:Order Comment: Specimen Type: URINE SPECIMENOrdering Facility: [facility] Address:[address] [place], [place] [address]Performed By: #### UCALCD, UCRD ####[facility] LABCLIA [id number] [address] LABCLIA [id number] [place], [place] [address]JWRLJS (HRS)24 hr NormalUniversity Hospitals Parma Medical Center on above:Order Comment: Specimen Type: URINE SPECIMENOrdering Facility: [facility] Address:[address] [place], [place] [address]Performed By: #### UCALCD, UCRD ####[facility] LABCLIA [id number] [place] [id number] [facility] LABIA [id number] [place], [place] [address]Gkpftuqk volume (24H U)3 LNormalUniversity Hospitals Parma Medical Center on above:Order Comment: Specimen Type: URINE SPECIMENOrdering Facility: [facility] Address:[address] [place] [id number] By: #### UCALCBernadette, UCRD ####[facility] LABCLIA [id number] [place] [address] [facility] LABCLIA [id number] [place], [place] [address]HIACGUTNTR, 24 HOUR URINEon 05-12-8341Qfnoxkotru (24H U) [Mass/Time]1.635 g/24 hrNormal0.800-1.800[facility] Comment on above:Order Comment: Specimen Type: URINE SPECIMENOrdering Facility: [facility] Address:[address] [place] [address] Performed By: #### MARYBETH, UCRD ####[facility] LABCLIA [id number] [place] [address] [facility] LABCLIA [id number] [place], [place] [address],25-dihydroxyvitamin D3 [Mass/Vol]on 42-60-7560CXL D1,25 JKWTGCVZR56.0 pg/wSHwdgox06.9-79.3CACMC Healthcare SystemComment on above: Order Comment: Specimen Type: BLOOD SPECIMENOrdering Facility: [facility] Address:[address] [place], [place] [address]Performed By: #### 1649- 3, 1988-06 ####[facility] LABCLIA [id number] [place] [id number] [place] TEPQXAP21([place])D3 [facility]on 69-20-547168764307-brhekzyaybxkmd D3 [Mass/Vol]55.5 ng/xIBsdoem49.0-80.0Prom[facility] Memorial HospitalCombeaumont hospital on above:Order Comment: Specimen Type: BLOOD SPECIMENOrdering Facility: [facility] Address:[address] [place], [place] [address]Result Comment: Classification of 25 [place] Vitamin D status: Deficiency/Insufficiency: < or = 30 ng/ml. Sufficiency/Optimal Levels: 31-80 ng/mL Toxicity: > 100 ng/mL. Test performed by chemiluminescent immunoassay.Performed By: #### 1649-3, 1988-06 ####[facility] MARIO [id number] [address] [place] [id number] [place] AMERICACNOVon 13-34-0323FUQNYlozzz Visit (ENDONO) MARCELINA CANO ([id number]) 1960 F Date Time Provider Department 08/30/24 10:40 AM DINA JOE During your visit today, we recorded the following information about you: Temperature Pulse Respiration Blood pressure 97.9 degrees 58/minute 18/minute 149/87 Weight 143.2 kg Dina Joe MD 08/30/2024 12:49 PM Signed [facility] Follow-up visit Marcelina Cano is here for follow-up regarding hypoparathyroidism: Last seen 07/27/2024 - Lydia Ramirez APRN.LASTING MACHINE OPERATOR Recording using [employer] software for draft documentation of the visit was discussed with the patient/authorized student services representative; all questions welcomed and answered. Patient/authorized student services representative agreed to proceed HISTORY OF PRESENT ILLNESS: Marcelina Cano is a 64 year old female with PMH of JESSICA, class 3 obesity, VSD, papillary thyroid cancer s/p left thyroidectomy 03/2013, completion thyroidectomy 03/2013, post-surgical hypothyroidism, hypoparathyroidism, adhesions s/p total hysterectomy 2006 presenting for management of hypoparathyroidism. Marcelina is currently on Natpara 0.75 mcg once daily for hypoparathyroidism but wishes to transition to calcitriol due to the inconvenience of refrigeration required for Natpara or for Yorvipath. She has a prescription for calcitriol but has not yet started it. She is concerned about the discontinuation of Natpara, expected around October, and wants to have a plan in place. From prior notes: Female with hypocalcemia s/p thyroid surgery [...] second time. Now doing injections as above. 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 Regimen: Natpara 0.75 mg subq daily Vitamin D 5000 IU d3 every other day Calcium tablet 500 mg qid Mag glycinate - 288 mg in 3 capsules - 4 capsules twice daily She underwent left thyroidectomy in 03/07 with multiple foci of papillary thyroid carcinoma, largest 0.8 cm, with follicular adenoma 1 cm, followed by right thyroidectomy in 04/06, with multiple foci papillary thyroid carcinoma, follicular variant, 1 cm. Had radioactive treatment 95.8 mCi, with whole-body scan in April/2013. Managed on synthroid 125 mcg daily. She has a history of abdominal pain, diarrhea, and constipation, managed with chewable supplements and increased fiber intake. She had a total hysterectomy in 2006 due to adhesions and denies being on hormonal therapy. She also reports stress-related eating and inquires about cortisol testing. No hypocalcemia symptoms now Feeling good Review of Systems Constitutional: Positive for fatigue. HENT: Negative for trouble swallowing, postnasal drip and thyroid pain (lower neck). Eyes: Negative for visual disturbance. Respiratory: Negative for difficulty breathing. Cardiovascular: Positive for leg swelling. Negative for chest pain and claudication. Gastrointestinal: Positive for abdominal pain, diarrhea and constipation. Negative for heartburn, nausea and vomiting. Genitourinary: Positive for urgency, frequent urination, slower stream and amenorrhea. Negative for menstruating and irregular menses. Musculoskeletal: Positive for myalgias and muscle weakness. Negative for bone pain. Skin: Negative for skin color change. Neurological: Positive for numbness. Negative for dizziness and headaches. Endo/Heme/Allergies: Positive for polydipsia, heat intolerance when others are comfortable and hot flashes. Negative for cold intolerance when others are comfortable, flushing and changes in body hair. PAST HISTORY: PAST MEDICAL HISTORY Diagnosis Date Hypocalcemia Hypoparathyroidism (HCC) Thyroid cancer (HCC) VSD (ventricular septal defect) (HCC) PAST SURGICAL HISTORY Procedure Laterality Date COLONOSCOPY x2 HYSTERECTOMY total kamilah/bso THYROIDECTOMY TOTAL/COMPLETE Current Outpatient Medications Medication Sig Dispense Refill albuterol (PROVENTIL) 2.5 mg /3 mL (0.083 %) nebulizer solution mirabegron (MYRBETRIQ) 50 mg Tb24 Take 1 tablet by mouth every morning. cholecalciferol (VITAMIN D-3) 5,000 unit tab Take 1 tablet by mouth once daily. 90 tablet 1 levothyroxine (SYNTHROID) 125 mcg tablet TAKE 1 TABLET DAILY 90 tablet 3 levothyroxine (SYNTHROID) 125 mcg tablet Take 1 tablet by mouth once daily. 30 tablet 0 citalopram (CELEXA) 20 mg tablet Take 20 mg by mouth daily at bedtime. losartan (COZAAR) 25 mg tablet Take 25 mg by mouth once daily. parat (more content not included)...NormalPromedica Memorial Hospital Calcium.ionized [Moles/Vol]on 08-00-4201Aunjdkv.ionized (Bld) [Mass/Vol]1.29 mmol/LNormal1.08-1.30[facility] on above:Order Comment: Specimen Type: BLOOD SPECIMENOrdering Facility: [facility] Address:[address] [place], [place] [address]Performed By: #### ####[facility] LABIA [id number] [place] [address] [place] AMERICACalcium.ionized adjusted to pH 7.4 (Bld) [Moles/Vol]1.28 mmol/LNormal1.08-1.30[facility] on above:Order Comment: Specimen Type: BLOOD SPECIMENOrdering Facility: [facility] Address:[address] [place] [address] Performed By: #### ####[facility] LABCLIA [id number] [place] [address] [place] Magnesium SerPl-mCncon 79-47-4713Yqvrsbcjf [Mass/Vol]1.9 mg/dLNormal1.7-2.3 [facility] HospitalCombeaumont hospital on above:Order Comment: Specimen Type: BLOOD SPECIMENOrdering Facility: [facility] Address:[address] [place], [place] [address]Performed By: #### 3016-3, 3024-7, 80625-3, 53561-1, TSHRF ####[facility] [id number] [place] [id number] [place] AMERICARenal function 2000 panelon 84-04-0445Qqvqvxw [Mass/Vol]4.1 g/dLNormal3.9-4.9ClevelAtrium Health Mountain Island Comment on above:Order Comment: Specimen Type: BLOOD SPECIMENOrdering Facility: [facility] Address:[address] [place] [address] Performed By: #### 3016-3, 3024-7, , 04776-7, TSHRF ####[facility] [id number] [place] [address] [place] AMERICAAnion gap [Moles/Vol]15 mmol/LNormal8-15[facility] HospitalCombeaumont hospital on above:Order Comment: Specimen Type: BLOOD SPECIMENOrdering Facility: [facility] Address:[address] [place], [place] [address]Performed By: #### 3016-3, 3024-7, , 13297-2, TSHRF ####[facility] [id number] [place] [address] [place] AMERICACalcium [Mass/Vol]10.3 mg/dLHigh8.5-10.2ClevelAtrium Health Mountain IslandCombeaumont hospital on above:Order Comment: Specimen Type: BLOOD SPECIMENOrdering Facility: [facility] Address:[address] [place], [place] [address]Performed By: #### 3016-3, 3024-7, , 83333-0, TSHRF ####[facility] [id number] [place] [address] [place] AMERICAChloride [Moles/Vol]98 mmol/L Holjkw62-686YozjvmyisUniversity Hospitals Parma Medical Center on above:Order Comment: Specimen Type: BLOOD SPECIMENOrdering Facility: [facility] Address:[address] [place], [place] [address]Performed By: #### 3016-3, 3024-7, 47977-3, 79880-5, TSHRF ####[id number] [place] [address] [place] AMERICACO2 [Moles/Vol]26 mmol/IBvulig04-80KfmcwhooeUniversity Hospitals Parma Medical Center on above:Order Comment: Specimen Type: BLOOD SPECIMENOrdering Facility: [facility] Address:[address] [place], [place] [address]Performed By: #### 3016-3, 3024-7, 22579-8, 22375-9, TSHRF ####[id number] [place] [address] [place] AMERICACreatinine [Mass/Vol]0.69 mg/dLNormal0.58-0.96[facility] on above: Order Comment: Specimen Type: BLOOD SPECIMENOrdering Facility: [facility] Address:[address] [place], [place] [address]Performed By: #### 3016- 3, 3024-7, 52445-8, 40096-7, TSHRF ####[facility] [id number] [place] [address] [place] Creatinine and Glomerular filtration rate.predicted panel (S/P/Bld)98 mL/min/1.73m???Normal>=60[facility] on above:Order Comment: Specimen Type: BLOOD SPECIMENOrdering Facility: [facility] Address:[address] [place], [place] [address]Result Comment: Estimated Glomerular Filtration Rate (eGFR) is calculated using the 2020 CKD-EPI cre atinine equation. This equation utilizes serum creatinine, sex, and age as parameters. The creatinine assay has traceable calibration to isotope dilution- mass spectrometry. Refer to KDIGO guidelines for clinical interpretation. In patients with unstable renal function, e.g. those with acute kidney injury, the eGFR may not accurately reflect actual GFR.Performed By: #### 3016-3, 4-7, 80928-2, 98602-2, TSHRF ####[facility] [id number] [address] [address] [place] AMERICAGlucose [Mass/Vol]101 mg/wDVryl11-16XtyaumwivUniversity Hospitals Parma Medical Center on above:Order Comment: Specimen Type: BLOOD SPECIMENOrdering Facility: [facility] Address:[address] [place], [place] [address]Result Comment: The [place] Diabetes Association (ADA) provides guidance for cutoff values for fast ing glucose and random glucose. The ADA defines fasting as no caloric intake for at least 8 hours. Fasting plasma glucose results between 100 to 125 mg/dL indicate increased risk for diabetes (prediabetes). Fasting plasma glucose results greater than or equal to 126 mg/dL meet the criteria for diagnosis of diabetes. In the absence of unequivocal hyperglycemia, results should be confirmed by repeat testing. In a patient with classic symptoms of hyperglycemia or hyperglycemic crisis, random plasma glucose results greater than or equal to 200 mg/dL meet the criteria for diagnosis of diabetes. Reference: Standards of Medical Care in Diabetes 2016, [place] [employer]. Diabetes Care. 2016.39(Suppl 1).Performed By: #### 3016-3, 3023-7, , 01100-7, TSHRF ####[facility] [id number] [address] [address] [place] AMERICAPhosphate [Mass/Vol]4.1 mg/dLNormal2.7-4.8CNorwalk Memorial Hospital on above:Order Comment: Specimen Type: BLOOD SPECIMENOrdering Facility: [facility] Address:[address] [place], [place] [address]Performed By: #### 3016- 3, 3023-7, 08001-1, 05785-8, TSHRF ####[facility] LABIA [id number] [address] [address] [place] Potassium [Moles/Vol]4.6 mmol/LNormal3.7-5.1CNorwalk Memorial Hospital on above:Order Comment: Specimen Type: BLOOD SPECIMENOrdering Facility: [facility] Address:[address] [place], [place] [address]Performed By: #### 3016-3, 3024-7, , 95621-6, TSHRF ####[id number] [place] [address] [place] AMERICASodium [Moles/Vol]139 mmol/NWrqdkl321-727MzqkobxsxPromedica Memorial Hospital Comment on above:Order Comment: Specimen Type: BLOOD SPECIMENOrdering Facility: [facility] Address:[address] [place] [address] Performed By: #### 3016-3, 3023-7, , 27436-2, TSHRF ####[id number] [place] [address] [place] AMERICAUrea nitrogen [Mass/Vol]15 mg/dLNormal7-21[facility] on above:Order Comment: Specimen Type: BLOOD SPECIMENOrdering Facility: [facility] Address:[address] [place], [place] [address]Performed By: #### 3016-3, 3023-7, , 58211-3, TSHRF ####[id number] [place] [address] [place] AMERICAT4 Free SerPl-mCncon 08-30-2024 Free T4 [Mass/Vol]1.1 ng/dLNormal0.9-1.7CACMC Healthcare SystemCombeaumont hospital on above:Order Comment: Specimen Type: BLOOD SPECIMENOrdering Facility: [facility] Address:[address] [place], [place] [id number] By: #### 3016-3, 3024-7, 47323-9, 51107-3, TSHRF ####[facility] [id number] [place] [id number] [place] OF AMERICATSH W/REFLEX FT4on [id number] Qn6.180 m[IU]/LHigh0.270-4.200[facility] on above:Order Comment: Specimen Type: BLOOD SPECIMENOrdering Facility: [facility] Address:[address] [place], [place] [address]Performed By: #### 3016-3, 3024-7, 35343-6, 08728-8, TSHRF ####[facility] [id number] [address] OF AMERICAThyroglobulin and Thyrogobulin Ab panelon [id number] Ab Qn[IU]/mLNormal<4.0[facility] on above:Order Comment: Specimen Type: BLOOD SPECIMENOrdering Facility: [facility] Address:[address] [place], [place] [address]Result Comment: The Thyroglobulin Antibody test was performed using the Clerts! Unicel DXI paramagnetic particle chemiluminescent immunoassay method. Results obtained with different assay methods or kits cannot be used interchangeably.Performed By: #### 85304-3 ####[facility] LABIA [id number] [address] OF AMERICATHYROGLOBULIN, SERUM<0.1Low1.6-50.0[facility] on above:Order Comment: Specimen Type: BLOOD SPECIMENOrdering Facility: [facility] Address:[address] [place], [place] [address]Result Comment: The Thyroglobulin test was performed using the Clerts! Unicel DXI paramagnetic particle chemiluminescent immunoassay method. Results obtained with different assay methods or kits cannot be used interchangeably.Performed By: #### 75746-4 ####[facility] LABCLIA [id number] [address] [address] [place] OF [facility] HOSPITALAmbulatory Visit Summaryon [id number] Visit SummaryAmbulatory Visit Summary MARCELINA CANO :1960 Visit Date:08/28/2024 Ambulatory Visit Instructions Your Diagnosis BMI 45.0-49.9, adult Obesity, morbid, BMI 40.0-49.9 Nonsmoker Asthma, exercise induced Hypomagnesemia Hypothyroidism Hypoparathyroidism JESSICA on CPAP SOB (shortness of breath) Adjustment disorder, unspecified Your Care Team Attending Physician - Ebony Sequeira MD Primary Care Physician - Ebony Sequeira MD This Is Your Medications List Non-Formulary Medication (Misc Medication) Non-Formulary Medication (Misc Medication) albuterol (albuterol 0.083% Inh Mandie 3 mL) ascorbic acid (Vitamin C 500 mg oral tablet, chewable) cholecalciferol (Vitamin D3 10,000 intl units oral capsule) citalopram (citalopram 40 mg Tab) fluticasone (Flovent HFA 220 Aerosol) fluticasone nasal (Flonase 0.05 mg/inh [place]) levothyroxine (levothyroxine 125 mcg (0.125 mg) Tab) losartan (losartan 25 mg Tab) metoprolol (metoprolol succinate 50 mg ER Tab) mirabegron (Myrbetriq 50 mg oral tablet, extended release) mupirocin topical (mupirocin Top 2% Oint) parathyroid hormone (Natpara 75 mcg/dose subcutaneous injection) Procedures Performed Cholecystectomy and exploration of bile duct, Colonoscopy, Hysterectomy, Thyroidectomy. Discharge Vitals Temperature (Tympanic) 36.8 ???C Heart Rate (Peripheral) 60 Respiratory Rate 18 Blood Pressure 134/88 Height 173 cm Height 68 in Weight 142.7 kg Weight 314.599 lb BMI 47.68 What to do next Scheduled Follow-Up Appointments Tuesday 11:00 AM EDT With: Ebony Sequeira MD Where: [place] [id number]- Medications What How Much When Why Instructions [...] Unchanged fluticasone nasal (Flonase 0.05 mg/ inh [place]) 2 Sprays Nasal Inhalation Every day each [...] (Misc Medication) See instructions magnsium glyconate 275mg Take3 orally twice a day Unchanged Non-Formulary Medication (Misc Medication) See instructions 2 capsules of the focus factor daily Unchanged parathyroid hormone (Natpara 75 mcg/ dose subcutaneous injection) 75 Microgram Subcutaneous Every day Allergies anabolic steroids (Angry) Biaxin (Diarrhea) Augmentin (Diarrhea) Problems Ongoing - Any problem that you are currently receiving treatment for. Anxiety Asthma, exercise induced BMI 45.0-49.9, adult Calcium deficiency Cough Excessive dietary caloric intake Hx of thyroid cancer Hypomagnesemia Hypoparathyroidism Hypothyroidism Labial cyst Morbid obesity with BMI of 45.0-49.9, adult Nonsmoker Obesity, morbid, BMI 40.0-49.9 JESSICA on CPAP SOB (shortness of breath) Tennis elbow Ventricular septal defect (VSD) Vitamin D deficiency Wheezing Patient Survey You may receive a survey via text or e-mail asking about your office visit. Please share your experience with us by completing your survey. We appreciate your feedback and thank you for choosing us for your care. NormalFisher [facility] Medicine Office/Clinic Noteon [id number] Medicine Office/Clinic NoteAdd[facility] Office/Clinic Note Chief Complaint 3m follow up The patient reports persistent shortness of breath and fatigue. HPI Staff 3m follow up Patient is here for follow up on Thyroid Disease. Do you have any of the following symptoms? Change in energy level? no Weight change? no Heat/cold intolerance? no Hair/skin/nail changes? no Change in bowels? no Last TSH: TSH: 3.26 mcIU/mL (08/22/23 11:40:00) Did see Shweta 08/17/24 for sick visit. + for influenza B. Still having some drainage. Does need refill of Celexa sent to [facility]. History of Present Illness - The patient is a 64 year old female presenting with persistent shortness of breath. - Shortness of breath accompanied by fatigue rather than exertional dyspnea. - Thyroid dysfunction considered as an underlying factor. - Past medical history: obesity, asthma, obstructive sleep apnea. - Previous double pneumonia with lung scarring, no recent imaging. - Emotional stress potentially exacerbating symptoms. - Awaiting magnesium, thyroid, and calcium assessment. - Consideration for continued physical activity to improve overall lung function and capacity. - Plans to evaluate thyroid function and magnesium levels with scheduled lab work. - Emotional stress management through personal support network emphasized. Review of Systems PHQ Score Initial Depression Screen Score: 0 SCORE Physical Exam Vitals & Measurements T: 36.8 ???C(Tympanic) HR: 60(Peripheral) RR: 18 BP: 134/88 SpO2: 95% HT: 68 in HT: 173 cm WT: 314.599 lb WT: 142.7 kg BMI: 47.68 General: alert, no acute distress ENMT: oral mucosa moist Cardiovascular: Regular rate and rhythm, normal peripheral perfusion Respiratory: Lungs clear to auscultation, respirations non labored Extremities: no deformity, no trauma Neurological: oriented x 4, level of consciousness appropriate for age, CN II- XII intact, motor strength equal & normal bilaterally, speech normal Abdomen: Soft, Non-tender, Non-distended, + Bowel sounds Assessment/Plan 1. Asthma, exercise induced (J45.990: Exercise induced bronchospasm) - Well controlled at this time. - Continue to use your inhaler as needed 2. BMI 45.0-49.9, adult (Z68.42: Body mass index [BMI] 45.0-49.9, adult) - BMI education added. 3. Obesity, morbid, BMI 40.0-49.9 (E66.01: Morbid (severe) obesity due to excess calories) - Diet and exercise advised. - Discussed pt may have exercise intolerance. 4. Nonsmoker (Z78.9: Other specified health status) - Please continue to not smoke. 5. Hypomagnesemia (E83.42: Hypomagnesemia) - Test magnesium level. - Consider supplementation. 6. Hypothyroidism (E03.9: Hypothyroidism, unspecified) - Assess thyroid function. - Monitor response post-testing. 7. Hypoparathyroidism (E20.9: Hypoparathyroidism, unspecified) - Follow up with Endo. -No concerns. 8. JESSICA on CPAP (G47.33: Obstructive sleep apnea (adult) (pediatric)) - Continue CPAP. - Follow sleep specialist. 9. SOB (shortness of breath) (R06.02: Shortness of breath) - Evaluate fatigue link to hypothyroidism. - Order thyroid, magnesium tests. 10. Adjustment disorder, unspecified (F43.20) - Utilize support network. - Manage stress impact. Orders: citalopram, 20 mg = 0.5 tab(s), Oral, Daily, # 90 tab(s), Refills(s) 1, Pharmacy: [facility], 173, cm, 08/28/24 11:11:00 EDT, Height/Length Dosing, 142.7, kg, 08/28/24 11:11:00 EDT, Weight Dosing - 64 year old female with history of asthma, JESSICA, and hypothyroidism presenting with shortness of breath - Shortness of breath attributed to combination of asthma and hypothyroidism. - Clear lungs negate immediate respiratory concern. - JESSICA managed on CPAP. - Emotional stress noted as fatigue factor. - Labs for thyroid and magnesium pending. I discussed with the patient the persistence of her shortness of breath and how it may relate to her asthma and hypothyroidism. I advised scheduling laboratory assessments to evaluate her thyroid andmagnesium levels to inform her management plan further. We discussed her ongoing use of CPAP for obstructive sleep apnea, emphasizing its continued importance. I acknowledged her emotional stress and loss, recommending she leverage her support network to help manage her symptoms. The patient understands the planned tests and the potential adjustments to her treatment based on forthcoming results.We will closely monitor her condition and adjust her care as needed following the evaluation of herpending lab results. Follow-up No qualifying data available Problem List/Past Medical History Ongoing Anxiety Asthma, exercise induced BMI 45.0-49.9, adult Calcium deficiency Cough Excessive dietary caloric intake Hx of thyroid cancer Hypomagnesemia Hypoparathyroidism Hypothyroidism Labial cyst Morbid obesity with BMI of 45.0-49.9, adult Nonsmoker Obesity, morbid, BMI 40.0-49.9 JESSICA on CPAP SOB (shortness of breath) (more content not included)...[facility] HospitalComment on above:Result Comment: Electronically Signed By: Mamadou FAITH, Ebony Ardon.br\Date and Time Signed: 08/28/24 12:11 EDTReminderson 08-20-2024 RemindersReminders From: Shweta Salazar To: [facility] - Clinical; Sent: 08/20/2024 08:02:44 EDT Show up: 08/20/2024 08:03:00 EDT Subject: Ambulatory Reminder Due Date/Time: 08/21/2024 08:02:00 EDT positive for influenza B. Results: Date Result Name Ind Value Ref Range 08/17/2024 11:14 Adenovirus Not Detected 08/17/2024 11:14 B. holmesii Not Detected 08/17/2024 11:14 B. parapertussis/bronchiseptica Not Detected (Not Detected - ) 08/17/2024 11:14 B. pertussis Not Detected (Not Detected - ) 08/17/2024 11:14 Human Metapneumovirus Not Detected 08/17/2024 11:14 Influenza A Not Detected 08/17/2024 11:14 Influenza A (subtype H1) Not Detected 08/17/2024 11:14 Influenza A (subtype H3) Not Detected 08/17/2024 11:14 Influenza B (A) Detected 08/17/2024 11:14 Parainfluenza 1 Not Detected 08/17/2024 11:14 Parainfluenza 2 Not Detected 08/17/2024 11:14 Parainfluenza 3 Not Detected 08/17/2024 11:14 Parainfluenza 4 Not Detected 08/17/2024 11:14 Rhinovirus Not Detected 08/17/2024 11:14 RSV A Not Detected 08/17/2024 11:14 RSV B Not Detected pt [facility]Amb[facility] Visit Summaryon [id number] Visit SummaryAmbulatory Visit Summary MARCELINA CANO :1960 Visit Date:08/17/2024 Ambulatory Visit Instructions Your Diagnosis Cough Wheezing SOB (shortness of breath) BMI 45.0-49.9, adult Nonsmoker Tests Performed Chest XR 2 Views -- Results Pending -- Please visit your patient portal for your results or contact your primary care physician. Your Care Team Attending Physician - Shweta Salazar Primary Care Physician - Mamadou FAITH, Ebnoy Timmons This Is Your Medications List Non-Formulary Medication (Misc Medication) Non-Formulary Medication (Misc Medication) albuterol (albuterol 0.083% Inh Mandie 3 mL) ascorbic acid (Vitamin C 500 mg oral tablet, chewable) azithromycin (azithromycin 250 mg Tab) benzonatate (benzonatate 200 mg oral capsule) cholecalciferol (Vitamin D3 10,000 intl units oral capsule) citalopram (citalopram 40 mg Tab) fluticasone (Flovent HFA 220 Aerosol) fluticasone nasal (Flonase 0.05 mg/inh [place]) levothyroxine (levothyroxine 125 mcg (0.125 mg) Tab) losartan (losartan 25 mg Tab) metoprolol (metoprolol succinate 50 mg ER Tab) mirabegron (Myrbetriq 50 mg oral tablet, extended release) mupirocin topical (mupirocin Top 2% Oint) parathyroid hormone (Natpara 75 mcg/dose subcutaneous injection) Procedures Performed Cholecystectomy and exploration of bile duct, Colonoscopy, Hysterectomy, Thyroidectomy. Discharge Vitals Temperature (Tympanic) 36.7 ???C Heart Rate (Peripheral) 68 Respiratory Rate 18 Blood Pressure 160/90 Height 173.0 cm Height 68 in Weight 143.4 kg Weight 316.143 lb BMI 47.91 What to do next Scheduled Follow-Up Appointments Tuesday. 2024 11:00 AM EDT With: Mamadou FAITH, Ebony Timmons Where: [address] [address]- Medications What How Much When Why Instructions Unchanged albuterol (albuterol 0.083% Inh Mandie 3 mL) See instructions INHALE CONTENTS OF 1 VIAL (3 ML) EVERY 6 HOURS AND NEEDED Unchanged ascorbic acid (Vitamin C 500 mg oral tablet, chewable) 1 Tablets Chewed Every day Unchanged azithromycin (azithromycin 250 mg Tab) 1 Packets By Mouth As Directed Duration: 5 Days asdirected on package labeling Pickup at [facility] Unchanged benzonatate (benzonatate 200 mg oral capsule) 1 Capsules By Mouth 3 times a day Duration:7 Days Pickup at [facility] Unchanged cholecalciferol (Vitamin D3 10,000 intl units oral capsule) See instructions 5000 units every other day Unchanged citalopram (citalopram 40 mg Tab) 0.5 Tablets By Mouth Every day Unchanged fluticasone (Flovent HFA 220 Aerosol) 1 Puffs Inhalation 2 times a day Acute URI Cough Unchanged fluticasone nasal (Flonase 0.05 mg/ inh [place]) 2 Sprays Nasal Inhalation Every day each [...] (Misc Medication) See instructions magnsium glyconate 275mg Take3 orally twice a day Unchanged Non-Formulary Medication (Misc Medication) See instructions 2 capsules of the focus factor daily Unchanged parathyroid hormone (Natpara 75 mcg/ dose subcutaneous injection) 75 Microgram Subcutaneous Every day Pharmacy Information [facility]: [address] [place] [id number] [phone] Allergies anabolic steroids (Angry) Biaxin (Diarrhea) Augmentin (Diarrhea) Problems Ongoing - Any problem that you are currently receiving treatment for. Anxiety Asthma, exercise induced BMI 45.0-49.9, adult Calcium deficiency Cough Excessive dietary caloric intake Hx of thyroid cancer Hypomagnesemia Hypoparathyroidism Hypothyroidism Labial cyst Morbid obesity with BMI of 45.0-49.9, adult Nonsmoker Obesity, morbid, BMI 40.0-49.9 JESSICA on CPAP SOB (shortness of breath) Tennis elbow Ventricular septal defect (VSD) Vitamin D deficiency Wheezing Patient Survey You may receive a survey via text or e-mail asking about your office visit. Please share your experience with us by completing your survey. We appreciate your feedback and thank you for choosing us for your care. [facility] Medicine Office/Clinic Noteon [id number] Medicine Office/Clinic NoteFawestborough behavioral [facility] hospital Medicine Office/Clinic Note HPI Staff Marcelina is a 64 year old female presenting for acute visit Respiratory C/O: Onset: 1 day ago Body aches: no Chest congestion: yes chest feels tight Chills: no Cough: yes Sputum production: yes Sore throat: yes Ear complaints: yes bilateral fullness Eye itching/watering: no Fever: no Headache: yes Nasal congestion: yes Nasal discharge: yes Poor appetite: no Reduced activity: no Sinus pain/pressure: yes Sneezing: no Wheezing: yes Ill contacts: no Remedies tried: albuterol INH, Tylenol, vitamin C Questions/Concerns: pt states her best friend recently she had RSV in April . Pt doeshave nebulizer and hasn't used it. History of Present Illness pt presents today with cough, wheezing and SOB Review of Systems PHQ Score Initial Depression Screen Score: 0 SCORE Physical Exam Vitals & Measurements T: 36.7 ???C(Tympanic) HR: 68(Peripheral) RR: 18 BP: 160/90 SpO2: 98% HT: 68 in HT: 173.0 cm WT: 143.4 kg WT: 316.143 lb BMI: 47.91 General: alert, no acute distress ENMT: oral mucosa moist, no pharyngeal erythema or exudate Cardiovascular: regular rate and rhythm, normal peripheral perfusion Respiratory: Lungs CTA, respirations non labored Extremities: no deformity, no trauma Neurological: oriented x 4, LOC appropriate for age, CN II-XII intact, motor strength equal & normal bilaterally, speech normal Assessment/Plan 1. Cough (R05.9: Cough, unspecified) pt presents today with worsening cough and headache. will obtain respiratory panel. her friend recently and had RSV. will order chest x ray. 40mg kenalog given in office today. rakesh daley and yazmin greer also ordered. Ordered: triamcinolone, 40 mg = 1 mL, Injection, IntraMuscular, Once, Stop date 08/17/24 11:11:00 EDT, Routine, Start date 08/17/24 11:11:00 EDT, 08/17/24 11:11:00 EDT Respiratory Panel by PCR XR Chest 2 Views 2. Wheezing (R06.2: Wheezing) see above Ordered: triamcinolone, 40 mg = 1 mL, Injection, IntraMuscular, Once, Stop date 08/17/24 11:11:00 EDT, Routine, Start date 08/17/24 11:11:00 EDT, 08/17/24 11:11:00 EDT Respiratory Panel by PCR XR Chest 2 Views 3. SOB (shortness of breath) (R06.02: Shortness of breath) see above Ordered: triamcinolone, 40 mg = 1 mL, Injection, IntraMuscular, Once, Stop date 08/17/24 11:11:00 EDT, Routine, Start date 08/17/24 11:11:00 EDT, 08/17/24 11:11:00 EDT Respiratory Panel by PCR XR Chest 2 Views 4. BMI 45.0-49.9, adult (Z68.42: Body mass index [BMI] 45.0-49.9, adult) BMI education Ordered: triamcinolone, 40 mg = 1 mL, Injection, IntraMuscular, Once, Stop date 08/17/24 11:11:00 EDT, Routine, Start date 08/17/24 11:11:00 EDT, 08/17/24 11:11:00 EDT Respiratory Panel by PCR XR Chest 2 Views 5. Nonsmoker (Z78.9: Other specified health status) continue not smoking Ordered: triamcinolone, 40 mg = 1 mL, Injection, IntraMuscular, Once, Stop date 08/17/24 11:11:00 EDT, Routine, Start date 08/17/24 11:11:00 EDT, 08/17/24 11:11:00 EDT Respiratory Panel by PCR XR Chest 2 Views Orders: azithromycin, = 1 packet(s), Oral, As Directed, as directed on package labeling, X 5 day(s), # 6 tab(s), Refills(s) 0, Pharmacy: [facility], 173, cm, 08/17/24 10:44:00 EDT, Height/Length Dosing, 143.4, kg, 08/17/24 10:44:00 EDT, Weight Dosing benzonatate, 200 mg = 1 cap(s), Oral, TID, X 7 day(s), # 21 cap(s), Refills(s) 0, Pharmacy: [facility], 173, cm, 08/17/24 10:44:00 EDT, Height/Length Dosing, 143.4, kg, 08/17/24 10:44:00 EDT, Weight Dosing Follow-up No qualifying data available Problem List/Past Medical History Ongoing Anxiety Asthma, exercise induced BMI 45.0-49.9, adult Calcium deficiency Cough Excessive dietary caloric intake Hx of thyroid cancer Hypomagnesemia Hypoparathyroidism Hypothyroidism Labial cyst Morbid obesity with BMI of 45.0-49.9, adult Nonsmoker Obesity, morbid, BMI 40.0-49.9 JESSICA on CPAP SOB (shortness of breath) Tennis elbow Ventricular septal defect (VSD) Vitamin D deficiency Wheezing Historical No qualifying data Procedure/Surgical History Cholecystectomy and exploration of bile duct, Colonoscopy, Hysterectomy, Thyroidectomy. Medications albuterol 0.083% Inh Mandie 3 mL, See Instructions azithromycin 250 mg Tab, 1 packet(s), Oral, As Directed benzonatate 200 mg oral capsule, 200 mg= 1 cap(s), Oral, TID citalopram 40 mg Tab, 20 mg= 0.5 tab(s), Oral, Daily, 1 refills Flonase 0.05 mg/inh [place], 2 spray(s), Nasal, Daily Flovent HFA 220 Aerosol, 1 puff(s), Inhalation, BID levothyroxine 125 mcg (0.125 mg) Tab, See Instructions losartan 25 mg Tab, See Instructions metoprolol succinate 50 mg ER Tab, 50 mg= 1 tab(s), Oral, Daily, 1 refills Misc Medication, See Instructions Misc Medication, See Instructions mupirocin Top 2% Oint, See Instructions, 1 refills Myrbetriq 50 mg oral tablet, extended release Natpara 75 mcg/d (more content not included)...[facility] Comment on above:Result Comment: Electronically Signed By: Shweta Salazar\Date and Time Signed: 08/17/24 11:52 EDTRespiratory Panel by PCRon [id number] DNA TACHO+non-probe Ql (Nph)Not detectedNormKindred Hospital DaytonComment on above:Result Comment: Testing was performed using nucleic acid amplification including Influenza A, Influenza A H1, Influenza A H3, Influenza B, RSV A, RSV B, Adenovirus, Human Metapneumovirus, Parainfluenza 1,2,3, and 4, Rhinovirus, Bordetella parapertussis/bronchiseptica, Bordetella holmesii, and Bordetella pertussis.Performed By: #### [id number] ####[address]B. holmesii DNA TACHO+probe Ql (Unsp spec)Not detectedNormKindred Hospital DaytonComment on above:Performed By: #### [id number] ####[address]B. parapertussis DNA TACHO+probe Ql (Upper resp)Not detectedNormalNot DetectedLouis Stokes Cleveland Va Medical CenterComment on above:Performed By: #### [id number] ####[address]BORDETELLA PERTUSSIS DNA:PRTHR:PT:XXX:ORD:Not detectedNormalNot DetectedLouis Stokes [facility] Center Comment on above:Performed By: #### [id number] ####[place] [address] [place], [place]FLUAV H1 RNA TACHO+non-probe Ql (Nph)Not detectedNormKindred Hospital DaytonComment on above:Performed By: #### [id number] ####[facility] E[address]101 [facility] [place], [place] [address]JGVAO H3 RNA TACHO+non-probe Ql (Nph)Not detectedNormKindred Hospital DaytonComment on above:Performed By: #### [id number] ####[facility] T[address] [facility] [place], VO[address]ZCIYA RNA TACHO+non-probe Ql (Nph)Not detectedNormKindred Hospital DaytonComment on above:Performed By: #### [id number] ####[facility] [address], [place]ZBRWN RNA TACHO+non-probe Ql (Nph)DetectedAbnoWestern Reserve HospitalComment on above:Performed By: #### [id number] ####[facility] [address], UU[address]Mdyps Metapneumovirus Not detectedNoWestern Reserve HospitalComment on above:Result Comment: This test result should be correlated with clinical presentations and medical history by a healthcare provider to determine its clinical significance. Performed By: #### [id number] ####[facility] [address], YR[address]Jfnzquygofszx virus 1 RNA TACHO+non-probe Ql (Nph)Not detectedNormKindred Hospital DaytonComment on above:Performed By: #### [id number] ####[facility] Qfllartv[address]128 [facility] [place], [place] [address]Rrntedmtorrrk virus 2 RNA TACHO+non-probe Ql (Nph)Not detectedNormKindred Hospital DaytonComment on above:Performed By: #### [id number] ####[facility] [address]qnu[address]235 [facility] [place], YL[address]Qrfkjdzginflz virus 3 RNA TACHO+non-probe Ql (Nph)Not detectedNormKindred Hospital Dayton Comment on above:Performed By: #### [id number] ####[facility] Autfyxmydv402 [facility] [place], HX[address]Xgustjoibotqd virus 4 RNA TACHO+non- probe Ql (Nph)Not detectedNoWestern Reserve HospitalComment on above: Performed By: #### [id number] ####[facility] Qtexioxstv357 [facility] [place], AB[address]Myzm Panel Intrl QCPassNormalLouis Stokes Cleveland Va Medical CenterComment on above:Performed By: #### [id number] ####[facility] [address], VM[address]Tfgyofennk+Enterovirus RNA TACHO+non-probe Ql (Nph)Not detectedNoWestern Reserve HospitalComment on above:Performed By: #### [id number] ####[facility] [address], ZP[address]LVP A RNA TACHO+probe Ql (Nph)Not detectedNormKindred Hospital DaytonComment on above:Performed By: #### [id number] ####[facility] [address] [place] [address], [place] [address]MPP B RNA TACHO+probe Ql (Nph)Not detectedAultman Orrville Hospital Comment on above:Performed By: #### [id number] ####[facility] Kmrvzylke[address]708 [facility] [place], VI[address]9999GWMOnl [id number] Visit (ENDONO) MARCELINA CANO ([id number]) 1960 F Date Time Provider Department 07/27/24 12:15 PM LYDIA RAMIREZ During your visit today, we recorded the following information about you: Temperature Pulse Respiration Blood pressure 98.4 degrees 61/minute 20/minute 155/76 Weight 144.3 kg Lydia Ramirez APRN.CINTHIA 07/27/2024 1:27 PM Signed Endocrine progress note LV hypocalcemia, hypothyroidism, papillary thyroid cancer LV August 18, 2020 Here with Ms. Cano is a 63 year old who presents for following issues: hypocalcemia [...] second time. Now doing injections as above. 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 Reason for visit: Would like a replacement for the natpara Taking Mg glyconate supplements I-131 full body scan from 2013 negative for abnormal uptake Working with local endo re; thyroid cancer Currently doing well No hypocalcemia sxs Regimen: natpara 0.75 mg sub daily Vitamin D 5000 IU d3 daily Calcium tablet 600 mg qid times/day Mag - 400 mg 2 tablets twice daily Managed on synthroid 125 mcg daily No hypocalcemia symptoms now Feeling good Otherwise, no other acute complaints or concerns today. albuterol (PROVENTIL) 2.5 mg /3 mL (0.083 %) nebulizer solution mirabegron (MYRBETRIQ) 50 mg Tb24 Take 1 tablet by mouth every morning. cholecalciferol (VITAMIN D-3) 5,000 unit tab Take 1 tablet by mouth once daily. levothyroxine (SYNTHROID) 125 mcg tablet TAKE 1 [...] Take 50 mg by mouth once daily.) tetracycline (SUMYCIN) 500 mg cap Take 500 mg by mouth once daily. Pt takes 1-2 times Daily (Patient not taking: Reported on 07/27/2024) COMPOUNDED PRESCRIPTION Sleepessence, one capsule by mouth at bedtime (Patient not taking: Reported on 07/27/2024) REVIEW OF SYSTEMS: REVIEW OF SYSTEMS GENERAL: No weight loss, malaise or fevers HEENT: Negative for frequent or significant headaches, No changes in hearing or vision, no nose bleeds or other nasal problems CARDIOVASCULAR: Negative for chest pain, leg swelling, hypertension, CHF or palpitations GI: No nausea, vomiting, or diarrhea : No history of dysuria, frequency or incontinence The remainder of the review of systems is negative. Patient's Past Family and Social history have been reviewed with the patient, and updated as appropriate. Please see relevant sections in epic EHR for details. PHYSICAL EXAM: BP 155/76 (BP Site: Right Arm, BP Position: Sitting, BP Cuff Size: Large Adult) Pulse 61 Temp 36.9 ?C (98.4 ?F) (Temporal) Resp 20 Wt (!) 144.3 kg (318 lb 3.7 oz) SpO2 96% BMI 47.68 kg/m? Body mass index is 47.68 kg/m?. Gen: well appearing, NAD Head: atraumatic normocephalic Eyes: EOMI no scleral icterus Neck: no obvious goiter Pulm: resp effort is appropraite Ext: no swelling cyanosis Neuro: hearing and speech normal DATA REVIEW: 02/01/2023 Impression/plan: 63 yo F with hypothyroidism, papillary thyroid cancer s/p total thyroidectomy, hypocalcemia, hypoparathyroidism, and vitamin D deficiency presenting for follow-up Hypocalcemia and hypoparathyroidism 2/2 thyroidectomy Currently stable on natpara 0.75 mg -- currently on recall, getting through specialty program from maker Vitamin D 50,000 units weekly Calcium citrate 600 mg 4xtimes daily Mg Glyconate Repeat Ca+ and RFP prior to next visit Postsurgical Hypothyroidism, papillary thyroid cancer On levothyroxine 125 mcg TSH at goal Repeat TSH prior to next visit Vitamin D deficiency Continue vitamin D supplementation Last level at goal Will refer to different provider for management of hypoparathyroidism Will be in touch through mychart about (more content not included)...[facility] Summaryon [id number] Visit SummaryAmbulatory Visit Summary MARCELINA CANO :1960 Visit Date:05/29/2024 Ambulatory Visit Instructions Your Diagnosis BMI 45.0-49.9, adult Obesity, morbid, BMI 40.0-49.9 Nonsmoker Vitamin D deficiency Hypothyroidism Hypoparathyroidism Excessive dietary caloric intake Calcium deficiency Hypomagnesemia Your Care Team Attending Physician - Ebony Sequeira MD Primary Care Physician - Ebony Sequeira MD This Is Your Medications List Non-Formulary Medication (Misc Medication) Non-Formulary Medication (Misc Medication) albuterol (albuterol 0.083% Inh Mandie 3 mL) ascorbic acid (Vitamin C 500 mg oral tablet, chewable) cholecalciferol (Vitamin D3 10,000 intl units oral capsule) citalopram (citalopram 40 mg Tab) fluticasone (Flovent HFA 220 Aerosol) fluticasone nasal (Flonase 0.05 mg/inh [place]) levothyroxine (levothyroxine 125 mcg (0.125 mg) Tab) losartan (losartan 25 mg Tab) metoprolol (metoprolol succinate 50 mg ER Tab) mirabegron (Myrbetriq 50 mg oral tablet, extended release) mupirocin topical (mupirocin Top 2% Oint) parathyroid hormone (Natpara 75 mcg/dose subcutaneous injection) Procedures Performed Cholecystectomy and exploration of bile duct, Colonoscopy, Hysterectomy, Thyroidectomy. Discharge Vitals Temperature (Tympanic) 36.8 ???C Heart Rate (Peripheral) 68 Respiratory Rate 18 Blood Pressure 134/82 Height 173 cm Height 68 in Weight 145.7 kg Weight 321.213 lb BMI 48.68 What to do next Scheduled Follow-Up Appointments Tuesday. 2024 10:45 AM EDT With: Ebony Sequeira MD Where: [facility] [address] [place] [address]- Medications What How Much When Why Instructions [...] Unchanged fluticasone nasal (Flonase 0.05 mg/ inh [place]) 2 Sprays Nasal Inhalation Every day each [...] (Misc Medication) See instructions magnsium glyconate 275mg Take3 orally twice a day Unchanged Non-Formulary Medication (Misc Medication) See instructions 2 capsules of the focus factor daily Unchanged parathyroid hormone (Natpara 75 mcg/ dose subcutaneous injection) 75 Microgram Subcutaneous Every day Allergies anabolic steroids (Angry) Biaxin (Diarrhea) Augmentin (Diarrhea) Problems Ongoing - Any problem that you are currently receiving treatment for. Anxiety Asthma, exercise induced BMI 45.0-49.9, adult Calcium deficiency Excessive dietary caloric intake Hx of thyroid cancer Hypomagnesemia Hypoparathyroidism Hypothyroidism Labial cyst Nonsmoker Obesity, Class III, BMI 40-49.9 (morbid obesity) Obesity, morbid, BMI 40.0-49.9 JESSICA on CPAP Tennis elbow Ventricular septal defect (VSD) Vitamin D deficiency Patient Survey You may receive a survey via text or e-mail asking about your office visit. Please share your experience with us by completing your survey. We appreciate your feedback and thank you for choosing us for your care. [facility] Medicine Office/Clinic Noteon [phone] Medicine Office/Clinic NoteAdd[facility] Medicine Office/Clinic Note Chief Complaint Weight Management Concerns about thyroid medication and nutrient deficiency management. HPI Staff 2m weight management follow up Started on phentermine. Took for 2-3wks. Then stopped due to constipation & trouble sleeping at night. Would like to discuss other options. NEG Mammogram 03/15/24 NEG Dexa Scan 04/19/24 Does need refill metoprolol & citalopram ([facility]) Requesting 40mg tablets with the Citalopram. History of Present Illness The patient is a 64-year-old female presenting with concerns regarding thyroid management and nutritional deficiencies. She has a history of morbid obesity with a body mass index (BMI) between 45.0-49.9, excessive dietary caloric intake, and hypothyroidism. Management of her thyroid condition is complicated by irregularities in her thyroid-stimulating hormone (TSH) levels, with a recent measurement of 8.49, prompting a discussion on dosage adjustment of her current treatment, possibly includingLevsin. There is hesitance about starting new medications without thorough consideration due to herpast experience with prescription changes. The patient also has hypomagnesemia, which is contributing to symptoms such as fatigue and possibly sleep disturbances. She reports supplementing magnesium but needs guidance on dosing. She is also being treated for calcium deficiency and vitamin D deficiency but struggles with adherence to recommendations, partly due to irregular communication with her healthcare providers. There is no significant smoking history, and she identifies as a nonsmoker. Her current medication regimen and possibility of adding hormonal evaluations to address weight management goals were discussed. Additionally, she has ongoing stress related to family health issues, which may impact her overall well-being and compliance with current treatment protocols. - Discussion on dietary modification focusing on increasing fiber and maintaining hydration. - Recommendation to adjust magnesium supplementation slowly to prevent gastrointestinal side effects. Review of Systems PHQ Score Initial Depression Screen Score: 0 SCORE Physical Exam Vitals & Measurements T: 36.8 ???C(Tympanic) HR: 68(Peripheral) RR: 18 BP: 134/82 SpO2: 97% HT: 68 in HT: 173 cm WT: 145.7 kg WT: 321.213 lb BMI: 48.68 General: alert, no acute distress ENMT: oral mucosa moist Cardiovascular: Regular rate and rhythm, normal peripheral perfusion Respiratory: Lungs clear to auscultation, respirations non labored Extremities: no deformity, no trauma Neurological: oriented x 4, level of consciousness appropriate for age, CN II- XII intact, motor strength equal & normal bilaterally, speech normal Abdomen: Soft, Non-tender, Non-distended, + Bowel sounds Assessment/Plan 1. BMI 45.0-49.9, adult (Z68.42: Body mass index [BMI] 45.0-49.9, adult) BMI education added. Discussed diet and exercise advised 2. Obesity, morbid, BMI 40.0-49.9 (E66.01: Morbid (severe) obesity due to excess calories) Address long-term weight management including dietary recommendations emphasizing fiber intake and hydration. Explore potential hormonal imbalances and consider endocrinological evaluation tailored to obesity management. 3. Nonsmoker (Z78.9: Other specified health status) Please continue to not smoke. 4. Vitamin D deficiency (E55.9: Vitamin D deficiency, unspecified) Reinforce adherence to vitamin D supplementation. Monitor serum levels to ensure adequacy in conjunction with calcium supplementation, considering her calcium deficiency status. 5. Hypothyroidism (E03.9: Hypothyroidism, unspecified) Review of thyroid function indicates elevated TSH. Re-evaluate levothyroxine dosage and consider conducting a comprehensive hormone panel to assess broader endocrine function. The role of diet and medication adherence was discussed, and a follow-up assessment is recommended to determine the effectiveness of any adjustments. 6. Hypoparathyroidism (E20.9: Hypoparathyroidism, unspecified) No CA levels noted. Pt to follow up with Endo. 7. Excessive dietary caloric intake (R63.2: Polyphagia) Dietary counseling focusing on caloric reduction and nutritional quality. Consider weight management support services. 8. Calcium deficiency (E58: Dietary calcium deficiency) Reinforce calcium supplementation and monitor levels. Ensure coordination with vitamin D managementto optimize absorption and bone health. 9. Hypomagnesemia (E83.42: Hypomagnesemia) Adjust magnesium supplementation gradually to mitigate side effects such as gastrointestinal upset.Monitor magnesium levels to guide dosing. Orders: citalopram, 20 mg = 0.5 tab(s), Oral, Daily, # 90 tab(s), Refills(s) 1, Pharmacy: [facility], 173, cm, 05/29/24 10:47:00 EST, Height/Length Dosing, 145.7, kg, 05/29/24 10:47:00 EST, Weight Dosing metoprolol, 50 mg = 1 tab(s), Oral, Daily, # 90 tab(s), Refills(s) 1, [facility] (more content not included)...[facility] Comment on above:Result Comment: Electronically Signed By: Mamadou FAITH, Ebony Ardon.br\Date and Time Signed: 05/29/24 11:39 ESTFree T4 (Free Thyroxine)on 17-45-1004Gplg T4 [Mass/Vol]0.79 ng/dLNormal0.61-1.12The [facility] Physician GroupComment on above:Performed By: #### MG, T3F, T4F, TSH3 #### [facility] [address] [place], [place] [id number] USAMagnesiumon 54-57-8521Imnnhvoer [Mass/Vol]1.5 mg/dLLow 1.9-2.7The [facility] Physician GroupComment on above:Performed By: #### MG, T3F, T4F, TSH3 #### [facility] [address] [place] [address] USAMagnesium [Mass/volume] in Serum or PlasmaOrdered By: Severino Rankin on 43-97-5877Ktvrsovbv [Mass/Vol]Magnesium [Mass/volume] in Serum or PlasmaLow1.9-2.7FOhioHealth Nelsonville Health CenterThyroid Stimulating Hormone on 89-10-5365NCC Qn8.49 m[IU]/LHigh0.45-5.33The [facility] Physician GroupComment on above:Result Comment: PERFORMED BY: [place] [id number] PATHOLOGIST BILLET EXAMINER VICKI MONTE M.D.Performed By: #### MG, T3F, T4F, TSH3 #### [address] [place] [address] USAThyrotropin [Units/volume] in Serum or PlasmaOrdered By: Severino Rankin on 61-39-6477SAU QnThyrotropin [Units/volume] in Serum or Plasma High0.45-5.33[facility] HospitalThyroxine (T4) free [Mass/volume] in Serum or PlasmaOrdered By: Severino Rankin on 32-22-7982Ggnx T4 [Mass/Vol] Thyroxine (T4) free [Mass/volume] in Serum or Plasma0.61-1.12[facility] HospitalTriiodothyronine (T3) Freeon 85-58-1029Yoaehfkqluxbzfpe (T3) Free 2.89 pg/mLNormal2.50-3.90The [facility] Physician GroupComment on above:Result Comment: PERFORMED BY: [address] [id number] PATHOLOGIST BILLET EXAMINER VICKI MONTE M.D.Performed By: #### MG, T3F, T4F, TSH3 #### [facility] [address] [place] [address] USATriiodothyronine (T3) Free [Mass/volume] in Serum or PlasmaOrdered By: Severino Rankin on 57-59-9319Qprp T3 [Mass/Vol]Triiodothyronine (T3) Free [Mass/volume] in Serum or Plasma2.50-3.90[facility] HospitalAmbulatory Visit Summaryon [id number] Visit SummaryAmbulatory Visit Summary MARCELINA CANO :1960 Visit Date:03/27/2024 Ambulatory Visit Instructions Your Diagnosis Adult BMI 45.0-49.9 kg/sq m Morbid obesity with BMI of 45.0-49.9, adult Nonsmoker Your Care Team Attending Physician - Ebony Sequeira MD Primary Care Physician - Ebony Sequeira MD This Is Your Medications List Non-Formulary Medication (Misc Medication) Non-Formulary Medication (Misc Medication) albuterol (albuterol 0.083% Inh Mandie 3 mL) ascorbic acid (Vitamin C 500 mg oral tablet, chewable) cholecalciferol (Vitamin D3 10,000 intl units oral capsule) citalopram (citalopram 40 mg Tab) fluticasone (Flovent HFA 220 Aerosol) fluticasone nasal (Flonase 0.05 mg/inh [place]) levothyroxine (levothyroxine 125 mcg (0.125 mg) Tab) [...] Tuesday 10:30 AM EST With: Mamadou FAITH, Ebony Timmons Where: [place] [id number]- Medications What How Much When Why Instructions [...] Unchanged fluticasone nasal (Flonase 0.05 mg/ inh [place]) 2 Sprays Nasal Inhalation Every day each [...] (Misc Medication) See instructions magnsium glyconate 275mg Take3 orally twice a day Unchanged Non-Formulary Medication [...] you for choosing us for your care. [facility] Medicine Office/Clinic Noteon [phone] Medicine Office/Clinic NoteFawestborough behavioral healthcare hospital Medicine Office/Clinic Note Chief Complaint The patient [...] with sleep disturbances. She reports an inability tosleep well and notes she has been feeling bound up recently. She uses two digestive supplements to maintain normal function. Her sleep issues persist despite using a chewable supplement from [place] previously helped her achieve sleep. She reports being out of this supplement and experiencingsleep disruptions. She discusses using THC with CBD. However, she is cautious with dosages and still trials variations for optimal rest. Regarding weight management, she is exploring alternative methods, including considering options like Wegovy and weight loss injections, particularly due to the high costs through prescription versusonline alternatives. She is looking to invest in weight loss solutions that fit her financial concerns, noting a difference in pricing from $1,600 to $100 a month through different sources. The discussion also touches on buying through [facility] pharmacies, which offer prices in the range of $200to $300. Patient is also having issues with her hypocalcemia. Patient is seeing Dr. Rankin but is concernedthat medication that she has will no longer [...] level of consciousness appropriate for age, CN II- XII intact, motor strength equal & normal bilaterally, [...] Daily, # 90 tab(s), Refills(s) 1, Pharmacy: [id number], 173, cm, 08/22/23 11:06:00 EDT, Height/Length Dosing, [...] 0.083% Inh Mandie 3 (more content not included)...[facility] HospitalComment on above:Result Comment: Electronically Signed By: Mamadou FAITH, Ebony Ardon.magda\Date and Time Signed: 03/27/24 12:44 ESTDBT Breast - bilateral screeningon [id number] and review of laboratory resultsNormal [facility] SystemDiagnostic Category 2-- Benign Recommendations: Routine mammogram and clinical evaluation in 12 months.PENRAD FINDINGS: Diagnostic category 2--Benign Finding: Right breast: No significant suspicious finding. Scattered benign- appearing calcifications are present. No significant change has occurred. Left breast: No significant suspicious finding. Scattered benign - appearing calcifications are present. No significant change has occurred. [facility] HOSPITALTalkdeskVermont State HospitalEasyRun Select Specialty HospitalDBT Breast - bilateral screeningon 03-15-2024 Radiology Study observation (narrative)[facility] HospitalAmbulatory Visit Summaryon [id number] Visit SummaryAmbulatory Visit Summary MARCELINA CANO :1960 Visit Date:03/06/2024 Ambulatory Visit Instructions Your Diagnosis BMI 45.0-49.9, adult Nonsmoker Your Care Team Attending Physician - Shweta Salazar Primary Care Physician - Ebony Sequeira MD This Is Your Medications List Non-Formulary Medication (Misc Medication) Non-Formulary Medication (Misc Medication) albuterol (albuterol 0.083% Inh Mandie 3 mL) ascorbic acid (Vitamin C 500 mg oral tablet, chewable) cephalexin (Keflex 500 mg Cap) cholecalciferol (Vitamin D3 10,000 intl units oral capsule) citalopram (citalopram 40 mg Tab) fluconazole (fluconazole 150 mg Tab) fluticasone (Flovent HFA 220 Aerosol) fluticasone nasal (Flonase 0.05 mg/inh [place]) levothyroxine (levothyroxine 125 mcg (0.125 mg) Tab) [...] Follow-Up Appointments 2023 9:30 AM EST With: Ebony Sequeira MD Where: [place] [id number]- Medications What How Much When Why Instructions Unchanged albuterol (albuterol 0.083% Inh Mandie 3 mL) See instructions INHALE CONTENTS OF 1 VIAL (3 ML) EVERY 6 HOURS AND NEEDED Unchanged ascorbic acid (Vitamin C 500 mg oral tablet, chewable) 1 Tablets Chewed Every day Unchanged cephalexin (Keflex 500 mg Cap) 1 Capsules By Mouth Every 12 hours Pickup at [facility] Unchanged cholecalciferol (Vitamin D3 10,000 intl [...] Unchanged fluticasone nasal (Flonase 0.05 mg/ inh [place]) 2 Sprays Nasal Inhalation Every day each [...] (Misc Medication) See instructions magnsium glyconate 275mg Take3 orally twice a day Unchanged Non-Formulary Medication (Misc Medication) 1 capsuled QD of Focus Factor Unchanged parathyroid hormone (Natpara 75 mcg/ dose subcutaneous injection) 75 Microgram Subcutaneous Every day Pharmacy Information [id number]: [address] [place], [place] [id number] [phone] Allergies anabolic steroids (Angry) Biaxin (Diarrhea) Augmentin [...] you for choosing us for your care. [facility] Medicine Office/Clinic Noteon [id number] Medicine Office/Clinic NoteAddison [facility] Medicine Office/Clinic Note HPI Staff Marcelina [...] and antibiotics were sent in by Dr. Sequeira yesterday. pt will pick those up now and start takingthem today. RTC as needed 2. BMI 45.0-49.9, adult (Z68.42: Body mass index [BMI] 45.0-49.9, adult) BMI education given 3. Nonsmoker (Z78.9: Other specified health status) continue not smoking Orders: cephalexin, 500 mg = 1 cap(s), Oral, q12hr, # 20 cap(s), Refills(s) 0, Pharmacy: [facility] #[id number], 173, cm, 02/27/24 9:51:00 EST, Height/Length Dosing, 140, kg, 02/27/24 9:51:00 EST, WeightDosing cephalexin, 500 mg = 1 cap(s), Oral, q12hr, # 20 cap(s), Refills(s) 0, Pharmacy: [facility]72, 173, cm, 03/06/24 11:03:00 EST, Height/Length [...] Oral, Daily, 1 refills Flonase 0.05 mg/inh [place], 2 spray(s), Nasal, Daily Flovent HFA 220 [...] Tobacco Use:. Never Smokeless Tobacco Use:. Cigarettes, Householdtobacco concerns: No., 03/06/2024 Family History Alcoholism: Mother. Diabetes mellitus type 2: Brother. Hyperlipidemia: Sister. Parkinson disease: Brother. Immunizations Vaccine Date Status Comments influenza virus vaccine, inactivated - Not Given Postpone due to refusal influenza virus vaccine, inactivated 02/13/2022 Recorded SARS-CoV-2 (COVID-19) [id number] 02/13/2022 Recorded SARS-CoV-2 (COVID-19) mRNA BNT-162b2 vax 02/11/2021 Recorded SARS-CoV-2 (COVID-19) mRNA BNT-162b2 vax 07/11/2020 Recorded SARS-CoV-2 (COVID-19) mRNA BNT-162b2 vax 06/20/2020 Recorded influenza virus vaccine, inactivated 02/05/2015 Recorded influenza virus vaccine, inactivated 01/29/2015 RecordedAultman Orrville HospitalComment on above:Result Comment: Electronically Signed By: Shweta Salazar\.magda\Date and Time Signed: 03/06/24 14:40 ESTAmbulatory Visit Summary on [id number] Visit SummaryAmbulatory Visit Summary MARCELINA CANO :1960 Visit Date:02/27/2024 Ambulatory Visit Instructions Your Diagnosis BMI 45.0-49.9, adult Morbid obesity with BMI of 45.0-49.9, adult Nonsmoker Hypothyroidism Your Care Team Attending Physician - Ebony Sequeira MD Primary Care Physician - Ebony Sequeira MD This Is Your Medications List Non-Formulary Medication (Misc Medication) Non-Formulary Medication (Misc Medication) albuterol (albuterol 0.083% Inh Mandie 3 mL) ascorbic acid (Vitamin C 500 mg oral tablet, chewable) cholecalciferol (Vitamin D3 10,000 intl units oral capsule) citalopram (citalopram 40 mg Tab) fluconazole (fluconazole 150 mg Tab) fluticasone (Flovent HFA 220 Aerosol) fluticasone nasal (Flonase 0.05 mg/inh [place]) levothyroxine (levothyroxine 125 mcg (0.125 mg) Tab) [...] Follow-Up Appointments 2023 9:30 AM EST With: Ebony Sequeira MD Where: [place] [phone]- Medications What How Much When Why Instructions [...] Unchanged fluticasone nasal (Flonase 0.05 mg/ inh [place]) 2 Sprays Nasal Inhalation Every day each [...] (Misc Medication) See instructions magnsium glyconate 275mg Take3 orally twice a day Unchanged Non-Formulary Medication [...] you for choosing us for your care. [facility] HospitalF[facility]est[facility] Medicine Office/Clinic Noteon [phone] Medicine Office/Clinic NoteFami Medicine Office/Clinic Note Chief Complaint Concerns regarding [...] of 45.0-49.9, indicating morbid obesity, which has justina persistent issue. The patient reports stress and emotional eating habits exacerbated by familial stressors, including her sister's ongoing health issues, which include kidney disease and recent epis odes of pneumonia and C. diff. These familial [...] a nonsmoker. She is considering engaging with hospiceservices for her sister and is dealing with [...] level of consciousness appropriate for age, CN II- XII intact, motor strength equal & normal bilaterally, [...] Daily, # 30 cap(s), Refills(s) 0, Pharmacy: [facility], 173, cm, 02/27/24 9:51:00 EST, Height/Length Dosing, 140, kg, 02/27/24 9:51:00 EST, Weight Dosing 3. BMI 45.0-49.9, adult (Z68.42: Body mass index [BMI] 45.0-49.9, adult) Continue discussion on lifestyle modifications and exercise, possibly utilizing local facilities for structured physical activity to aid weight management. Ordered: phentermine, 37.5 mg = 1 cap(s), Oral, Daily, # 30 cap(s), Refills(s) 0, Pharmacy: [facility], 173, cm, 02/27/24 9:51:00 EST, Height/Length Dosing, 140, kg, 02/27/24 9:51:00 EST, Weight Dosing 4. Morbid obesity with BMI of 45.0-49.9, adult (E66.01: Morbid (severe) obesity due to excess calories) BMI education added. Ordered: phentermine, 37.5 mg = 1 cap(s), Oral, Daily, # 30 cap(s), Refills(s) 0, Pharmacy: [facility], 173, cm, 02/27/24 9:51:00 EST, Height/Length Dosing, 140, kg, 02/27/24 9:51:00 EST, Weight Dosing 5. Nonsmoker (Z78.9: Other specified health status) Reinforce positive lifestyle choice and continue abstinence. Ordered: phentermine, 37.5 mg = 1 cap(s), Oral, Daily, # 30 cap(s), Refills(s) 0, Pharmacy: [id number], 173, cm, 02/27/24 9:51:00 EST, Height/Length Dosing, 140, kg, 02/27/24 9:51:00 EST, Weight Dosing Total time spent preparing for the encounter, evaluating and assessing the patient, documenting thevisit, and ordering appropriate follow-up work was 35 [...] mg= 1 cap(s), Ora (more content not included)...[facility] HospitalComment on above:Result Comment: Electronically Signed By: Mamadou FAITH, Ebony Ardon.br\Date and Time Signed: 02/27/24 10:49 ESTCHEMISTRYOrdered By: Ayana Paredes on [id number]-kvkomwpadkezgc D3 [Mass/Vol]71.1 ng/oOYjpdjo77.0 - 100.0 ng/mLRemisol ChemCHEMISTRYOrdered By: SYSTEM SYSTEM on 13-87-9388Adocgkc [Mass/Vol]4.3 g/dLNormal3.3 - 5.0 gm/dL Remisol ChemAlbumin/Globulin [Mass ratio]1.2 {ratio}Normal1.1 - 2.2Remisol Chem ALP [Catalytic activity/Vol]95 [iU]/yPvxhbn46 - 98 Int._Unit/LRemisol ChemALT No additional P-5'-P [Catalytic activity/Vol]41 [iU]/dNormal6 - 46 Int._Unit/L Remisol ChemAnion gap [Moles/Vol]12 mmol/LNormal6 - 16 mEq/LRemisol ChemAST [Catalytic activity/Vol]48 [iU]/dHigh5 - 43 Int._Unit/LRemisol ChemBilirubin [Mass/Vol]0.8 mg/dLNormal0.0 - 1.1 mg/dLRemisol ChemCalcium [Mass/Vol]9.0 mg/dL Normal8.9 - 11.1 mg/dLRemisol ChemChloride [Moles/Vol]99 mmol/MJwa231 - 111 mmol/LRemisol ChemCO2 [Moles/Vol]30 mmol/KKbwlwb26 - 31 mmol/LRemisol Chem Creatinine [Mass/Vol]0.7 mg/dLNormal0.5 - 1.3 mg/dLRemisol ZmkfrEKQ78 mL/min/1.73 e7Xdbsoq>=59mL/min/1.73 p8Zckcfvi ChemGlobulin (S) [Mass/Vol]3.5 g/dLNormal1.4 - 4.0 gm/dLRemisol ChemGlucose [Mass/Vol]133 mg/nHKcqtoi08 - 199 mg/dLRemisol ChemMagnesium [Mass/Vol]1.7 mg/dLNormal1.3 - 2.4 mg/dLRemisol Chem Potassium [Moles/Vol]4.2 mmol/LNormal3.5 - 5.3 mmol/LRemisol ChemProtein [Mass/Vol]7.8 g/dLNormal6.0 - 7.8 gm/dLRemisol ChemSodium [Moles/Vol]137 mmol/L Geamzb124 - 145 mmol/LRemisol ChemUrea nitrogen [Mass/Vol]14 mg/dLNormal5 - 21 mg/dLRemisol ChemUrea nitrogen/Creatinine [Mass ratio]20 mg/yjHoyzof36 - 20 Remisol ChemCMPon 45-21-4548Ccvvrqt [Mass/Vol]4.3 g/dLNormal3.3-5.0[facility] CenterComment on above:Performed By: #### [id number] #### [facility] [address], [place] [address]Lbelnno/Globulin (S) [Mass conc ratio]1.3Byaanm2.1-2.2FSumma Health Barberton CampusComment on above:Performed By: #### [id number] #### [facility] [address], [place] [address]HNU [Catalytic activity/Vol]95 Int._Unit/TLbtzvl67-25HkhmkgLouis Stokes Cleveland Va Medical CenterComment on above:Performed By: #### [id number] #### [facility] [address], [place] [address]ATX No additional P-5'-P [Catalytic activity/Vol]41 Int._Unit/L Normal6-46[facility] CenterComment on above:Performed By: #### [id number] #### [facility] [address], [place] [address]Mekrh gap [Moles/Vol]12 mmol/LNormal6-16[facility] CenterComment on above:Performed By: #### [id number] #### [facility] [address], [place] [address]XAE [Catalytic activity/Vol]48 Int._Unit/LHigh5-43[facility] CenterComment on above:Performed By: #### [id number] #### [facility] [address], [place] [address]Xnrzbykxx [Mass/Vol]0.8 mg/dLNormal0.0-1.1FSumma Health Barberton CampusComment on above:Performed By: #### [id number] #### [facility] [address], [place] [address]Jpfhryt [Mass/Vol]9.0 mg/dLNormal8.9-11.1FSumma Health Barberton CampusComment on above:Performed By: #### [id number] #### [facility] [address] [place] [address]Bfpnlcsu [Moles/Vol]99 mmol/TWmf519-172OishqwLouis Stokes Cleveland Va Medical CenterComment on above:Performed By: #### [id number] #### [facility] [address], [place] [address]HT8 [Moles/Vol]30 mmol/AJcfphd61-75SgviccLouis Stokes [facility] Center Comment on above:Performed By: #### [id number] #### [facility] [address], [place] [address]Axwjybreww [Mass/Vol]0.7 mg/dLNormal0.5-1.3FSumma Health Barberton CampusComment on above:Performed By: #### [id number] #### [facility] [address], [place] [address]Vhrmiexb (S) [Mass/Vol]3.5 g/dLNormal1.4-4.0[facility] CenterComment on above:Performed By: #### [id number] #### [facility] [address], [place] [address]Wskzhsf [Mass/Vol]133 mg/jGVtlwhr08-807SvrzqoLouis Stokes Cleveland Va Medical CenterComment on above:Performed By: #### [id number] #### [facility] [address], [place] [address]Aubgqrixf [Moles/Vol]4.2 mmol/LNormal3.5-5.3FSumma Health Barberton CampusComment on above:Performed By: #### [id number] #### [facility] [address] [place] [address]Dzyryzq [Mass/Vol]7.8 g/dLNormal6.0-7.8[facility] CenterComment on above:Performed By: #### [id number] #### [facility] [address], [place] [address]Xjvaxg [Moles/Vol]137 mmol/CMchhbh899-268AqjkkkLouis Stokes Cleveland Va Medical CenterComment on above:Performed By: #### [id number] #### [facility] [address] [place] [address]Pptd nitrogen [Mass/Vol]14 mg/dLNormal5-21[facility] CenterComment on above:Performed By: #### [id number] #### [facility] [address], [place] [address]Gqoq nitrogen/Creatinine [Mass ratio]20 No ZatbgZaemrs59-65 [facility] CenterComment on above:Performed By: #### [id number] #### [facility] [address], [place] [address]Thhfjhgvjxc 14-43-8495Ipicsffev [Mass/Vol]1.7 mg/dLNormal 1.3-2.4FSumma Health Barberton CampusComment on above:Performed By: #### [id number] #### [facility] [address], [place] [address]Xyauljk D 25 Hydroxyon 863666-bptgypplfkwuaa D3 [Mass/Vol]71.1 ng/nIIkblut68.0-100.0[facility] CenterComment on above: Performed By: #### [id number] ####[facility] [address] [place], [place] [address]vJRMyc 66-68-1526jHKC91 mL/min/1.73 u6Djkkpp>=59 [facility] CenterComment on above:Performed By: #### [id number] #### [facility] [address], [place] [address]Ebtksvzill Visit Summaryon 44-41-6059Capiljkoth Visit Summary Ambulatory Visit Summary MARCELINA CANO :1960 Visit Date:01/24/2024 Ambulatory Visit Instructions Your Diagnosis HTN (hypertension), benign Hypoparathyroidism Hypothyroidism Anxiety BMI 45.0-49.9, adult Hx of thyroid cancer Nonsmoker Class 3 severe obesity due to excess calories with body mass index (BMI) of 45.0 to 49.9 in adult Your Care Team Attending Physician - Ebony Sequeira MD. Primary Care Physician - Ebony Sequeira MD This Is Your Medications List Non-Formulary Medication (Misc Medication) Non-Formulary Medication (Misc Medication) albuterol (albuterol 0.083% Inh Mandie 3 mL) ascorbic acid (Vitamin C 500 mg oral tablet, chewable) cholecalciferol (Vitamin D3 10,000 intl units oral capsule) citalopram (citalopram 20 mg Tab) citalopram (citalopram 40 mg Tab) fluconazole (fluconazole 150 mg Tab) fluticasone (Flovent HFA 220 Aerosol) fluticasone nasal (Flonase 0.05 mg/inh [place]) levothyroxine (levothyroxine 125 mcg (0.125 mg) Tab) [...] Tuesday 9:30 AM EST With: Mamadou FAITH, Ebony Timmons Where: [address] [address]- Medications What How Much When Why Instructions Unchanged albuterol (albuterol 0.083% Inh Mandie 3 mL) See instructions INHALE CONTENTS OF 1 VIAL (3 ML) EVERY 6 HOURS AND NEEDED Unchanged ascorbic acid (Vitamin C 500 mg oral tablet, chewable) 1 Tablets Chewed Every day Unchanged cholecalciferol (Vitamin D3 10,000 intl units oral capsule) See instructions 5000 units aday Unchanged citalopram (citalopram 20 mg Tab) 1 [...] Unchanged fluticasone nasal (Flonase 0.05 mg/ inh [place]) 2 Sprays Nasal Inhalation Every day each [...] (Misc Medication) See instructions magnsium glyconate 275mg Take3 orally twice a day Unchanged Non-Formulary Medication [...] you for choosing us for your care. [facility] Medicine Office/Clinic Noteon [id number] Medicine Office/Clinic NoteFawestborough behavioral healthcare hospital Medicine Office/Clinic Note HPI Staff Loreto is [...] liver status due to a reported fatty livercondition. However, the primary issue is confirmation that losartan, an angiotensin II receptor anta gonist, is benign for her liver. Enalapril, from the same drug class, was discussed as having similar implications, and losartan's protective effects on cardiac health were acknowledged. The patient's history also includes morbid obesity, and she has expressed interest in a weight-lossmedication. Despite previous success using Weight Watchers and an active lifestyle that included walking four miles and playing tennis, hypothyroidism complicates current weight management, as does the history of thyroid cancer limiting medication options. Furthermore, the patient presents with a history of essential hypertension and ventricular septal defect, the latter being congenital and not surgically addressed due to its manageable nature withoutpresenting complications. Sleep management has incorporated various approaches, including Flexeril and melatonin, now transitioned to a CBD chewable for sleep induction. She denies any direct cardiacissues barring the ventricular defect. Review of Systems [...] level of consciousness appropriate for age, CN II- XII intact, motor strength equal & normal bilaterally, [...] Daily, # 30 cap(s), Refills(s) 0, Pharmacy: [facility], 173, cm, 01/24/24 9:44:00 EDT, Height/Length Dosing, 141.7, kg, 01/24/24 9:44:00 EDT, Weight Dosing 2. Hypoparathyroidism (E20.9: Hypoparathyroidism, unspecified) Endocrine surveillance continues, with pending follow-up with an vendor analyst to re-evaluate management in light of forthcoming medication adjustments. Ordered: phentermine, 37.5 mg = 1 cap(s), Oral, Daily, # 30 cap(s), Refills(s) 0, Pharmacy: [facility], 173, cm, 01/24/24 9:44:00 EDT, Height/Length Dosing, 141.7, kg, 01/24/24 9:44:00 EDT, Weight Dosing 3. Hypothyroidism (E03.9: Hypothyroidism, unspecified) Stable, will have endo monitor. Labs to be done later today Ordered: phentermine, 37.5 mg = 1 cap(s), Oral, Daily, # 30 cap(s), Refills(s) 0, Pharmacy: [facility], 173, cm, 01/24/24 9:44:00 EDT, Height/Length Dosing, 141.7, kg, 01/24/24 9:44:00 EDT, Weight Dosing 4. Anxiety (F41.9: Anxiety disorder, unspecified) The patient's anxiety management was not directly addressed and remains under continuous evaluation. However, the overlap with sleep-related issues has been partially explored through the introduction of CBD alternatives and consid (more content not included)...[facility] HospitalComment on above:Result Comment: Electronically Signed By: Ebony Sequeira MD\.br\Date and Time Signed: 01/24/24 10:24 EDTAmbulatory Visit Summaryon 32-51-7819Mzkpwsajhe Visit Summary Ambulatory Visit Summary MARCELINA CANO :1960 Visit Date:10/25/2023 Ambulatory Visit Instructions Your Care Team Attending Physician - Ebony Sequeira MD Primary Care Physician - Ebony Sequeira MD This Is Your Medications List Non-Formulary Medication (Misc Medication) Non-Formulary Medication (Misc Medication) albuterol (albuterol 0.083% Inh Mandie 3 mL) ascorbic acid (Vitamin C 500 mg oral tablet, chewable) cholecalciferol (Vitamin D3 10,000 intl units oral capsule) citalopram (citalopram 40 mg Tab) fluconazole (fluconazole 150 mg Tab) fluticasone (Flovent HFA 220 Aerosol) fluticasone nasal (Flonase 0.05 mg/inh [place]) levothyroxine (levothyroxine 125 mcg (0.125 mg) Tab) [...] units oral capsule) See instructions 5000 units aday Unchanged citalopram (citalopram 40 mg Tab) 1 Tablets By Mouth Every day Unchanged fluconazole (fluconazole 150 mg Tab) See instructions Sinusitis nasal Take one tablet at the onset of symptoms; may repeat in 72 hours Unchanged fluticasone (Flovent HFA 220 Aerosol) 1 Puffs Inhalation 2 times a day Acute URI Cough Unchanged fluticasone nasal (Flonase 0.05 mg/ inh [place]) 2 Sprays Nasal Inhalation Every day each [...] (Misc Medication) See instructions magnsium glyconate 275mg Take3 orally twice a day Unchanged Non-Formulary Medication [...] you for choosing us for your care. [facility] Medicine Office/Clinic Noteon [id number] Medicine Office/Clinic NoteFawestborough behavioral healthcare hospital Medicine Office/Clinic Note HPI Staff Marcelina is a 63 year old female presenting for acute visit Acute: right shoulder and elbow pain Is radiating to her right wrist Pain characteristics: shoulder dull sharp pain, elbow throbs, wrist dull pain Pain location:started in shoulder down to elbow Intensity:7/10 Onset: started yesterday Medication used: sports cream [...] day(s), # 21 tab(s), Refills(s) 0, Pharmacy: [facility] #[id number], 173, cm, 10/25/23 11:13:00 EDT, Height/Length Dosing, [...] Oral, Daily, 1 refills Flonase 0.05 mg/inh [place], 2 spray(s), Nasal, Daily Flovent HFA 220 [...] Tobacco Use:. Never Smokeless Tobacco Use:. Cigarettes, Householdtobacco concerns: No., 10/25/2023 Family History Alcoholism: Mother. Diabetes mellitus type 2: Brother. Hyperlipidemia: Sister. Parkinson disease: Brother. Immunizations Vaccine Date Status Comments influenza virus vaccine, inactivated - Not Given Postpone due to refusal influenza virus vaccine, inactivated 02/13/2022 Recorded SARS-CoV-2 (COVID-19) mRNAMUL.ORD![id number] 02/13/2022 Recorded SARS-CoV-2 (COVID-19) mRNA BNT-162b2 vax 02/11/2021 Recorded SARS-CoV-2 (COVID-19) mRNA BNT-162b2 vax 07/11/2020 Recorded SARS-CoV-2 (COVID-19) mRNA BNT-162b2 vax 06/20/2020 Recorded influenza virus vaccine, inactivated 02/05/2015 Recorded influenza virus vaccine, inactivated 01/29/2015 RecordedNoWestern Reserve HospitalComment on above:Result Comment: Electronically Signed By: Mamadou FAITH, Ebony Ardon.br\Date and Time Signed: 10/25/23 11:42 EDTCHEMISTRYOrdered By: SYSTEM SYSTEM on [id number]-kqdrcrrcgqdqhc D3 [Mass/Vol]61.5 ng/gXNzekul60.0 - 100.0 ng/mLRemisol ChemAlbumin [Mass/Vol]4.1 g/dLNormal3.3 - 5.0 gm/dLRemisol ChemAlbumin/Globulin [Mass ratio]1.2 {ratio}Normal1.1 - 2.2Remisol ChemALP [Catalytic activity/Vol]100 [iU]/dHigh21 - 98 Int._Unit/LRemisol ChemALT No additional P-5'-P [Catalytic activity/Vol]31 [iU]/dNormal6 - 46 Int._Unit/L Remisol ChemAnion gap [Moles/Vol]14 mmol/LNormal6 - 16 mEq/LRemisol ChemAST [Catalytic activity/Vol]40 [iU]/dNormal5 - 43 Int._Unit/LRemisol ChemBilirubin [Mass/Vol]0.5 mg/dLNormal0.0 - 1.1 mg/dLRemisol ChemCalcium [Mass/Vol]8.9 mg/dL Normal8.9 - 11.1 mg/dLRemisol ChemChloride [Moles/Vol]99 mmol/PRta714 - 111 mmol/LRemisol ChemCO2 [Moles/Vol]28 mmol/BFtlujd66 - 31 mmol/LRemisol Chem Creatinine [Mass/Vol]0.7 mg/dLNormal0.5 - 1.3 mg/dLRemisol GayshBMH28 mL/min/1.73 d8Hbshiq>=59mL/min/1.73 h0Uxquxoy ChemGlobulin (S) [Mass/Vol]3.3 g/dLNormal1.4 - 4.0 gm/dLRemisol ChemGlucose [Mass/Vol]144 mg/iNUytalu96 - 199 mg/dLRemisol ChemMagnesium [Mass/Vol]1.4 mg/dLNormal1.3 - 2.4 mg/dLRemisol Chem Potassium [Moles/Vol]4.0 mmol/LNormal3.5 - 5.3 mmol/LRemisol ChemProtein [Mass/Vol]7.4 g/dLNormal6.0 - 7.8 gm/dLRemisol ChemSodium [Moles/Vol]137 mmol/L Kyfaav760 - 145 mmol/LRemisol ChemTSH Qn3.26 m[IU]/LNormal0.34 - 5.60 mcIU/mL Remisol ChemUrea nitrogen [Mass/Vol]13 mg/dLNormal5 - 21 mg/dLRemisol ChemUrea nitrogen/Creatinine [Mass ratio]19 mg/kxVoskmd38 - 20Remisol ChemCMPon 95-98-8752Gnkarma [Mass/Vol]4.1 g/dLNormal3.3-5.0[facility] Comment on above:Performed By: #### [id number], 4984766, [id number], 47819934, 1825007 ####[address] [place], [place] [address]Hprvljw/Globulin (S) [Mass conc ratio]1.9Huthqq7.1-2.2[facility] CenterComment on above:Performed By: #### [id number], 1699725, [id number], 70236404, 2627602 ####[address] [address]HAR [Catalytic activity/Vol]100 Int._Unit/BOhif10-36KwazcsLouis Stokes Cleveland Va Medical CenterComment on above:Performed By: #### [id number], 1069892, 641022421, 73960251, 6028747 ####[address] [address]NPT No additional P-5'-P [Catalytic activity/Vol]31 Int._Unit/LNormal6-46[facility] CenterComment on above:Performed By: #### 07347540, 3629314, [id number], 09809281, 5065724 ####[address] [address]Ckbgg gap [Moles/Vol]14 mmol/L Normal6-16[facility] CenterComment on above:Performed By: #### [id number], 3691895, 175749995, 79679983, 2047523 ####[address] [address]EFJ [Catalytic activity/Vol]40 Int._Unit/LNormal5-43[facility] CenterComment on above:Performed By: #### 94491164, 1843000, 396230954, 04964787, 3251614 ####[address] [address]Almxnsvge [Mass/Vol]0.5 mg/dL Normal0.0-1.1FSumma Health Barberton CampusComment on above:Performed By: #### 40073136, 2494583, 979349945, 25586482, 0083261 ####[facility] [address] [place], [place] [address]Zhfpfun [Mass/Vol]8.9 mg/dLNormal 8.9-11.1FSumma Health Barberton CampusComment on above:Performed By: #### 19577398, 8456223, 646594888, 51663133, 5313890 ####[facility] [address]Ngr[address], [place] [address]Hwlpspsz [Moles/Vol]99 mmol/LLow 101-111[facility] CenterComment on above:Performed By: #### 02731412, 4848618, 011551767, 37596182, 9788553 ####[facility] [address]Ngriffin hospital, [place] [address]QA9 [Moles/Vol]28 mmol/XYhtket97-30 [facility] CenterComment on above:Performed By: #### 98462956, 6474695, 359696255, 72109218, 7822939 ####[facility] [address], [place] [address]Aegwwoiovw [Mass/Vol]0.7 mg/dLNormal 0.5-1.3FSumma Health Barberton CampusComment on above:Performed By: #### [id number], 0224637, 656670492, 33875077, 7120171 ####[facility] [address]Nthe hospital of [place], [place] [address]Ckiwkjga (S) [Mass/Vol]3.3 g/dLNormal 1.4-4.0[facility] CenterComment on above:Performed By: #### [id number], 0687237, 919167186, 31617614, 7794828 ####[facility] [address]Norst[address] cl[place], [place] [address]Hioywae [Mass/Vol]144 mg/dLNormal 55-199[facility] CenterComment on above:Performed By: #### 71986822, 8567397, 786423217, 48741699, 0881285 ####[facility] [address] [place], [place] [address]Anixdjzzh [Moles/Vol]4.0 mmol/LNormal 3.5-5.3FSumma Health Barberton CampusComment on above:Performed By: #### 43241958, 6377658, 114543353, 39995054, 6052265 ####[facility] [address] [place], [place] [address]Silmwsm [Mass/Vol]7.4 g/dLNormal 6.0-7.8[facility] CenterComment on above:Performed By: #### 81031359, 2359758, 978734162, 98077120, 9218212 ####[facility] [address], [place] [address]Pbckpl [Moles/Vol]137 mmol/LNormal 135-145[facility] Medical CenterComment on above:Performed By: #### 41003612, 5813061, 582971825, 87742070, 0900544 ####[facility] [address] [place], [place] [address]Bndx nitrogen [Mass/Vol]13 mg/dLNormal 5-21[facility] CenterComment on above:Performed By: #### 77218259, 0229826, 923396569, 13840609, 0864202 ####[facility] [address] [place], [place] [address]Djlv nitrogen/Creatinine [Mass ratio] 19 No IcrfzVklfkb79-54XklpmhLouis Stokes Cleveland Va Medical CenterComment on above:Performed By: #### 59092410, 7552362, 156289993, 88992459, 6993328 ####[facility] [address] [place], [place] [address]Zjxyja Medicine Office/Clinic Noteon 01-12-1322Racjyj Medicine Office/Clinic NoteHPI Staff Marcelina is a 63 year old [...] Daily, # 90 tab(s), Refills(s) 1, Pharmacy: [facility] #[id number], 173, cm, 08/22/23 11:06:00 EDT, Height/Length Dosing, [...] Oral, Daily, 1 refills Flonase 0.05 mg/inh [place], 2 spray(s), Nasal, Daily Flovent HFA 220 [...] 07/27/2022 Substance Abuse - (more content not included)...NormalEcu Health Bertie Hospitaler Brandenburg CenterComment on above:Result Comment: Electronically Signed By: Mamadou FAITH, Ebony Ardon.br\Date and Time Signed: 08/22/23 11:33 EDTMagnesiumon 96-37-5041Gopjhvrpt [Mass/Vol]1.4 mg/dLNormal1.3-2.4[facility] CenterComment on above: Performed By: #### [id number], 3212833, 122376864, 97111487, 4541485 ####[facility] [address] [place], [place] [address]Tcxwnvu Educationon 20-09-3033Gzrhwho EducationNutrition BMI for Adults What is BMI? Body mass index (BMI) is a number that is calculated from a person's weight and height. BMI can help estimate how much of a person's weight is composed of fat. BMI does not measure body fat directly.Rather, it is an alternative to procedures that [...] your height. Both height and weight are measured,and the BMI is calculated from those numbers. This can be done either in [place]ian ([place] or metric measurements. Note that charts and online BMI calculators are available to help you find your BMI quickly and easily without having to do these calculations yourself. To calculate your BMI in [place]ian ([place] measurements: 1. Measure your weight in [...] meters squared number. In this example: 70 ?3.1 = 22.6. This is your BMI. What [...] for Disease Control and Prevention: www.cdc.gov ? [place] Heart Association: www.heart.org ? National Heart, Lung, and Blood Lander: www.nhlbi.nih.gov Summary ? Body mass index (BMI) is a number that is calculated from a person's weight and height. ? BMI may help estimate how much of a person's weight is composed of fat. BMI can help identify those who may be at higher risk for certain medical problems. ? BMI can be measured using Ghanaian measurements or metric measurements. ? BMI charts are used to identify whether you are underweight, normal weight, overweight, or obese. This information is not intended to replace advice given to you by your health care provider. Make sure you discuss any questions you have with your health care provider. Document Revised: 01/02/2020 Document Reviewed: 11/09/2019 Status Overload Patient Education ? 2022 [employer].NormalLouis Stokes [facility] Center TSH With T4fr Reflexon 21-48-1535RUR Qn3.26 m[IU]/LNormal0.34-5.60[facility] CenterComment on above:Performed By: #### 19825228, 4315158, 095321352, 15349095, 5453869 ####[facility] [address] [place], [place] [address]Nlxhogb D 25 Hydroxyon 983900-ncwkoaldveraxe D3 [Mass/Vol]61.5 ng/uGMxsizz44.0-100.0[facility] CenterComment on above: Performed By: #### 13553840, 2950301, 878143407, 79037071, 0828747 ####[facility] [address] [place], [place] [address]xPIDht 86-94-5697dJTO30 mL/min/1.73 v3Ribuxa>=59[facility] Medical CenterComment on above:Order Comment: Order added by Discern Expert.Performed By: #### [id number], 4788027, 191190145, 25801255, 4265252 ####[facility] [address] [address]Iuevfy - Clinical Noteon 08-15-2023 Retail - Clinical [id number]#1.00TIFFNormal [facility] CenterAmbulatory Visit Summaryon 18-11-1297Jdfytkttbr Visit Summary MARCELINA CANO :1960 Visit Date:06/30/2023 Ambulatory Visit Instructions Your Diagnosis Obesity, Class III, BMI 40-49.9 (morbid obesity) Your Care Team Attending Physician - ALEX GARRETT CNP Primary Care Physician - Ebony Sequeira MD This Is Your Medications List Contact [...] 220 Aerosol) fluticasone nasal (Flonase 0.05 mg/inh Willshire) levothyroxine (levothyroxine 125 mcg (0.125 mg) Tab) [...] Follow-Up Appointments Tuesday 10:15 AM EDT With: Ebony Sequeira MD Where: [facility] Medicine Office/Clinic Noteon [id number] Medicine Office/Clinic NoteChief Complaint cough HPI Staff Patient of Dr. Sequeira presents for an acute visit. Respiratory C/O: [...] Illness 63 year old patient of Dr. Sequeira presents for evaluation of cough and chest congestion x 4 days. Shestates she has a headache, nasal congestion, sinus pressure and tenderness, fullness in her ears,and a cough. She denies fever and sore [...] in 3-5 days if no improvement Ordered: amoxicillin-clavulanate, 1 tab(s), Oral, q12hr for 14 day(s), 28 tab(s), Refill(s) 0, [facility] #[id number], 173, cm, 06/30/23 13:55:00 EST, Height/Length Dosing, 139.9, kg, 06/30/23 13:55:00 EST, Weight Dosing fluconazole, See Instructions, Take one tablet at the onset of symptoms; may repeat in 72 hours, # 2 tab(s), Refills(s) 0, Pharmacy: [facility] #[id number], 173, cm, 06/30/23 13:55:00 EST, Height/Length Dosing, [...] medical support in addressing this problem. Your BMIand weight management will be followed at subsequent visits. Ordered: Influenza Type A&B POC 57447 Rapid COVID POC 07103 Follow-up No qualifying data available Patient Education Sinus Infection, Adult, Qwps-hs-Rdge Problem List/Past Medical History Ongoing Anxiety Asthma, [...] mg= 3 mL, Inhalation, q6hr, 1 refills amoxicillin-clavulanate 875 mg-125 mg Tab, 1 tab(s), Oral, q12hr citalopram 40 mg Tab, 20 mg= 0.5 tab(s), Oral, Daily Flonase 0.05 mg/inh Willshire, 2 spray(s), Nasal, Daily Flovent HFA 220 [...] subcutaneous injection, 75 (more content not included)... [facility] HospitalComment on above:Result Comment: Electronically Signed By: ALEX GARRETT CNP\.magda\Date and Time Signed: 06/30/23 14:57 EST Patient Educationon [id number] EducationInfectious Disease Sinus Infection, Adult A sinus infection [...] nose (postnasal drip). This may cause a sorethroat or bad breath. ? Being very tired [...] ? Medicines that treat allergies (antihistamines). ? Kvsi-idg-fhgkigq pain relievers. ? If caused by bacteria, your doctor may wait to see if you will get better without treatment. You may be given antibiotic medicine if you have: ? A very bad infection. ? A weak body defense system. ? If caused by growths in the nose, surgery may be needed. Follow these instructions at home: Medicines ? Take, use, or apply cbdi-uyh-hnrtmjg and prescription medicines only as told by your doctor. These may include nasal sprays. ? If you were prescribed an antibiotic medicine, take it as told by your doctor. Do not stop takingit even if you start to feel better. [...] cannot use soap and water, use hand ase master mechanic. ? Do not smoke. Avoid being around [...] are hollow spaces in the bones around yourface. ? This condition is caused by tissues in your nose that become inflamed or swollen. This traps germs. These can lead to infection. ? If you were prescribed an antibiotic medicine, take it as told by your doctor. Do not stop takingit even if you start to feel better. ? Keep all follow-up visits (more content not included)...[facility] HospitalC Urineon [id number] identified Cx Nom (U)Microbiology PROCEDURE: Urine Culture [R1] SOURCE: U CleanCatch BODY SITE: COLLECTED DATE/TIME: 05/19/2023 16:03 EST RECEIVED DATE/TIME: 05/19/2023 18:18 EST START DATE/TIME: 05/19/2023 18:18 EST FREE TEXT SOURCE: Mamadou FAITH, Ebony Sequeira MD, Ebony Timmons FINAL REPORTS Final Report [] Verified Date/Time: 05/21/2023 08:04 EST <10,000 cfu/ml Mixed skin contaminants Performing Locations R1: This test was performed at: [facility], [address] [place] [address], [address] [place] [address], XruzhjEwgjjzAultman Orrville HospitalComment on above:Performed By: #### [id number] ####[facility] [address] [place], [place] [address]Ambulatory Visit Summaryon [id number] Visit Summary MARCELINA CANO :1960 Visit Date:05/19/2023 Ambulatory Visit Instructions Your Diagnosis Dysuria BMI 45.0-49.9, adult Class 3 obesity Nonsmoker Your Care Team Attending Physician - Ebony Sequeira MD Primary Care Physician - Ebony Sequeira MD This Is Your Medications List Non-Formulary Medication (Misc Medication) albuterol (Albuterol (Eqv-ProAir HFA) 90 mcg/inh inhalation aerosol) albuterol (albuterol 0.083% Inh Mandie 3 mL) ascorbic acid (Vitamin C 500 mg oral tablet, chewable) cholecalciferol (Vitamin D3 10,000 intl units oral capsule) citalopram (citalopram 40 mg Tab) fluticasone (Flovent HFA 220 Aerosol) fluticasone nasal (Flonase 0.05 mg/inh Willshire) levothyroxine (levothyroxine 125 mcg (0.125 mg) Tab) [...] Guadalupe FAITH, Jarred Alfaro Where: Cardiology Clinic Tuesday 10:15 AM EDT With: Mamadou FAITH, Ebony Timmons Where: [facility] Medicine Office/Clinic Noteon [id number] Medicine Office/Clinic NoteHPI Staff Marcelina is a 63 year old [...] try to get something up and it's notconstant with the spasms, but she's croupy and yellow gunk and developed a large cold sore on upperlip Legs are swelling if wears too tight [...] Urnls Dip Stick Auto w/o Microscopy POC 94608 2. Cough (R05.9: Cough, unspecified) - Most [...] day(s), # 14 cap(s), Refills(s) 0, [facility]: [id number], 173, cm, 05/19/23 9:12:00 EST, Height/Length Dosing, 139.3, kg, 05/19/23 9:12:00 EST, Weight Dosing citalopram, 20 mg = 0.5 tab(s), Oral, Daily, # 90 tab(s), Refills(s) 0, Pharmacy: [facility] #[id number], 173, cm, 04/26/23 10:14:00 EST, Height/Length Dosing, 140.2, kg, 04/26/23 10:14:00 EST, Weight Dosing magnesium oxide, 800 mg = 2 tab(s), Oral, BID, # 360 tab(s), Refills(s) 1, Pharmacy: [facility], 173, cm, 03/14/23 13:44:00 EST, Height/Length Dosing, 140, kg, 03/14/23 13:44:00 EST, Weight Dosing methylPREDNISolone, = 1 packet(s), Oral, As Directed, as directed on package labeling, X 6 day(s), # 21 tab(s), Refills(s) 0, Pharmacy: [id number], 173, cm, 05/19/23 9:12:00 EST, Height/Length Dosing, [...] 0.5 tab(s), Oral, Daily Flonase 0.05 mg/inh Willshire, 2 spray(s), Nasal, Daily Flovent HFA 220 [...] Abuse, 06/29/2022 Household substa (more content not included)...[facility] Comment on above:Result Comment: Electronically Signed By: Mamadou FAITH, Ebony Ardon.br\Date and Time Signed: 05/19/23 09:40 ESTPatient Educationon 05-19-2023 Patient EducationNutrition BMI for Adults What is BMI? Body mass index (BMI) is a number that is calculated from a person's weight and height. BMI can help estimate how much of a person's weight is composed of fat. BMI does not measure body fat directly.Rather, it is an alternative to procedures that [...] your height. Both height and weight are measured,and the BMI is calculated from those numbers. This can be done either in [place]ian ([place] or metric measurements. Note that charts and online BMI calculators are available to help you find your BMI quickly and easily without having to do these calculations yourself. To calculate your BMI in [place]ian ([place] measurements: 1. Measure your weight in [...] meters squared number. In this example: 70 ?3.1 = 22.6. This is your BMI. What [...] for Disease Control and Prevention: www.cdc.gov ? [place] Heart Association: www.heart.org ? National Heart, Lung, and Blood [place]: www.nhlbi.nih.gov Summary ? Body mass index (BMI) is a number that is calculated from a person's weight and height. ? BMI may help estimate how much of a person's weight is composed of fat. BMI can help identify those who may be at higher risk for certain medical problems. ? BMI can be measured using Ghanaian measurements or metric measurements. ? BMI charts are used to identify whether you are underweight, normal weight, overweight, or obese. This information is not intended to replace advice given to you by your health care provider. Make sure you discuss any questions you have with your health care provider. Document Revised: 01/02/2020 Document Reviewed: 11/09/2019 Status Overload Patient Education ? 2022 [employer].[facility] Lab Reportson 80-71-2301Kgh Reports [id number]#1.00TIFFNoWestern Reserve HospitalAmbulatory Visit Summaryon [id number] Visit Summary MARCELINA CANO :1960 Visit Date:04/27/2023 Ambulatory Visit Instructions Your Care Team Attending Physician - Ebony Sequeira MD. Primary Care Physician - Ebony Sequeira MD. This Is Your Medications List Non-Formulary Medication (Misc Medication) albuterol (Albuterol (Eqv-ProAir HFA) 90 mcg/inh inhalation aerosol) albuterol (albuterol 0.083% Inh Mandie 3 mL) ascorbic acid (Vitamin C 500 mg oral tablet, chewable) cholecalciferol (Vitamin D3 10,000 intl units oral capsule) citalopram (citalopram 40 mg Tab) fluticasone (Flovent HFA 220 Aerosol) fluticasone nasal (Flonase 0.05 mg/inh Willshire) levothyroxine (levothyroxine 125 mcg (0.125 mg) Tab) [...] Guadalupe FAITH, Jarred Alfaro Where: Cardiology Clinic [place] Tuesday 10:00 AM EDT With: Mamadou FAITH, Ebony Timmons Where: [facility] CenterCHEMISTRYOrdered By: SYSTEM SYSTEM on 44-72-3384Tspwjen [Mass/Vol] 4.2 g/dLNormal3.3 - 5.0 gm/dLRemisol ChemAlbumin/Globulin [Mass ratio]1.3 {ratio}Normal1.1 - 2.2Remisol ChemAlk Jecr724 [iU]/dHigh21 - 98 Int._Unit/L Remisol SudjTYS60 [iU]/dNormal6 - 46 Int._Unit/LRemisol ChemAnion gap [Moles/Vol]12 mmol/LNormal6 - 16 mEq/LRemisol SamrNOV11 [iU]/dHigh5 - 43 Int._Unit/LRemisol ChemBili Total0.7 mg/dLNormal0.0 - 1.1 mg/dLRemisol Chem Calcium [Mass/Vol]9.8 mg/dLNormal8.9 - 11.1 mg/dLRemisol ChemChloride [Moles/Vol]101 mmol/XKczcxc533 - 111 mmol/LRemisol ChemCO2 [Moles/Vol]30 mmol/L Qvshhg72 - 31 mmol/LRemisol ChemCreatinine [Mass/Vol]0.7 mg/dLNormal0.5 - 1.3 mg/dLRemisol ChemeGFRmL/min/1.73 w9Kjppeo>=59mL/min/1.73 z5Gmxgrfx ChemGlobulin (S) [Mass/Vol]3.3 g/dLNormal1.4 - 4.0 gm/dLRemisol ChemGlucose [Mass/Vol]140 mg/gUCyekiz88 - 199 mg/dLRemisol ChemMagnesium [Mass/Vol]1.6 mg/dLNormal1.3 - 2.4 mg/dLRemisol ChemPhosphate [Mass/Vol]3.3 mg/dLNormal1.9 - 4.6 mg/dLRemisol ChemPotassium [Moles/Vol]4.3 mmol/LNormal3.5 - 5.3 mmol/LRemisol ChemProtein [Mass/Vol]7.5 g/dLNormal6.0 - 7.8 gm/dLRemisol ChemSodium [Moles/Vol]139 mmol/L Hgqmfm381 - 145 mmol/LRemisol ChemUrea nitrogen [Mass/Vol]15 mg/dLNormal5 - 21 mg/dLRemisol ChemUrea nitrogen/Creatinine [Mass ratio]21 mg/waOdii36 - 20Remisol ChemVitamin D 25 Sdxkirx81.5 ng/cLKdbbwd78.0 - 100.0 ng/mLRemisol ChemCMPon 28-29-4998Glawbxq [Mass/Vol]4.2 g/dLNormal3.3-5.0[facility] Comment on above:Performed By: #### 7307175, 5131323, 3544790, 214513070, 96386750 ####[facility] [address] [place], [place] [address]Urcrcuo/Globulin [Mass ratio]1.3 {ratio}Normal1.1-2.2FSumma Health Barberton CampusComment on above:Performed By: #### 3455999, 0928405, 7595586, 116506403, 87014717 ####[facility] [address] [place], [place] [address]Gnu Ntru519 Int._Unit/UWenk35-61ZhczotLouis Stokes Cleveland Va Medical CenterComment on above:Performed By: #### 6954783, 5212250, 0602227, 934820810, 40418175 ####[facility] [address] [place], [place] [address]HLO25 Int._Unit/LNormal6-46[facility] CenterComment on above:Performed By: #### 5255462, 5227364, 8236721, 985216013, 79294969 ####[facility] [address] [place], [place] [address]Wihsz gap [Moles/Vol]12 mmol/L Normal6-16[facility] CenterComment on above:Performed By: #### 4863180, 3798897, 9061058, 864160169, 00014118 ####[facility] [address] [place], [place] [address]WXY64 Int._Unit/LHigh5-43[facility] CenterComment on above:Performed By: #### 7576123, 9981327, 1804626, 512926003, 80739535 ####[address] [place], [place] [address]Mzct Total0.7 mg/dLNormal0.0-1.1FSumma Health Barberton Campus Comment on above:Performed By: #### 2686251, 7850514, 5618455, 966546159, 28783400 ####[facility] [address] [place], [place] [address]CRJ/Creat Ratio21 No PkbaoVmdc17-94MuxcmqLouis Stokes Cleveland Va Medical CenterComment on above:Performed By: #### 2467024, 3885466, 5243269, 390661810, 16259857 ####[address] [place] [address] Calcium [Mass/Vol]9.8 mg/dLNormal8.9-11.1FSumma Health Barberton CampusComment on above:Performed By: #### 1481126, 5178494, 3681181, 705394820, 69307776 ####[facility] [address] [place] [address] Chloride [Moles/Vol]101 mmol/VDqcwlz221-304LzhkiiLouis Stokes Cleveland Va Medical CenterComment on above:Performed By: #### 1776543, 2505981, 2588446, 637036769, 81157078 ####[facility] [address] [place], [place] [address]IK6 [Moles/Vol]30 mmol/KFwzzdo73-53XmkodnLouis Stokes Cleveland Va Medical CenterComment on above: Performed By: #### 3420846, 6581167, 1560526, 845095816, 85093637 ####[facility] [address] [place], [place] [address]Ndpexgyilq [Mass/Vol]0.7 mg/dLNormal0.5-1.3FSumma Health Barberton CampusComment on above: Performed By: #### 1661238, 3378270, 6898854, 329813355, 55698007 ####[facility] [address] [place] [address]Lonfnbfd (S) [Mass/Vol]3.3 g/dLNormal1.4-4.0[facility] CenterComment on above: Performed By: #### 2847929, 2483504, 5347295, 267208850, 10343434 ####[address] [address]Igzqduq [Mass/Vol]140 mg/gFXdyvju16-369IwqngyLouis Stokes Cleveland Va Medical CenterComment on above: Performed By: #### 9467940, 3555762, 9472147, 249372935, 45377747 ####[facility] [address] [place] [address]Euzjfqnsi [Moles/Vol]4.3 mmol/LNormal3.5-5.3FSumma Health Barberton CampusComment on above: Performed By: #### 3086089, 7529013, 9782967, 237571696, 38010987 ####[facility] [address] [place] [address]Ytducau [Mass/Vol]7.5 g/dLNormal6.0-7.8[facility] CenterComment on above: Performed By: #### 3423755, 0430705, 3775787, 368381146, 90188570 ####[facility] [address] [place] [address]Ryoyfv [Moles/Vol]139 mmol/FGhjxbm224-836UiuvroLouis Stokes Cleveland Va Medical CenterComment on above: Performed By: #### 6977865, 9918121, 3425487, 198297427, 30880847 ####[facility] [address] [place], [place] [address]Wdfg nitrogen [Mass/Vol]15 mg/dLNormal5-21[facility] CenterComment on above: Performed By: #### 1289914, 2535330, 0907375, 852835737, 08822089 ####[facility] [address] [place], [place] [address]Tvznybdnbkc 39-81-4234Jmrjfriry [Mass/Vol]1.6 mg/dLNormal1.3-2.4FSumma Health Barberton Campus Comment on above:Performed By: #### 9597543, 2291792, 2231132, 293457314, 38925887 ####[facility] [address] [place], [place] [address]Isoxr Consultation Noteon 36-24-1604Jcwwu Consultation NoteReason for Visit Here for lab draw. Medications Albuterol (Eqv-ProAir HFA) 90 mcg/inh inhalation aerosol, 2 puff(s), Inhalation, q6hr, 1 refills albuterol 0.083% Inh Mandie 3 mL, 2.5 mg= 3 mL, Inhalation, q6hr, 1 refills citalopram 40 mg Tab, 40 mg= 1 tab(s), Oral, Daily Flonase 0.05 mg/inh [place]shire, 2 spray(s), Nasal, Daily Flovent HFA 220 [...] virus vaccine, inactivated 02/13/2022 Recorded SARS-CoV-2 (COVID-19) mRNAMUL.ORD![id number] 02/13/2022 Recorded SARS-CoV-2 (COVID-19) mRNA BNT-162b2 vax 02/11/2021 Recorded SARS-CoV-2 (COVID-19) mRNA BNT-162b2 vax 07/11/2020 Recorded SARS-CoV-2 (COVID-19) mRNA BNT-162b2 vax 06/20/2020 Recorded influenza virus vaccine, inactivated 02/05/2015 Recorded influenza virus vaccine, inactivated 01/29/2015 RecordedNormalLouis Stokes Cleveland Va Medical CenterPhosphoruson 46-81-8746Drxiokoit [Mass/Vol]3.3 mg/dLNormal1.9-4.6 [facility] CenterComment on above:Performed By: #### 3138765, 2475489, 2080298, 933817097, 89699949 ####[facility] [address] [place], [place] [address]Afdmgvjbs Referralon 97-97-2086Uwrkytxgt Referral [id number]#1.00TIFFNoWestern Reserve HospitalVitamin D 25 Hydroxyon 93-81-3772Wkntowz D 25 Eimmjuu75.5 ng/mLNormal 30.0-100.0[facility] CenterComment on above:Performed By: #### 5832295, 0423224, 9945775, 587842588, 96086591 ####[facility] [address] [place], [place] [address]uKTCiv 86-93-8122HQR/1.73 sq M.predicted among non-blacks MDRD (S/P/Bld) [Vol rate/Area]mL/min/{1.73_m2} Normal>=59Fisher [facility] CenterComment on above:Order Comment: Order added by Discern Expert.Performed By: #### 3204952, 2741838, 4105755, 367854873, 40239883 ####[facility] [address] [place], [place] [address]Npvozf Medicine Office/Clinic Noteon 84-73-6663Rxukzj Medicine Office/Clinic NoteI Staff Marcelina is a 63 year old [...] flu: refused questions/concerns: 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 Need labs. Getting from [facility]. - No issues. Anxiety is still [...] Requesting labs to be done here Ordered: [facility] Internal Ambulatory Referral 2. Hypothyroidism (E03.9: Hypothyroidism, unspecified) - As above. Ordered: [facility] Internal Ambulatory Referral 3. Anxiety (F41.9: Anxiety disorder, unspecified) - Pt states she is better, but her scores are not improving. Ordered: [facility] Internal Ambulatory Referral 4. Calcium deficiency (E58: Dietary calcium deficiency) - Will recheck with the new labs Ordered: [facility] Internal Ambulatory Referral 5. Ventricular septal defect (VSD) (Q21.0: Ventricular septal defect) - Will send to cardiology here on her request. Ordered: [facility] Internal Ambulatory Referral 6. JESSICA on CPAP [...] Daily, # 90 tab(s), Refills(s) 0, Pharmacy: [facility] #[id number], 173, cm, 04/26/23 10:14:00 EST, Height/Length Dosing, [...] 1 tab(s), Oral, Daily Flonase 0.05 mg/inh Willshire, 2 spray(s), Nasal, Daily Flovent HFA 220 [...] concerns: No., 04/26/2023 Family History Alcoholism: Mother. Diabe (more content not included)...[facility] HospitalComment on above:Result Comment: Electronically Signed By: Mamadou FAITH, Ebony Shah\Date and Time Signed: 04/26/23 10:33 ESTRetail - Clinical Noteon 80-17-0247Owkqbm - Clinical [id number]#1.00[facility]Ambulatory Visit Summaryon 60-75-8174Zrsxufcvqp Visit Summary MARCELINA CANO :1960 Visit Date:03/23/2023 Ambulatory Visit Instructions Your Diagnosis BMI 40.0-44.9, adult Hypothyroidism Nonsmoker Your Care Team Attending Physician - Ebony Sequeira MD Primary Care Physician - Ebony Sequeira MD This Is Your Medications List Non-Formulary Medication (Misc Medication) albuterol (Albuterol (Eqv-ProAir HFA) 90 mcg/inh inhalation aerosol) albuterol (albuterol 0.083% Inh Mandie 3 mL) ascorbic acid (Vitamin C 500 mg oral tablet, chewable) cholecalciferol (Vitamin D3 10,000 intl units oral capsule) citalopram (citalopram 20 mg Tab) fluticasone (Flovent HFA 220 Aerosol) fluticasone nasal (Flonase 0.05 mg/inh Willshire) levothyroxine (levothyroxine 125 mcg (0.125 mg) Tab) [...] Follow-Up Appointments Tuesday 10:00 AM EST With: Ebony Sequeira MD Where: [facility] Office/Clinic Noteon 81-19-3770Atqzse Medicine Office/Clinic NoteHPI Staff Marcelina is a 62 year old [...] day(s), # 6 tab(s), Refills(s) 0, Pharmacy: [facility] #[id number], 173, cm, 03/23/23 13:41:00 EST, Height/Length Dosing,137.9, kg, 03/23/23 13:41:00 EST, Weight Dosing benzonatate, 200 mg = 1 cap(s), Oral, TID, X 7 day(s), # 21 cap(s), Refills(s) 0, [facility]acy: [facility] #[id number], 173, cm, 03/23/23 13:41:00 EST, Height/Length Dosing, 137.9, kg, 03/23/23 13:41:00 EST, Weight Dosing 2. Atelectasis (J98.11: Atelectasis) - No signs today on exam Ordered: azithromycin, = 1 packet(s), Oral, As Directed, as directed on package labeling, X 5 day(s), # 6 tab(s), Refills(s) 0, Pharmacy: [facility] #[id number], 173, cm, 03/23/23 13:41:00 EST, Height/Length Dosing,137.9, kg, 03/23/23 13:41:00 EST, Weight Dosing benzonatate, 200 mg = 1 cap(s), Oral, TID, X 7 day(s), # 21 cap(s), Refills(s) 0, Pharmacy: [facility] #[id number], 173, cm, 03/23/23 13:41:00 EST, Height/Length Dosing, 137.9, kg, 03/23/23 13:41:00 EST, Weight Dosing 3. BMI 40.0-44.9, adult (Z68.41: Body mass index [BMI] 40.0-44.9, adult) - BMI education given Ordered: azithromycin, = 1 packet(s), Oral, As Directed, as directed on package labeling, X 5 day(s), # 6 tab(s), Refills(s) 0, Pharmacy: [facility] #[id number], 173, cm, 03/23/23 13:41:00 EST, Height/Length Dosing,137.9, kg, 03/23/23 13:41:00 EST, Weight Dosing benzonatate, 200 mg = 1 cap(s), Oral, TID, X 7 day(s), # 21 cap(s), Refills(s) 0, Pharmacy: [facility] #[id number], 173, cm, 03/23/23 13:41:00 EST, Height/Length Dosing, 137.9, kg, 03/23/23 13:41:00 EST, Weight Dosing 4. Hypothyroidism (E03.9: Hypothyroidism, unspecified) - Stable. Ordered: azithromycin, = 1 packet(s), Oral, As Directed, as directed on package labeling, X 5 day(s), # 6 tab(s), Refills(s) 0, Pharmacy: [facility] #[id number], 173, cm, 03/23/23 13:41:00 EST, Height/Length Dosing,137.9, kg, 03/23/23 13:41:00 EST, Weight Dosing benzonatate, 200 mg = 1 cap(s), Oral, TID, X 7 day(s), # 21 cap(s), Refills(s) 0, Pharmacy: [facility] #[id number], 173, cm, 03/23/23 13:41:00 EST, Height/Length Dosing, 137.9, kg, 03/23/23 13:41:00 EST, Weight Dosing 5. Nonsmoker (Z78.9: Other specified health status) Ordered: azithromycin, = 1 packet(s), Oral, As Directed, as directed on package labeling, X 5 day(s), # 6 tab(s), Refills(s) 0, Pharmacy: [facility] #[id number], 173, cm, 03/23/23 13:41:00 EST, Height/Length Dosing,137.9, kg, 03/23/23 13:41:00 EST, Weight Dosing benzonatate, 200 mg = 1 cap(s), Oral, TID, X 7 day(s), # 21 cap(s), Refills(s) 0, Pharmacy: [facility] #[id number], 173, cm, 03/23/23 13:41:00 EST, Height/Length Dosing, [...] TID citalopram 20 mg (more content not included)...[facility] Comment on above:Result Comment: Electronically Signed By: Ebony Sequeira MD\.br\Date and Time Signed: 03/23/23 14:05 ESTRAD - MISCon 22-26-8559QVU - MISC [id number]#1.00TIFFNoWestern Reserve HospitalAmbulatory Visit Summaryon [id number] Visit Summary MARCELINA CANO :1960 Visit Date:03/14/2023 Ambulatory Visit Instructions Your Diagnosis Acute URI Cough Your Care Team Attending Physician - Ebony Sequeira MD Primary Care Physician - Ebony Sequeira MD This Is Your Medications List Contact prescribing physician if questions or concerns Non-Formulary Medication ([facility] Medication) albuterol (Albuterol (Eqv-ProAir HFA) 90 mcg/inh inhalation aerosol) albuterol (albuterol 0.083% Inh Mandie 3 mL) ascorbic acid (Vitamin C 500 mg oral tablet, chewable) cholecalciferol (Vitamin D3 10,000 intl units oral capsule) citalopram (citalopram 20 mg Tab) fluticasone nasal (Flonase 0.05 mg/inh Willshire) levothyroxine (levothyroxine 125 mcg (0.125 mg) Tab) [...] Follow-Up Appointments Tuesday 10:00 AM EST With: Ebony Se[facility] MD [facility]/Clinic Noteon [id number] Medicine Office/Clinic NoteHPI Staff Marcelina is a 62 year old [...] day(s), # 6 tab(s), Refills(s) 0, Pharmacy: [facility] #[id number], 173, cm, 03/14/23 13:44:00 EST, Height/Length Dosing,140, kg, 03/14/23 13:44:00 EST, Weight Dosing benzonatate, 200 mg = 1 cap(s), Oral, TID, X 7 day(s), # 21 cap(s), Refills(s) 0, [facility]acy: [facility] #[id number], 173, cm, 03/14/23 13:44:00 EST, Height/Length Dosing, 140, kg, 03/14/23 13:44:00 EST, Weight Dosing fluticasone, = 1 puff(s), Inhalation, BID, # 12 gram, Refills(s) 0, Pharmacy: [facility] #[id number], 173,cm, 03/14/23 13:44:00 EST, Height/Length Dosing, 140, kg, 03/14/23 13:44:00 EST, Weight Dosing methylPREDNISolone, = 1 packet(s), Oral, As Directed, as directed on package labeling, X 6 day(s), # 21 tab(s), Refills(s) 0, Pharmacy: [facility] #[id number], 173, cm, 03/14/23 13:44:00 EST, Height/Length Dosing, 140, kg, 03/14/23 13:44:00 EST, Weight Dosing XR Chest 2 Views 2. Cough (R05.9: Cough, unspecified) - Covid negative. - CXR Ordered: azithromycin, = 1 packet(s), Oral, As Directed, as directed on package labeling, X 5 day(s), # 6 tab(s), Refills(s) 0, Pharmacy: [facility] #[id number], 173, cm, 03/14/23 13:44:00 EST, Height/Length Dosing,140, kg, 03/14/23 13:44:00 EST, Weight Dosing benzonatate, 200 mg = 1 cap(s), Oral, TID, X 7 day(s), # 21 cap(s), Refills(s) 0, Pharmacy: [facility] #[id number], 173, cm, 03/14/23 13:44:00 EST, Height/Length Dosing, 140, kg, 03/14/23 13:44:00 EST, Weight Dosing fluticasone, = 1 puff(s), Inhalation, BID, # 12 gram, Refills(s) 0, Pharmacy: [facility] #[id number], 173,cm, 03/14/23 13:44:00 EST, Height/Length Dosing, 140, kg, 03/14/23 13:44:00 EST, Weight Dosing methylPREDNISolone, = 1 packet(s), Oral, As Directed, as directed on package labeling, X 6 day(s), # 21 tab(s), Refills(s) 0, [facility]: [id number], 173, cm, 03/14/23 13:44:00 EST, Height/Length Dosing, 140, kg, 03/14/23 13:44:00 EST, Weight Dosing Rapid COVID POC 03479 XR Chest 2 Views Follow-up No qualifying [...] Oral, Daily, 1 refills Flonase 0.05 mg/inh [place], 2 spray(s), Nasal, Daily Flovent HFA 220 [...] TID, 1 refills Myrbe (more content not included)...[facility] HospitalComment on above:Result Comment: Electronically Signed By: Mamadou FAITH, Ebony Shah\Date and Time Signed: 03/14/23 13:52 ESTAlbumin [Mass/volume] in Serum or Plasma by Bromocresol green (BCG) dye binding methoOrdered By: Severino Rankin on 02-01-2023 Albumin BCG dye [Mass/Vol]4.3 g/dL3.5-5.7FOhioHealth Nelsonville Health Center Calcium [Mass/volume] in Serum or PlasmaOrdered By: Severino Rankin on 02-01-2023 Calcium [Mass/Vol]9.0 mg/dL8.6-10.3FOhioHealth Nelsonville Health CenterCarbon dioxide, total [Moles/volume] in Serum or PlasmaOrdered By: Severino Rankin 61-95-2726OT3 [Moles/Vol]30.9 mmol/L21.0-31.0[facility] Chloride [Moles/volume] in Serum or PlasmaOrdered By: Severino Rankin 96-65-6075Bqkxhaad [Moles/Vol]100 mmol/T75-829EjlxwcjdoPromedica Fostoria Community Hospital Creatinine [Mass/volume] in Serum or PlasmaOrdered By: Severino Rankin 47-28-3578Empgsrfhkl [Mass/Vol]0.71 mg/dL0.60-1.20[facility] HospitalGlucose [Mass/volume] in Serum or PlasmaOrdered By: Severino Rankni 41-67-9359Zevvkkt [Mass/Vol]97 mg/gY26-318DlkokbpymPromedica Fostoria Community Hospital Comment on above:ADA recommended reference rangeRandom Glucose Reference Range is dependent on time and content of last meal. Glucose of more than 200 mg/dL in a nonstressed, ambulatory subject supports the diagnosisof Diabetes Mellitus. Magnesium [Mass/volume] in Serum or PlasmaOrdered By: Severino Rankin 93-31-8444Uniyaocjp [Mass/Vol]1.5 mg/dL1.9-2.7FOhioHealth Nelsonville Health Center No Panel InformationOrdered By: Severion Rankin on 15-00-8213Nrzupxgza GFR (CKD-EPI)> 60.0 mL/MinPromedica Fostoria Community HospitalPharmacy Creatinine Clearance (ChemN/AFOhioHealth Nelsonville Health CenterPhosphate [Mass/volume] in Serum or PlasmaOrdered By: Severino Rankin on 59-21-7257Myxlbftvm [Mass/Vol]5.1 mg/dL3.7-7.2FOhioHealth Nelsonville Health CenterPotassium [Moles/volume] in Serum or PlasmaOrdered By: Severino Rankin on 61-60-3396Foxdzpxcn [Moles/Vol]4.1 mmol/L 3.5-5.1FWooster Community Hospitalerum or plasma anion gap determination Ordered By: Severino Rankin on 95-95-7800Qoxaw gap [Moles/Vol]13.2 mmol/L6.0-15.0 [facility] Hospitalodium [Moles/volume] in Serum or PlasmaOrdered By: Severino Rankin 26-56-1267Ifqvwg [Moles/Vol]140 mmol/A214-780BvlmvqsyjPromedica Fostoria Community HospitalThyrotropin [Units/volume] in Serum or PlasmaOrdered By: Severino Rankin 67-68-5901EEQ Qn4.81 m[IU]/L0.45-5.33[facility] HospitalThyroxine (T4) free [Mass/volume] in Serum or PlasmaOrdered By: Severino Rankin 50-56-7625Zsds T4 [Mass/Vol]0.77 ng/dL0.61-1.12[facility] HospitalTriiodothyronine (T3) Free [Mass/volume] in Serum or PlasmaOrdered By: Severino Rankin 96-72-7241Tmhc T3 [Mass/Vol]3.26 pg/mL2.50-3.90[facility] HospitalUrea nitrogen [Mass/volume] in Serum or PlasmaOrdered By: Severino Rankin 07-52-2314Vzvt nitrogen [Mass/Vol]15 mg/dL7-25Fire[facility] Medical CenterVitamin D+Metabolites [Mass/volume] in Serum or Plasma Ordered By: Severino Rankin on 43-59-9737Zvojpmz D+Metabolites [Mass/Vol]71.8 ng/mE91-940ApbszfpwnPromedica Fostoria Community HospitalComment on above:VITAMIN D STATUS 25(OH)VITAMIN D RANGE (ng/mL) Deficient <20 Insufficient 20 to <79Gvzncbazpl45 to 100Reference: Sanjana MF,Tammy NC, Michael ARTEAGA, et al. Evaluation,treatment, and prevention of vitamin D deficiency; an Endocrine Society clinical practice guideline. JCEM. 2010; 96(7):1911-30.MAGNESIUMon 13-95-3226Pzygperkw [Mass/Vol]1.6 mg/dLCritically low1.8-2.4The [facility] CincinnatiComment on above:Performed By: #### MG, BMP #### [facility] [address] [address] Dr. Isidro ThompsonPROF CHEM 8 (BAS METB)on 92-13-7205Wyiuv gap [Moles/Vol]11.9 mmol/LNormalCincinnati Children'S Hospital Medical CenterComment on above:Performed By: #### MG, BMP #### [facility] [address] [address] [address] Isidro ThompsonCalcium [Mass/Vol]8.2 mg/dLCritically low8.5-10.1[facility] CenterComment on above:Performed By: #### MG, BMP #### [facility] [address] [address] [address] Isidro ThompsonChloride [Moles/Vol]100 mmol/JQvrszl25-683Xre [facility] Comment on above:Performed By: #### MG, BMP #### [facility] [address] [address] [address] Isidro ThompsonCO2 [Moles/Vol]28.5 mmol/ULifqbe28.0-32.0[facility] Comment on above:Performed By: #### MG, BMP #### [facility] [address] [address] [address] Isidro ThompsonCreatinine [Mass/Vol]0.67 mg/dLNormal0.55-1.02[facility] Medical CenterComment on above:Performed By: #### MG, BMP #### [facility] [address] [place] [address] Dr. Isidro MichelleGFR-AF JHJRAHNN90 mL/min/1.41x2Idqrph>=60[facility] Comment on above:Performed By: #### MG, BMP #### [facility] [address] [address] Dr. Isidro MichelleGFR-NON AF XAPSUIBQ90 mL/min/1.56w4Koeqxm>=60The [facility] CincinnatiComment on above:Performed By: #### MG, BMP #### [facility] [address] [address] Dr. Isidro ThompsonGlucose [Mass/Vol]113 mg/dLCritically xwmj97-391LmdCincinnati Children'S Hospital Medical CenterComment on above:Performed By: #### MG, BMP #### [facility] [address] [address] Dr. Isidro ThompsonPotassium [Moles/Vol]4.4 mmol/LNormal3.5-5.1[facility] Comment on above:Performed By: #### MG, BMP #### [facility] [address] [address] Dr. Isidro Llanesdium [Moles/Vol]136 mmol/OJsatvr469-184XtmCincinnati Children'S Hospital Medical Center Comment on above:Performed By: #### MG, BMP #### [facility] [address] [address] Dr. Isidro ThompsonUrea nitrogen [Mass/Vol]13.0 mg/dLNormal7.0-18.0The [facility] - CincinnatiComment on above:Performed By: #### MG, BMP #### [facility] [address] [address] Dr. Isidro Pabon nitrogen/Creatinine [Mass ratio]19.4 mg/mgNormalThe [facility] CincinnatiComment on above:Performed By: #### MG, BMP #### [facility] [address] [address] Dr. Isidro Ribera D 25 OHon 70-49-3577YSN D 25-OH48.8 ng/mLNormalThe [facility] CincinnatiComment on above:Performed By: #### VITAD #### [facility] [address] [address] Dr. Isidro Fleming [place]ANGES[place] BELOWLouis Stokes Cleveland VA Medical CenterComment on above: Result Comment: <20 ng/mL Vit D deficient 20 - <30 ng/mL Vit D insufficient 30 - 100 ng/mL Vit D sufficient >100 ng/mL Potential ToxicityPerformed By: #### VITAD #### [facility] [address] [address] Dr. Isidro ThompsonMAGNESIUMon 41-85-9216Jsrclzfyw [Mass/Vol]1.5 mg/dLCritically low 1.8-2.4The [facility] CincinnatiComment on above:Performed By: #### BMP, MG #### [facility] [address] [address] Dr. Isidro ThompsonPROF CHEM 8 (BAS METB)on 55-69-1117Vpbwr gap [Moles/Vol]10.1 mmol/LNormalThe [facility] CincinnatiComment on above:Performed By: #### BMP, MG #### [facility] [address] [address] Dr. Isidro ThompsonCalcium [Mass/Vol]8.0 mg/dLCritically low8.5-10.1The [facility] CincinnatiComment on above:Performed By: #### BMP, MG #### [facility] [address] [address] Dr. Isidro ThompsonChloride [Moles/Vol]102 mmol/HOlwiwg04-478Uzb [facility] Comment on above:Performed By: #### BMP, MG #### [facility] [address] [address] Dr. Isidro ThompsonCO2 [Moles/Vol]33.2 mmol/LCritically high21.0-32.0The [facility] CincinnatiComment on above:Performed By: #### BMP, MG #### [facility] [address] [address] [address] Isidro ThompsonCreatinine [Mass/Vol]0.71 mg/dLNormal0.55-1.02The [facility] CincinnatiComment on above:Performed By: #### BMP, MG #### [facility] [address] [address] Dr. Isidro MichelleGFR-AF CYMRAES>60Normal>=60The [facility] CincinnatiComment on above:Performed By: #### BMP, MG #### [facility] [address] [address] Dr. Isidro MichelleGFR-NON AF CYMRAES>60Normal>=60The [facility] CincinnatiComment on above:Performed By: #### BMP, MG #### [facility] [address] [address] Dr. Isidro ThompsonGlucose [Mass/Vol]112 mg/dLCritically pfhe13-587Yon [facility] CincinnatiComment on above:Performed By: #### BMP, MG #### [facility] [address] [address] Dr. Isidro ThompsonPotassium [Moles/Vol]4.3 mmol/LNormal3.5-5.1The [facility] Comment on above:Performed By: #### BMP, MG #### [facility] [address] [address] Dr. Isidro ThompsonSodium [Moles/Vol]141 mmol/CSfqvke894-497Ghj [facility] Comment on above:Performed By: #### BMP, MG #### [facility] [address] [address] Dr. Isidro ThompsonUrea nitrogen [Mass/Vol]13.0 mg/dLNormal7.0-18.0The [facility] CincinnatiComment on above:Performed By: #### BMP, MG #### [facility] [address] [address] Dr. Isidro ThompsonUrea nitrogen/Creatinine [Mass ratio]18.3 mg/mgNormalThe [facility] CincinnatiComment on above:Performed By: #### BMP, MG #### [facility] [address] [address] Dr. Isidro ThompsonVITAMIN D 25 OHon 81-09-8152HVI D 25-OH54.5 ng/mLNormalThe [facility] CincinnatiComment on above:Performed By: #### VITAD #### [facility] [address] [address] Dr. Isidro Fleming [place]ES[place] BELOWNoalThChillicothe VA Medical CenterComment on above: Result Comment: <20 ng/mL Vit D deficient 20 - <30 ng/mL Vit D insufficient 30 - 100 ng/mL Vit D sufficient >100 ng/mL Potential ToxicityPerformed By: #### VITAD #### [facility] [address] [address] Dr. Isidro ThompsonMAGNESIUMon 98-38-0752Ytltlhufz [Mass/Vol]1.3 mg/dLCritically low 1.8-2.4The [facility] CincinnatiComment on above:Performed By: #### BMP, MG #### [facility] [address] [place] [address] Dr. Isidro ThompsonPHOSPHORUSon 45-25-6418Thgbwutab [Mass/Vol]4.0 mg/dLNormal2.6-4.7 The [facility] CincinnatiComment on above:Performed By: #### BMP, MG #### [facility] [address] [address] Dr. Isidro ThompsonPROF 14(COMP METB)on 17-45-3006Kvowngp [Mass/Vol]3.3 g/dL Critically low3.4-5.0The [facility] CincinnatiComment on above:Performed By: #### BMP, MG #### [facility] [address] [address] Dr. Isidro ThompsonAlbumin/Globulin [Mass ratio]0.8 {ratio}NormalThe [facility] CincinnatiComment on above:Performed By: #### BMP, MG #### [facility] [address] [address] Dr. Isidro SoaresP [Catalytic activity/Vol]120 U/LCritically fedu53-512Cro [facility] CincinnatiComment on above:Performed By: #### BMP, MG #### [facility] [address] [address] [address] Isidro Gordon [Catalytic activity/Vol]63 U/LCritically wrwr62-77Log [facility] CincinnatiComment on above:Performed By: #### BMP, MG #### [facility] [address] [address] [address] Isidro Hamiltonon gap [Moles/Vol]10.9 mmol/LNormalThe [facility] Comment on above:Performed By: #### BMP, MG #### [facility] [address] [address] [address] Isidro Fernando [Catalytic activity/Vol]62 U/LCritically qqky64-24Zpv [facility] CincinnatiComment on above:Performed By: #### BMP, MG #### [facility] [address] [address] [address] Isidro ThompsonBilirubin [Mass/Vol]0.3 mg/dLNormal0.2-1.0[facility] Comment on above:Performed By: #### BMP, MG #### [facility] [address] [address] [address] Isidro ThompsonCalcium [Mass/Vol]8.3 mg/dLCritically low8.5-10.1[facility] CenterComment on above:Performed By: #### BMP, MG #### [facility] [address] [address] [address] Isidro ThompsonChloride [Moles/Vol]100 mmol/ZOpodea12-125ZhdCincinnati Children'S Hospital Medical Center Comment on above:Performed By: #### BMP, MG #### [facility] [address] [address] [address] Isidro ThompsonCO2 [Moles/Vol]32.1 mmol/LCritically high21.0-32.0The [facility] CincinnatiComment on above:Performed By: #### BMP, MG #### [facility] [address] [address] [address] Isidro ThompsonCreatinine [Mass/Vol]0.87 mg/dLNormal0.55-1.02[facility] CenterComment on above:Performed By: #### BMP, MG #### [facility] [address] [address] Dr. Isidro MichelleGFR-AF CYMRAES>60Normal>=60The [facility] CincinnatiComment on above:Performed By: #### BMP, MG #### [facility] [address] [address] Dr. Isidro MichelleGFR-NON AF CYMRAES>60Normal>=60The [facility] CincinnatiComment on above:Performed By: #### BMP, MG #### [facility] [address] [address] Dr. Isidro ThompsonGlobulin (S) [Mass/Vol]4.2 g/dLNormalThe [facility] CincinnatiComment on above:Performed By: #### BMP, MG #### [facility] [address] [address] Dr. Isidro ThompsonGlucose [Mass/Vol]126 mg/dLCritically vaaf21-909LsiCincinnati Children'S Hospital Medical CenterComment on above:Performed By: #### BMP, MG #### [facility] [address] [address] Dr. Isidro ThompsonPotassium [Moles/Vol]4.0 mmol/LNormal3.5-5.1[facility] Comment on above:Performed By: #### BMP, MG #### [facility] [address] [place] [address] Dr. Isidro ThompsonProtein [Mass/Vol]7.5 g/dLNormal6.4-8.2[facility] Comment on above:Performed By: #### BMP, MG #### [facility] [address] [address] Dr. Isidro ThompsonSodium [Moles/Vol]139 mmol/IDkygbr353-314TwwCincinnati Children'S Hospital Medical Center Comment on above:Performed By: #### BMP, MG #### [facility] [address] [address] Dr. Isidro ThompsonUrea nitrogen [Mass/Vol]13.0 mg/dLNormal7.0-18.0The [facility] CincinnatiComment on above:Performed By: #### BMP, MG #### [facility] [address] [address] Dr. Isidro ThompsonUrea nitrogen/Creatinine [Mass ratio]14.9 mg/mgNormalThe [facility] CincinnatiComment on above:Performed By: #### BMP, MG #### [facility] [address] [address] Dr. Isidro ThompsonMAGNESIUMon 62-67-2813Edaaxgfek [Mass/Vol]1.5 mg/dLCritically low 1.8-2.4The [facility] CincinnatiComment on above:Performed By: #### MG #### [facility] [address] [place] [address] Dr. Isidro ThompsonPHOSPHORUSon 53-03-6719Ypuwyuvax [Mass/Vol]4.2 mg/dLNormal2.6-4.7 The [facility] CincinnatiComment on above:Performed By: #### MG #### [facility] [address] [address] Dr. Isidro ThompsonPROF 14(COMP METB)on 23-71-4101Nghmjbo [Mass/Vol]3.5 g/dLNormal 3.4-5.0The [facility] CincinnatiComment on above:Performed By: #### MG #### [facility] [address] [address] Dr. Isidro ThompsonAlbumin/Globulin [Mass ratio]0.8 {ratio}NormalThe [facility] CincinnatiComment on above:Performed By: #### MG #### [facility] [address] [address] Dr. Isidro SoaresP [Catalytic activity/Vol]133 U/LCritically ualg90-158Edl [facility] CincinnatiComment on above:Performed By: #### MG #### [facility] [address] [address] Dr. Isidro SoaresT [Catalytic activity/Vol]50 U/ERmunrt05-32Tqe [facility] CincinnatiComment on above:Performed By: #### MG #### [facility] [address] [address] [address] Isidro Ivy gap [Moles/Vol]8.7 mmol/LNormalThe [facility] CincinnatiComment on above:Performed By: #### MG #### [facility] [address] [address] [address] Isidro ThompsonAST [Catalytic activity/Vol]48 U/LCritically elco02-07Iit [facility] CincinnatiComment on above:Performed By: #### MG #### [facility] [address] [address] [address] Isidro ThompsonBilirubin [Mass/Vol]0.6 mg/dLNormal0.2-1.0The [facility] Comment on above:Performed By: #### MG #### [facility] [address] [address] Dr. Isidro ThompsonCalcium [Mass/Vol]9.4 mg/dLNormal8.5-10.1The [facility] Comment on above:Performed By: #### MG #### [facility] [address] [place] [address] Dr. Isidro ThompsonChloride [Moles/Vol]99 mmol/XYoeoot06-608Tlw [facility] Comment on above:Performed By: #### MG #### [facility] [address] [address] [address] Isidro ThompsonCO2 [Moles/Vol]32.3 mmol/LCritically high21.0-32.0The [facility] CincinnatiComment on above:Performed By: #### MG #### [facility] [address] [address] [address] Isidro ThompsonCreatinine [Mass/Vol]0.74 mg/dLNormal0.55-1.02The [facility] CincinnatiComment on above:Performed By: #### MG #### [facility] [address] [address] [address] Felix ChangEGFR-AF CYMRAES>60Normal>=60The [facility] CincinnatiComment on above:Performed By: #### MG #### [facility] [address] [address] [address] Isidro MichelleGFR-NON AF CYMRAES>60Normal>=60The [facility] CincinnatiComment on above:Performed By: #### MG #### [facility] [address] [address] [address] Isidro ThompsonGlobulin (S) [Mass/Vol]4.4 g/dLNormFulton County Health CenterComment on above:Performed By: #### MG #### [facility] [address] [address] [address] Isidro ThompsonGlucose [Mass/Vol]110 mg/dLCritically okyp13-903Xuq [facility] CincinnatiComment on above:Performed By: #### MG #### [facility] [address] [address] Dr. Isidro ThompsonPotassium [Moles/Vol]4.0 mmol/LNormal3.5-5.1The [facility] Comment on above:Performed By: #### MG #### [facility] [address] [address] Dr. Isidro ThompsonProtein [Mass/Vol]7.9 g/dLNormal6.4-8.2The [facility] Comment on above:Performed By: #### MG #### [facility] [address] [address] Dr. Isidro ThompsonSodium [Moles/Vol]136 mmol/IVoprew833-021Dci [facility] Comment on above:Performed By: #### MG #### [facility] [address] [place] [address] Dr. Isidro ThompsonUrea nitrogen [Mass/Vol]12.0 mg/dLNormal7.0-18.0The [facility] CincinnatiComment on above:Performed By: #### MG #### [facility] [address] [address] Dr. Isidro ThompsonUrea nitrogen/Creatinine [Mass ratio]16.2 mg/mgNormalThChillicothe VA Medical CenterComment on above:Performed By: #### MG #### [facility] [address] [address] [address] Isidro WebsterESIUMon 50-97-4915Ztkfcwrvy [Mass/Vol]1.4 mg/dLCritically low 1.8-2.4The [facility] CincinnatiComment on above:Performed By: #### MG #### [facility] [address] [address] [address] Isidro Fleming 25-[place] LABCORPon 51-22-2108Ueuxxgm D, 25-Yqmfspc69.1 ng/mL Nmtxxg69.0-100.0The [facility] CincinnatiComment on above:Result Comment: Vitamin D deficiency has been defined by the [place] of Medicine and an Endocrine Society practice guideline as a level of serum 25-OH vitamin D less than 20 ng/mL (1,2). The Endocrine Society went on to further define vitamin D insufficiency as a level between 21 and 29 ng/mL (2). 1. IOM ([place] of Medicine). 2010. Dietary reference intakes for calcium and D. [place]: The National Academies Press. 2. Sanjana PENNINGTON, Tammy NOGUEIRA, Michael ARTEAGA, et al. Evaluation, treatment, and prevention of vitamin D deficiency: an Endocrine Society clinical practice guideline. JCEM. 2010; 96(7):1911-30.Performed By: #### MG #### [facility] [address] [place] [address] Dr. Isidro ThompsonCULTOVIDIO URINEon [id number] URINECulture Observations: LIGHT GROWTH OF MIXED GENITAL DEMIAN. NO POTENTIAL PATHOGENS SEEN.NormalThe [facility] CincinnatiComment on above:Performed By: #### MG #### [facility] [address] [address] Dr. Isidro WebsterESIUMon 09-20-6927Oucamnxwe [Mass/Vol]1.5 mg/dLCritically low 1.8-2.4The [facility] CincinnatiComment on above:Performed By: #### MG #### [facility] [address] [address] Dr. Isidro WebsterESIUMon 79-00-8569Hwbfzlurf [Mass/Vol]1.4 mg/dLCritically low 1.8-2.4The [facility] CincinnatiComment on above:Performed By: #### MG #### [facility] [address] [address] Dr. Isidro Goodrich AUTO DIFFon 47-40-6441BORM #0.1 103/ulNormal0.0-0.1The [facility] CincinnatiComment on above:Performed By: #### BMP, MG #### [facility] [address] [address] Dr. Isidro ThompsonBasophils/100 WBC (Bld)1.3 %Normal0.2-2.0The [facility] Comment on above:Performed By: #### BMP, MG #### [facility] [address] [address] Dr. Felix ChangEO #0.2 103/ulNormal0.0-0.7The [facility] CincinnatiComment on above: Performed By: #### BMP, MG #### [facility] [address] [address] Dr. Isidro Michelleosinophils/100 WBC (Bld)2.4 %Normal0.9-7.0The [facility] Comment on above:Performed By: #### BMP, MG #### [facility] [address] [address] Dr. Isidro Michellerythrocyte distribution width (RBC) [Ratio]13.9 %Xwlwyk18.0-15.0 The [facility] CincinnatiComment on above:Performed By: #### BMP, MG #### [facility] [address] [address] Dr. Isidro ThompsonHematocrit (Bld) [Volume fraction]41.9 %Xngmho70.0-48.0The [facility] CincinnatiComment on above:Performed By: #### BMP, MG #### [facility] [address] [address] Dr. Isidro ThompsonHemoglobin (Bld) [Mass/Vol]13.7 g/uBRdrnjg81.0-16.0The [facility] CincinnatiComment on above:Performed By: #### BMP, MG #### [facility] [address] [address] [address] Isidro Samaniego #0.03 10e3/ulNormal0.00-0.03The [facility] CincinnatiComment on above:Performed By: #### BMP, MG #### [facility] [address] [place] [address] Dr. Isidro Samaniego %0.4 %Normal0.0-0.5The [facility] CincinnatiComment on above: Performed By: #### BMP, MG #### [facility] [address] [place] [address] Dr. Isidro Blair #3.0 103/ulNormal1.2-3.8The [facility] CincinnatiComment on above:Performed By: #### BMP, MG #### [facility] [address] [place] [address] Dr. Isidro Lopezhocytes/100 WBC (Bld)36.0 %Hxelol38.5-60.0The [facility] CincinnatiComment on above:Performed By: #### BMP, MG #### [facility] [address] [address] Dr. Isidro LazaroUAL DIFF REQNONormalThe [facility] CincinnatiComment on above: Performed By: #### BMP, MG #### [facility] [address] [address] Dr. Isidro Lopez (RBC) [Entitic mass]28.1 fdBaejdl50.7-34.0The [facility] CincinnatiComment on above:Performed By: #### BMP, MG #### [facility] [address] [address] Dr. Isidro Noriega (RBC) [Mass/Vol]32.7 g/sGPuehfd56.9-35.2The [facility] CincinnatiComment on above:Performed By: #### BMP, MG #### [facility] [address] [address] Dr. Isidro Noriega (RBC) [Entitic vol]86.0 tYQhwbbb76.0-99.0The [facility] CincinnatiComment on above:Performed By: #### BMP, MG #### [facility] [address] [place] [address] Dr. Isidro Lozano #0.5 103/ulNormal0.3-0.8The [facility] CincinnatiComment on above:Performed By: #### BMP, MG #### [facility] [address] [place] [address] Dr. Isidro Sinclairocytes/100 WBC (Bld)6.0 %Normal1.7-12.0The [facility] Comment on above:Performed By: #### BMP, MG #### [facility] [address] [place] [address] Dr. Isidro Rendon #4.5 103/ulNormal1.4-6.5The [facility] CincinnatiComment on above:Performed By: #### BMP, MG #### [facility] [address] [place] [address] Dr. Isidro Bakerutrophils/100 WBC (Bld)53.9 %Jipcjb29.0-75.0The [facility] CincinnatiComment on above:Performed By: #### BMP, MG #### [facility] [address] [place] [address] Dr. Isidro Aguirre mean volume (Bld) [Entitic vol]9.2 fLCritically low 9.5-13.5The [facility] CincinnatiComment on above:Performed By: #### BMP, MG #### [facility] [address] [address] Dr. Isidro ThompsonPLT240 103/zrFernls210-441Hxb [facility] CincinnatiComment on above: Performed By: #### BMP, MG #### [facility] [address] [place] [address] Dr. Isidro ZhaoC4.87 106/ulNormal4.20-5.40The [facility] CincinnatiComment on above:Performed By: #### BMP, MG #### [facility] [address] [place] [address] Dr. Isidro ThompsonWBC8.4 103/ulNormal4.0-11.0The [facility] Anthony's Hospitalment on above: Performed By: #### BMP, MG #### [facility] [address] [place] [address] Dr. Isidro Frost T3on 46-28-4547DLCA T31.95 pg/mlLCritically low2.18-3.98The [facility] on above:Performed By: #### BMP, MG #### [facility] [address] [place] [address] Dr. Isidro Frost T4on 30-34-4919Pthp T4 [Mass/Vol]1.14 ng/dLNormal0.76-1.46 The [facility]Com[facility] on above:Performed By: #### MG #### [facility] [address] [place] [address] Dr. Isidro ThompsonGLYCOHEMOGLOBIN A1Con 45-36-4932DJB RECOMMENDATIONSEE BELOWNoatrium health [facility] The [facility] CincinnatiComment on above:Result Comment: ADA RECOMMENDED LIMIT 4.0 - 6.0 ADA THERAPEUTIC TARGET < 7.0 ACTION SUGGESTED > 7.0Performed By: #### BMP, MG #### [facility] [address] [address] Dr. Isidro ThompsonGlucose [Mass/Vol]120 mg/dLNoUniversity Hospitals Health System on above:Performed By: #### BMP, MG #### [facility] [address] [address] Dr. Isidro ThompsonHbA1c (Bld) [Mass fraction]5.8 %Normal4.5-6.2The [facility] Anthony's Hospitalment on above:Performed By: #### BMP, MG #### [facility] [address] [place] [address] Dr. Isidro ThompsonLIPID PROFILEon 34-87-2445KYOJ-HDL RATIO NORMSEE BELOWNormFulton County Health CenterCombeaumont hospital on above:Result Comment: 3.3 - 4.4 LOW RISK 4.4 - 7.1 AVERAGE RISK 7.1 - 11.0 MODERATE RISK >11.0 HIGH RISKPerformed By: #### BMP, MG #### [facility] [address] [address] [address] Isidro ThompsonCholesterol [Mass/Vol]183 mg/dLNormal<=200The [facility] Comment on above:Performed By: #### BMP, MG #### [facility] [address] [address] Dr. Isidro ThompsonCholesterol in HDL [Mass/Vol]46 mg/mIDguzgq85-88Abd [facility] CincinnatiComment on above:Performed By: #### BMP, MG #### [facility] [address] [place] [address] Dr. Isidro ThompsonCholesterol in LDL [Mass/Vol]105.0 mg/dLNoMercy Health St. Charles HospitalComment on above:Performed By: #### BMP, MG #### [facility] [address] [place] [address] Dr. Isidro Sinhaesterjosey.total/Cholesterol in HDL [Mass ratio]4.0 {ratio} NormalThe [facility] CincinnatiComment on above:Performed By: #### BMP, MG #### [facility] [address] [place] [address] Dr. Isidro Case NORMAL> or = 60 mg/dl - LOW CARDIOVASCULAR RISK <40 mg/dl - HIGH CARDIOVASCULAR RISKLouis Stokes Cleveland VA Medical CenterComment on above:Performed By: #### BMP, MG #### [facility] [address] [place] [address] Dr. Isidro ThompsonLDL CALC NORMALSEE BELOWNoMercy Health St. Charles HospitalComment on above:Result Comment: <100 mg/dl OPTIMAL 100 - 129 mg/dl NEAR OR ABOVE OPTIMAL 130 - 159 mg/dl BORDERLINE HIGH 160 - 189 mg/dl HIGH >190 mg/dl VERY HIGH Performed By: #### BMP, MG #### [facility] [address] [place] [address] Dr. Isidro ThompsonTriglyceride [Mass/Vol]160 mg/dLCritically high<=150The [facility] CincinnatiComment on above:Performed By: #### BMP, MG #### [facility] [address] [place] [address] Dr. Isidro ThompsonVLDL CALC32.0 mg/dLNormalThe [facility] CincinnatiComment on above: Performed By: #### BMP, MG #### [facility] [address] [place] [address] Dr. Isidro ThompsonMAGNESIUMon 31-26-9772Qwkzfcsnt [Mass/Vol]1.7 mg/dLCritically low 1.8-2.4The [facility] CincinnatiComment on above:Performed By: #### LIPID, TSH, MG, CMP, FT3, PHOS #### [facility] [address] [place] [address] Dr. Isidro ThompsonPHOSPHORUSon 50-88-3096Njkjaptcn [Mass/Vol]4.4 mg/dLNormal2.6-4.7 The [facility] CincinnatiComment on above:Performed By: #### BMP, MG #### [facility] [address] [place] [address] Dr. Isidro PittmanF 14(COMP METB)on 74-79-1114Jgglubn [Mass/Vol]3.5 g/dLNormal 3.4-5.0The [facility] CincinnatiComment on above:Performed By: #### BMP, MG #### [facility] [address] [place] [address] Dr. Isidro ThompsonAlbumin/Globulin [Mass ratio]0.8 {ratio}NormalThe [facility] CincinnatiComment on above:Performed By: #### BMP, MG #### [facility] [address] [place] [address] Dr. Isidro Jones [Catalytic activity/Vol]116 U/JRyexjb58-223Qda [facility] CincinnatiComment on above:Performed By: #### BMP, MG #### [facility] [address] [place] [address] Dr. Isidro Gordon [Catalytic activity/Vol]54 U/QNfykeh71-90Pqq [facility] CincinnatiComment on above:Performed By: #### BMP, MG #### [facility] [address] [place], [place] [address] Dr. Isidro Ivy gap [Moles/Vol]11.2 mmol/LNormalCincinnati [facility] Comment on above:Performed By: #### BMP, MG #### [facility] [address] [address] [address] Isidro ThompsonAST [Catalytic activity/Vol]49 U/LCritically ufkg98-36Xgy [facility] CincinnatiComment on above:Performed By: #### BMP, MG #### [facility] [address] [address] [address] Isidro ThompsonBilirubin [Mass/Vol]0.8 mg/dLNormal0.2-1.0[facility] Comment on above:Performed By: #### BMP, MG #### [facility] [address] [place] [address] Dr. Isidro ThompsonCalcium [Mass/Vol]8.5 mg/dLNormal8.5-10.1[facility] Comment on above:Performed By: #### BMP, MG #### [facility] [address] [place] [address] Dr. Isidro ThompsonChloride [Moles/Vol]101 mmol/XSbdrvg40-352CyiCincinnati Children'S Hospital Medical Center Comment on above:Performed By: #### BMP, MG #### [facility] [address] [place] [address] Dr. Isidro ThompsonCO2 [Moles/Vol]31.9 mmol/QEfmaxl04.0-32.0[facility] Comment on above:Performed By: #### BMP, MG #### [facility] [address] [place] [address] Dr. Isidro ThompsonCreatinine [Mass/Vol]0.69 mg/dLNormal0.55-1.02The [facility] CincinnatiComment on above:Performed By: #### BMP, MG #### [facility] [address] [place] [address] Dr. Isidro MichelleGFR-AF CYMRAES>60Normal>=60The [facility] CincinnatiComment on above:Performed By: #### BMP, MG #### [facility] [address] [address] [address] Isidro MichelleGFR-NON AF CYMRAES>60Normal>=60The [facility] CincinnatiComment on above:Performed By: #### BMP, MG #### [facility] [address] [address] Dr. Isidro ThompsonGlobulin (S) [Mass/Vol]4.3 g/dLNormalThChillicothe VA Medical CenterComment on above:Performed By: #### BMP, MG #### [facility] [address] [place] [address] Dr. Isidro ThompsonGlucose [Mass/Vol]117 mg/dLCritically mxzi95-229Axu [facility] CincinnatiComment on above:Performed By: #### BMP, MG #### [facility] [address] [place] [address] Dr. Isidro ThompsonPotassium [Moles/Vol]4.1 mmol/LNormal3.5-5.1The [facility] Comment on above:Performed By: #### BMP, MG #### [facility] [address] [place] [address] Dr. Isidro ThompsonProtein [Mass/Vol]7.8 g/dLNormal6.1-8.2The [facility] Comment on above:Performed By: #### BMP, MG #### [facility] [address] [place] [address] Dr. Isidro ThompsonSodium [Moles/Vol]140 mmol/KGagfyw536-389Lwl [facility] Comment on above:Performed By: #### BMP, MG #### [facility] [address] [place] [address] Dr. Isidro ThompsonUrea nitrogen [Mass/Vol]14.0 mg/dLNormal7.0-18.0The [facility] CincinnatiComment on above:Performed By: #### BMP, MG #### [facility] [address] [place] [address] Dr. Isidro ThompsonUrea nitrogen/Creatinine [Mass ratio]20.3 mg/mgNormalThe [facility] CincinnatiComment on above:Performed By: #### BMP, MG #### [facility] [address] [place] [address] Dr. Isidro Caldwell 51-52-8569BKK4.598 uIU/mLNormal0.470-4.680The [facility] CincinnatiComment on above:Performed By: #### BMP, MG #### [facility] [address] [place] [address] Dr. Isidro BARCENAS Twin City HospitalComment on above: Result Comment: <0.34 UIU/ml HYPERTHYROID 0.34-5.60 UIU/ml EUTHYROID >5.60 UIU/ml HYPOTHYROIDPerformed By: #### BMP, MG #### [facility] [address] [place] [address] Dr. Isidro ThompsonVITAMIN D 25 OHon 86-33-3728EZA D 25-OH45.8 ng/mLNormalCincinnati Children'S Hospital Medical CenterComment on above:Performed By: #### MG #### [facility] [address] [address] Dr. Isidro Ruth D [facility]ALSEGerman HospitalComment on above: Result Comment: <20 ng/mL Vit D deficient 20 - <30 ng/mL Vit D insufficient 30 - 100 ng/mL Vit D sufficient >100 ng/mL Potential ToxicityPerformed By: #### MG #### [facility] [address] [place] [address] Dr. Isidro Thompson Vital Signs Date TimeVital SignValuePerforming [id number] 14:22-0400Body mass index (BMI) [Ratio]46.84 kg/h1VkhbjDina Joe MD Work Phone: [facility]07-08-2025 14:22-040Body rtowst902.8 kgDina Joe MD Work Phone: [facility]07-08-2025 14:22-0400Diastolic blood tvwzibim32 mm[Hg]Dina Joe MD Work Phone: [facility]07-08-2025 14:22-0400Heart rate62 /min Dina Joe MD Work Phone: [facility]07-08-2025 14:22-6061GdK9% (BldA) [Mass fraction]96 %Dina Joe MD Work Phone: [facility]07-08-2025 14:22-0400Systolic blood mm[Hg]Dina Joe MD Work Phone: [facility]05-08-2025 10:33-0400Body mass index (BMI) [Ratio]47.29 kg/i3GrjcvDina Joe MD Work Phone: [facility]05-08-2025 10:33-0400Body temperature 97.9 [degF]Dina Joe MD Work Phone: [facility]05-08-2025 10:33-0400Body cxfcba088.15 kgDina Joe MD Work Phone: [facility]05-08-2025 10:33-0400Diastolic blood mm[Hg]Dina Joe MD Work Phone: [facility]05-08-2025 10:33-0400Heart rate58 /min Dina Joe MD Work Phone: [facility]05-08-2025 10:33-0400Respiratory rate 18 /minDina Joe MD Work Phone: [facility]05-08-2025 10:33-4653WaA4% (BldA) [Mass fraction]96 %Dina Joe MD Work Phone: [facility]05-08-2025 10:33-0400Systolic blood mm[Hg]Dina Joe MD Work Phone: [facility]04-04-2025 12:11-0400Body mass index (BMI) [Ratio]47.68 kg/m2Lydia Ramirez APRN.CNP Work Phone: [facility]04-04-2025 12:11-0400Body temperature 98.4 [degF]Lydia Torreses ACCOUNT UNDERWRITER.LASTING MACHINE OPERATOR Work Phone: [facility]04-04-2025 12:11-0400Body ydijlg835.35 kgAmy Ramirez ACCOUNT UNDERWRITER.LASTING MACHINE OPERATOR Work Phone: [facility]04-04-2025 12:11-0400Diastolic blood zobjnpgh52 mm[Hg]Lydia Torreses ACCOUNT UNDERWRITER.LASTING MACHINE OPERATOR Work Phone: [facility]04-04-2025 12:11-0400Heart rate61 /min Lydia Ramirez ACCOUNT UNDERWRITER.LASTING MACHINE OPERATOR Work Phone: [facility]04-04-2025 12:11-0400Respiratory rate 20 /minAmy Ramirez ACCOUNT UNDERWRITER.LASTING MACHINE OPERATOR Work Phone: [facility]04-04-2025 12:11-2635KhI1% (BldA) [Mass fraction]96 %Lydia Torreses ACCOUNT UNDERWRITER.LASTING MACHINE OPERATOR Work Phone: [facility]04-04-2025 12:11-0400Systolic blood mm[Hg]Lydia Torreses ACCOUNT UNDERWRITER.LASTING MACHINE OPERATOR Work Phone: [facility]01-13-2025 10:58-0500Body seuqbz051.7 Gifty Rankin MD Work Phone: [address] [place], [place] [address]Scwjytecbw52-95-8138 10:58-0500Body mass index (BMI) [Ratio]48.35 kg/w7JbzyeSeverino Rankin MD Work Phone: [phone] [place], [place] [address]Sdnkgwkwlp85-23-6882 10:58-0500Body adguht105.24 kgSeverino Rankin MD Work Phone: [phone] [place], [place] [address]Blictppphb51-18-8936 10:58-0500Heart rate90 /min Severino Rankin MD Work Phone: [address] [place], [place] [address]Mteliepvtb68-30-5403 10:58-0500Respiratory rate18 /minSeverino Rankin MD Work Phone: [phone] [place], [place] [address]Upnflxibwr34-73-5524 10:16-0500Body kahlwp403.3 cmAlexis Ogden ACCOUNT UNDERWRITER-LASTING MACHINE OPERATOR Work Phone: [facility]11-19-2024 10:16-0500Body mass index (BMI) [Ratio]44.87 kg/n8LxypseAlexis Ogden ACCOUNT UNDERWRITER-LASTING MACHINE OPERATOR Work Phone: [facility]11-19-2024 10:16-0500Body ooaeiv260.89 kgAlexis Ogden ACCOUNT UNDERWRITER-LASTING MACHINE OPERATOR Work Phone: [facility]11-19-2024 10:16-0500Diastolic blood nhuznbvx24 mm[Hg]Alexis Ogden ACCOUNT UNDERWRITER-LASTING MACHINE OPERATOR Work Phone: [facility]11-19-2024 10:16-0500Heart rate 64 /minDeaisaiah Ogden ACCOUNT UNDERWRITER-LASTING MACHINE OPERATOR Work Phone: [facility]11-19-2024 10:16-0500Systolic blood uzfhercw592 mm[Hg]Alexis Ogden APRN-LASTING MACHINE OPERATOR Work Phone: [facility]10-08-2024 10:55-0400Body yfmkur829.7 Gifty Rankin MD Work Phone: noCameron Regional Medical CenterFijogpjajp25-74-2682 10:55-0400Body mass index (BMI) [Ratio]47.29 kg/k7DrqydSeverino Rankin MD Work Phone: [phone] WashingtonXtimgfynsp34-85-5440 10:55-0400Body .07 kgSeverino Rankin MD Work Phone: [facility] CenterHqvnawerwo42-51-6098 10:55-0400Heart rate55 /min Severino Rankin MD Work Phone: noCameron Regional Medical CenterXkmtuiamrr07-01-1870 10:55-0400Respiratory rate16 /minSeverino Rankin MD Work Phone: [facility] Encounters Encounter DateEncounter TypeCare ProviderFacilityStart: 76-13-7193hoteocpooxEuyu L SchwabFacility:[facility] CenterevueStart: 84-17-7231mylmxzbuviWcfzor L. Bobbs Facility:[facility] Hospitaltart: 80-38-9811redpbdyzogOnlaegq A. Mouchli Facility:[place] DHStart: 03-04-2025 End: 09-36-0451uwyipdbdlrJfkpoy L. BobbsFacility:[facility] CenterueStart: 02-28-2025 End: 88-62-0644ixftxscjysNKPRB KHANFacility:[facility] Hospitaltart: 02-27-2025 End: 27-81-6443gjkvsyfotzVWGYCJ E ROSSFacility:[facility] Hospitaltart: 02-25-2025 End: 96-83-9288zysagnfmkeTaskzts A. MouchliFacility:[facility]ITALtart: 02-22-2025 End: 40-98-2198ujiqkrnrqnKQWDMU E ROSSFacility:[facility] Hospitaltart: 01-31-2025 End: 30-98-9094pvvdfalkrdEvqk L SchwabFacility:[facility] Hospitaltart: 01-23-2025 End: 36-54-1373ucmayrcbqqJzdjyop A. MouchliFacility:[facility] Centertart: 01-23-2025 End: 62-11-6023Xdyaowv encounter procedureFadi Kline 520-5055Zljpji-RfltbAvita Health System [facility] Start: 00-74-8554qtewqhjihnLbpkdj RossFacility:Tavo Perez [facility]ITALtart: 01-17-2025 End: 77-08-2787bpvjxkwtukYxrc L SchwabFacility:[facility] CenterueStart: 12-25-2024 End: 22-48-8866icpimeqxmeQvuj L SchwabFacility:[facility] CenterueStart: 11-27-2024 ambulatorySaelaine SequeiraFacility:[facility] CenterueStart: 10-31-2024 End: 38-98-8430Jaycnh-up encounterAnira Joe MD Work Phone: EndocrinologyStart: 10-30-2024 End: 73-99-7749Udgbbsl encounter procedureDina Joe MD Work Phone: EndocrinologyComment on above:Hypocalcemia (Primary Dx); Postprocedural hypoparathyroidism (HCC); Postoperative hypothyroidism; Personal history of malignant neoplasm of thyroidStart: 10-30-2024 End: 46-00-1739rzjfjgpfuiFBJTI IQBALFacility:[facility] Hospitaltart: 52-78-8237htiubhofebFONWP IQBALFacility:[facility] Hospitaltart: 10-11-2024 End: 00-96-5388Zvhsckombd hospital visit by physicianArrival Time Radiology Work Phone: Radiology Pet CTComment on above:Generalized abdominal pain [R10.84]Start: 10-03-2024 End: 50-16-5991vehkfhswgxJTIGraciela JOSEPHFacility:[facility] Start: 10-02-2024 End: 66-87-8666Wrkhbe Kena Ogden ACCOUNT UNDERWRITER-LASTING MACHINE OPERATOR Work Phone: [facility] Health - UrogynComment on above:Mixed stress and urge urinary incontinenceMed RefillStart: 09-01-2024 End: 71-23-2762Kqpkhu-up encounterDina Joe MD Work Phone: EndocrinologyStart: 08-30-2024 End: 98-66-9948M-mail encounter from Maria Antonia Joe MD Work Phone: EndocrinologyStart: 08-30-2024 End: 31-24-0818Rytlhcs encounter Bijan Joe MD Work Phone: EndocrinologyComment on above:Postprocedural hypoparathyroidism (HCC) (Primary Dx); Generalized abdominal pain; History of thyroid cancerStart: 08-30-2024 End: 66-13-2157lggqunifxaJzprw Iqbal MD Work Phone: EndocrinologyComment on above:Urine collection instructionsStart: 08-28-2024 End: 53-87-0336umxcovhtlvCM Samuel E. RossFacility:[facility] BellevueStart: 08-17-2024 End: 46-29-2152Alq Drop offJoalen Mendoza [facility] Start: 08-17-2024 End: 01-82-0195oqmeapxiayEOJ Shweta MendozaFacility:[facility] BellevueStart: 07-27-2024 End: 41-91-7040B-mail encounter from caregiverLydia Ramirez APRN.CNP Work Phone: EndocrinologyStart: 07-27-2024 End: 64-65-1114Btzdnx-up encounterLydia Ramirez APRN.CNP Work Phone: EndocrinologyComment on above:Follow upStart: 07-27-2024 End: 05-80-1426mielaczgwoGOX L TORRESFacility:[facility] Hospitaltart: 07-27-2024 End: 00-24-2052Xtzomsw encounter procedureLydia Ramirez APRN.CNP Work Phone: EndocrinologyComment on above:Hypoparathyroidism, unspecified hypoparathyroidism type (HCC) (Primary Dx); Hypocalcemia; Thyroid cancer (HCC); Other specified hypothyroidismStart: 06-19-2024 End: 75-82-0630banaomaovtISM SHELLY A LEHMANNFacility:[facility] BellevueStart: 05-29-2024 End: 83-18-8389fpabbbfcflTX Samuel E. RossFacility:[facility] BellevueStart: 05-07-2024 End: 27-04-3450Dbmzgytiffany Rankin MD Work Phone: [facility] ENDOCRINOLOGYStart: 05-07-2024 End: 91-08-9436Jnxxopnaeem Rankin MD Work Phone: noms ENDOCRINOLOGYStart: 05-07-2024 End: 43-92-4605Wwxaknn encounter procedureSkirt Sequeira MD Work Phone: [facility] [place] Work Phone: Start: 05-07-2024 End: 00-26-3426ayqjvpjaoaTnktvd E Ross MD Work Phone: [facility] Work Phone: Start: 05-07-2024 End: 05-39-6408Xexcoq outpatient visit 25 minutesAhena Rankin MD Work Phone: noms ENDOCRINOLOGYComment on above:Postoperative hypothyroidism (CMS/HCC) (Primary Dx); Papillary thyroid carcinoma (CMS/HCC); Postsurgical hypoparathyroidism (CMS/HCC); Vitamin D deficiency; Encounter for dietary consultation; Hypomagnesemia; Class 3 severe obesity due to excess calories without serious comorbidity with body mass index (BMI) of 45.0 to 49.9 in adult (CMS/HCC)Start: 03-27-2024 End: 47-96-4567wazzynnrmuKZ Ebony SequeiraFacility:[facility] BellevueStart: 03-26-2024 End: 36-01-2839Uhapmr OnlyAlexis Ogden ACCOUNT UNDERWRITER-LASTING MACHINE OPERATOR Work Phone: [facility] Pel[facility] Health - UrogynComment on above:Breast cancer screening by mammogramStart: 03-13-2024 End: 10-00-2510fsvkmrtieuLBNDHC J [facility] Ambulatory PPGStart: 49-92-6515Zqmjkswcn for gynecological examination (general) (routine) without abnormal findingsALEXIS Sharma [facility] Ambulatory PPGStart: 03-13-2024 End: 25-27-9832Uuabdlt encounter procedureAlexis Ogden ACCOUNT UNDERWRITER-LASTING MACHINE OPERATOR Work Phone: [facility] SystemStart: 03-13-2024 End: 90-86-8999Hwilbjqv preventive med est patient 40-64yrsDobdulio Priestginnaek ACCOUNT UNDERWRITER-LASTING MACHINE OPERATOR Work Phone: [facility] - UrogynComment on above:Encounter for annual routine gynecological examination (Primary Dx); Breast cancer screening by mammogram; Screening for osteoporosis; Mixed stress and urge urinary incontinenceStart: 03-06-2024 End: 99-84-1633zlowvkxvbrJWX Jodi L SchwabFacility:[facility] BellevueStart: 02-27-2024 End: 77-28-9410kebacvabayUsnluc E. RossFacility:[facility] BellevueStart: 01-31-2024 End: 80-81-3407Iyjjfs Renaldo Rankin MD Work Phone: noms ENDOCRINOLOGYStart: 01-31-2024 End: 29-63-6501Pwvuprtiffany Rankin MD Work Phone: noms ENDOCRINOLOGYStart: 01-31-2024 End: 01-14-8572naopibacgmMRYQGXavier Rodriguez AvailableStart: 01-31-2024 End: 08-82-8356Rsxyzu outpatient visit 40 minutesSeverino Rankin MD Work Phone: noms ENDOCRINOLOGYComment on above:Postoperative hypothyroidism (CMS/HCC) (Primary Dx); Papillary thyroid carcinoma (CMS/HCC); Postsurgical hypoparathyroidism (CMS/HCC); Vitamin D deficiency; Encounter for dietary consultation; Hypomagnesemia; Class 3 severe obesity due to excess calories without serious comorbidity with body mass index (BMI) of 45.0 to 49.9 in adult (CMS/HCC)Start: 01-25-2024 End: 78-28-1523Vai Drop Shaheed RANKIN [facility] Start: 01-25-2024 End: 22-60-2150mxokgswoarSfomen E. RossFacility:[facility] BellevueStart: 01-24-2024 End: 29-32-5257zgdmncnaiyUyuxwk E. RossFacility:[facility] BellevueStart: 11-21-2023 ambulatorySaelaine SequeiraFacility:[facility] BellevueStart: 10-25-2023 End: 97-55-3891kjwlgyhmsgLripfu Iain SequeiraFacility:[facility] BellevueStart: 08-22-2023 End: 12-43-8632Ihh Drop offSkirt Sequeira [facility] Start: 08-22-2023 End: 55-76-9804mjzwupemluPywvjj E. RossFacility:FTMCStart: 66-09-2931luztyerdqa ALEX A LEHMANNFacility:[facility] BellevueStart: 06-30-2023 End: 94-12-2829oolletivnaNORFYN A LEHMANNFacility:FT BellevueStart: 29-88-1439htubepkooxEtfvrv E. RossFacility:FTMCStart: 05-19-2023 End: 35-50-6928Ypx Drop offSkirt Sequeira [facility] Start: 05-19-2023 End: 88-95-7802npctnhqvbeWrzxvd E. RossFacility:FTMCStart: 52-32-1105Ltwkdrapx encounterAmy Hi [facility] Pelvic Health - UrogynecologyStart: 04-27-2023 End: 93-49-3652Nfu Drop offSkirt Sequeira [facility] Start: 04-27-2023 End: 82-12-0699xejnkdeizxHiywkh E. RossFacility:FTMCStart: 04-26-2023 End: 02-28-2874rwjiwpbpvrIiexel E. RossFacility:[facility] BellevueStart: 03-23-2023 End: 19-66-1114wmvmldmsqvYnbgzk E. RossFacility:[facility] BellevueStart: 03-14-2023 End: 74-32-6689yeioluzacwHsfxkv E. RossFacility:FT FM evueStart: 02-21-2023 End: 77-39-5627iysewoodfgNTAZYR J ZACIEKProGreen Cross Hospital HospitalStart: 02-01-2023 End: 35-15-6889hmzvvzwkskHU Ebony Sequeira Work Phone: [facility] Work Phone: Start: 02-01-2023 End: 49-49-5646Kiootql encounter procedure Ebony Sequeira Work Phone: [facility] [place] Work Phone: Start: 01-25-2023 End: 23-47-3156zsqrbesvltZPXERM J GINNAKettering Health Miamisburgtart: 04-03-2022 End: 69-55-4739aoskfikbksLG KIM E KNIGHTFacility:M4Xjabi: 03-27-2022 End: 99-13-3122mhlfwvgkjlEE DOCTOR MISCFacility:F4Upwwj: 03-20-2022 End: 46-39-3241bimgxkdirdOZ DOCTOR MISCFacility:O6Idfbp: 65-12-0466Apjrawmqv encounterJunie Ceja MD Work Phone: EndocrinologyComment on above:Outside Labs Results Start: 03-13-2022 End: 62-83-7392pelzfttaypFA DOCTOR MISCFacility:W6Zllsk: 02-13-2022 End: 55-43-4466wiiphexnjgNN KIM E KNIGHTFacility:K9Hvwvz: 11-26-2021 End: 68-08-0723nfsqmazbwjOD KIM E KNIGHTFacility:O7Poojm: 11-17-2021 End: 62-46-3596miufgiuqgzYF KIM E KNIGHTFacility:H5Zbkpm: 10-16-2021 End: 37-00-6685wombxmsngdTLEOC SABBAGHFacility:U9Kikbu: 56-31-5439Pdnlhiszr for general adult medical examination without abnormal findingsDR DANIELA [facility] Centerrt: 08-15-2021 End: 39-70-0803ljczyovgasHQ DANIELA Yuan YOGIFacility:E5Vsctb: 08-15-2021 End: 45-82-1512Unupudxio for general adult medical examination without abnormal findingsDR DANIELA JOSEPHFacility:Y5Feakj: 36-23-5343isqsifolkrRxyiu Khan MD Work Phone: EndocrinologyComment on above:RE:blood testing at goal Start: 57-64-9740I-mail encounter from caregiverJunie Ceja MD Work Phone: [place] [address] Procedures DateProcedureProcedure DetailPerforming ClinicianStart: 69-14-9751Na abdomen & pelvis w/contrast Elan Joe MD Work Phone: Start: 39-06-2242YWPL SCREENING BILATERAL W Carlos Ogden ACCOUNT UNDERWRITER-LASTING MACHINE OPERATOR Work Phone: Start: 98-27-7463QlfkjqasyvoUfxso Sabbagh MD Work Phone: Start: 97-72-3503AnfkmvwmchqVesui Sabbagh MD Work Phone: Cholecystectomy and exploration of bile ductSkirt Sequeira ColonoscopySael Mamadou HysterectomySaterenceel Mamadou Thyroidectomyterence Mamadou Plan of Treatment DateCare ActivityDetailAuthorStart: 03-26-2025 End: 23-38-4561Fzdxapy encounter crmsoqjbs06/02/2025 10:30 AM EST Office Visit [facility] [address] [place] [address] Alexis Ogden, ACCOUNT UNDERWRITER-LASTING MACHINE OPERATOR [address] [place] [address] [facility] - UrogynStart: 54-32-5375Yaohfmxde for malignant neoplasm of breastNOMO HealthcareStart: 31-97-6649Zrqyn BMI ScreeningAdult BMI Screening [facility] SystemStart: 19-30-2516Blfsxsc ScreeningTobacco Screening [facility]ertart: 02-08-2025 End: 95-40-3975Pwtqkal encounter oqxeowdhc15/17/2025 11:20 AM EDT Office Visit Endocrinology [address] [place] [address] [place] [address] [address], [address] [place] [address] 3 monthEndocrinologyComment on above:3 monthStart: 90-37-1276Arxzxwvjm vaccinationBlanchard Valley Health System [facility] Hospitaltart: 11-09-2024 End: 33-22-2472Jbkhmqb encounter utfvcfiwq71/18/2025 1:40 PM EDT Office Visit Endocrinology [address] [phone] Junie Ceja MD [address] [place] [address] Calcium/Thyroid follow upEndocrinologyComment on above:Calcium/Thyroid follow up Start: 11-05-2024 End: 80-92-5166Salwgqd encounter qbwexaziy61/14/2025 11:00 AM EDT Office Visit [facility] ENDOCRINOLOGY [address] [place] [address] Severino Rankin MD [address] [place] [address] [facility] CENTEREdson ENDOCRINOLOGYStart: 10-30-2024 End: 35-30-8491Sjhutis encounter xdwaaambf95/08/2025 2:30 PM EDT Office Visit Endocrinology [address] [place] [address] [place] [address] [address], [facility] [address] [place] [phone] 2 month follow upEndocrinologyComment on above:2 month follow upStart: 08-30-2024 End: 91-74-575022016635-trajphjiabdhni D3 [Mass/volume] in Serum or PlasmaSt. Charles HospitalComment on above:Expected: 08/30/2024 (Approximate), Expires: 11/29/2024 Start: 08-30-2024 End: 99-55-0269Enoaxpycpc [Mass/volume] in Serum or PlasmaCleveland [facility] Comment on above:Expected: 08/30/2024 (Approximate), Expires: 11/29/2024Start: 08-30-2024 End: 22-36-3726ABQLAPB, 24 HR URINECALCIUM, 24 HR URINE Lab Routine Postprocedural hypoparathyroidism (HCC) Expected: 08/30/2024 (Approximate), Expires: 11/29/2024[facility] Work Phone: Comment on above:Expected: 08/30/2024 (Approximate), Expires: 11/29/2024Start: 08-30-2024 End: 39-69-8525Vtlrpph.ionized [Moles/volume] in BloodSt. Charles HospitalComment on above:Expected: 08/30/2024 (Approximate), Expires: 11/29/2024Start: 08-30-2024 End: 82-44-8895LFZBQWBTUD, 24 HOUR URINECREATININE, 24 HOUR URINE Lab Routine Postprocedural hypoparathyroidism (HCC) Expected: 08/30/2024 (Approximate), Expires: 11/29/2024[facility] HospitalComment on above:Expected: 08/30/2024 (Approximate), Expires: 11/29/2024Start: 08-30-2024 End: 23-16-1489Xuhooxilw [Mass/volume] in Serum or PlasmaSt. Charles HospitalComment on above:Expected: 08/30/2024, Expires: 11/29/2024Start: 08-30-2024 End: 33-61-4044Jmvuosabunrii and Thyrogobulin Ab panel - Serum or Plasma St. Charles HospitalComment on above:Expected: 08/30/2024, Expires: 11/29/2024Start: 08-30-2024 End: 43-02-8846OVJ W/REFLEX OK9Vmzhxldkg ClinicComment on above:Expected: 08/30/2024, Expires: 11/29/2024Start: 08-30-2024 End: 59-33-8663LJ Head and NeckUS CERVICAL LYMPH NODE MAPPING Radiology Routine History of thyroid cancer Expected: 08/30/2024 (Approximate), Expires: 09/29/2025leveland ClinicComment on above:Expected: 08/30/2024 (Approximate), Expires: 09/29/2025Start: 08-30-2024 End: 32-88-4644Cptpdso encounter zrqojihey57/08/2025 10:40 AM EDT Office Visit Endocrinology [address] [address] [place] [address] [address], [facility] [address] [place], [place] [phone] parathyroidEndocrinologyComment on above:parathyroid Start: 07-27-2024 End: 14-91-8272Yqngkfj [Mass/volume] in Serum or PlasmaCALCIUM, TOTAL Lab Routine Hypocalcemia Expected: 07/27/2024, Expires: 10/26/2024[facility] Comment on above:Expected: 07/27/2024, Expires: 10/26/2024Start: 07-27-2024 End: 50-45-2798Qoqmh function 2000 panel - Serum or PlasmaRENAL FUNCTION PANEL Lab Routine Hypoparathyroidism, unspecified hypoparathyroidism type (HCC) Expec robert: 07/27/2024, Expires: 10/26/2024[facility] Work Phone: Comment on above:Expected: 07/27/2024, Expires: 10/26/2024Start: 07-27-2024 End: 70-00-4039Avahbbarskx [Units/volume] in Serum or PlasmaTHYROID STIMULATING HORMONE Lab Routine Thyroid cancer (HCC) Other specified hypothyroidism Expected : 07/27/2024, Expires: 10/26/2024leveland ClinicComment on above:Expected: 07/27/2024, Expires: 10/26/2024Start: 05-07-2024 End: 74-13-9885Uqgghua encounter tkymzjqsf53/13/2025 10:40 AM EST Office Visit [facility] ENDOCRINOLOGY [address] [place] [address] Severino Rankin MD [address] [place] [address] [facility] ENDOCRINOLOGYStart: 03-13-2024 End: 53-06-5584ITD Breast - bilateral screeningMammography screening bilateral with CAD Imaging Routine Breast cancer screening by mammogram Expected: 03/13/2024, Expires: 03/13/2025[facility] Work Phone: Comment on above:Expected: 03/13/2024, Expires: 03/13/2025Start: 03-13-2024 End: 96-28-3248AQP Skeletal system Views for bone densityDexa scan central skeletal Imaging Routine Screening for osteoporosis Expected: 03/13/2024, Expires: 03/13/2025[facility] Health SystemComment on above:Expected: 03/13/2024, Expires: 03/13/2025Start: 01-31-2024 End: 946655-witltvpbchemky D3 [Mass/volume] in Serum or PlasmaVitamin D 25 hydroxy Total Lab Routine Postsurgical hypoparathyroidism (CMS/HCC) Expected: 01/31/2024 (Approximate), Expires: 01/30/2025[facility] HealthcareComment on above: Expected: 01/31/2024 (Approximate), Expires: 01/30/2025Start: 01-31-2024 End: 50-45-6326Ftkojlcbu [Mass/volume] in Serum or PlasmaMagnesium Lab Routine Postsurgical hypoparathyroidism (CMS/HCC) Expected: 01/31/2024 (Approximate), Expires: 01/30/2025[facility] Work Phone: Comment on above:Expected: 01/31/2024 (Approximate), Expires: 01/30/2025Start: 01-31-2024 End: 29-73-0899Aawcmtkivo.intact and Calcium panel - Serum or PlasmaPTH, intact and calcium Lab Routine Postsurgical hypoparathyroidism (CMS/HCC) Expected: 01/31/2024 (Approximate), Expires: 01/30/2025[facility] HealthcareComment on above: Expected: 01/31/2024 (Approximate), Expires: 01/30/2025Start: 01-31-2024 End: 87-45-2044Cszkf function panelRenal function panel Lab Routine Postsurgical hypoparathyroidism (CMS/HCC) Expected: 01/31/2024 (Approximate), Expires: 01/30/2025[facility] HealthcareComment on above:Expected: 01/31/2024 (Approximate), Expires: 01/30/2025Start: 01-31-2024 End: 00-45-5062Zpxnteojluf [Units/volume] in Serum or PlasmaTSH Lab Routine Postoperative hypothyroidism (CMS/HCC) Expected: 01/31/2024 (Approximate), Expires:01/30/2025[facility] HealthcareComment on above:Expected: 01/31/2024 (Approximate), Expires: 01/30/2025Start: 01-31-2024 End: 91-02-0087Ubxdvdanu (T4) free [Mass/volume] in Serum or PlasmaT4, free Lab Routine Postoperative hypothyroidism (CMS/HCC) Expected: 01/31/2024 (Approximate), Expires: 01/30/2025[facility] HealthcareComment on above:Expected: 01/31/2024 (Approximate), Expires: 01/30/2025Start: 01-31-2024 End: 57-60-4896Mivbbrbfjekmymal (T3) Free [Mass/volume] in Serum or PlasmaT3, free Lab Routine Postoperative hypothyroidism (CMS/HCC) Expected: 01/31/2024 (Approximate), Expires: 01/30/2025[facility] HealthcareComment on above:Expected: 01/31/2024 (Approximate), Expires: 01/30/2025Start: 81-87-3952Nyviz BMI ScreeningAdult BMI ScreeningSelect [facility] SystemStart: 69-66-2318Lwlhwng ScreeningTobacco ScreeningProSelect Medical [facility] SystemStart: 03-22-8082BWWVQ-19 Vaccine ( season)COVID-19 Vaccine ( season)[facility] SystemStart: 81-05-2948Irnissxnb vaccinationNOMS HealthcareStart: 70-31-9791Gqplsjzxx for malignant neoplasm of breastMammogramNOMS Healthcare Start: 28-40-6315Zwxakxyam for malignant neoplasm of colonNOMS HealthcareStart: 18-46-7137RHMCX-19 Vaccine ( season)COVID-19 Vaccine ( season)[facility] Centertart: 73-20-7548Ajfhegkse vaccinationInfluenza VaccineSelect Medical [facility] SystemStart: 91-32-6092Ysdfftfcs vaccinationINFLUENZA (#1)[facility]tart: 09-77-6737PZGWUINDVI ASSESSMENTDEPRESSION ASSESSMENT [facility]tart: 51-47-8263DSE Vaccine (1 - Risk 60-74 years 1-dose series)RSV Vaccine (1 - Risk 60-74 years 1-dose series)[facility] Hospitaltart: 60-71-0979CCNMB-19 VACCINE (3 - Booster for Pfizer series)COVID-19 VACCINE (3 - Booster for Pfizer series)[facility]tart: 48-23-6685NHCENHOT SCREEN DIABETES SCREENBlanchard Valley Health System [facility] Hospitaltart: 18-93-0355Svjdcwmq ScreeningDiabetes ScreeningBlanchard Valley Health System [facility] Hospitaltart: 85-24-0485Cciorzxsgwhwqz of varicella zoster vaccineZoster (Shingles) Vaccine (1 of 2)[facility] Centertart: 43-27-8798Yviqyixdzjeo Vaccine: 50+ (1 of 1 - PCV)Pneumococcal Vaccine: 50+ (1 of 1 - PCV)[facility]tart: 94-36-3896QCPDQTCR VACCINE (1 of 2)SHINGRIX VACCINE (1 of 2)[facility]: 72-60-4647BMOVFOTVA (FIT-DNA)COLOGUARD (FIT-DNA)[facility]tart: 74-85-9483PfpwtocngxjOVDGLZHFYJRGjgxpwooc Clinic Start: 27-96-8065OSNEDGXHOE CANCER SCREENINGCOLORECTAL CANCER SCREENINGBl[facility] Hospitaltart: 92-93-8843PN COLONOGRAPHYCT COLONOGRAPHYBlanchard Valley Health System [facility] Hospitaltart: 34-76-2813MOXMG OCCULT BLOODFECAL OCCULT BLOODBl[facility]ard [facility] Hospitaltart: 2006 Lipid panelLipid ScreeningBlanchard Valley Health System [facility] Hospitaltart: 53-56-3378WLWPS SCREENLIPID SCREENBlanchard Valley Health System [facility] Hospitaltart: 22-23-5651Cweglpwia for malignant neoplasm of colon [facility]tart: 17-11-5465GVZLBNAHLNOSDQGOVMRBDAJTNGUdvkdhlsb Clinic Start: 95-76-5483KrpnjkbckjcOKQBUMSOBDqyqvbxzl ClinicStart: 83-99-7033RWJ TESTINGHPV TESTINGBl[facility]ard [facility] System [facility]tart: 22-55-3866Djrovzkbc for malignant neoplasm of cervixNOMS HealthcareStart: 36-19-3585PZP TESTINGPAP TESTING [facility]tart: 95-76-0250Ozuylinny for malignant neoplasm of cervixNOMS HealthcareStart: 89-21-0253GYkN,Tdap and Td Vaccines (1 - Tdap)DTaP,Tdap and Td Vaccines (1 - Tdap)[facility] Centertart: 06-19-8459Xusac microalbumin profileBlanchard Valley Health System [facility] Hospitaltart: 28-54-3079Fbkog BMI Follow Up PlanAdult BMI Follow Up PlanCape Fear Valley Medical Centertart: 96-07-2021KCVHMS PCP TEAM CHRONIC DISEASE VISITANNUAL PCP TEAM CHRONIC DISEASE VISITBl[facility]ard Valley [facility] System [facility] Hospitaltart: 1979 Anxiety ScreeningAnxiety ScreeningBlanchard Valley Health System [facility] Hospitaltart: 49-65-2621ZC CONTROLLED (<130/80)BP CONTROLLED (<130/80)[facility]: 16-31-1787Nyrszbpfzo ScreeningDepression ScreeningBlanchard Valley Health System [facility] Hospitaltart: 79-36-2968RBZSYDFCQ C SCREENINGHEPATITIS C SCREENINGBlanchard [facility] System [facility] Hospitaltart: 23-32-0945Oomwblpza C screeningHepatitis C ScreeningBlanchard Valley Health System [facility]: 62-65-8814KYH SCREENINGHIV SCREENINGPremier Health Miami [facility] Hospital Southrt: 33-06-8727BSJ screeningHIV ScreeningBlanchard Valley Health System [facility]: 53-69-5479Tlmhjptnod ScreeningDepression ScreeningCape Fear Valley Medical Centertart: 00-09-3779Jtujecdul for malignant neoplasm of colonM[facility] Healthcare End: [id number] Abdomen and Pelvis W contrast IVCT ABD/PEL W IVCON Radiology Routine Generalized abdominal pain 1 Occurrences starting 08/30/2024 until 09/29/2025leveland ClinicComment on above:1 Occurrences starting 08/30/2024 until 09/29/2025 Immunizations Immunization DateImmunizationNotesCare ZbhdmrrxMulfwzft10-56-9333aqhyfggfj virus vaccine, unspecified formulationSkirt Sequeira [id number]-OmxlnCoshocton Regional Medical Center 81-03-0679thfhyfvie, injectable, quadrivalent, preservative Carisa Rankin MD Work Phone: [facility] [facility] WashingtonEgiuxztgod80-36-1111LNCL-AmN-4 (COVID-19) mRNAMUL.ORD![id number] Ross [phone]-QqkqoCoshocton Regional Medical Center 17-80-6511KDBA-CoV-2 (COVID-19) mRNA BNT-162b2 Darwin Sequeira [phone]-DzwymCoshocton Regional Medical Center 90-57-8237PZLN-CoV-2 (COVID-19) mRNA BNT-162b2 Darwin Sequeira [phone]-BhfunCoshocton Regional Medical Center 03-76-1788MMYD-CoV-2 (COVID-19) mRNA BNT-162b2 Darwin Sequeira [phone]-XjpteCoshocton Regional Medical Center 89-06-5860hrnakdaic virus vaccine, unspecified formulationSkirt Sequeira [phone]-HawjgCoshocton Regional Medical Center 66-33-7258zsttuqwwd, seasonal, injectable, preservative Carisa Rankin MD Work Phone: [facility] WashingtonMydtymovrj95-01-3007hkbyosujt virus vaccine, unspecified formulationSkirt Sequeira [phone]-KzwgyCoshocton Regional Medical Center 35-48-6745wwckswvwk, seasonal, Belia Rankin MD Work Phone: noms HealthcareNEGATED: Highlighted row has not occurred!56-61-8855vuvebidkf virus vaccine, unspecified formulationSkirt Sequeira [phone]-VlthjCoshocton Regional Medical Center Payers DatePayer CategoryPayerPolicy [id number] Managed Care - [facility] [id number]66-14-7958Ahkjjbt Care HMO (unspecified)[id number].3.564581.34320-18-0936Ndfgtby Health Insurance1.2.840.211947.1.13.159.2.7.3.185[id number] 2..840.1.584410.3.579.[id number] 2..840.1.213976.3.579.[id number] 2.16.840.1.698118.3.57[id number] 2.16.840.1.179984.3.579.2.68303-28-4259Blrhtsp0439008 2.16.840.1.389284.3.579.[id number] 2.16.840.1.307167.3.579.[id number] 2.16.840.1.110578.3.579.2.56665-03-5372Glahzpl8265417 2.16.840.1.735301.3.579.2.74555-61-9112Iegzrvv9619942 2.16.840.1.970988.3.579.2.44778-52-4399Oaqoxxc5513593 2.16.840.1.830272.3.579.2.374243-24-6761Rgfclcf4369181 2.16.840.1.435798.3.579.2.318931-74-5320Vgdmrfj15477686 2.16.840.1.750241.3.579.2.48851-33-4929Qjvvtgc38260233 2.16.840.1.524744.3.57[id number] 2.16.840.1.175440.3.579.[id number] 2.16.840.1.597928.3.579.2.69651-93-6668Ljdklwj36893772 2.16.840.1.814987.3.579.2.40264-89-9593Pnpqeuy93503945 2.16.840.1.431999.3.579.2.95307-83-8906Cyuwjqq93004440 2.16.840.1.441229.3.579.2.40711-85-4521Toyqdqg81226030 2.16.840.1.011563.3.579.2.87124-50-0549Kgzjrpi49193139 2.16.840.1.449329.3.579.2.31970-58-4390Ivencqs57941636 2.16.840.1.844209.3.579.2.45257-61-8584Dlkzrxa21768248 2.16.840.1.953877.3.579.2.76391-42-3640Tdrybrt46796442 2..840.1.082630.3.579.2.10668-05-0113Ijmjntx01387683 2.16.840.1.891817.3.579.2.72436-33-7440Shoftgb51781576 2.16.840.1.131205.3.579.2.95342-92-2105Kqtdgpl36821320 2.16.840.1.027614.3.579.2.41383-86-0448Hjojfys43026749 2.16.840.1.063942.3.579.2.49953-83-0494Efssabv73715129 2.16.840.1.906719.3.579.2.63137-42-0350Uepscwj82337276 2.16.840.1.757743.3.579.2.01127-27-5690Aaffcox34951301 2.16.840.1.071630.3.579.2.994488-86-2171Ruwlfun2389353 2.16.840.1.202103.3.579.2.201747-98-0021Azsvlrp0547184 2.16.840.1.516296.3.579.2.262361-23-0477Xkbagwz63881374 2.16.840.1.739208.3.579.2.84687-40-8650Qscekdc97066737 2.16.840.1.453445.3.579.2.30388-45-4851Vmrysae99140753 2.16.840.1.546468.3.579.2.06206-51-3084Qluxixt89692316 2.16.840.1.599908.3.579.2.78336-74-4203Ohqbtkl46162056 2.16.840.1.577875.3.579.2.28020-80-5242Pdoajsi91542576 2.16.840.1.634215.3.579.2.18333-35-2198Pucziaf96567493 2.16.840.1.119882.3.579.2.27690-92-8724Ysxdubv94789903 2.16.840.1.061897.3.579.2.65439-94-1109Jsejomd69877419 2.16.840.1.239031.3.579.2.22578-04-4173Szoacmt27677504 2.16.840.1.410554.3.579.2.78929-71-4909Epssglp24747879 2.16.840.1.771049.3.579.2.82407-94-5698Fiwqums11105827 2.16.840.1.829624.3.579.2.41142-98-3184Pdwveyb82599646 2.16.840.1.665127.3.579.2.36169-16-8519Egcggof45732683 2..840.1.506387.3.579.2.56202-47-8921Imwxkyy74149368 2..840.1.964067.3.579.2.57452-08-7064Uqjohsk35477813 2..840.1.178254.3.579.2.25433-77-8929Kedectu48169902 2..840.1.570337.3.579.2.83401-01-6051Ibhlhbd Health [id number] [id number] 2..840.1.570151.3.579.2.531 Social History DateTypeDetailFacilityStart: 62-80-1348Djrghnb smoking status NHISEx-smoker [facility]History of tobacco useCurrent smokerBlanchard Valley Health System [facility] Hospitaltart: 04-10-2012 End: 06-43-8417Hpvjcuu use and exposureSmokeless tobacco non-userBlanchard Valley Health System [facility] Valley Hospitaltart: 05-14-2019 End: 74-59-6691Rabvobu intakeCurrent drinker of alcohol (finding)[facility] Hospitaltart: 21-40-0408Jzn Assigned At BirthNot on fileBlanchard Valley Health System [facility] Hospitaltart: 49-50-9330Xay [facility]: 04-26-2023 End: 30-21-8640Xtbldfx smoking statusNever smoked tobacco (finding)[facility] BellevueStart: 95-12-0333Xeiyzlb smoking status NeverDunlap Memorial HospitalueStart: 05-04-2023 End: 98-33-4802Dvo Assigned At [facility]htart: 05-04-2023 End: 81-05-3004Lulfrso of Social functionProKettering Health Prebleca [facility] Clinic Foundation SystemTobacco smoking status NHISUnknown if ever smokedSelect Medical Specialty [facility] [place] Work Phone: Start: 11-28-2014 End: 73-68-9792FenGalfvp (finding)[facility] Hospitaltart: 77-59-5222Qkxpbqm CommentsSelect Specialty Hospital - Winston-Salemtart: 46-74-7539Aobqqi identityIdentifies as female gender (finding)[facility] SystemSexual OrientationKing'S Daughters Medical [facility] [place] Functional Status XmppZngftvhdadGsnsxmPecoesgw32-26-3498Dzu you deaf, or do you have serious difficulty hearingNo 04/09/2014 2:05 PM Sonya Clark (Pcna), [facility] No [facility] HospitalIkplfq40-61-4940Vsi you blind, or do you have serious difficulty seeing, even when wearing glassesNo 04/09/2014 2:05 PM Sonya Clark (Pcna), [facility]12-16-2014Do you have serious difficulty walking or climbing stairsNo 04/09/2014 2:05 PM Sonya Clark (Pcna), [facility]12-16-2014Do you have difficulty dressing or bathingNo 04/09/2014 2:05 PM Sonya Clark (Pcna), [facility]12-16-2014 Because of a physical, mental, or emotional condition, do you have difficulty doing errands alone such as visiting a physician's office or shoppingNo 04/09/2014 2:05 PM Sonya Clark (Pcna), [facility] Mental Status JzhgNyrcxpfjjxLehkacGnwgdsfb28-20-1498Ewpgplv of a physical, mental, or emotional condition, do you have serious difficulty concentrating, remembering, or making decisionsNo 04/09/2014 2:05 PM Sonya Clark (Pcna), [facility] No [facility] Clinical Notes 03-28-2012 to 03-07-2025 Note Date & UraaWiahWkwzelvm49-25-6874 NoteHNO ID: [id number] Author: JUNIE CEJA MD Service: ? Author Type: Physician Type: Progress Notes Filed: 03/07/2025 15:00 Note Text: Approved for one year, Junie Ceja MD [facility]-2025 NoteHNO ID: [id number] Author: JUNIE CEJA MD Service: ? Author Type: Physician Type: Progress Notes Filed: 02/28/2025 10:17 Note Text: Endocrinology Virtual Visit Virtual visit, patient consented to treatment I have communicated my name and active licensure. The patient's identity and physical location were verified at the time of this visit. Either the patient or their legal student services representative has been informed of the risks and benefits of -- and alternatives to -- treatment through a remote evaluation and consents to proceed with the evaluation remotely. Last visit: 10/2024 with Dina Joe MD Marcelina Cano is a 64 year old female with PMH of JESSICA, class 3 obesity, VSD, papillary thyroid cancer s/p left thyroidectomy 03/2013, completion thyroidectomy 03/2013, [place], post-surgical hypothyroidism, hypoparathyroidism, adhesions s/p total hysterectomy 2006 presenting for management of hypoparathyroidism. Here to discuss management of Natpara therapy and evaluation of elevated 24-hour urinary calcium. Marcelina is currently taking Natpara. She is preparing to transition to [facility]. Marcelina Cano is a 64-year-old female with a history of hypoparathyroidism, HTN, and congenital heart disease, presenting for follow-up. Hypoparathyroidism: - Recent 24-hour urine test showed elevated calcium levels. - Currently taking Natpara 0.75 mg. - Taking calcium supplements: 600 mg TID. - Taking vitamin D3 3,000 IU daily. - Awaiting approval for [facility]; has completed paperwork and is in contact with Michelle from [employer]. - Has a supply of Natpara until the end of the year, receiving it every two weeks. From prior notes: Female with hypocalcemia s/p thyroid surgery in 2006 for papillary thyroid cancer. Managed on natpara due to life threatening hypocalcemia in the past. She was under care of osh team at that time. Reports that conventional treatment resulted in persistent hypocalcemia. Ended up in ER in January 2019 with calcium of 4.0, had to be in ICU for 3 days. Happened again a week later with calcium of 5, back in ICU for HTN emergency at same time Regimen: Natpara 0.75 mg subq daily until 03/08 Vitamin D3-K2 3000 international unit(s) - 50 mg daily Calcium tablet 1200 mg tid Mag glycinate - 288 mg in 3 capsules - 4 capsules twice daily HTN: - Recent increase in losartan from 25 mg to 50 mg daily, x2 weeks. - Current BP readings range from 130-160/80 mmHg. - Also taking Toprol. Congenital Heart Disease: - Born with a ventricular septal defect. - Last seen by a transit driver [facility] in [phone]. Seen by Kee Hogan MD- needs to re-establish. - Recent weight gain and decreased activity levels. Hypothyroidism: - Recent TSH levels low. - Recently increased Synthroid dose to 175 mcg daily, x2 weeks. - Previously taking 125 mcg daily. - Reports inconsistent adherence to medication. She underwent left thyroidectomy in 03/07 with multiple foci of papillary thyroid carcinoma, largest 0.8 cm, with follicular adenoma 1 cm, followed by right thyroidectomy in 04/06, with multiple foci papillary thyroid carcinoma, follicular variant, 1 cm. Had radioactive treatment 95.8 mCi, with whole-body scan in April/2013. Answers submitted by the patient for this visit: Endocrine Review of Systems (Submitted on 02/28/2025) Fatigue: Yes Night sweats: No Recent unintentional weight change: No Skin Color Changes: No Post-Nasal Drip: Yes Thyroid Pain (lower neck): No Trouble Swallowing: Yes Vision Disturbance: No Chest pain: No Leg Swelling: Yes Blood Clots?: No Leg Pain while walking?: No Difficulty Breathing?: No Heartburn: Yes Nausea: No Vomiting: No Diarrhea: Yes Abdominal pain: No Bone Pain?: No Muscle aches: Yes Muscle weakness: Yes Joint pain or stiffness: Yes Headaches: Yes Dizziness: No Numbness?: No Urgency to Urinate?: No Increased Urination: Yes Slow or Small Urine Stream?: Yes Are your menstrual cycles regular?: No Are your menstrual cycles irregular?: No Have your menstrual cycles stopped?: Yes Flushing: No Hot Flashes?: No Increased Thirst: Yes Change in Body Hair?: No Cold Intolerance: No Heat Intolerance: Yes Patient's Past Family and Social history have been reviewed with the patient, and updated as appropriate. Please see relevant sections in [facility] EHR for details. PHYSICAL EXAMINATION: There were no vitals taken for this visit. G'L: in NAD, appears stated age Heent: mmm, nml elevation and depression of palate Pulm: no audible wheezing, nml expansion of chest Psych: good affect thoughtprocess and mood Neuro: alert and oriented x 3 Latest Ref Rng 05/06/2023 08/30/2024 10/03/2024 10/30/2024 Albumin 3.9 - 4.9 g/dL 4.1 4.0 Calcium 8.5 - 10.2 mg/dL 10.3 (H) 9.0 Phosphorus 2.7 - 4.8 mg/dL 4.1 4.5 Glucose 74 - 99 mg/dL 101 (H) 85 BUN 7 - 21 mg/dL 15 14 Creatinine 0.58 - 0.96 mg/dL 0.69 0.57 (L) (more content not included)... [facility]11-03-2025 NoteProgress Note-Physician Patient: MARCELINA CANO Age: 64 years Sex: Female : 1960 Associated Diagnoses: None Author: Maynor FAITH, Adi Mueller Postoperative Information Postoperative disposition: Postoperative disposition: Home. Optimetrix number: Optimetrix number [id number]. Anesthetic utilized: Monitored anesthesia care. Health Status Allergies: Allergic Reactions (All) Moderate Anabolic steroids- Angry. Mild Biaxin- Diarrhea. Severity Not Documented Augmentin- Diarrhea. Current medications: (Selected) Inpatient Medications Ordered Lactated Ringers IV Mandie 1000 mL 1,000 mL: 1,000 mL, IV, 100 mL/hr, Routine, Start date 02/25/25 8:10:00 EST, 10 hour(s), Total volume (mL): 1,000, 139.6 kg, 2.59, m2 Sodium Chloride 0.9% IV Mandie 1000 mL 1,000 mL: 1,000 mL, IV, 20 mL/hr, Routine, Start date 02/25/25 6:37:00 EST, 50 hour(s), Total volume (mL): 1,000 Zofran 4 mg/2 mL Injection: 4 mg = 2 mL, Injection, IV Push, Once PRN Nausea/Vomiting, Routine, Start date 02/25/25 8:10:00 EST, 02/25/25 8:10:00 EST Prescriptions Prescribed Flonase 0.05 mg/inh [place]: 2 spray(s), Nasal, Daily, 16 gram, Refill(s) 0, each nostril, [id number], 173.5, cm, 07/27/22 13:52:00 EDT, Height/Length Dosing, 135.6, kg, 07/27/22 13:52:00 EDT, Weight Dosing Flovent HFA 220 Aerosol: = 1 puff(s), Inhalation, BID, # 12 gram, Refills(s) 0, Pharmacy: [facility] #[id number], 173, cm, 03/14/23 13:44:00 EST, Height/Length Dosing, 140, kg, 03/14/23 13:44:00 EST, WeightDosing Levsin 0.125 mg SL Tab: 0.125 mg = 1 tab(s), Oral, QID, PRN for spasm, # 40 tab(s), Refills(s) 0, Pharmacy: [id number], 173, cm, 01/23/25 13:52:00 EDT, Height/Length Dosing, 139.6, kg, 01/23/25 13:52:00 EDT, Weight Dosing albuterol 0.083% Inh Mandie 3 mL: See Instructions, 300 mL, Refill(s) 10, INHALE CONTENTS OF 1 VIAL (3ML) EVERY 6 HOURS AND NEEDED, [facility], 173, cm, 06/30/23 13:55:00 EST, Height/Length Dosing, 139.9, kg, 06/30/23 13:55:00 EST, Weight Dosing citalopram 40 mg Tab: 20 mg = 0.5 tab(s), Oral, Daily, # 90 tab(s), Refills(s) 1, Pharmacy: [id number], 173, cm, 08/28/24 11:11:00 EDT, Height/Length Dosing, 142.7, kg, 08/28/24 11:11:00 EDT, Weight Dosing levothyroxine 125 mcg (0.125 mg) Tab: 175 mcg, Oral, Daily, # 90 tab(s), Refills(s) 0, Pharmacy: [facility] #[id number], 173, cm, 08/22/23 11:06:00 EDT, Height/Length Dosing, 140, kg, 08/22/23 11:06:00 EDT,Weight Dosing losartan 50 mg Tab: 50 mg = 1 tab(s), Oral, Daily, # 30 tab(s), Refills(s) 0, Pharmacy: [facility], 173, cm, 01/17/25 13:37:00 EDT, Height/Length Dosing, 140, kg, 01/17/25 13:37:00 EDT, Weight Dosing metoprolol succinate 50 mg ER Tab: 50 mg = 1 tab(s), Oral, Daily, # 90 tab(s), Refills(s) 4, Pharmacy: [facility], 173, cm, 08/28/24 11:11:00 EDT, Height/Length Dosing, 142.7, kg, 08/28/24 11:11:00 EDT, Weight Dosing mupirocin Top 2% Oint: See Instructions, 22 gm, Refill(s) 1, APPLY 1 APPLICATION TOPICALLY THREE TIMES A DAY, [facility], 173, cm, 03/06/24 11:03:00 EST, Height/Length Dosing, 138.2, kg, 03/06/24 11:03:00 EST, Weight Dosing Documented Medications Documented Misc Medication: See Instructions, 2 capsules of the focus factor daily Misc Medication: See Instructions, magnsium glyconate 275mg Take 3 orally twice a day Myrbetriq 50 mg oral tablet, extended release: 30 EA, take 1 tablet by mouth every morning, Refills(s) 0 Natpara 75 mcg/dose subcutaneous injection: 75 mcg, SubCutaneous, Daily, 30 EA, Refill(s) 0 Vitamin C 500 mg oral tablet, chewable: 500 mg = 1 tab(s), Chewed, Daily, Refills(s) 0, Prophylaxis Vitamin D3 10,000 intl units oral capsule: See Instructions, 5000 units every other day, Refills(s)0, Prophylaxis Vitamin K2: mcg, Oral, Daily, Refill(s) 0, Prophylaxis calcium (as calcium citrate) 200 mg oral tablet: mg tab(s), Oral, Daily, Refills(s) 0, Prophylaxis magnesium glycinate: Oral, Refills(s) 0, Prophylaxis, Home Medications (18) Active albuterol 0.083% Inh Mandie 3 mL See Instructions calcium (as calcium citrate) 200 mg oral tablet , Oral, Daily citalopram 40 mg Tab 20 mg = 0.5 tab(s), Oral, Daily Flonase 0.05 mg/inh [place] 2 spray(s), Nasal, Daily Flovent HFA 220 Aerosol 1 puff(s), Inhalation, BID levothyroxine 125 mcg (0.125 mg) Tab 175 mcg, Oral, Daily Levsin 0.125 mg SL Tab 0.125 mg = 1 tab(s), PRN, Oral, QID losartan 50 mg Tab 50 mg = 1 tab(s), Oral, Daily magnesium glycinate , Oral metoprolol succinate 50 mg ER Tab 50 mg = 1 tab(s), Oral, Daily Misc Medication See Instructions Misc Medication See Instructions mupirocin Top 2% Oint See Instructions Myrbetriq 50 mg oral tablet, extended release Natpara 75 mcg/dose subcutaneous injection 75 mcg, SubCutaneous, Daily Vitamin C 500 mg oral tablet, chewable 500 mg = 1 tab(s), Chewed, Daily Vitamin D3 10,000 intl units oral capsule See Instructions Vitamin K2 , Oral, Daily Problem li (more content not included)...[facility] CenterComment on above:Result Comment: Electronically Signed By: Maynor FAITH, Adi Mueller\.br\Date and Time Signed: 02/25/25 12:29 [id number] NotePatient Education - Text Colonoscopy Care After Surgery Please read the instructions outlined below and refer to this sheet in the next few weeks. These discharge instructions provide you with general information on caring for yourself after you leave thespital. Your doctor may also give you specific instructions. While your treatment has been planned according to the most current medical practices available, unavoidable complications occasionally occur. If you have any problems or questions after discharge, please call your doctor. ACTIVITY You may resume your regular activity, but move at a slower pace for the next 24 hours. Take frequent rest periods for the next 24 hours. Walking will help get rid of the air and reduce the bloated feeling in your abdomen (belly). No driving for 24 hours (because of the anesthesia (medicine) used during the test). You may shower. Do not sign any important legal documents or operate any machinery for 24 hours (because of the anesthesia used during the test). NUTRITION Drink plenty of fluids. You may resume your normal diet as instructed by your doctor. Begin with a light meal and progress to your normal diet. Heavy or fried foods are harder to digestand may make you feel nauseated (sick to your stomach). Avoid alcoholic beverages for 24 hours or as instructed. MEDICATIONS You may resume your normal medications unless your doctor tells you otherwise. WHAT YOU CAN EXPECT TODAY Some feelings of bloating in the abdomen. Passage of more gas than usual. Spotting of blood in your stool or on the toilet paper. FOLLOW-UP Your doctor will discuss the results of your test with you. SEEK IMMEDIATE MEDICAL ATTENTION IF: There is more than a spotting of blood in your stool. There is abdominal distention (your abdomen is swollen). There is vomiting. You have a temperature over 101.5 F. There is abdominal pain or discomfort that is severe or gets worse throughout the day. Gastroenterology Diverticulosis Diverticulosis is when small pouches called diverticula form in the wall of the colon. The colon iswhere water is absorbed. It is also where poop (stool) is formed. The pouches form when the inside layer of the colon pushes through weak spots in the outer layers of the colon. You may have a few pouches or many of them. In most cases, the pouches do not cause problems. If they become inflamed or infected, you may havea condition called diverticulitis. What are the causes? The cause of this condition is not known. What increases the risk? You are more likely to get this condition if: ??? You are older than 60 years of age. ??? You do not eat enough fiber or you get constipated a lot. ??? You are overweight. ??? You do not get enough exercise. ??? You smoke. ??? You take rtvd-hnw-tspqaox pain medicines. ??? You have a family history of the condition. What are the signs or symptoms? In most people, there are no symptoms. If you do have symptoms, they may include: ??? Bloating. ??? Stomach cramps. ??? Constipation or diarrhea. ??? Pain in the lower left side of your abdomen. How is this diagnosed? This condition is often diagnosed during an exam for other colon problems. It may be diagnosed whenyou have: ??? A colonoscopy. This is when a tube with a camera on the end is used to look at your colon. ??? A barium enema. This is an X-ray exam that uses dye to look at your colon. ??? A CT scan. How is this treated? You may not need treatment. Your health care provider will tell you what you can do at home to helpprevent problems. You may need treatment if you have symptoms or if you have had diverticulitis before. You may be told to: ??? Eat a high-fiber diet. ??? Take medicine to relax your colon. ??? Lose weight. Follow these instructions at home: Medicines ??? Take worn-iqu-ecvbubz and prescription medicines only as told by your provider. ??? If told, take a fiber supplement or probiotic. Managing constipation Your condition may cause constipation. To prevent or treat constipation, you may need to: ??? Drink enough fluid to keep your pee (urine) pale yellow. ??? Take pvfz-mqg-rlqxajj or prescription medicines. ??? Eat foods that are high in fiber, such as beans, whole grains, and fresh fruits and vegetables. ??? Limit foods that are high in fat and processed sugars, such as fried or sweet foods. Try not to strain when you poop. Contact a health care provider if: ??? Your symptoms get worse all of a sudden. ??? You have pain in your abdomen that gets worse. ??? You have bloating or stomach cramps. ??? You continue to have frequent constipation. ??? You have a fever or chills. ??? You vomit. ??? Your poop is bloody, black, or tarry. This information is not intended to replace advice given to you by your health care provider. Make sure you discuss any questio (more content not included)... [facility]11-[facility]25 NoteProgress Note-Physician Patient: MARCELINA CANO Age: 64 years Sex: Female : 1960 Associated Diagnoses: None Author: Maynor FAITH, Adi Mueller Preoperative Information Anesthesia Preop Info: Time patient last ate or drank 02/23/2025 00:00:00. Anesthesia history: Patient history: No prior anesthetic problems. Anesthesia results: Anesthesia results from flowsheet : Results 01/23/2025 13:44 EDT Peripheral Pulse Rate 68 bpm Systolic Blood Pressure 132 mmHg Diastolic Blood Pressure 76 mmHg Blood Pressure Location Left arm . Informed consent: Signed by patient. Re-evaluation prior to induction: Initial evaluation reviewed: No significant change. Review of Systems Respiratory: Negative except as documented in history of present illness. Cardiovascular: Negative except as documented in history of present illness. Health Status Allergies: Allergic Reactions (Selected) Moderate Anabolic steroids- Angry. Mild Biaxin- Diarrhea. Severity Not Documented Augmentin- Diarrhea., Allergies (3) Active Severity Reaction anabolic steroids Moderate Angry Biaxin Mild Diarrhea Augmentin Diarrhea Current medications: (Selected) Inpatient Medications Ordered Sodium Chloride 0.9% IV Mandie 1000 mL 1,000 mL: 1,000 mL, IV, 20 mL/hr, Routine, Start date 02/25/25 6:37:00 EST, 50 hour(s), Total volume (mL): 1,000 Prescriptions Prescribed Flonase 0.05 mg/inh [place]: 2 spray(s), Nasal, Daily, 16 gram, Refill(s) 0, each nostril, [facility] #[id number], 173.5, cm, 07/27/22 13:52:00 EDT, Height/Length Dosing, 135.6, kg, 07/27/22 13:52:00 EDT, Weight Dosing Flovent HFA 220 Aerosol: = 1 puff(s), Inhalation, BID, # 12 gram, Refills(s) 0, Pharmacy: [facility] #[id number], 173, cm, 03/14/23 13:44:00 EST, Height/Length Dosing, 140, kg, 03/14/23 13:44:00 EST, WeightDosing Levsin 0.125 mg SL Tab: 0.125 mg = 1 tab(s), Oral, QID, PRN for spasm, # 40 tab(s), Refills(s) 0, Pharmacy: [facility], 173, cm, 01/23/25 13:52:00 EDT, Height/Length Dosing, 139.6, kg, 01/23/25 13:52:00 EDT, Weight Dosing albuterol 0.083% Inh Mandie 3 mL: See Instructions, 300 mL, Refill(s) 10 INHALE CONTENTS OF 1 VIAL (3ML) EVERY 6 HOURS AND NEEDED, [facility], 173, cm, 06/30/23 13:55:00 EST, Height/Length Dosing, 139.9, kg, 06/30/23 13:55:00 EST, Weight Dosing citalopram 40 mg Tab: 20 mg = 0.5 tab(s), Oral, Daily, # 90 tab(s), Refills(s) 1, Pharmacy: [id number], 173, cm, 08/28/24 11:11:00 EDT, Height/Length Dosing, 142.7, kg, 08/28/24 11:11:00 EDT, Weight Dosing levothyroxine 125 mcg (0.125 mg) Tab: 175 mcg, Oral, Daily, # 90 tab(s), Refills(s) 0, Pharmacy: [facility] #[id number], 173, cm, 08/22/23 11:06:00 EDT, Height/Length Dosing, 140, kg, 08/22/23 11:06:00 EDT,Weight Dosing losartan 50 mg Tab: 50 mg = 1 tab(s), Oral, Daily, # 30 tab(s), Refills(s) 0, Pharmacy: [id number], 173, cm, 01/17/25 13:37:00 EDT, Height/Length Dosing, 140, kg, 01/17/25 13:37:00 EDT, Weight Dosing metoprolol succinate 50 mg ER Tab: 50 mg = 1 tab(s), Oral, Daily, # 90 tab(s), Refills(s) 4, Pharmacy: [facility], 173, cm, 08/28/24 11:11:00 EDT, Height/Length Dosing, 142.7, kg, 08/28/24 11:11:00 EDT, Weight Dosing mupirocin Top 2% Oint: See Instructions, 22 gm, Refill(s) 1, APPLY 1 APPLICATION TOPICALLY THREE TIMES A DAY, [id number], 173, cm, 03/06/24 11:03:00 EST, Height/Length Dosing, 138.2, kg, 03/06/24 11:03:00 EST, Weight Dosing Documented Medications Documented Misc Medication: See Instructions, 2 capsules of the focus factor daily Misc Medication: See Instructions, magnsium glyconate 275mg Take 3 orally twice a day Myrbetriq 50 mg oral tablet, extended release: 30 EA, take 1 tablet by mouth every morning, Refills(s) 0 Natpara 75 mcg/dose subcutaneous injection: 75 mcg, SubCutaneous, Daily, 30 EA, Refill(s) 0 Vitamin C 500 mg oral tablet, chewable: 500 mg = 1 tab(s), Chewed, Daily, Refills(s) 0, Prophylaxis Vitamin D3 10,000 intl units oral capsule: See Instructions, 5000 units every other day, Refills(s)0, Prophylaxis Vitamin K2: mcg, Oral, Daily, Refill(s) 0, Prophylaxis calcium (as calcium citrate) 200 mg oral tablet: mg tab(s), Oral, Daily, Refills(s) 0, Prophylaxis magnesium glycinate: Oral, Refills(s) 0, Prophylaxis, Home Medications (18) Active albuterol 0.083% Inh Mandie 3 mL See Instructions calcium (as calcium citrate) 200 mg oral tablet , Oral, Daily citalopram 40 mg Tab 20 mg = 0.5 tab(s), Oral, Daily Flonase 0.05 mg/inh [place] 2 spray(s), Nasal, Daily Flovent HFA 220 Aerosol 1 puff(s), Inhalation, BID levothyroxine 125 mcg (0.125 mg) Tab 175 mcg, Oral, Daily Levsin 0.125 mg SL Tab 0.125 mg = 1 tab(s), PRN, Oral, QID losartan 50 mg Tab 50 mg = 1 tab(s), Oral, Daily magnesium glycinate , Oral metoprolol succinate 50 mg ER Tab 50 mg = 1 tab(s), Oral, Daily Misc Medication See Instructions Misc Medication See Instructions mupirocin Top 2% Oin (more content not included)...[facility] Comment on above:Result Comment: Electronically Signed By: Maynor FAITH, Adi Mueller\.br\Date and Time Signed: 02/25/25 08:10 [id number] NoteHNO ID: [id number] Author: DINA JOE MD Service: ? Author Type: Physician Type: Progress Notes Filed: 02/19/2025 19:05 Note Text: Endocrinology Virtual Visit This is a virtual visit using R17 Video Visit - used 's phone. It required patient-provider interaction for the medical decision making as documented below. I have communicated my name and active licensure. The patient's identity and physical location were verified at the time of this visit. Either the patient or their legal student services representative has been informed of the risks and benefits of -- and alternatives to -- treatment through a remote evaluation and consents to proceed with the evaluation remotely. Last visit: 10/2024 Marcelina Cano is a 64 year old female with PMH of JESSICA, class 3 obesity, VSD, papillary thyroid cancer s/p left thyroidectomy 03/2013, completion thyroidectomy 03/2013, HERNDON, post-surgical hypothyroidism, hypoparathyroidism, adhesions s/p total hysterectomy 2006 presenting for management of hypoparathyroidism. Interval history Marcelina is currently taking Natpara and has 17 doses remaining. She is preparing to transition to Yorvipath and inquires about the appropriate timing for discontinuing Natpara prior to starting Yorvipath. She takes [employer] vitamin D3 3,000 IU with K2 daily, calcium 600 mg (2 tablets) three times daily, and magnesium glycinate 4 capsules twice daily (288 mg in 3 capsules). She expresses concern about the upcoming transition from Natpara to Yorvipath and the distance to [facility], stating, I've almost before, and requests a reliable point of contact in case of complications. She reports that her levothyroxine was recently filled at [facility] at a dose of 125 mcg, but [facility] continues to send her 150 mcg as well. She had been taking 175 mcg until now. She has a month's supply of 150 mcg tablets and of 125 mcg and wishes to use these before resuming her regular dose. She requests that her 175 mcg prescription be sent to [facility] for home delivery. Her losartan dose was recently increased from 25 mg to 50 mg due to elevated blood pressure readings, which she reports have improved with the higher dose. She continues to monitor her blood pressure at home. She also reports ongoing difficulty with weight management despite previous high levels of physical activity and adherence to [employer], during which she lost approximately 5 pounds per week. She expresses concern about possible parasitic infection contributing to her weight issues and has a colonoscopy scheduled for Tuesday. HISTORY OF PRESENT ILLNESS: From prior notes: Female with hypocalcemia s/p thyroid surgery in 2006 for papillary thyroid cancer. Managed on natpara due to life threatening hypocalcemia in the past. She was under care of osh team at that time. Reports that conventional treatment resulted in persistent hypocalcemia. Ended up in ER in January 2019 with calcium of 4.0, had to be in ICU for 3 days. Happened again a week later with calcium of 5, back in ICU for HTN emergency at same time Regimen: Natpara 0.75 mg subq daily until 03/08 Vitamin D3-K2 3000 international unit(s) - 50 mg daily Calcium tablet 600 mg tid Mag glycinate - 288 mg in 3 capsules - 4 capsules twice daily Marcelina is currently on Natpara 0.75 mcg once daily for hypoparathyroidism but wishes to transition to calcitriol or possibly Yorvipath. She had some concerns regarding refrigeration of Yorvipath but we discussed that it does not need to be refrigerated once used and can be left at room temp for 14 days. She is concerned about the discontinuation of Natpara, expected around March, and wants to have a plan in place. She underwent left thyroidectomy in 03/07 with multiple foci of papillary thyroid carcinoma, largest 0.8 cm, with follicular adenoma 1 cm, followed by right thyroidectomy in 04/06, with multiple foci papillary thyroid carcinoma, follicular variant, 1 cm. Had radioactive treatment 95.8 mCi, with whole-body scan in April/2013. HISTORY REVIEWED (electronic chart updated): PAST MEDICAL HISTORY Diagnosis Date Hypocalcemia Hypoparathyroidism (HCC) JESSICA (obstructive sleep apnea) Thyroid cancer (HCC) VSD (ventricular septal defect) (HCC) VSD (ventricular septal defect) (HCC) PAST SURGICAL HISTORY Procedure Laterality Date COLONOSCOPY x2 HYSTERECTOMY 2006 total kamilah/bso THYROIDECTOMY TOTAL/COMPLETE 2012 FAMILY HISTORY Problem Relation Age of Onset Ischemic Heart Disease Father Diabetes Father Hypertension Sister SOCIAL HISTORY[1] Current Outpatient Medications Medication Sig losartan (COZAAR) 50 mg tablet Take 1 tablet by mouth once daily. levothyroxine (SYNTHROID) 175 mcg tablet Take 1 tablet by mouth once daily. metoprolol succinate ER (TOPROL XL) 50 mg 24 hr tablet Take 50 mg by mouth. calcium carbonate-vitamin D3 (CALTRATE 600 PL (more content not included)... [place] [id number] Instructions* Patient Instructions* Dina Joe MD - 10/30/2024 2:50 PM EDT - Call Radiology to schedule your US: [phone] We discussed your calcium levels and supplementation: - You have reduced your calcium intake from 8 tablets daily to 4 tablets daily, which is appropriate. Continue this reduced dose for now. - We performed blood work today to check your calcium and vitamin D levels. No 24-hour urine calcium test is needed at this time, as your previous results were high due to excessive calcium intake, which has now been adjusted. - Continue taking Natpara as prescribed through March. We discussed the potential replacement, Yorvipath, which requires refrigeration until use but can remain at room temperature for up to 2 weeks once opened. This may be an option to consider in the future. We discussed your thyroid function and medication: - Your thyroid-stimulating hormone (TSH) level was elevated at 6.1, which is why we increased your levothyroxine dose to 175 mcg daily. - We will recheck your TSH levels in 3 months to assess the effectiveness of the dose adjustment. - Please schedule a thyroid ultrasound to monitor for thyroid cancer recurrence. This can be done at a radiology center in [place]. The order has been placed. We discussed your concerns about fatty liver and hiatal hernia: - For questions about fatty liver management or detox options, please consult your primary care provider. - Your hiatal hernia is unlikely to cause pain unless it becomes incarcerated, which is not currently the case. It may contribute to reflux symptoms. Discuss further management options with your primary care provider. We discussed your Celexa (citalopram) prescription: - You can have your Celexa refilled by a nurse practitioner at your primary care office until your new doctor arrives in January. Follow-up: - Please schedule a follow-up appointment in January to review your thyroid function, calcium levels, and overall progress. - Let us know if you experience any new or worsening symptoms or have concerns about your current treatment plan. [facility] History of Present illness Narrative* Dina Joe MD - 10/30/2024 2:30 PM EDT Images from the original note were not included. [facility] Follow-up visit Marcelina Cano is here for follow-up regarding hypoparathyroidism: Last seen 08/30/2024 Recording using ambient AI software for draft documentation of the visit was discussed with the patient/authorized student services representative; all questions welcomed and answered. Patient/authorized student services representative agreed to proceed Marcelina Cano is a 64 year old female with PMH of JESSICA, class 3 obesity, VSD, papillary thyroid cancer s/p left thyroidectomy 03/2013, completion thyroidectomy 03/2013, HERNDON, post-surgical hypothyroidism, hypoparathyroidism, adhesions s/p total hysterectomy 2006 presenting for management of hypoparat hyroidism. Interval history Marcelina reports a recent 24-hour urine calcium test showing elevated levels. She has reduced her calcium intake from 8 chewable tablets to 4 tablets daily. She inquires about the potential role of vitamin K2 in calcium absorption and expresses concern about the risk of bone cancer associated with Natpara, which she will continue using until March when the company runs out. Marcelina notes a recent increase in her TSH levels to 6.1 mIU/L, up from 3.7 mIU/L in April of the previous year. She has not yet started the prescribed 175 mcg dose of levothyroxine due to a delay inreceiving the medication, but plans to begin once her current supply of 100 mcg tablets is depleted, she is currently taking 150 mcg daily still. HISTORY OF PRESENT ILLNESS: Marcelina is currently on Natpara 0.75 mcg once daily for hypoparathyroidism but wishes to transition to calcitriol or possibly Yorvipath. She had some concerns regarding refrigeration of Yorvipath but we discussed that it does not need to be refrigerated once used and can be left at room temp for 14 days. She is concerned about the discontinuation of Natpara, expected around March, and wants to have a plan in place. From prior notes: Female with hypocalcemia s/p thyroid surgery in 2006 for papillary thyroid cancer. Managed on natpara due to life threatening hypocalcemia in the past. She was under care of osh team at that time. Reports that conventional treatment resulted in persistent hypocalcemia. Ended up in ER in January 2019 with calcium of 4.0, had to be in ICU for 3 days. Happened again a week later with calcium of 5, back in ICU for HTN emergency at same time Regimen: Natpara 0.75 mg subq daily Vitamin D 5000 IU d3 every other day Calcium tablet 600 mg bid (decreased from qid) Mag glycinate - 288 mg in 3 capsules - 4 capsules twice daily She underwent left thyroidectomy in 03/07 with multiple foci of papillary thyroid carcinoma, largest 0.8 cm, with follicular adenoma 1 cm, followed by right thyroidectomy in 04/06, with multiple focipapillary thyroid carcinoma, follicular variant, 1 cm. Had radioactive treatment 95.8 mCi, with whole-body scan in April/2013. Review of Systems Constitutional: Positive for fatigue. HENT: Negative for trouble swallowing, postnasal drip and thyroid pain (lower neck). Eyes: Negative for visual disturbance. Respiratory: Negative for difficulty breathing. Cardiovascular: Positive for leg swelling. Negative for chest pain and claudication. Gastrointestinal: Positive for abdominal pain, diarrhea and constipation. Negative for heartburn, nausea and vomiting. Genitourinary: Positive for urgency, frequent urination, slower stream and amenorrhea. Negative formenstruating and irregular menses. Musculoskeletal: Positive for myalgias and muscle weakness. Negative for bone pain. Skin: Negative for skin color change. Neurological: Positive for numbness. Negative for dizziness and headaches. Endo/Heme/Allergies: Positive for polydipsia, heat intolerance when others are comfortable and hot flashes. Negative for cold intolerance when others are comfortable, flushing and changes in body hair. PAST HISTORY: PAST MEDICAL HISTORY Diagnosis Date Hypocalcemia Hypoparathyroidism (HCC) JESSICA (obstructive sleep apnea) Thyroid cancer (HCC) VSD (ventricular septal defect) (HCC) VSD (ventricular septal defect) (HCC) PAST SURGICAL HISTORY Procedure Laterality Date COLONOSCOPY x2 HYSTERECTOMY 2006 total kamilah/bso THYROIDECTOMY TOTAL/COMPLETE 2012 Current Outpatient Medications Medication Sig Dispense Refill metoprolol succinate ER (TOPROL XL) 50 mg 24 hr tablet Take 50 mg by mouth. levothyroxine (SYNTHROID) 175 mcg tablet Take 1 tablet by mouth once daily. (Patient taking differently: Take 150 mcg by mouth once daily.) 90 tablet 2 albuterol (PROVENTIL) 2.5 mg /3 mL (0.083 %) nebulizer solution mirabegron (MYRBETRIQ) 50 mg Tb24 Take 1 tablet by mouth every morning. citalopram (CELEXA) 20 mg tablet Take 20 mg by mouth daily at bedtime. losartan (COZAAR) 25 mg tablet Take 25 mg by mouth once daily. parathyroid hormone (NATPARA) 75 mcg/dose crtg Inject 75 mcg subcutaneously once daily. calcium carbonate-vitamin D3 (CALTRATE 600 PLUS D) 600 mg-20 mcg (800 unit) tablet Take 1 tablet bymouth two times a day. cholecalciferol (VITAMIN D-3) 5,000 unit tab Take 1 tablet Sun- Tues- Th- Sat MAGNESIUM GLYCINATE PO Take 344 mg by mouth two times a day. No current facility-administered medications for this visit. ALLERGIES Allergen Reactions Clarithromycin Diarrhea Prednisone Other: See Comments Causes behaviors FAMILY HISTORY Problem Relation Age of Onset Ischemic Heart Disease Father Diabetes Father Hypertension Sister Social History Tobacco Use Smoking status: Former Smokeless tobacco: Never Vaping Use Vaping status: Never Used Substance Use Topics Alcohol use: Yes Alcohol/week: 1.0 - 2.0 standard drink of alcohol Types: 1 - 2 Glasses of Wine (5oz) per week Drug use: No PHYSICAL EXAM: BP 130/81 (BP Site: Right Arm, BP Position: Sitting, BP Cuff Size: Large Adult) Pulse 62 Wt (!)141.8 kg (312 lb 9.8 oz) SpO2 96% BMI 46.84 kg/m General: no acute distress, feeling well Neurologic: alert and oriented to time, space and place Eyes: no exophthalmia Gait: is preserved. Skin: no dermopathy Psychiatry: normal affect PREVIOUS LAB RESULTS: Latest Ref Rng 05/06/2023 08/30/2024 10/03/2024 Albumin 3.9 - 4.9 g/dL 4.1 Calcium 8.5 - 10.2 mg/dL 10.3 (H) Phosphorus 2.7 - 4.8 mg/dL 4.1 Glucose 74 - 99 mg/dL 101 (H) BUN 7 - 21 mg/dL 15 Creatinine 0.58 - 0.96 mg/dL 0.69 Sodium 136 - 144 mmol/L 139 Potassium 3.7 - 5.1 mmol/L 4.6 Chloride 98 - 107 mmol/L 98 CO2 22 - 30 mmol/L 26 Anion Gap 8 - 15 mmol/L 15 eGFR >=60 mL/min/1.73m 98 Calcium, 24 Hr Urine 100.0 - 300.0 mg/24 hr 357.0 (H) Period hr 24 Period hr 24 Urine Volume 24 hour mL 3,000 Urine Volume 24 hour mL 3,000 Creatinine 24 hr Ur 0.800 - 1.800 g/24 hr 1.635 Thyroglobulin Ab, Serum <4.0 IU/mL <0.9 <0.9 Thyroglobulin, Serum 1.6 - 50.0 ng/mL <0.1 (L) <0.1 (L) Normalized Calcium 1.08 - 1.30 mmol/L 1.28 Ionized Calcium 1.08 - 1.30 mmol/L 1.29 TSH 0.270 - 4.200 mIU/L 3.760 6.180 (H) TSH 0.270 - 4.200 mIU/L 6.180 (H) Vitamin D 25 Hydroxy 31.0 - 80.0 ng/mL 55.5 Vit D1,25 Dihydroxy 19.9 - 79.3 pg/mL 67.0 Free T4 0.9 - 1.7 ng/dL 1.1 Legend: (L) Low (H) High IMPRESSION AND RECOMMENDATIONS: 1. Hypocalcemia (E83.51) Postprocedural hypoparathyroidism (HCC) (E89.2) Urine calcium levels were elevated due to excessive calcium supplementation. Patient has reduced calcium intake from 8 to 4 chewable tablets daily. Currently on Natpara, with supply confirmed until March. Plan to transition to Yorvipath after that or to calcitriol. - Ordered serum calcium and vitamin D levels today. - Continue Natpara therapy. - Educated patient on potential future switch to yorvipath, which requires refrigeration until use and can be stored at room temperature for 2 weeks once in use. - Monitor calcium levels closely if switching therapies. 2. Postoperative hypothyroidism (E89.0) TSH levels increased from 3.7 to 6.1. Current levothyroxine dose is 150 mcg daily. - Increase levothyroxine to 175 mcg daily. - Patient instructed on how to achieve 175 mcg dose using existing 100 mcg tablets by splitting them before switching over to 175 mcg tablets. - Re-evaluate TSH levels in 3 months. 3. Personal history of malignant neoplasm of thyroid (Z85.850) Due for thyroid ultrasound for cancer surveillance; last ultrasound was over 5 years ago. Undetectable thyroglobulin, TSH not at goal. - Ordered thyroid ultrasound Encounter Diagnosis ICD-10-CM 1. Hypocalcemia E83.51 CALCIUM, IONIZED VITAMIN D 25 HYDROXY VITAMIN D1 25-DIHYDR RENAL FUNCTION PANEL 2. Postprocedural hypoparathyroidism (HCC) E89.2 CALCIUM, IONIZED VITAMIN D 25 HYDROXY VITAMIN D1 25-DIHYDR RENAL FUNCTION PANEL calcium carbonate-vitamin D3 (CALTRATE 600 PLUS D) 600 mg-20 mcg (800 unit) tablet cholecalciferol (VITAMIN D-3) 5,000 unit tab MAGNESIUM GLYCINATE PO 3. Postoperative hypothyroidism E89.0 4. Personal history of malignant neoplasm of thyroid Z85.850 F/u in 3 months Dina Joe MD Associate Staff Department of Endocrinology, Diabetes and [facility] NoteHNO ID: [id number] Author: DINA JOE MD Service: ? Author Type: Physician Type: Progress Notes Filed: 10/31/2024 11:29 Note Text: [facility] Follow-up visit Marcelina Cano is here for follow-up regarding hypoparathyroidism: Last seen 08/30/2024 Recording using [employer] software for draft documentation of the visit was discussed with the patient/authorized student services representative; all questions welcomed and answered. Patient/authorized student services representative agreed to proceed Marcelina Cano is a 64 year old female with PMH of JESSICA, class 3 obesity, VSD, papillary thyroid cancer s/p left thyroidectomy 03/2013, completion thyroidectomy 03/2013, HERNDON, post-surgical hypothyroidism, hypoparathyroidism, adhesions s/p total hysterectomy 2006 presenting for management of hypoparathyroidism. Interval history Marcelina reports a recent 24-hour urine calcium test showing elevated levels. She has reduced her calcium intake from 8 chewable tablets to 4 tablets daily. She inquires about the potential role of vitamin K2 in calcium absorption and expresses concern about the risk of bone cancer associated with Natpara, which she will continue using until March when the company runs out. Marcelina notes a recent increase in her TSH levels to 6.1 mIU/L, up from 3.7 mIU/L in April of the previous year. She has not yet started the prescribed 175 mcg dose of levothyroxine due to a delay in receiving the medication, but plans to begin once her current supply of 100 mcg tablets is depleted, she is currently taking 150 mcg daily still. HISTORY OF PRESENT ILLNESS: Marcelina is currently on Natpara 0.75 mcg once daily for hypoparathyroidism but wishes to transition to calcitriol or possibly Yorvipath. She had some concerns regarding refrigeration of Yorvipath but we discussed that it does not need to be refrigerated once used and can be left at room temp for 14 days. She is concerned about the discontinuation of Natpara, expected around March, and wants to have a plan in place. From prior notes: Female with hypocalcemia s/p thyroid surgery in 2006 for papillary thyroid cancer. Managed on natpara due to life threatening hypocalcemia in the past. She was under care of osh team at that time. Reports that conventional treatment resulted in persistent hypocalcemia. Ended up in ER in January 2019 with calcium of 4.0, had to be in ICU for 3 days. Happened again a week later with calcium of 5, back in ICU for HTN emergency at same time Regimen: Natpara 0.75 mg subq daily Vitamin D 5000 IU d3 every other day Calcium tablet 600 mg bid (decreased from qid) Mag glycinate - 288 mg in 3 capsules - 4 capsules twice daily She underwent left thyroidectomy in 03/07 with multiple foci of papillary thyroid carcinoma, largest 0.8 cm, with follicular adenoma 1 cm, followed by right thyroidectomy in 04/06, with multiple foci papillary thyroid carcinoma, follicular variant, 1 cm. Had radioactive treatment 95.8 mCi, with whole-body scan in April/2013. Review of Systems Constitutional: Positive for fatigue. HENT: Negative for trouble swallowing, postnasal drip and thyroid pain (lower neck). Eyes: Negative for visual disturbance. Respiratory: Negative for difficulty breathing. Cardiovascular: Positive for leg swelling. Negative for chest pain and claudication. Gastrointestinal: Positive for abdominal pain, diarrhea and constipation. Negative for heartburn, nausea and vomiting. Genitourinary: Positive for urgency, frequent urination, slower stream and amenorrhea. Negative for menstruating and irregular menses. Musculoskeletal: Positive for myalgias and muscle weakness. Negative for bone pain. Skin: Negative for skin color change. Neurological: Positive for numbness. Negative for dizziness and headaches. Endo/Heme/Allergies: Positive for polydipsia, heat intolerance when others are comfortable and hot flashes. Negative for cold intolerance when others are comfortable, flushing and changes in body hair. PAST HISTORY: PAST MEDICAL HISTORY Diagnosis Date Hypocalcemia Hypoparathyroidism (HCC) JESSICA (obstructive sleep apnea) Thyroid cancer (HCC) VSD (ventricular septal defect) (HCC) VSD (ventricular septal defect) (HCC) PAST SURGICAL HISTORY Procedure Laterality Date COLONOSCOPY x2 HYSTERECTOMY 2006 total kamilah/bso THYROIDECTOMY TOTAL/COMPLETE 2012 Current Outpatient Medications Medication Sig Dispense Refill metoprolol succinate ER (TOPROL XL) 50 mg 24 hr tablet Take 50 mg by mouth. levothyroxine (SYNTHROID) 175 mcg tablet Take 1 tablet by mouth once daily. (Patient taking differently: Take 150 mcg by mouth once daily.) 90 tablet 2 albuterol (PROVENTIL) 2.5 mg /3 mL (0.083 %) nebulizer solution mirabegron (MYRBETRIQ) 50 mg Tb24 Take 1 tablet by mouth every morning. citalopram (CELEXA) 20 mg tablet Take 20 mg by mouth daily at bedtime. losartan (COZAAR) 25 mg tablet T (more content not included)...[facility]06-19-2025 History of Present illness Narrative* Art Oneal, RT(R) - 10/11/2024 9:30 AM EDT Radiology Service Progress Note PATIENT NAME: Marcelina Caon DATE OF SERVICE: October 11, 2024 TIME: 9:36 AM PATIENT IDENTITY VERIFICATION COMPLETED USING TWO (2) IDENTIFIERS: Name and Date of confirmedby patient verbally. FALL SCREENING: Has the patient had 2 falls in the last year or 1 fall with injury or currently using an Ambulatory Assistive Device (Walker, Cane, Wheelchair, Crutches, etc.)? No PATIENT GENDER DATA: Assigned female at . status: : No status:NO. PATIENT RELEVANT IMPLANT DATA REVIEWED: Not Applicable PATIENT PRESENTS WITH AN IMPLANTABLE OR ATTACHED METAL FABRICATOR WELDER: No RADIOLOGY DEPARTMENT: CT; Exam(s) Completed: Abdomen/Pelvis PERIPHERAL IV DATA: Site assessment: Clean,Dry and Intact, Site disposition Discontinued SIGNED BY: RT Otilio(R) October 11, 2024 9:36 AM * Francesco Orellana RN - 10/11/2024 9:30 AM EDT Radiology Service Progress Note DATE OF SERVICE: October 11, 2024 TIME: 10:13 AM PATIENT WEIGHT: 310LBS PATIENT IDENTITY VERIFICATION COMPLETED USING TWO (2) STANDARD IDENTIFIERS: Name and Date of confirmed by patient verbally. FALL SCREENING: Has the patient had 2 falls in the last year or 1 fall with injury or currently using an Ambulatory Assistive Device (Walker, Cane, Wheelchair, Crutches, etc.)? No PATIENT GENDER DATA: Assigned female at . status: : No status:NO. ALLERGIES: Reviewed and unchanged CONTRAST ALLERGY: No EXAM: CT -CONTRAST INDUCED NEPHROPATHY RISK FACTORS: Patient age > 60 years CREATININE: Creatinine Date Value Ref Range Status 08/30/2024 0.69 0.58 - 0.96 mg/dL Final 03/14/2017 0.69 0.58 - 0.96 mg/dL Final Estimated Glomerular Filtration Rate Date Value Ref Range Status 08/30/2024 98 >=60 mL/min/1.73m Final Comment: Estimated Glomerular Filtration Rate (eGFR) is calculated using the 2020 CKD-EPI creatinine equation. This equation utilizes serum creatinine, sex, and age as parameters. The creatinine assay has traceable calibration to isotope dilution- mass spectrometry. Refer to KDIGO guidelines for clinical interpretation. In patients with unstable renal function, e.g. those with acute kidney injury, the eGFRmay not accurately reflect actual GFR. eGFR- Date Value Ref Range Status 03/14/2017 >60 Final P.O.C.T. RESULTS: POC done: Yes, See Lab Tab October 11, 2024 TREATMENT: N/A IV SITE: Ambulatory: A peripheral IV was started in the Left antecubital site with a Angio cath: 20gauge. IV SITE APPEARANCE: Clean,Dry and Intact SIGNATURE: Francesco Orellana RN PATIENT NAME: Marcelina Cano DATE: October 11, 2024 TIME: 10:13 AM documented in [facility] encounterSt[facility] NoteHNO ID: [id number] Author: FRANCESCO ORELLANA RN Service: ? Author Type: Registered Nurse Type: Progress Notes Filed: 10/11/2024 10:14 Note Text: Radiology Service Progress Note DATE OF SERVICE: October 11, 2024 TIME: 10:13 AM PATIENT WEIGHT: 310LBS PATIENT IDENTITY VERIFICATION COMPLETED USING TWO (2) STANDARD IDENTIFIERS: Name and Date of confirmed by patient verbally. FALL SCREENING: Has the patient had 2 falls in the last year or 1 fall with injury or currently using an Ambulatory Assistive Device (Walker, Cane, Wheelchair, Crutches, etc.)? No PATIENT GENDER DATA: Assigned female at . status: : No status: NO. ALLERGIES: Reviewed and unchanged CONTRAST ALLERGY: No EXAM: CT -CONTRAST INDUCED NEPHROPATHY RISK FACTORS: Patient age > 60 years CREATININE: Creatinine Date Value Ref Range Status 08/30/2024 0.69 0.58 - 0.96 mg/dL Final 03/14/2017 0.69 0.58 - 0.96 mg/dL Final Estimated Glomerular Filtration Rate Date Value Ref Range Status 08/30/2024 98 >=60 mL/min/1.73m? Final Comment: Estimated Glomerular Filtration Rate (eGFR) is calculated using the 2020 CKD-EPI creatinine equation. This equation utilizes serum creatinine, sex, and age as parameters. The creatinine assay has traceable calibration to isotope dilution-mass spectrometry. Refer to KDIGO guidelines for clinical interpretation. In patients with unstable renal function, e.g. those with acute kidney injury, the eGFR may not accurately reflect actual GFR. eGFR- Date Value Ref Range Status 03/14/2017 >60 Final P.O.C.T. RESULTS: POC done: Yes, See Lab Tab October 11, 2024 TREATMENT: N/A IV SITE: Ambulatory: A peripheral IV was started in the Left antecubital site with a Angio cath: 20 gauge. IV SITE APPEARANCE: Clean,Dry and Intact SIGNATURE: Francesco Orellana RN PATIENT NAME: Marcelina Medeiros Rachael DATE: October 11, 2024 TIME: 10:13 [facility]06-19-2025 NoteHNO ID: [id number] Author: ART ONEAL RT(R) Service: ? Author Type: Technologist Type: Progress Notes Filed: 10/11/2024 09:44 Note Text: Radiology Service Progress Note PATIENT NAME: Marcelina Cano DATE OF SERVICE: October 11, 2024 TIME: 9:36 AM PATIENT IDENTITY VERIFICATION COMPLETED USING TWO (2) IDENTIFIERS: Name and Date of confirmed by patient verbally. FALL SCREENING: Has the patient had 2 falls in the last year or 1 fall with injury or currently using an Ambulatory Assistive Device (Walker, Cane, Wheelchair, Crutches, etc.)? No PATIENT GENDER DATA: Assigned female at . status: : No status: NO. PATIENT RELEVANT IMPLANT DATA REVIEWED: Not Applicable PATIENT PRESENTS WITH AN IMPLANTABLE OR ATTACHED METAL FABRICATOR WELDER: No RADIOLOGY DEPARTMENT: CT; Exam(s) Completed: Abdomen/Pelvis PERIPHERAL IV DATA: Site assessment: Clean,Dry and Intact, Site disposition Discontinued SIGNED BY: RT Otilio(R) October 11, 2024 9:36 [facility]06-10-2025 Miscellaneous Notes* Telephone Encounter - Michelle Alvarez CNA - 10/02/2024 12:45 PM EDT Pt is out of Myrbetriq needs 90-day refills sent to [facility]. Pt does not have enough to getthrough until they deliver the medication. She is also asking if a few additional pills be sent to [facility] in [place], [place] to last her. She would like a return call to know if this can happen. Phone number confirmed correct in [facility]. * Telephone Encounter - HOA Lozano - 10/02/2024 12:45 PM EDT Please let her know that I sent in the prescriptions as requested. * Telephone Encounter - Zahira Olmos - 10/02/2024 12:45 PM EDT Called and let patient know. [facility] Telephone encounter Note* Telephone Encounter - Michelle Alvarez CNA - 10/02/2024 12:45 PM EDT Pt is out of Myrbetriq needs 90-day refills sent to [facility]. Pt does not have enough to getthrough until they deliver the medication. She is also asking if a few additional pills be sent to [facility] in [place], [place] to last her. She would like a return call to know if this can happen. Phone number confirmed correct in [facility]. [facility] [phone] Telephone encounter Note* Telephone Encounter - HOA Lozano - 10/02/2024 12:45 PM EDT Please let her know that I sent in the prescriptions as requested. [facility] Work Phone: [phone] Telephone encounter Note* Telephone Encounter - Zahira Olmos - 10/02/2024 12:45 PM EDT Called and let patient know. [facility] Instructions* Patient Instructions* Dina Joe MD - 08/30/2024 11:22 AM EDT We discussed your parathyroid condition and current medications: - You are currently taking Natpara 0.75 mcg daily. This medication will be discontinued by mid-October, and you are maintaining a three-week supply. - You expressed interest in transitioning to calcitriol instead of switching to another injectable medication. I recommend starting calcitriol when you stop Natpara. At that time, your calcium and vitamin D requirements will increase significantly. - For now, we will perform blood work to assess your current levels. If everything looks stable, wewill not add calcitriol yet. Please notify me three weeks before stopping Natpara so we can adjust your treatment plan accordingly. We discussed your calcium, magnesium, and vitamin D supplementation: - You are currently taking calcium chewables (500 mg) four times daily. - You are taking magnesium glycinate, 288 mg per three capsules, and have increased your dose to four capsules twice daily. - You are taking vitamin D 5,000 IU every other day due to previously high levels. - You are also taking vitamin K2 with vitamin D to improve calcium absorption. - We will check your calcium, magnesium, and vitamin D levels with blood work today to ensure your current regimen is effective. We discussed your thyroid history and management: - You had thyroid cancer removed in 2012, followed by radioactive iodine treatment. - You are currently taking levothyroxine 125 mcg daily and are tolerating it well. - I recommend a thyroid/neck ultrasound to monitor for any lymph node changes or recurrence of thyroid cancer. You can schedule this at a [facility] location or inquire about availability in [place]. - Call Radiology to schedule your US: [phone] We discussed your abdominal symptoms and kidney health: - You reported occasional abdominal pain and changes in bowel habits. You are increasing your fiberintake to help regulate these symptoms. - I recommend a CT scan of your abdomen to evaluate for any underlying issues. You can schedule this at a [facility] location or inquire about availability in [place]. - To assess your kidney health and calcium excretion, I recommend a 24-hour urine calcium test. [facility] will provide you with the necessary materials and instructions. We discussed your stress and cortisol concerns: - While stress can elevate cortisol levels, routine cortisol testing is not recommended unless there are specific concerns such as blood pressure issues, weight changes, or diabetes. Managing stress through lifestyle changes remains the primary recommendation. We discussed your surgical history and bone health: - You have a history of parathyroid surgery, hysterectomy (2006), and gallbladder removal. - You recently had a bone density scan, which did not show osteoporosis. Your dye winch operator will compare results after you stop Natpara. Next steps: - Complete blood work today, including thyroid, calcium, magnesium, and vitamin D levels. - Complete the 24-hour urine calcium test as instructed by the lab. - Schedule a thyroid/neck ultrasound and abdominal CT scan. - Notify me three weeks before stopping Natpara so we can adjust your treatment plan. Please reach out if you have any questions or concerns. documented in this encounterSt. [facility]05-[facility]-2025 History of Present illness Narrative* Dina Joe MD - 08/30/2024 10:40 AM EDT Images from the original note were not included. [facility] Follow-up visit Marcelina Cano is here for follow-up regarding hypoparathyroidism: Last seen 07/27/2024 - Lydia Ramirez APRN.LASTING MACHINE OPERATOR Recording using [employer] software for draft documentation of the visit was discussed with the patient/authorized student services representative; all questions welcomed and answered. Patient/authorized student services representative agreed to proceed HISTORY OF PRESENT ILLNESS: Marcelina Cano is a 64 year old female with PMH of JESSICA, class 3 obesity, VSD, papillary thyroid cancer s/p left thyroidectomy 03/2013, completion thyroidectomy 03/2013, post-surgical hypothyroidism, hypoparathyroidism, adhesions s/p total hysterectomy 2006 presenting for management of hypoparathyroidism. Marcelina is currently on Natpara 0.75 mcg once daily for hypoparathyroidism but wishes to transition to calcitriol due to the inconvenience of refrigeration required for Natpara or for Yorvipath. She has a prescription for calcitriol but has not yet started it. She is concerned about the discontinuation of Natpara, expected around October, and wants to have a plan in place. From prior notes: Female with hypocalcemia s/p thyroid surgery [...] second time. Now doing injections as above. 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 Regimen: Natpara 0.75 mg subq daily Vitamin D 5000 IU d3 every other day Calcium tablet 500 mg qid Mag glycinate - 288 mg in 3 capsules - 4 capsules twice daily She underwent left thyroidectomy in 03/07 with multiple foci of papillary thyroid carcinoma, largest 0.8 cm, with follicular adenoma 1 cm, followed by right thyroidectomy in 04/06, with multiple focipapillary thyroid carcinoma, follicular variant, 1 cm. Had radioactive treatment 95.8 mCi, with whole-body scan in April/2013. Managed on synthroid 125 mcg daily. She has a history of abdominal pain, diarrhea, and constipation, managed with chewable supplements and increased fiber intake. She had a total hysterectomy in 2006 due to adhesions and denies being on hormonal therapy. She also reports stress-related eating and inquires about cortisol testing. No hypocalcemia symptoms now Feeling good Review of Systems Constitutional: Positive for fatigue. HENT: Negative for trouble swallowing, postnasal drip and thyroid pain (lower neck). Eyes: Negative for visual disturbance. Respiratory: Negative for difficulty breathing. Cardiovascular: Positive for leg swelling. Negative for chest pain and claudication. Gastrointestinal: Positive for abdominal pain, diarrhea and constipation. Negative for heartburn, nausea and vomiting. Genitourinary: Positive for urgency, frequent urination, slower stream and amenorrhea. Negative formenstruating and irregular menses. Musculoskeletal: Positive for myalgias and muscle weakness. Negative for bone pain. Skin: Negative for skin color change. Neurological: Positive for numbness. Negative for dizziness and headaches. Endo/Heme/Allergies: Positive for polydipsia, heat intolerance when others are comfortable and hot flashes. Negative for cold intolerance when others are comfortable, flushing and changes in body hair. PAST HISTORY: PAST MEDICAL HISTORY Diagnosis Date Hypocalcemia Hypoparathyroidism (HCC) Thyroid cancer (HCC) VSD (ventricular septal defect) (HCC) PAST SURGICAL HISTORY Procedure Laterality Date COLONOSCOPY x2 HYSTERECTOMY total kamilah/bso THYROIDECTOMY TOTAL/COMPLETE Current Outpatient Medications Medication Sig Dispense Refill albuterol (PROVENTIL) 2.5 mg /3 mL (0.083 %) nebulizer solution mirabegron (MYRBETRIQ) 50 mg Tb24 Take 1 tablet by mouth every morning. cholecalciferol (VITAMIN D-3) 5,000 unit tab Take 1 tablet by mouth once daily. 90 tablet 1 levothyroxine (SYNTHROID) 125 mcg tablet TAKE 1 TABLET DAILY 90 tablet 3 levothyroxine (SYNTHROID) 125 mcg tablet Take 1 tablet by mouth once daily. 30 tablet 0 citalopram (CELEXA) 20 mg tablet Take 20 mg by mouth daily at bedtime. losartan (COZAAR) 25 mg tablet Take 25 mg by mouth once daily. parathyroid hormone (NATPARA) 75 mcg/dose crtg Inject 75 mcg subcutaneously once daily. metoprolol succinate XL, long acting, 25 mg 24 hr tablet Take 1 tablet by mouth once daily. 60 tablet 3 iv contrast (will be provided with radiology test) CT ABD/PEL -Inject, intravenously, once for 1 dose.No IV access, insert saline lock prior to the beginning of sedation, infusion, injection of imaging exam. Discontinue saline lock post exam. If Pt. has a central line or IVAD, may access for administration according to line specific nursing protocol. Once exam is complete flush line and de-accessaccording to line specific nursing protocol in the CT contrast administration guidelines link. 1 each 0 magnesium oxide 400 mg magnesium cap Take 400 mg by mouth once daily. Tue Sat - 400 mg TID Tue - 400 mg BID tetracycline (SUMYCIN) 500 mg cap Take 500 mg by mouth once daily. Pt takes 1-2 times Daily (Patient not taking: Reported on 07/27/2024) calcium carbonate-vitamin D3 (CALTRATE 600 + D) 600 mg (1,500 mg)-800 unit chew Take 1 tablet by mouth three times daily. COMPOUNDED PRESCRIPTION Sleepessence, one capsule by mouth at bedtime (Patient not taking: Reportedon 07/27/2024) No current facility-administered medications for this visit. ALLERGIES Allergen Reactions Clarithromycin Diarrhea Prednisone Other: See Comments Causes behaviors FAMILY HISTORY Problem Relation Age of Onset Ischemic Heart Disease Father Diabetes Father Hypertension Sister Social History Tobacco Use Smoking status: Former Smokeless tobacco: Never Vaping Use Vaping status: Never Used Substance Use Topics Alcohol use: Yes Alcohol/week: 1.0 - 2.0 standard drink of alcohol Types: 1 - 2 Glasses of Wine (5oz) per week Drug use: No PHYSICAL EXAM: BP 149/87 (BP Site: Right Arm, BP Position: Sitting, BP Cuff Size: Large Adult) Pulse (!) 58 Temp 36.6 C (97.9 F) (Temporal) Resp 18 Wt (!) 143.2 kg (315 lb 9.4 oz) SpO2 96% BMI 47.29 kg/m General: no acute distress, feeling well Neurologic: alert and oriented to time, space and place Eyes: no exophthalmia Head and Neck: no lymphadenopathy Thyroid: not palpable Heart: regular rate and rhythm Chest: Clear to auscultation bilaterally. Gait: is preserved. Ext: no edema. Skin: no dermopathy Psychiatry: normal affect PREVIOUS LAB RESULTS: Latest Ref Rng 03/14/2017 05/06/2023 Thyroglobulin Ab, Serum <4.0 IU/mL <0.9 Thyroglobulin, Serum 1.6 - 50.0 ng/mL <0.1 (L) Phosphorus 2.7 - 4.8 mg/dL 3.9 Vitamin D 25 Hydroxy 31.0 - 80.0 ng/mL 25.3 (L) PTH, Intact 15 - 65 pg/mL 3 (L) Magnesium 1.7 - 2.3 mg/dL 1.7 TSH 0.270 - 4.200 mIU/L 3.760 Legend: (L) Low IMPRESSION AND RECOMMENDATIONS: Marcelina Cano is a 64 year old female with PMH of JESSICA, class 3 obesity, VSD, papillary thyroid cancer s/p left thyroidectomy 03/2013, completion thyroidectomy 03/2013, post-surgical hypothyroidism, hypoparathyroidism, adhesions s/p total hysterectomy 2006 presenting for management of hypoparathyroidism. 1. Generalized abdominal pain (R10.84) Chronic abdominal pain with episodes of diarrhea and constipation. No recent imaging studies performed. Pt requesting imaging due to concerns for adhesions - Ordered CT scan of the abdomen to evaluate for underlying causes. 2. Postprocedural hypoparathyroidism (HCC) (E89.2) Currently managed with Natpara 0.75 mcg daily, vitamin D 5000 IU every other day, calcium 500 mg chewables four times daily, and magnesium glycinate 384 mg twice daily. Patient has a prescription forcalcitriol but has not started it yet. Recent bone density scan did not show osteoporosis per pt - unable to see report. - Ordered comprehensive blood work including calcium, magnesium, and vitamin D levels. - Ordered 24-hour urine calcium test to assess risk of nephrolithiasis. - Will plan to initiate calcitriol when Natpara is discontinued and increase other supplementation by ~50% - Monitor blood work results; adjust calcitriol, calcium, and vitamin D dosages as needed when transitioning off Natpara. - Follow-up in 2 months 3. History of thyroid cancer (Z85.850) Thyroid cancer resected in March 2013, followed by radioactive iodine treatment. Currently on levothyroxine 125 mcg daily. No recent neck ultrasound performed to evaluate for lymphadenopathy or recurrence. - Ordered neck ultrasound to assess for lymphadenopathy and recurrence. - Monitor thyroid function tests as part of the comprehensive blood work. Encounter Diagnosis ICD-10-CM 1. Postprocedural hypoparathyroidism (HCC) E89.2 CALCIUM, 24 HR URINE CREATININE, 24 HOUR URINE CALCIUM, IONIZED RENAL FUNCTION PANEL VITAMIN D 25 HYDROXY VITAMIN D1 25-DIHYDR MAGNESIUM 2. Generalized abdominal pain R10.84 CT ABD/PEL W IVCON 3. History of thyroid cancer Z85.850 TSH W/REFLEX FT4 THYROGLOBULIN, SERUM WITH REFLEX TO IA OR LC-MS/MS US CERVICAL LYMPH NODE MAPPING F/u in 2 months Dina Joe MD Associate Staff Department of Endocrinology, Diabetes and Metabolism [facility] documented in this encounterSt. [facility]25 NoteHNO ID: [id number] Author: DINA JOE MD Service: ? Author Type: Physician Type: Progress Notes Filed: 08/30/2024 12:49 Note Text: [facility] Follow-up visit Marcelina Cano is here for follow-up regarding hypoparathyroidism: Last seen 07/27/2024 - Lydia Ramirez APRN.LASTING MACHINE OPERATOR Recording using [employer] software for draft documentation of the visit was discussed with the patient/authorized student services representative; all questions welcomed and answered. Patient/authorized student services representative agreed to proceed HISTORY OF PRESENT ILLNESS: Marcelina Cano is a 64 year old female with PMH of JESSICA, class 3 obesity, VSD, papillary thyroid cancer s/p left thyroidectomy 03/2013, completion thyroidectomy 03/2013, post-surgical hypothyroidism, hypoparathyroidism, adhesions s/p total hysterectomy 2006 presenting for management of hypoparathyroidism. Marcelina is currently on Natpara 0.75 mcg once daily for hypoparathyroidism but wishes to transition to calcitriol due to the inconvenience of refrigeration required for Natpara or for Yorvipath. She has a prescription for calcitriol but has not yet started it. She is concerned about the discontinuation of Natpara, expected around October, and wants to have a plan in place. From prior notes: Female with hypocalcemia s/p thyroid surgery [...] second time. Now doing injections as above. 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 Regimen: Natpara 0.75 mg subq daily Vitamin D 5000 IU d3 every other day Calcium tablet 500 mg qid Mag glycinate - 288 mg in 3 capsules - 4 capsules twice daily She underwent left thyroidectomy in 03/07 with multiple foci of papillary thyroid carcinoma, largest 0.8 cm, with follicular adenoma 1 cm, followed by right thyroidectomy in 04/06, with multiple foci papillary thyroid carcinoma, follicular variant, 1 cm. Had radioactive treatment 95.8 mCi, with whole-body scan in April/2013. Managed on synthroid 125 mcg daily. She has a history of abdominal pain, diarrhea, and constipation, managed with chewable supplements and increased fiber intake. She had a total hysterectomy in 2006 due to adhesions and denies being on hormonal therapy. She also reports stress-related eating and inquires about cortisol testing. No hypocalcemia symptoms now Feeling good Review of Systems Constitutional: Positive for fatigue. HENT: Negative for trouble swallowing, postnasal drip and thyroid pain (lower neck). Eyes: Negative for visual disturbance. Respiratory: Negative for difficulty breathing. Cardiovascular: Positive for leg swelling. Negative for chest pain and claudication. Gastrointestinal: Positive for abdominal pain, diarrhea and constipation. Negative for heartburn, nausea and vomiting. Genitourinary: Positive for urgency, frequent urination, slower stream and amenorrhea. Negative for menstruating and irregular menses. Musculoskeletal: Positive for myalgias and muscle weakness. Negative for bone pain. Skin: Negative for skin color change. Neurological: Positive for numbness. Negative for dizziness and headaches. Endo/Heme/Allergies: Positive for polydipsia, heat intolerance when others are comfortable and hot flashes. Negative for cold intolerance when others are comfortable, flushing and changes in body hair. PAST HISTORY: PAST MEDICAL HISTORY Diagnosis Date Hypocalcemia Hypoparathyroidism (HCC) Thyroid cancer (HCC) VSD (ventricular septal defect) (HCC) PAST SURGICAL HISTORY Procedure Laterality Date COLONOSCOPY x2 HYSTERECTOMY total kamilah/bso THYROIDECTOMY TOTAL/COMPLETE Current Outpatient Medications Medication Sig Dispense Refill albuterol (PROVENTIL) 2.5 mg /3 mL (0.083 %) nebulizer solution mirabegron (MYRBETRIQ) 50 mg Tb24 Take 1 tablet by mouth every morning. cholecalciferol (VITAMIN D-3) 5,000 unit tab Take 1 tablet by mouth once daily. 90 tablet 1 levothyroxine (SYNTHROID) 125 mcg tablet TAKE 1 TABLET DAILY 90 tablet 3 levothyroxine (SYNTHROID) 125 mcg tablet Take 1 tablet by mouth once daily. 30 tablet 0 citalopram (CELEXA) 20 mg tablet Take 20 mg by mouth daily at bedtime. losartan (COZAAR) 25 mg tablet Take 25 mg by mouth once daily. parathyroid hormone (NATPARA) 75 mcg/dose crtg Inject 75 mcg subcutaneously once daily. metoprolol succinate XL, long acting, 25 mg 24 hr tablet Take 1 tablet by mouth once daily. 60 tablet 3 iv contrast (will be provided with radiology test) CT ABD/PEL -Inject, intravenously, once for 1 dose (more content not included)...[facility]05-06-2025 NotePatient Education Nutrition BMI for Adults Body mass index (BMI) is a number found using a person's weight and height. BMI can help tell how much of a person's weight is made up of fat. BMI does not measure body fat directly. It is used instead of tests that directly measure body fat, which can be difficult and expensive. What are BMI measurements used for? BMI is useful to: ??? Find out if your weight puts you at higher risk for medical problems. ??? Help recommend changes, such as in diet and exercise. This can help you reach a healthy weight.BMI screening can be done again to see if these changes are working. How is BMI calculated? Your height and weight are measured. The BMI is found from those numbers. This can be done with U.S. or metric measurements. Note that charts and online BMI calculators are available to help you findyour BMI quickly and easily without doing these calculations. To calculate your BMI in U.S. measurements: 1. Measure your weight in pounds (lb). 2. Multiply the number of pounds by 703. ??? So, for an adult who weighs 150 lb, multiply that number by 703: 150 x 703, which equals 105,450. 3. Measure your height in inches. Then multiply that number by itself to get a measurement called inches squared. ??? So, for an adult who is 70 inches tall, the inches squared measurement is 70 inches x 70 inches, which equals 4,900 inches squared. 4. Divide the total from step 2 (number of lb x 703) by the total from step 3 (inches squared): 105,450 ? 4,900 = 21.5. This is your BMI. To calculate your BMI in metric measurements: 1. Measure your weight in kilograms (kg). ??? For this example, the weight is 70 kg. 2. Measure your height in meters (m). Then multiply that number by itself to get a measurement called meters squared. ??? So, for an adult who is 1.75 m tall, the meters squared measurement is 1.75 m x 1.75 m, whichequals 3.1 meters squared. 3. Divide the number of kilograms (your weight) by the meters squared number. In this example: 70 ?3.1 = 22.6. This is your BMI. What do the results mean? BMI charts are used to see if you are underweight, normal weight, overweight, or obese. The following guidelines will be used: ??? Underweight: BMI less than 18.5. ??? Normal weight: BMI between 18.5 and 24.9. ??? Overweight: BMI between 25 and 29.9. ??? Obese: BMI of 30 or above. BMI is a tool and cannot diagnose a condition. Talk with your health care provider about what your BMI means for you. Keep these notes in mind: ??? Weight includes fat and muscle. Someone with a muscular build, such as an athlete, may have a BMI that is higher than 24.9. In cases like these, BMI is not a correct measure of body fat. ??? If you have a BMI of 25 or higher, your provider may need to do more testing to find out if excess body fat is the cause. ??? BMI is measured the same way for males and females. Females usually have more body fat than males of the same height and weight. Where to find more information For more information about BMI, including tools to quickly find your BMI, go to: ??? Centers for Disease Control and Prevention: cdc.gov ??? [place] Heart Association: heart.org ??? National Heart, Lung, and Blood [place]: nhlbi.nih.gov This information is not intended to replace advice given to you by your health care provider. Make sure you discuss any questions you have with your health care provider. Document Revised: 12/30/2022 Document Reviewed: 12/23/2022 Status Overload Patient Education ? 2023 [employer] 07-27-2024 Instructions* Patient Instructions* Lydia Ramirez APRN.CNP - 07/27/2024 1:27 PM EDT Vitamin D 50,000 units weekly Calcium citrate 600 mg 4xtimes daily Mg Glyconate Please have labs done 2-3 days prior to your next visit Will follow up with Dr Joe as scheduled Thank you for seeing me today Lydia Ramirez APRN.CNP documented [facility] History of Present illness Narrative* Lydia Ramirez APRN.CNP - 07/27/2024 12:15 PM EDT Images from the original note were not included. Endocrine progress note LV hypocalcemia, hypothyroidism, papillary thyroid cancer LV August 18, 2020 Here with Ms. Caon is a 63 year old who presents for following issues: hypocalcemia [...] second time. Now doing injections as above. 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 Reason for visit: Would like a replacement for the natpara Taking Mg glyconate supplements I-131 full body scan from 2013 negative for abnormal uptake Working with local endo re; thyroid cancer Currently doing well No hypocalcemia sxs Regimen: natpara 0.75 mg sub daily Vitamin D 5000 IU d3 daily Calcium tablet 600 mg qid times/day Mag - 400 mg 2 tablets twice daily Managed on synthroid 125 mcg daily No hypocalcemia symptoms now Feeling good Otherwise, no other acute complaints or concerns today. albuterol (PROVENTIL) 2.5 mg /3 mL (0.083 %) nebulizer solution mirabegron (MYRBETRIQ) 50 mg Tb24 Take 1 tablet by mouth every morning. cholecalciferol (VITAMIN D-3) 5,000 unit tab Take 1 tablet by mouth once daily. levothyroxine (SYNTHROID) 125 mcg tablet TAKE 1 [...] Take 50 mg by mouth once daily.) tetracycline (SUMYCIN) 500 mg cap Take 500 mg by mouth once daily. Pt takes 1-2 times Daily (Patient not taking: Reported on 07/27/2024) COMPOUNDED PRESCRIPTION Sleepessence, one capsule by mouth at bedtime (Patient not taking: Reportedon 07/27/2024) REVIEW OF SYSTEMS: REVIEW OF SYSTEMS GENERAL: No weight loss, malaise or fevers HEENT: Negative for frequent or significant headaches, No changes in hearing or vision, no nose bleeds or other nasal problems CARDIOVASCULAR: Negative for chest pain, leg swelling, hypertension, CHF or palpitations GI: No nausea, vomiting, or diarrhea : No history of dysuria, frequency or incontinence The remainder of the review of systems is negative. Patient's Past Family and Social history have been reviewed with the patient, and updated as appropriate. Please see relevant sections in [employer] EHR for details. PHYSICAL EXAM: BP 155/76 (BP Site: Right Arm, BP Position: Sitting, BP Cuff Size: Large Adult) Pulse 61 Temp 36.9 C (98.4 F) (Temporal) Resp 20 Wt (!) 144.3 kg (318 lb 3.7 oz) SpO2 96% BMI 47.68 kg/m Body mass index is 47.68 kg/m . Gen: well appearing, NAD Head: atraumatic normocephalic Eyes: EOMI no scleral icterus Neck: no obvious goiter Pulm: resp effort is appropraite Ext: no swelling cyanosis Neuro: hearing and speech normal DATA REVIEW: 02/01/2023 Impression/plan: 63 yo F with hypothyroidism, papillary thyroid cancer s/p total thyroidectomy, hypocalcemia, hypoparathyroidism, and vitamin D deficiency presenting for follow-up Hypocalcemia and hypoparathyroidism 2/2 thyroidectomy Currently stable on natpara 0.75 mg -- currently on recall, getting through specialty program from [facility] Vitamin D 50,000 units weekly Calcium citrate 600 mg 4xtimes daily Mg Glyconate Repeat Ca+ and RFP prior to next visit Postsurgical Hypothyroidism, papillary thyroid cancer On levothyroxine 125 mcg TSH at goal Repeat TSH prior to next visit Vitamin D deficiency Continue vitamin D supplementation Last level at goal Will refer to different provider for management of hypoparathyroidism Will be in touch through mychart about labs that may be needed prior to next visit Lydia Ramirez APRN.LASTING MACHINE OPERATOR July 27, 2024 All documentation from previous visit of 05/04/2023 was copied and pasted, documentation has been reviewed and edited as necessary for today's visit. Medical Decision Making: Problems: Low: Stable chronic illness Data: Unique test result(s) reviewed: 3+ Unique test(s) ordered: 3+ Medical Decision Making Level: 3 - Low documented in this encounterSt[facility]04-[facility]25 NoteHNO ID: [id number] Author: LYDIA RAMIREZ APRN.CINTHIA Service: ? Author Type: Nurse Practitioner Type: Progress Notes Filed: 07/27/2024 13:27 Note Text: Endocrine progress note LV hypocalcemia, hypothyroidism, papillary thyroid cancer LV August 18, 2020 Here with Ms. Cano is a 63 year old who presents for following issues: hypocalcemia [...] second time. Now doing injections as above. 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 Reason for visit: Would like a replacement for the natpara Taking Mg glyconate supplements I-131 full body scan from 2013 negative for abnormal uptake Working with local endo re; thyroid cancer Currently doing well No hypocalcemia sxs Regimen: natpara 0.75 mg sub daily Vitamin D 5000 IU d3 daily Calcium tablet 600 mg qid times/day Mag - 400 mg 2 tablets twice daily Managed on synthroid 125 mcg daily No hypocalcemia symptoms now Feeling good Otherwise, no other acute complaints or concerns today. albuterol (PROVENTIL) 2.5 mg /3 mL (0.083 %) nebulizer solution mirabegron (MYRBETRIQ) 50 mg Tb24 Take 1 tablet by mouth every morning. cholecalciferol (VITAMIN D-3) 5,000 unit tab Take 1 tablet by mouth once daily. levothyroxine (SYNTHROID) 125 mcg tablet TAKE 1 TABLET DAILY levothyroxine (SYNTHROID) 125 mcg tablet Take 1 tablet by mouth once daily. magnesium oxide 400 mg magnesium cap Take 400 mg by mouth once daily. Tue Sat - 400 mg TID Tue - [...] Take 50 mg by mouth once daily.) tetracycline (SUMYCIN) 500 mg cap Take 500 mg by mouth once daily. Pt takes 1-2 times Daily (Patient not taking: Reported on 07/27/2024) COMPOUNDED PRESCRIPTION Sleepessence, one capsule by mouth at bedtime (Patient not taking: Reported on 07/27/2024) REVIEW OF SYSTEMS: REVIEW OF SYSTEMS GENERAL: No weight loss, malaise or fevers HEENT: Negative for frequent or significant headaches, No changes in hearing or vision, no nose bleeds or other nasal problems CARDIOVASCULAR: Negative for chest pain, leg swelling, hypertension, CHF or palpitations GI: No nausea, vomiting, or diarrhea : No history of dysuria, frequency or incontinence The remainder of the review of systems is negative. Patient's Past Family and Social history have been reviewed with the patient, and updated as appropriate. Please see relevant sections in [facility] EHR for details. PHYSICAL EXAM: BP 155/76 (BP Site: Right Arm, BP Position: Sitting, BP Cuff Size: Large Adult) Pulse 61 Temp 36.9 ?C (98.4 ?F) (Temporal) Resp 20 Wt (!) 144.3 kg (318 lb 3.7 oz) SpO2 96% BMI 47.68 kg/m? Body mass index is 47.68 kg/m?. Gen: well appearing, NAD Head: atraumatic normocephalic Eyes: EOMI no scleral icterus Neck: no obvious goiter Pulm: resp effort is appropraite Ext: no swelling cyanosis Neuro: hearing and speech normal DATA REVIEW: 02/01/2023 Impression/plan: 63 yo F with hypothyroidism, papillary thyroid cancer s/p total thyroidectomy, hypocalcemia, hypoparathyroidism, and vitamin D deficiency presenting for follow-up Hypocalcemia and hypoparathyroidism 2/2 thyroidectomy Currently stable on natpara 0.75 mg -- currently on recall, getting through specialty program from [facility] Vitamin D 50,000 units weekly Calcium citrate 600 mg 4xtimes daily Mg Glyconate Repeat Ca+ and RFP prior to next visit Postsurgical Hypothyroidism, papillary thyroid cancer On levothyroxine 125 mcg TSH at goal Repeat TSH prior to next visit Vitamin D deficiency Continue vitamin D supplementation Last level at goal Will refer to different provider for management of hypoparathyroidism Will be in touch through mychart about labs that may be needed prior to next visit Lydia Ramirez APRN.LASTING MACHINE OPERATOR July 27, 2024 All documentation from previous visit of 05/04/2023 was copied and pasted, documentation has been reviewed and edited as necessary for today's visit. Medical Decision Making: Problems: Low: Stable (more content not included)...[facility]02-04-2025 NotePatient Education Nutrition BMI for Adults Body mass index (BMI) is a number found using a person's weight and height. BMI can help tell how much of a person's weight is made up of fat. BMI does not measure body fat directly. It is used instead of tests that directly measure body fat, which can be difficult and expensive. What are BMI measurements used for? BMI is useful to: ??? Find out if your weight puts you at higher risk for medical problems. ??? Help recommend changes, such as in diet and exercise. This can help you reach a healthy weight.BMI screening can be done again to see if these changes are working. How is BMI calculated? Your height and weight are measured. The BMI is found from those numbers. This can be done with U.S. or metric measurements. Note that charts and online BMI calculators are available to help you findyour BMI quickly and easily without doing these calculations. To calculate your BMI in U.S. measurements: 1. Measure your weight in pounds (lb). 2. Multiply the number of pounds by 703. ??? So, for an adult who weighs 150 lb, multiply that number by 703: 150 x 703, which equals 105,450. 3. Measure your height in inches. Then multiply that number by itself to get a measurement called inches squared. ??? So, for an adult who is 70 inches tall, the inches squared measurement is 70 inches x 70 inches, which equals 4,900 inches squared. 4. Divide the total from step 2 (number of lb x 703) by the total from step 3 (inches squared): 105,450 ? 4,900 = 21.5. This is your BMI. To calculate your BMI in metric measurements: 1. Measure your weight in kilograms (kg). ??? For this example, the weight is 70 kg. 2. Measure your height in meters (m). Then multiply that number by itself to get a measurement called meters squared. ??? So, for an adult who is 1.75 m tall, the meters squared measurement is 1.75 m x 1.75 m, whichequals 3.1 meters squared. 3. Divide the number of kilograms (your weight) by the meters squared number. In this example: 70 ?3.1 = 22.6. This is your BMI. What do the results mean? BMI charts are used to see if you are underweight, normal weight, overweight, or obese. The following guidelines will be used: ??? Underweight: BMI less than 18.5. ??? Normal weight: BMI between 18.5 and 24.9. ??? Overweight: BMI between 25 and 29.9. ??? Obese: BMI of 30 or above. BMI is a tool and cannot diagnose a condition. Talk with your health care provider about what your BMI means for you. Keep these notes in mind: ??? Weight includes fat and muscle. Someone with a muscular build, such as an athlete, may have a BMI that is higher than 24.9. In cases like these, BMI is not a correct measure of body fat. ??? If you have a BMI of 25 or higher, your provider may need to do more testing to find out if excess body fat is the cause. ??? BMI is measured the same way for males and females. Females usually have more body fat than males of the same height and weight. Where to find more information For more information about BMI, including tools to quickly find your BMI, go to: ??? Centers for Disease Control and Prevention: cdc.gov ??? [place] Heart Association: heart.org ??? National Heart, Lung, and Blood [place]: nhlbi.nih.gov This information is not intended to replace advice given to you by your health care provider. Make sure you discuss any questions you have with your health care provider. Document Revised: 12/30/2022 Document Reviewed: 12/23/2022 [employer] Patient Education ? 2023 [employer].[facility] 05-07-2024 History of Present illness Narrative* Severino Rankin MD - 05/07/2024 10:40 AM EST Marcelina Cano is a 64 y.o. female No ref. provider found presents with chief complaint of Thyroid Problem HPI: Interim History 04/2024 Followup visit on 05/07/2023 for hypoparathyroidism and hypothyroidism. Her labs done: She is on Natpara 75 mcg daily, vitamin D 5,000 once daily, and magnesium 6 tablets daily basis. on levothyreoxine 125 mcg, calcium chewable 8 tablets, They we will stop manufacture NATPARA, so we will switch her to calcitriol. Interim History 01/2024. Followup visit on 01/31/2024 [...] and magnesium three tablets alternating with two giuseppe daily basis. on levothyreoxine 125 mcg, new [...] a daily basis. on levothyreoxine 125 mcg dailyby vendor analyst in [facility] Interim History 02/2020. Followup visit on 03/10/2020 for hypoparathyroidism and hypothyroidism. Her labs done: free T4 1.68(0.78-2.19), TSH less than 0.02 - suppressed well. She is on Natpara 75 mcg daily, calcium chewablewith vitamin D3 four tablets daily, vitamin D 50,000 once weekly, and magnesium three tablets alternating with two on a daily basis. on levothyreoxine decrease to 150 mcg daily by vendor analyst in [facility] Interim . Followup visit on 09/03/2019 for hypoparathyroidism and hypothyroidism. Her labs done: creatinine 0.6, GFR above 60, calcium 8.9 (8.4-10.2), albumin 3.2, magnesium 1.6 (1.6-2.3), free T4 1.65 (0.78-2.19), TSH less than 0.02 - suppressed well. Vitamin D 42, and thyroglobulin less than 0.2. She is on N atpara 75 mcg daily, calcium chewable with vitamin [...] for a couple of days. Dr. Daniela oJseph called me and we discussed her case [...] will send appealing form to restart back dueto her condition. Interim History: 12/11 Followup visit on 12/18/2018 for papillary thyroid cancer with hypoparathyroidism. Lab done: Kidneyfunction within normal limits. Calcium is still low [...] on 06/16/2018. Kidney function within normal limits. Calciumon the low side at 7.4 (8.2-10.2). She is only on calcium two tablets in the morning, sometimes onetablet at night. Albumin 3.5, TSH less than [...] is still on levothyroxine 200 mcg daily, [id number] mcg daily injection, calcium with vitamin D [...] (2.5 MG/3ML) 0.083% nebulizer solution 3 mL, Every 8 hours PRN calcitriol (ROCALTROL) 0.5 mcg, Oral, Daily Calcium Carb-Cholecalciferol 600-20 MG-MCG chewable tablet 1 tablet, 3 times daily citalopram (CELEXA) 40 mg, Daily D-5000 5,000 Units, Daily RT levothyroxine (SYNTHROID, LEVOXYL) 125 mcg, Oral, Daily before breakfast losartan (COZAAR) 25 mg, Daily RT magnesium (as gluconate) (MAGONATE) 275 mg, 3 times daily magnesium oxide (Mag-Ox) 400 (240 Mg) MG tablet 1 tablet, Daily metoprolol succinate XL (Toprol-XL) 50 MG 24 hr tablet 1 tablet, Every 24 hours Myrbetriq 50 MG 24 hr tablet 1 tablet, Every morning Parathyroid Hormone, Recomb, (Natpara) 75 MCG cartridge Inject under the skin ALLERGIES: Allergies Allergen Reactions Clarithromycin Diarrhea Oxybutynin Other Urinary retention Prednisone Unknown Causes behaviors Past Medical History: Diagnosis Date HTN (hypertension) (CMS/HCC) Hypocalcemia Hypomagnesemia Hypoparathyroidism after procedure (CMS/HCC) Morbid obesity with body mass index (BMI) of 40.0 to 49.9 (CMS/HCC) Papillary thyroid carcinoma (CMS/HCC) folliculary type [id number] Left 03/07, Rt 04/06 Sleep apnea Vitamin D deficiency Past Surgical History: Procedure Laterality Date GALLBLADDER HYSTERECTOMY 2006 TOTAL THYROIDECTOMY REVIEW OF SYMPTOMS: 14 POINT OF SYSTEM REVIEWED AND NEGATIVE OBJECTIVE: Visit Vitals Pulse 90 Resp 18 Ht 5' 8 Wt 318 lb BMI 48.35 kg/m Smoking Status Never BSA 2.63 m Physical Exam Constitutional: Appearance: Normal appearance. [...] Take 1 tablet (125 mcg) by mouth in the morning. Take before meals. We will continue with levothyroxine 125 mcg daily. Papillary thyroid carcinoma (CMS/HCC) Postsurgical hypoparathyroidism ([facility]) We will continue with not viral 75 mcg daily once she is off we will switch her to calcitriol 0.5 mcg daily, we will continue with calcium 2 chewable tablets 4 times they Vitamin D deficiency. Continue her vitamin-D 5000 every other day. Encounter for dietary consultation Diet and exercise reviewed with the patient Hypomagnesemia Continue with magnesium 3 tablets twice daily. Class 3 severe obesity due to excess calories without serious comorbidity with body mass index (BMI) of 45.0 to 49.9 in adult ([facility]) Follow up in about 6 months (around 11/04/2024). documented [facility] encounterMer[facility] [id number] History of Present illness Narrative* Alexis Ogden, ACCOUNT UNDERWRITER-LASTING MACHINE OPERATOR - 03/13/2024 10:00 AM EST SUBJECTIVE CHIEF COMPLAINT: Annual well woman exam HPI Ms. Marcelina Cano is a , 63 y.o. female presenting for her annual book cleaner exam. She was last seen in 12/2022 for her annual exam. We are also monitoring her prolapse and managing her DELILAH. She was previously diagnosed with stage Ianterior vaginal wall prolapse and stage II posterior vaginal wall prolapse. She denies seeing or feeling any bulge or protrusion in the vagina. She is taking mirabegron 50 mg nightly. She has significant improvement in her urinary incontinence, has decreased frequency of urination, and decreased urgency symptoms. She denies having any side effects. She can go 6-7 hours at night without having toget out of bed to use the bathroom. [...] she turns over in bed. She has seenpelvic floor physical therapist Herman Bernal in [place], last seen in 02/2022. She has been [...] Yes h/o IBS, hemorrhoids. Doing okay currently CMO/ surgeries/procedures: KAMILAH/BSO 2006 Family history of: Breast [...] Psychiatric/Behavioral: Positive for agitation. Negative for confusion, self- injury and suicidal ideas. The patient is not nervous/anxious. MEDICATIONS: Current Outpatient Medications on File Prior to Visit Medication Sig ascorbic acid (JOVANA-C ORAL) Take by mouth. CEPHalexin (KEFLEX) 500 mg capsule Take 1 capsule (500 mg total) by mouth. cholecalciferol, vitamin D3, (VITAMIN D3) 5,000 units capsule Take 1 capsule (5,000 Units total) bymouth every other day. Takes two capsules daily. [...] Heart disease ventricular septal defect Thyroid cancer ([facility]) Past Surgical History: Procedure Laterality Date BILATERAL [...] hard coughing or Valsalva? not present Modified Norton Scale 0-5: 0, no contraction uses accessory [...] plans to have her DEXA scan in [place] and was informed to contact our office if she does not hear from us within a week of having her DEXA scan done. She was informed that she will be contacted with the results whether they are normal or not. Myrbetriq works very well in controlling her urinary incontinence and urgency symptoms, but is veryexpensive for her despite coverage from insurance, it [...] HOA Lozano 03/13/24 1211 documented in [facility] encounterGood [facility] History of Present illness Narrative* Severino Rankin MD - 01/31/2024 10:20 AM EDT Marcelina Cano is a 63 y.o. female Severino Rankin MD presents with chief complaint of Thyroid [...] and magnesium three tablets alternating with two giuseppe daily basis. on levothyreoxine 125 mcg, new [...] a daily basis. on levothyreoxine 125 mcg dailyby vendor analyst in [facility] Interim History 02/2020. Followup visit on 03/10/2020 for hypoparathyroidism and hypothyroidism. Her labs done: free T4 1.68(0.78-2.19), TSH less than 0.02 - suppressed well. She is on Natpara 75 mcg daily, calcium chewablewith vitamin D3 four tablets daily, vitamin D 50,000 once weekly, and magnesium three tablets alternating with two on a daily basis. on levothyreoxine decrease to 150 mcg daily by vendor analyst in [facility] Interim History /2019. Followup visit on 09/03/2019 for hypoparathyroidism and hypothyroidism. Her labs done: creatinine 0.6, GFR above 60, calcium 8.9 (8.4-10.2), albumin 3.2, magnesium 1.6 (1.6-2.3), free T4 1.65 (0.78-2.19), TSH less than 0.02 - suppressed well. Vitamin D 42, and thyroglobulin less than 0.2. She is on N atpara 75 mcg daily, calcium chewable with vitamin [...] will send appealing form to restart back dueto her condition. Interim History: 12/11 Followup visit on 12/18/2018 for papillary thyroid cancer with hypoparathyroidism. Lab done: Kidneyfunction within normal limits. Calcium is still low [...] on 06/16/2018. Kidney function within normal limits. Calciumon the low side at 7.4 (8.2-10.2). She is only on calcium two tablets in the morning, sometimes onetablet at night. Albumin 3.5, TSH less than [...] is still on levothyroxine 200 mcg daily, Kwsfetv66 mcg daily injection, calcium with vitamin D [...] Past Medical History: Diagnosis Date HTN (hypertension) ([facility]) Hypocalcemia Hypomagnesemia Hypoparathyroidism after procedure ([facility]) Morbid obesity with body mass index (BMI) of 40.0 to 49.9 ([facility]) Papillary thyroid carcinoma ([facility]) folliculary type [id number] Left 03/07, Rt 04/06 Sleep apnea Vitamin [...] all orders for this visit: Postoperative hypothyroidism ([facility]) - levothyroxine (Synthroid, Levoxyl) 125 MCG tablet; Take 1 tablet (125 mcg) by mouth Daily - T3, free; Future - T4, free; Future - TSH; Future Continue with levothyroxine 125 mcg daily, we will check lab before next visit and adjust Papillary thyroid carcinoma ([facility]) Postsurgical hypoparathyroidism ([facility]) - calcitriol (Rocaltrol) 0.5 MCG capsule; Take [...] (BMI) of 45.0 to 49.9 in adult ([facility]) Diet and exercise reviewed with the patient Follow up in about 3 months (around 05/02/2024). documented in this encounterMer[facility] [id number] NoteNurse Consultation Note Reason for Visit Here for lab draw for Dr Rankin Assessment/Plan Absent parathyroid gland (E89.2: Postprocedural hypoparathyroidism) H/O thyroidectomy (E89.0: Postprocedural hypothyroidism) Hypocalcemia (E83.51: Hypocalcemia) Vitamin D deficiency (E55.9: Vitamin D deficiency, unspecified) Medications Adipex-P 37.5 mg oral capsule, 37.5 mg= 1 cap(s), Oral, Daily albuterol 0.083% Inh Mandie 3 mL, See Instructions citalopram 40 mg Tab, 40 mg= 1 tab(s), Oral, Daily, 1 refills Flonase 0.05 mg/inh [place], 2 spray(s), Nasal, Daily Flovent HFA 220 [...] virus vaccine, inactivated 02/13/2022 Recorded SARS-CoV-2 (COVID-19) [id number] 02/13/2022 Recorded SARS-CoV-2 (COVID-19) mRNA BNT-162b2 vax 02/11/2021 Recorded SARS-CoV-2 (COVID-19) mRNA BNT-162b2 vax 07/11/2020 Recorded SARS-CoV-2 (COVID-19) mRNA BNT-162b2 vax 06/20/2020 Recorded influenza virus vaccine, inactivated 02/05/2015 Recorded influenza virus vaccine, inactivated 01/29/2015 [facility] NotePatient Education Orthopedics Distal Biceps Tendinitis Distal biceps [...] throwing and overhead movements, including racket sports, gymnastics,weight lifting, or bodybuilding. ? Doing physical labor. [...] health care provider. General instructions ? Take ngmn-wjo-nryuaiy and prescription medicines only as told by [...] equipment that fits you. (more content not included)...[facility]01-17-2024 Miscellaneous Notes* Telephone Encounter - Lydia Do RN - 05/11/2023 3:20 PM EST Received call from [email or web address] to let us know about cost saving medication instead of Myrbetriq. This is a covered medication but there are similar meds that would be more cost effective for patient. Trospium Tolteridine Oxybutnin XL (records indicate she has tried this) Pt was phoned and notified of this information. Prefers to stay on Myrbetriq and is fine paying $200 for 90 days. Nothing further needed at this time. [facility] Telephone encounter Note* Telephone Encounter - Lydia Do RN - 05/11/2023 3:20 PM EST Received call from [email or web address] to let us know about cost saving medication instead of Myrbetriq. This is a covered medication but there are similar meds that would be more cost effective for patient. Trospium Tolteridine Oxybutnin XL (records indicate she has tried this) Pt was phoned and notified of this information. Prefers to stay on Myrbetriq and is fine paying $200 for 90 days. Nothing further needed at this time. [facility] Miscellaneous Notes* Telephone Encounter - Junie Ceja MD - 03/22/2022 3:44 PM EST Labs at goal - calcium excellent Updated patient Mag improved although still a bit low ( 1.5 instead of 1.8) Patient verbalized understanding of above instructions. Junie Ceja MD Dept of Endocrinology March 22, 2022 * Telephone Encounter - Paul Cotton - 03/19/2022 1:50 PM EST Uploaded labs from [facility] received on 03/14/2022 scanned into chart for review Paul Cotton Resident Care Technician II [facility] documented in [facility] encounterSt[facility] Miscellaneous Notes* Telephone Encounter - Junie Ceja MD - 03/04/2022 3:19 PM EST Pt wants to change vitamin D 50,000 international unit(s) weekly to 10,000 international unit(s) daily. New rx sent to pharmacy Ok to change Labs weekly Patient verbalized understanding of above instructions. Junie Ceja MD Dept of Endocrinology March 04, 2022 documented in this encounterSt. [facility] Hospital12-04-2012 History of Past illness Narrative* ProblemNoted DateResolved DateASD (atrial septal defect)03/28/2012 04/14/2012documented as of this encounter (statuses as of 03/04/2022) [facility] of Past illness Narrative* ProblemNoted Date Resolved DateASD (atrial septal defect)documented as of this encounter (statuses as of 03/22/2022) [facility] Future Appointments Appointment Date:05/27/2023 01:30:00 PM Scheduled Provider:Jarred Shi MD Location:[facility] Appointment Type:Cardiology New Patient (FT) Appointment Date:07/26/2023 10:00:00 AM Scheduled Provider:Ebony Sequeira MD Location[facility] Future App[facility]ments Appointment Date:05/27/2023 01:30:00 PM Scheduled Provider:Jarred Shi MD Location:[facility] Appointment Type:Cardiology New Patient (FT) Appointment Date:08/02/2023 10:15:00 AM Scheduled Provider:Ebony Sequeira MD Location:[facility] Appointment Type:[facility] Diagnostic Tests Pending * Urine Culture 05/19/23 [facility] Future Appointments Appointment Date:11/21/2023 01:00:00 PM Scheduled Provider:Ebony Sequeira MD Location:[facility] Future Appointments Appointment Date:02/27/2024 09:30:00 AM Scheduled Provider:Ebony Sequeira MD Location:[facility]ment [facility] + Plan note Future Appointments Appointment Date:08/28/2024 11:00:00 AM Scheduled Provider:Ebony Sequeira MD Location:[facility]ment [facility] + Plan note Future Appointments Appointment Date:01/31/2025 09:40:00 AM Scheduled Provider:Shweta Salazar Location:[facility] Appointment Type:FM Open Appointment Date:02/25/2025 09:00:00 AM Scheduled Provider: Location:[facility] Appointment Type:Surgery FT Appointment Date:06/24/2025 09:40:00 AM Scheduled Provider:Shweta Salazar Location:[facility] Appointment Type:[facility] Evaluation noteNo assessment information available [facility] Work Phone: Evaluation note* Diagnosis Postoperative hypothyroidism (CMS/HCC)- Primary Postsurgical hypothyroidism 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) Vitamin D deficiency Encounter for dietary consultation Hypomagnesemia Disorders of magnesium metabolism Class 3 severe obesity due to excess calories without serious comorbidity with body mass index (BMI) of 45.0 to 49.9 in adult (CMS/HCC) documented in this encounter [facility] HealthcareEvaluation note* Diagnosis Postoperative hypothyroidism (CMS/HCC)- Primary Postsurgical hypothyroidism 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) Vitamin D deficiency Encounter for dietary consultation Hypomagnesemia Disorders of magnesium metabolism Class 3 severe obesity due to excess calories without serious comorbidity with body mass index (BMI) of 45.0 to 49.9 in adult (CMS/HCC) documented in this encounter [facility] HealthcareEvaluation note* Diagnosis Encounter for annual routine gynecological examination- Primary Breast cancer screening by mammogram Screening for osteoporosis Special screening for osteoporosis Mixed stress and urge urinary incontinence Mixed incontinence urge and stress (male)(female) documented in this encounter [facility]* Diagnosis Breast cancer screening by mammogram documented in this encounter [facility] note* Diagnosis Hypoparathyroidism, unspecified hypoparathyroidism type (HCC)- Primary Hypocalcemia Thyroid cancer (HCC) Malignant neoplasm of thyroid gland Other specified hypothyroidism [facility] Diagnosis Postprocedural hypoparathyroidism (HCC)- Primary Hypoparathyroidism Generalized abdominal pain Abdominal pain, generalized History of thyroid cancer Personal history of malignant neoplasm of thyroid documented in this encounter [facility] note* Diagnosis Mixed stress and urge urinary incontinence Mixed incontinence urge and stress (male)(female) [facility] this [facility]* Diagnosis Generalized abdominal pain Abdominal pain, generalized documented in this encounter [facility] note* Diagnosis Hypocalcemia- Primary Postprocedural hypoparathyroidism (HCC) Hypoparathyroidism Postoperative hypothyroidism Postsurgical hypothyroidism Personal history of malignant neoplasm of thyroid documented in this encounter [facility] course Narrative No data available for this section [facility] Dis[facility] instructions No data available for this section [facility] OhioInstructionsNot on filedocumented in this encounter [facility] SystemInstructionsNot on filedocumented in this encounter [facility] SystemInstructionsNot on filedocumented in this encounter [facility] SystemInstructionsNot on filedocumented in this encounter [facility] SystemInstructionsNot on filedocumented in this encounter [facility] System[facility] note No data available for this section [facility] Summary Purpose Family History No Family History [...] FoundNo Family History Records Found Advance Directives No Advanced Directives Records Found Advance Directive Response Recorded Date/ Time Advance Directives No February 01, 2023 1:01pm Advance Directive Response Recorded Date/ Time Advance Directives No February 01, 2023 12:01pm Chief Complaint and Reason for Visit Chief Complaint e89.0 e89.2 e55.9 e8 3.51 e03.9 Chief Complaint Admit Date E89.0 E89.2 May 07, 2024 1 1:28am Additional Source Comments Source Comments (unrecognize d section and content) In the event this informatio n is protected by the Federal Confidentiality of Alcohol and Drug Abuse Patient Records regulations: The Federal rules restrict any use of the information to criminally investigate or prosecute any alcohol or drug abuse patient.[facility] HospitalIn the event this information is protected by the Federal Confidentiality of Alcohol and Drug Abuse Patient Records regulations: The Federal rules restrict any use of the information to criminally investigate or prosecute any alcohol or drug abuse patient.[facility] HospitalIn the event this information is protected by the Federal Confidentiality of Alcohol and Drug Abuse Patient Records regulations: The Federal rules restrict any use of the information to criminally investigate or prosecute any alcohol or drug abuse patient.[facility] HospitalIn the event this information is protected by the Federal Confidentiality of Alcohol and Drug Abuse Patient Records regulations: The Federal rules restrict any use of the information to criminally investigate or prosecute any alcohol or drug abuse patient.[facility] HospitalIn the event this information is protected by the Federal Confidentiality of Alcohol and Drug Abuse Patient Records regulations: The Federal rules restrict any use of the information to criminally investigate or prosecute any alcohol or drug abuse patient.[facility] HospitalIn the event this information is protected by the Federal Confidentiality of Alcohol and Drug Abuse Patient Records regulations: The Federal rules restrict any use of the information to criminally investigate or prosecute any alcohol or drug abuse patient.[facility] HospitalIn the event this information is protected by the Federal Confidentiality of Alcohol and Drug Abuse Patient Records regulations: The Federal rules restrict any use of the information to criminally investigate or prosecute any alcohol or drug abuse patient.[facility] HospitalIn the event this information is protected by the Federal Confidentiality of Alcohol and Drug Abuse Patient Records regulations: The Federal rules restrict any use of the information to criminally investigate or prosecute any alcohol or drug abuse patient.[facility] HospitalIn the event this information is protected by the Federal Confidentiality of Alcohol and Drug Abuse Patient Records regulations: The Federal rules restrict any use of the information to criminally investigate or prosecute any alcohol or drug abuse patient.[facility] HospitalIn the event this information is protected by the Federal Confidentiality of Alcohol and Drug Abuse Patient Records regulations: The Federal rules restrict any use of the information to criminally investigate or prosecute any alcohol or drug abuse patient.[facility] Care Teams (unrecognized sec tion and content) Team MemberRelationshipSpecialtyStart DateEnd Date Daniela Joseph MD [address] [place] [address] PCP - GeneralFamily Ixesfcmw17/17/12 Team Status: Active Member Role Status Dates Ebony Sequeira MD Primary Care Provider Active Team Status: Inactive Member Role Status Dates Severino Rankin MD Attending Provider Active Almas Daizjohn a. [facility] hospitalalcides Care ProviderActiveTeam MemberRelationshipSpecialty Start DateEnd Date Unallocated, [place] [address] [place] [id number] PCP - GeneralFamily Medicine01/19/24Team MemberRelationshipSpecialtyStart DateEnd Date Unallocated, Delfina Ruffin MD [address] [place] [address] PCP - [facility] Medicine01/19/24Team MemberRelationshipSpecialtyStart DateEnd Date Unallocated, [place] [address] [place] [address] PCP - [facility]01/19/24Team MemberRelationshipSpecialtyStart DateEnd Date Unallocated, Delfina Ruffin MD [facility] [place] [address] PCP - [facility]01/19/24 Team Status: Inactive Member Role Status Dates Ebony Sequeira MD Primary Care Provider Active Start: May 07, 2024 End: May 07hmbib Rankin MDAttsuma ProviderActiveStart: May 07, 2024 End: May 07, 2024Team MemberRelationshipSpecialtyStart DateEnd Date Daniela Joseph MD [address] [place] [address] PCP - [facility]08/21/21Team MemberRelationshipSpecialtyStart DateEnd Date Daniela Joseph MD PCP - [facility] Medicine08/21/21Team MemberRelationshipSpecialtyStart DateEnd Date Daniela Joseph MD [facility] - [facility]08/21/21Team MemberRelationshipSpecialtyStart DateEnd Date Daniela Joseph MD [address] [place], [place] [id number] PCP - GeneralFamily Mvmzqbtr86/17/12Team MemberRelationshipSpecialtyStart Date End Date Daniela Joseph MD [address] [place] [address] PCP - GeneralFamily Ydyxlzub97/17/12Team MemberRelationshipSpecialtyStart Date End Date Daniela Joseph MD [address] [place] [address] PCP - GeneralFamily Epqvkeya42/17/12Team MemberRelationshipSpecialtyStart Date End Date Daniela Joseph MD [address] [place] [address] PCP - GeneralFamily Tyvdtgia78/17/12Team MemberRelationshipSpecialtyStart Date End Date Daniela Joseph MD PCP - GeneralFamily Medicine08/21/21Team MemberRelationshipSpecialtyStart DateEnd Date Daniela Joseph MD PCP - GeneralFamily Medicine08/21/21Team MemberRelationshipSpecialtyStart DateEnd Date Ebony Sequeira MD [address] [place] [address] PCP - GeneralFamily Medicine10/11/24Team MemberRelationshipSpecialtyStart DateEnd Date Ebony Sequeira MD [address] [place] [address] PCP - [facility] Medicine10/11/24Team MemberRelationshipSpecialtyStart DateEnd Date Daniela Joseph MD [address] [place] [address] [facility] - [facility] Isdrzpno98/17/126 Ebony Sequeira MD [address] [place] [address] PCP - [facility]10/11/24Team MemberRelationshipSpecialtyStart DateEnd Date Ebony Sequeira MD [address] [place] [address] PCP - [facility]10/11/24 Reason for Visit (unrecogniz ed section and content) ReasonCommentsOutside Labs ResultsReasonCommentsThyroid ProblemFollow-upReason CommentsThyroid ProblemReasonCommentsAnnual ExamReasonCommentsHypoparathyroidism Patient is looking to possibly transfer providersReasonCommentsThyroid Problem Parathyroid medication issuesReasonOnset DateCommentsMed Kpibhv8510/02/2024Reason CommentsRadiology CTSpecialtyDiagnoses / ProceduresReferred By ContactReferred To ContactCT IMAGING Diagnoses Acute abdomen Procedures CT ABD/PEL W IVCON CT ABD & PELVIS W/[place] [address] [address], [address] [address] Phone: tel: fax: [place] [address] Referral IDStatusReasonStart DateExpiration DateVisits RequestedVisits [id number] Auto-Generated Referral INFORMATION SOURCE (unrecogn ized section and content) DATE CREATED AUTHOR 04/21/2022 [facility] DATE CREATED AUTHOR AUTHOR'S ORGANIZ ATION 04/24/2023 [facility] DATE CREATED AUTHOR AUTHOR'S ORGANIZ ATION 01/27/2024 [facility] DATE CREATED AUTHOR AUTHOR'S ORGANIZ ATION 02/28/2024 [facility] DATE CREATED AUTHOR AUTHOR'S ORGANIZ ATION 03/15/2024 [facility] DATE CREATED AUTHOR AUTHOR'S ORGANIZ ATION 05/10/2024 [facility] DATE CREATED AUTHOR AUTHOR'S ORGANIZ ATION 05/17/2024 [facility] DATE CREATED AUTHOR AUTHOR'S ORGANIZ ATION 08/30/2024 [facility] DATE CREATED AUTHOR AUTHOR'S ORGANIZ ATION 03/01/2025 [facility] DATE CREATED AUTHOR AUTHOR'S ORGANIZ ATION 03/07/2025 [facility] DATE CREATED AUTHOR AUTHOR'S ORGANIZ ATION 03/08/2025 [facility] Goals (unrecognized section and content) Goals may be documented in a n alternate section No data available for this section No data available for this section No data available for this section No data available for this sectionGoals may be documented in an alternate sectionNot on filedocumented as of this encounterNot on filedocumented as of this encounterNot on filedocumented as of this encounter No data available for this sectionNot on filedocumented as of this encounterNot on filedocumented as of this encounter No data available for this section FOR RECORDS PERTAINING TO PATIENTS WHO ARE [...] BE BASED ON THE PRIMARY CLINICAL RECORDS. [employer] provides no warranty or guarantee of the accuracy or completeness of information in this document.
--- NOTE | 2025-03-27 10:37 | MM_ITS ---
Patient Name: MARCELINA LLANOS MR#: [id number] : 1960 Exam Date: 03/27/2025 Ordering Doctor: MAU POOLE . RADIOLOGY REPORT PROCEDURE: MM TOMOSYNTHESIS SCREENING BI COMPARISON: MM TOMOSYNTHESIS SCREENING BI, 03/15/2024. MM TOMOSYNTHESIS SCREENING BI, 11/02/2022. MG MAMM SCREEN 3D GIAN CAD, 03/26/2021. MG MAMM GIAN SCRN W CAD DIG, 04/10/2013. INDICATIONS: Screening Calculator Name NCI Breast Cancer Risk Assessment Tool 5 Year Breast Cancer Risk 1.10% Lifetime Breast Cancer Risk 4.90% Personal Breast Cancer No Personal Ovarian Cancer No Treatments Thyroidectomy Family Cancers Aunt-paternal with breast cancer at age 40; Aunt-paternal with ovarian cancer at age 70; Uncle-paternal with liver cancer at age 55; Sister with skin cancer at age 50. LOCATION: [facility] BREAST COMPOSITION: There are scattered areas of fibroglandular density. FINDINGS: RIGHT BREAST: No significant suspicious finding. Benign-appearing calcifications are present. LEFT BREAST: No significant suspicious finding. Benign-appearing calcifications are present. DIAGNOSTIC CATEGORY 2--BENIGN FINDING. NO CHANGE FROM COMPARISON. RECOMMENDATIONS: ROUTINE MAMMOGRAM AND CLINICAL EVALUATION IN 12 MONTHS. Dictated by: Gregg Tirado MD on 03/27/2025 at 16:24 Approved by: Gregg Tirado MD on 03/27/2025 at 16:25
== END 2025-03-27 10:04 | disposition home or self-care (01) ==
LOC: MAMMO 10:03
PROVIDERS: PCP Nurse Practitioner; Visit Provider Nurse Practitioner
DX: Z12.31 Encounter for screening mammogram for malignant neoplasm of breast (principal); Z80.3 Family history of malignant neoplasm of breast; Z80.41 Family history of malignant neoplasm of ovary; Z80.8 Family history of malignant neoplasm of other organs or systems
CPT/HCPCS: 77063; 77067